=== PATIENT | female | born 1940 | race Caucasian/White ===

== ENCOUNTER 2023-07-16 18:43 | Inpatient (IN) | payer MEDICARE, SELFPAY ==
[2023-07-16] VITALS (12 sets, daily range): BP systolic 94–144; BP diastolic 42–63; BMI 29.6; BMI 28.7
--- NOTE | 2023-07-16 14:04 | ED.GENMED ---
History of Present Illness
<Rosalie Nunez PA-C - Last Filed: 07/16/23 19:58>
General
Chief Complaint: Abdominal Pain
Source: patient and family
Exam Limitations: none
Time Seen by Provider: 07/16/23 13:43
Nursing documentation reviewed up to this point in time: agreed with
Travel History
Have you had any contact with someone who has COVID-19?: No
Do you have any symptoms of coronavirus? Fever > 100 degrees, chills, cough, shortness of breath, sore throat, loss of taste or smell, muscle aches, or headache?: No
History of Present Illness
History of Present Illness:
This is a 83-year-old female with past medical history of COPD/chronic bronchitis, CVA with left-sided deficit, diverticulitis, diabetes, recurrent UTI presenting to emergency department today with dysuria, abdominal pain, nausea and vomiting for
the past week. She lives at a assisted living facility and the nurses called her daughter when they noticed she started to complain of abdominal pain and other symptoms. Her daughter flew in from [place] and states that during the past week, her
mom has appeared pale to her, more lethargic, and slightly confused. Patient does not have dementia at baseline. Patient herself states that the pain is primarily in her right lower quadrant but also experiences pain all over the lower abdomen.
She also states that this pain travels into the pelvis. States that the pain waxes and wanes and will come on sharp all of a sudden. Patient also reports that she has not been eating or drinking much due to decreased appetite. Patient's daughter
states that patient has been also complaining of dizziness. Daughter took her mom to her family doctor today who ordered urinalysis and treat gave her some Azo. They advised her to report to the emergency department. Patient denies chest pain,
shortness of breath.
Past History
<Rosalie Nunez PA-C - Last Filed: 07/16/23 19:58>
Past History
ED Past Medical History: Asthma, COPD, CVA (Stroke with alteplase 2018), GERD, HTN, Hypercholesterolemia, NIDDM, Psychiatric (Generalized anxiety, major depression), Other (Pulmonary embolism, pneumonia, vertigo, DVT, orthostatic hypotension) and
Other (Nocturnal hypoxia without apnea, orthostatic hypotension)
ED Past Surgical History: Gynecological, Orthopedic (Right TKA, lumbar laminectomy 2016), Tonsilectomy and Other (PEG tube placement, sphincterotomy)
Social History
Tobacco: Former smoker
Alcohol: Daily (One glass Vodka)
Personal:
Living: with family
Family History
Family History: Other
Review of Systems
<Rosalie Nunez PA-C - Last Filed: 07/16/23 19:58>
Review of Systems
All Other Systems: ROS reviewed and negative except as documented in HPI and ROS
Phy Exam
<ERIK Costa Last Filed: 07/16/23 19:58>
Physical Exam
Physical Exam:
General: Patient appears ill
Skin: pallor noted; no other rashes or lesions
Cardiac: Regular rate and rhythm, no murmurs. No tenderness palpation of the external chest wall
Pulmonary: Normal respiratory effort, some scattered rhonchi noted in lower lung bases.
Abdomen: Abdomen is nondistended, no guarding. Patient has significant tenderness palpation right lower and left lower quadrant. No rebound tenderness noted, no organomegaly, no palpable masses, no areas of ecchymosis.
Genitourinary: Nursing noted significant erythema upon placement of straight catheter. On my examination, there is red inflamed mucosa with no lesions consistent with atrophic vaginitis, no vaginal discharge.
Neurological: Patient is oriented to person and place. Patient starts to fall asleep and less stimulated. Patient does answer questions but does appear slightly confused. Patient has chronic left-sided weakness from prior stroke. Cranial nerves
II through XII intact. No involuntary movements noted.
Course
<Rosalie Nunez PA-C - Last Filed: 07/16/23 19:58>
Orders/Labs/Results
Orders:
Orders
07/16/23 14:14
IV Insert/Care/Rem.- Treatment PRN
Straight cath- Treatment ONCE
07/16/23 14:16
Complete Blood Count/With Diff Urgent
Comprehensive Metabolic Panel Urgent
Lactic Acid Q4H
Comment: ON ICE, CANCEL 2ND ORDER IF FIRST LACTIC ACID LEVEL <2
Urinalysis Reflex To Culture Urgent
Date Specimen was Collected: 07/16/23
Time Specimen was Collected: 14:15
Urine Microscopic Reflex Cult Urgent
Blood Culture Q30M
LEONELA Source: Blood/Venous
Specimen Description:
Comment: FROM 2 SEPARATE SITES
Blood Culture Q30M
LEONELA Source: Blood/Venous
Specimen Description:
Comment: FROM 2 SEPARATE SITES
Urine Culture Urgent
LEONELA Source: U
Specimen Description:
Date Specimen was Collected: 07/16/23
Time Specimen was Collected: 14:15
07/16/23 14:56
CT Abd/pelvis W Iv Cont Urgent
Comment:
Reason For Exam: right lower quadrant
07/16/23 14:57
Cefepime HCl [Maxipime] 1,000 mg IV NOW STA
07/16/23 15:10
Sterile Water [Sterile Water For Injection] 10 ml .ROUTE .[facility]
07/16/23 17:10
Azithromycin 500 mg/250 ml [Zithromax Infusion] 500 mg in 250 ml IV NOW
CefTRIAXone [Rocephin] 1,000 mg IV NOW STA
07/16/23 17:12
CR Chest - 2 Views Urgent
Comment:
Reason For Exam: right sided pain, hypoxia
07/16/23 18:19
Admit/Transfer Patient As Directed
Co-Sign Provider:
Level of Care: Inpatient admission
Assign to:: Telemetry
Physician / Group: jessica
Diagnosis: pneumonia/uti
Reason for Telemetry: Chest Pain syndromes
Date to Stop Telemetry: 07/18/23
Time to Stop Telemetry: 11:00
Reason for Hospitalization: pneumonia/uti
Expected length of stay greater than two midnights?: Yes
ELOS- Estimated Length of Stay in days: 2
I certify the patient meets the requirements for IP care: Yes
07/16/23 18:20
Code Status As Directed
Resuscitation Status: Do not resuscitate
Reached after discussion with pt or family/Healthcare POA: Yes
DNR Bracelet Application ONCE
07/16/23 18:22
Respiratory Culture/Gram Stain Urgent
LEONELA Source: Sputum
Specimen Description:
07/16/23 18:33
HYDROmorphone [Dilaudid] 0.5 mg IV Q4HPRN PRN
Ondansetron Injectable [Zofran] 4 mg IV Q6HPRN PRN
07/16/23 18:43
COVID-19 Antigen Urgent
Source: Nasal Swab
Influenza A+B Rapid Molecular Urgent
LEONELA Source: Nasal Swab
Specimen Description:
07/18/23 11:00
DC Protocol for Telemetry ONCE
Abnormal Lab Results
07/16/23
14:16
WBC 21.4 H 10^3/uL
(4.8-10.8)
RBC 3.93 L 10^6/uL
(4.20-5.40)
Hgb 9.4 L g/dL
(12.0-16.0)
Hct 30.2 L %
(37.0-47.0)
MCV 76.8 L fL
(81.0-99.0)
MCH 23.9 L pg
(27.0-31.0)
MCHC 31.1 L g/dL
(33.0-37.0)
RDW 15.3 H %
(11.5-14.5)
Plt Count 448 H 10^3/uL
(130-400)
Abs Immat Gran (auto) 0.1 H 10^3/uL
(0-0.05)
Absolute Neuts (auto) 18.6 H 10^3/uL
(1.4-6.5)
Absolute Lymphs (auto) 0.9 L 10^3/uL
(1.2-3.4)
Absolute Monos (auto) 1.7 H 10^3/uL
(0.1-0.6)
Immature Gran % 0.6 H %
(0-0.5)
Neutrophils % 87.0 H %
(42.2-75.2)
Lymphocytes % 4.1 L %
(20.5-51.1)
Sodium 129 L mmol/L
(135-145)
Creatinine 0.5 L mg/dL
(0.6-1.0)
Glucose 152 H mg/dl
(70-99)
Albumin 3.3 L g/dl
(3.5-5.0)
Urine Ketones 1+ A
(Negative)
Urine Nitrite (Reflex) Positive A
(Negative)
Urine Bilirubin 2+ A
(Negative)
Urine Urobilinogen 3+ A
(Neg - 1+)
Leukocyte Esterase Rfl Trace A
(Negative)
Urine Bacteria (Reflex) Many A
(Negative)
07/16/23 14:16
07/16/23 14:24
Vital Signs
Initial and Last Documented VS:
Initial Vital Signs
BP
144/63
07/16/23 13:50
Last Documented Vital Signs
Temp Pulse Resp BP Pulse Ox
98.5 F 84 25 106/57 94
07/16/23 14:06 07/16/23 19:00 07/16/23 19:00 07/16/23 19:00 07/16/23 19:00
<Sánchez Hernandez, DO - Last Filed: 07/16/23 15:54>
Orders/Labs/Results
Orders:
Orders
07/16/23 14:14
IV Insert/Care/Rem.- Treatment PRN
Straight cath- Treatment ONCE
07/16/23 14:16
Complete Blood Count/With Diff Urgent
Comprehensive Metabolic Panel Urgent
Lactic Acid Q4H
Comment: ON ICE, CANCEL 2ND ORDER IF FIRST LACTIC ACID LEVEL <2
Urinalysis Reflex To Culture Urgent
Date Specimen was Collected: 07/16/23
Time Specimen was Collected: 14:15
Urine Microscopic Reflex Cult Urgent
Blood Culture Q30M
LEONELA Source: Blood/Venous
Specimen Description:
Comment: FROM 2 SEPARATE SITES
Blood Culture Q30M
LEONELA Source: Blood/Venous
Specimen Description:
Comment: FROM 2 SEPARATE SITES
Urine Culture Urgent
LEONELA Source: U
Specimen Description:
Date Specimen was Collected: 07/16/23
Time Specimen was Collected: 14:15
07/16/23 14:56
CT Abd/pelvis W Iv Cont Urgent
Comment:
Reason For Exam: right lower quadrant
07/16/23 14:57
Cefepime HCl [Maxipime] 1,000 mg IV NOW STA
07/16/23 15:10
Sterile Water [Sterile Water For Injection] 10 ml .ROUTE .[facility]
07/16/23 17:10
Azithromycin 500 mg/250 ml [Zithromax Infusion] 500 mg in 250 ml IV NOW
CefTRIAXone [Rocephin] 1,000 mg IV NOW STA
07/16/23 17:12
CR Chest - 2 Views Urgent
Comment:
Reason For Exam: right sided pain, hypoxia
07/16/23 18:19
Admit/Transfer Patient As Directed
Co-Sign Provider:
Level of Care: Inpatient admission
Assign to:: Telemetry
Physician / Group: jessica
Diagnosis: pneumonia/uti
Reason for Telemetry: Chest Pain syndromes
Date to Stop Telemetry: 07/18/23
Time to Stop Telemetry: 11:00
Reason for Hospitalization: pneumonia/uti
Expected length of stay greater than two midnights?: Yes
ELOS- Estimated Length of Stay in days: 2
I certify the patient meets the requirements for IP care: Yes
07/16/23 18:20
Code Status As Directed
Resuscitation Status: Do not resuscitate
Reached after discussion with pt or family/Healthcare POA: Yes
DNR Bracelet Application ONCE
07/16/23 18:22
Respiratory Culture/Gram Stain Urgent
LEONELA Source: Sputum
Specimen Description:
07/16/23 18:33
HYDROmorphone [Dilaudid] 0.5 mg IV Q4HPRN PRN
Ondansetron Injectable [Zofran] 4 mg IV Q6HPRN PRN
07/16/23 18:43
COVID-19 Antigen Urgent
Source: Nasal Swab
Influenza A+B Rapid Molecular Urgent
LEONELA Source: Nasal Swab
Specimen Description:
07/18/23 11:00
DC Protocol for Telemetry ONCE
Abnormal Lab Results
07/16/23
14:16
WBC 21.4 H 10^3/uL
(4.8-10.8)
RBC 3.93 L 10^6/uL
(4.20-5.40)
Hgb 9.4 L g/dL
(12.0-16.0)
Hct 30.2 L %
(37.0-47.0)
MCV 76.8 L fL
(81.0-99.0)
MCH 23.9 L pg
(27.0-31.0)
MCHC 31.1 L g/dL
(33.0-37.0)
RDW 15.3 H %
(11.5-14.5)
Plt Count 448 H 10^3/uL
(130-400)
Abs Immat Gran (auto) 0.1 H 10^3/uL
(0-0.05)
Absolute Neuts (auto) 18.6 H 10^3/uL
(1.4-6.5)
Absolute Lymphs (auto) 0.9 L 10^3/uL
(1.2-3.4)
Absolute Monos (auto) 1.7 H 10^3/uL
(0.1-0.6)
Immature Gran % 0.6 H %
(0-0.5)
Neutrophils % 87.0 H %
(42.2-75.2)
Lymphocytes % 4.1 L %
(20.5-51.1)
Sodium 129 L mmol/L
(135-145)
Creatinine 0.5 L mg/dL
(0.6-1.0)
Glucose 152 H mg/dl
(70-99)
Albumin 3.3 L g/dl
(3.5-5.0)
Urine Ketones 1+ A
(Negative)
Urine Nitrite (Reflex) Positive A
(Negative)
Urine Bilirubin 2+ A
(Negative)
Urine Urobilinogen 3+ A
(Neg - 1+)
Leukocyte Esterase Rfl Trace A
(Negative)
Urine Bacteria (Reflex) Many A
(Negative)
07/16/23 14:16
07/16/23 14:24
Vital Signs
Initial and Last Documented VS:
Initial Vital Signs
BP
144/63
07/16/23 13:50
Last Documented Vital Signs
Temp Pulse Resp BP Pulse Ox
98.5 F 84 25 106/57 94
07/16/23 14:06 07/16/23 19:00 07/16/23 19:00 07/16/23 19:00 07/16/23 19:00
<Rosalie Nunez PA-C - Last Filed: 07/16/23 19:58>
MDM/Problems Addressed
Differential Diagnosis Includes:
Differentials include acute cystitis, pyelonephritis, appendicitis, colitis
MDM/Problems Addressed:
abdominal pain
dysuria
nausea/vomiting
Chronic conditions affecting care: DM, HTN, COPD and Neurological disorder (previous CVA, chronic left sided weakness)
Acute Exacerbation and/or Progression of Chronic Illness:
n/a
<Rosalie Nunez PA-C - Last Filed: 07/16/23 19:58>
*Pulse Oximetry
Patient hypoxic: yes (82% on room air, sating in the 90s on oxygen via nasal cannual)
*Critical Care Note
Total Time (30-74mins, 75-104mins- exclusive of procedures): Not Applicable
Data Reviewed
Review of Other/Old Records Reveals: Discharge Summary (reviewed discharged summary 12/30/22)
Prescriptions/Medications Considered But Not Given:
n/a
Further Testing Considered But Not Given:
n/a
<Rosalie Nunez PA-C - Last Filed: 07/16/23 19:58>
Patient Management
Escalation/DeEscalation of care consider admission/obs:
This is a 83-year-old female with a past medical history of COPD, CVA with left-sided weakness, recurrent UTIs, diabetes presents emergency department today with a week of abdominal pain, vomiting, and dysuria. Patient's daughter reports that she
has been increasingly more confused this week as well. On exam, she had moderate tenderness in the right lower quadrant as well as scattered rhonchi on her pulm exam. Her CBC reveals leukocytosis, her urinalysis reveals a UTI. We obtained a CT
scanning of the abdomen which revealed a right-sided pneumonia and concurrent pleural effusion. We treated patient with azithromycin and cefepime. Considering new supplemental oxygen requirement, altered mental status, concurrent UTI, and
comorbidities, we will plan to admit patient for inpatient care for community acquired pneumonia.
ED Attending Note
<Rosalie Nunez PA-C - Last Filed: 07/16/23 19:58>
-
Portions of this chart may have been created with voice recognition software.� Occasional wrong word or��sound alike� substitutions may have occurred due to the inherent limitations of voice recognition software.
<Sánchez Hernandez DO - Last Filed: 07/16/23 15:54>
ED Attending Note
Patient seen and examined by attending physician: Yes
I performed the substantive portion of visit, reviewed & personally made and approve the management plan that is documented in note by myself or GINA.: Yes
I performed a history and physical exam of patient and discussed management with resident, I reviewed resident's note and agree with documented findings and plan of care.: Yes
ED Attending Note:
I have reviewed and agree with history and treatment plan by Rosalie Nunez. My exam revealed 83-year-old female with right lower quadrant tenderness, rhonchi. Differential diagnosis pneumonia, appendicitis, UTI. Patient has UTI on urinalysis.
Plan to admit. Cefepime given. CT abdomen pelvis pending, chest x-ray pending.
Discharge Plan
Departure
Patient Disposition: Admit
Date of Disposition: 07/16/23
Time of Disposition: 17:35
Admit to: Med/Surg
Presentation/result/management discussed w/ accepting MD/DO: Hospitalist
Patient with high blood pressure during this ER visit?: Yes
Condition: Fair
Discharge Problem:
Community acquired pneumonia, Acute UTI
Interventions
Interventions:
*Risk Screen - Suicide Last Done: 07/16/23 14:11
*General Assessment Last Done: 07/16/23 14:11
*Neglect/Abuse Screening Last Done: 07/16/23 14:11
ED- Fall Risk Assessment Last Done: 07/16/23 14:12
*ED COVID-19 Vaccine History Last Done: 07/16/23 13:52
OZ-Dgcsgm-Opvaxybete Assessment Last Done: 07/16/23 14:12
[2023-07-16 14:31] LABS: % Basophils 0.3 % (0-2); % Eosinophils 0.1 % (0-6); % Immature Granulocytes 0.6 % (0-0.5); % Lymphocytes 4.1 % (20.5-51.1); % Monocytes 7.9 % (1.7-9.3); Absolute Basophils 0.1 10^3/uL (0-0.2); Absolute Immature Granulocytes 0.1 10^3/uL (0-0.05); Absolute Lymphocytes 0.9 10^3/uL (1.2-3.4); Absolute Monocytes 1.7 10^3/uL (0.1-0.6); Absolute Neutrophils 18.6 10^3/uL (1.4-6.5); Hematocrit 30.2 % (37.0-47.0); Hemoglobin 9.4 g/dL (12.0-16.0); Mean Corp Hgb Conc. 31.1 g/dL (33.0-37.0); Mean Corpuscular Hgb 23.9 pg (27.0-31.0); Mean Corpuscular Volume 76.8 fL (81.0-99.0); Mean Platelet Volume 9.8 fL (7.4-10.4); Nucleated Red Blood Cells % 0 %; Platelet Count 448 10^3/uL (130-400); Red Blood Cell Count 3.93 10^6/uL (4.20-5.40); Red Cell Dist. Width 15.3 % (11.5-14.5); White Blood Cell Count 21.4 10^3/uL (4.8-10.8)
[2023-07-16 14:37] LABS: Urine Albumin Trace (Neg - Trace); Urine Bilirubin 2+ (Negative); Urine Character Clear (Clear); Urine Color Amber; Urine Glucose Negative (Negative); Urine Ketone 1+ (Negative); Urine Leukocyte Trace (Negative); Urine Nitrite Positive (Negative); Urine Occult Blood Negative (Negative); Urine Urobilinogen 3+ (Neg - 1+)
[2023-07-16 14:49] LABS: ALT (SGPT) 14 U/L (0-35); AST (SGOT) 22 U/L (14-36); Albumin 3.3 g/dl (3.5-5.0); Alkaline Phosphatase 102 U/L (38-126); Blood Urea Nitrogen 13 mg/dl (7-17); Calcium 8.4 mg/dl (8.4-10.2); Carbon Dioxide 23 mmol/L (22-30); Chloride 98 mmol/L (98-107); Estimated Creatinine Clearance 69 ml/min; Glucose 152 mg/dl (70-99); Potassium 4.4 mmol/L (3.5-5.1); Sodium 129 mmol/L (135-145); Total Bilirubin 0.8 mg/dl (0.2-1.3); Total Protein 6.5 g/dl (6.3-8.2); eGFR > 60.00
[2023-07-16 14:52] LABS: Lactic Acid 0.9 mmol/L (0.7-2.0); Urine Mucus Many
[2023-07-16 14:53] LABS: Urine Squamous Cell >30 /LPF (Few)
[2023-07-16 14:54] LABS: Urine Bacteria Many (Negative); Urine Granular Cast 0-2 /LPF (0)
[2023-07-16 14:55] LABS: Urine Red Blood Cell 0-2 /HPF (0-2)
[2023-07-16] MEDS: MAXIPIME 1000 MG IV (15:11)
[2023-07-16] MEDS: ZITHROMAX INFUSION 250 IV (17:32)
--- NOTE | 2023-07-16 18:27 | HPS.HSE ---
Family Physician
-
Family Physician: Abi Collins MD
Chief Complaint
-
chest/abdominal pain
History of Present Illness
83-year-old female with past medical history of asthma/COPD, prediabetes, hypertension, constipation, anemia, GERD, CVA with residual left-sided paralysis, anxiety/depression, recurrent UTI, orthostatic hypotension, history of DVT/PE, achalasia,
IBS, diverticulosis presenting from assisted living facility with, abdominal pain and nausea and vomiting for the past week. She has also been having cough, chest pain worse with cough and hypoxia. Daughter noticed that patient has appeared more
pale, lethargic and slightly confused over the past week. Pain is located primarily in the right lower quadrant but also in the lower abdomen bilaterally. Pain waxes and wanes and comes on sharp and suddenly. Patient has not been eating or
drinking much due to decreased appetite. Patient is also been dizzy. Daughter took patient to family doctor today who ordered urinalysis and advised her to go to the emergency room.
Patient does not smoke or drink alcohol.
Patient has been having chronic back pain and neuropathic pain in the left upper extremity where she had prior stroke. She takes tramadol once a day at nighttime and Tylenol which has been inadequate. Patient's primary care physician was
considering gabapentin.
Medical History
Past Medical History
Past Medical History: Reports Other (asthma/COPD, prediabetes, hypertension, constipation, anemia, GERD, CVA with residual left-sided paralysis, anxiety/depression, recurrent UTI, orthostatic hypotension, history of DVT/PE, achalasia, IBS,
diverticulosis)
Past Surgical History: Reports Other ( Gynecological, Orthopedic (Right TKA, lumbar laminectomy 2016), Tonsilectomy and Other (PEG tube placement, sphincterotomy))
Social History
Tobacco: Non-smoker
Alcohol: None
Drug: None
Family History
Family History: Not pertinent
Allergies / Home Medications
Allergies reflects when Allergies were last updated in [employer].
Home Medications with original date entered in [facility]
Allergy/Medication List:
Allergies
Allergy/AdvReac Type Severity Reaction Status Date / Time
codeine [Codeine] Allergy Nausea Verified 07/16/23 13:41
prochlorperazine Allergy Rash Verified 07/16/23 13:41
Clswbxu-VJR-DaI Reductase Allergy muscle Verified 07/16/23 13:41
Inhibitor weakness
[Prxklwb-Ueo-Hqj Reductase
Inhibitor]
Sulfa (Sulfonamide Allergy Pt unsure Verified 07/16/23 13:41
Antibiotics) of reaction
Home Medications
montelukast 10 mg tablet 10 mg PO DAILY Lung/breathing issues 09/30/15
ipratropium 20 mcg-albuterol 100 mcg/actuation mist for inhalation (Combivent Respimat) 1 puff inhalation R QID 05/04/16
cholecalciferol (vitamin D3) 25 mcg (1,000 unit) tablet 1,000 units PO DAILY Supplement 12/21/16
aspirin 81 mg chewable tablet 81 mg PO DAILY Blood clot prevention/tx 10/09/20
atorvastatin 20 mg tablet 20 mg PO HS High cholesterol 10/09/20
bupropion HCl 100 mg tablet 100 mg PO TID Mental Health/Anxiety 10/09/20
fluticasone propionate 50 mcg/actuation nasal spray,suspension 1 spray intranasal DAILY Allergies 10/09/20
guaifenesin 100 mg/5 mL oral liquid 100 mg PO Q6HPRN PRN cough ##0 10/09/20
meclizine 12.5 mg tablet 12.5 mg PO BIDPRN PRN dizziness 10/09/20
melatonin 5 mg tablet 5 mg PO HSPRN PRN INSOMNIA 10/09/20
menthol 5 % topical patch (Icy Hot (menthol)) 1 patch topical DAILY left hip ##0 10/09/20
omeprazole 20 mg capsule,delayed release 20 mg PO DAILY Gastrointestinal issue 10/09/20
phenazopyridine 100 mg tablet 100 mg PO BIDPRN PRN URINARY BURNING 10/09/20
polyethylene glycol 3350 17 gram oral powder packet 17 grams PO DAILYPRN PRN CONSTIPATION 10/09/20
rivaroxaban 20 mg tablet (Xarelto) 20 mg PO QPM Blood clot prevention/tx 10/09/20
sertraline 100 mg tablet 100 mg PO DAILY Mental Health/Anxiety 10/09/20
terazosin 1 mg capsule 1 mg PO HS Urinary issue 10/09/20
trazodone 50 mg tablet 50 mg PO BID PRN insomnia 10/09/20
Calazmine Skin Protect 1 applic topical TID PRN apply to groin, buttocks, coccyx 12/27/22
acetaminophen 160 mg/5 mL oral liquid (M-PAP) 1,000 mg PO TID@0600,1400,2200 12/27/22
baclofen 10 mg tablet 10 mg PO TIDPRN PRN muscle spams 12/27/22
fluticasone 113 mcg-salmeterol 14 mcg/actuation breath activated powdr 1 inh inhalation R BID 12/27/22
ipratropium 20 mcg-albuterol 100 mcg/actuation mist for inhalation (Combivent Respimat) 1 puff inhalation R BIDPRN PRN sob 12/27/22
menthol 5 % topical patch (Icy Hot (menthol)) 1 patch topical DAILY PRN left shoulder 12/27/22
mirabegron 25 mg tablet,extended release 24 hr (Myrbetriq) 25 mg PO DAILY 12/27/22
nystatin 100,000 unit/gram topical powder 1 applic topical DAILYPRN PRN breasts/groin rash 12/27/22
psyllium 1 packet PO DAILY ##0 12/27/22
tramadol 50 mg tablet 50 mg PO BID 12/27/22
vit C 250 mg-E 90 mg-zinc 40 mg-copper 1 du-ramckf-vkfjfo chew tablet (PreserVision AREDS-2) 1 tab PO DAILY 12/27/22
cyanocobalamin (vitamin B-12) 1,000 mcg tablet 1,000 mcg PO DAILY #30 tabs 12/30/22
midodrine 5 mg tablet 5 mg PO TID 07/16/23
Review of Systems
-
History Source: Patient
A 12 point ROS was completed and negative except as noted: Yes
Constitutional: Reports No Symptoms
EENT: Reports No Symptoms
Respiratory: Reports See HPI
Cardiac: Reports See HPI
Abdomen/GI: Reports See HPI
: Reports No Symptoms
Musculoskeletal: Reports No Symptoms
Skin: Reports No Symptoms
Neurological: Reports No Symptoms
Endocrine: Reports No Symptoms
Hematologic/Lymphatic: Reports No Symptoms
Psych: Reports No Symptoms
Physical Exam
Vital Signs
Vital Signs
Temp Pulse Resp BP Pulse Ox
98.5 F 83 22 122/57 92
07/16/23 14:06 07/16/23 17:15 07/16/23 17:15 07/16/23 17:00 07/16/23 17:15
Physical Exam
General: Well Developed, Well Nourished and No Apparent Distress
HEENT: NormoCephalic, Moist mucous membranes and Atraumatic
Respiratory: Clear
Cardiac: S1/S2 and Regular Rhythm; No Murmur or Rub
GI: Soft, Non Distended, Normal Bowel Sounds and Tender; No Organomegaly
Rectal: Deferred by Provider
Musculoskeletal: No Clubbing, No Cyanosis and No Edema
Skin: No Rash
Neuro: Nonfocal/grossly intact
Laboratory Results
-
07/16/23 14:16
07/16/23 14:24
Laboratory Results
Lactic Acid Cancelled 07/16/23 14:28
Total Bilirubin Cancelled 07/16/23 14:24
AST Cancelled 07/16/23 14:24
ALT Cancelled 07/16/23 14:24
Alkaline Phosphatase Cancelled 07/16/23 14:24
Data Reviewed
-
Lab Data: Labs Reviewed by me
Old Records: Reviewed
Impression/Plan
-
IMPRESSION:
PLAN:
# Right basilar pneumonia with small right pleural effusion
-As per CT abdomen pelvis
-Chest x-ray pending
-Check sputum culture
-Check blood cultures
-Check COVID influenza
-IV fluids
-Ceftriaxone/azithromycin
-As needed Dilaudid for significant chest/abdominal pain
# Possible UTI
-UA shows positive nitrates, 3-5 WBC
-Patient has grew E. coli several times in the past
-Ceftriaxone
-Continue azo
Asthma/COPD
-Continue inhalers
-Continue montelukast
Prediabetes
History of CVA with residual left-sided paralysis/neuropathic pain
-difficulty with pain control
-Continue aspirin, statin
-Consider gabapentin when infection better treated and mental status improved
Chronic back pain
-Continue tramadol
History of muscle spasms
-continue baclofen PRN
Constipation
-Continue MiraLAX
Chronic anemia
-Hemoglobin stable
GERD
-Continue omeprazole
Anxiety/depression
-Continue bupropion, sertraline
-Continue trazodone PRN
History of orthostatic hypotension
-Continue midodrine
History of DVT/PE
-Continue Xarelto
Essential hypertension
-Continue terazosin
History of achalasia
IBS
Diverticulosis
DNR/DNI
DVT prophylaxis�Xarelto
Regular diet
[2023-07-16] MEDS: DILAUDID 0.5 MG IV (18:36)
[2023-07-16] MEDS: ZOFRAN 4 MG IV (18:38)
[2023-07-16 19:15] LABS: COVID-19 Antigen Negative (Negative)
[2023-07-16] MEDS: ADVAIR HFA 115/21 MCG INHALER 2 PUFF INH (21:14)
[2023-07-16] MEDS: COMBIVENT RESPIMAT INHAL SPRAY 1 PUFF INH (21:14)
[2023-07-16] MEDS: ULTRAM 50 MG PO (21:52)
[2023-07-16] MEDS: HYTRIN 1 MG PO (21:52)
[2023-07-16] MEDS: DESENEX/MITRAZOL/ZEASORB 1 APPLIC TOPICAL (21:52)
[2023-07-16] MEDS: NSS 1000 IV (21:52)
[2023-07-16] MEDS: TYLENOL 1000 MG PO (21:53)
[2023-07-16] MEDS: STERILE WATER FOR INJECTION 10 ML IV (21:53)
[2023-07-16] MEDS: ROCEPHIN 1000 MG IV (21:53)
[2023-07-16] MEDS: WELLBUTRIN REGULAR RELEASE 100 MG PO (21:53)
[2023-07-16] MEDS: LIPITOR 20 MG PO (21:53)
[2023-07-17] VITALS (8 sets, daily range): BP systolic 102–130; BP diastolic 41–60
--- NOTE | 2023-07-17 01:09 | PTCARENOTE ---
Patient arrived from the ED via stretcher at approximately 2100. Patient pulled over from stretcher to bed with no event. Patient AAOx3, forgetful (especially to time at times), SOLOMON. Patient w/ residual L sided facial droop, L sided decreased
sensation/numbness/tingling, and tremors/spastic movements from prior CVA. VSS as documented. Assessment as documented. Patient oriented to room, bed in lowest position, call edwards within reach.
--- NOTE | 2023-07-17 04:14 | PTCARENOTE ---
Patient's 0300 BP 102/47, HR 78. Patient offering no complaints at that time. LAMINATOR HAND notified. Instructed this RN to obtain manual BP. Manual BP of 110/44 - LAMINATOR HAND notified of manual BP. No new orders at this time.
[2023-07-17] MEDS: TYLENOL 1000 MG PO ×3 (06:11→21:18)
[2023-07-17] MEDS: ADVAIR HFA 115/21 MCG INHALER 2 PUFF INH ×2 (07:35→18:02)
[2023-07-17] MEDS: COMBIVENT RESPIMAT INHAL SPRAY 1 PUFF INH ×4 (07:35→18:03)
[2023-07-17 07:58] LABS: % Basophils 0.4 % (0-2); % Eosinophils 2.7 % (0-6); % Immature Granulocytes 0.4 % (0-0.5); % Lymphocytes 7.9 % (20.5-51.1); % Monocytes 9.4 % (1.7-9.3); % Neutrophils 79.2 % (42.2-75.2); Absolute Basophils 0.1 10^3/uL (0-0.2); Absolute Eosinophils 0.4 10^3/uL (0-0.7); Absolute Immature Granulocytes 0.1 10^3/uL (0-0.05); Absolute Lymphocytes 1.1 10^3/uL (1.2-3.4); Absolute Monocytes 1.3 10^3/uL (0.1-0.6); Absolute Neutrophils 11.1 10^3/uL (1.4-6.5); Hematocrit 26.7 % (37.0-47.0); Hemoglobin 8.5 g/dL (12.0-16.0); Mean Corp Hgb Conc. 31.8 g/dL (33.0-37.0); Mean Corpuscular Hgb 23.9 pg (27.0-31.0); Mean Corpuscular Volume 75.2 fL (81.0-99.0); Nucleated Red Blood Cells % 0 %; Red Blood Cell Count 3.55 10^6/uL (4.20-5.40); Red Cell Dist. Width 15.2 % (11.5-14.5)
[2023-07-17 08:08] LABS: ALT (SGPT) 12 U/L (0-35); AST (SGOT) 18 U/L (14-36); Albumin 2.7 g/dl (3.5-5.0); Alkaline Phosphatase 93 U/L (38-126); Blood Urea Nitrogen 8 mg/dl (7-17); Calcium 8.1 mg/dl (8.4-10.2); Carbon Dioxide 24 mmol/L (22-30); Chloride 104 mmol/L (98-107); Estimated Creatinine Clearance 68 ml/min; Glucose 94 mg/dl (70-99); Sodium 133 mmol/L (135-145); Total Bilirubin 0.6 mg/dl (0.2-1.3); Total Protein 5.7 g/dl (6.3-8.2); eGFR > 60.00
[2023-07-17] MEDS: WELLBUTRIN REGULAR RELEASE 100 MG PO ×3 (09:02→21:19)
[2023-07-17] MEDS: OCUVITE SOFTGEL 1 CAP PO (09:03)
[2023-07-17] MEDS: VITAMIN B-12 1000 MCG PO (09:03)
[2023-07-17] MEDS: LOW STRENGTH ASPIRIN 81 MG PO (09:03)
[2023-07-17] MEDS: VITAMIN D3 (cholecalciferol) 25 MCG PO (09:03)
[2023-07-17] MEDS: SINGULAIR 10 MG PO (09:03)
[2023-07-17] MEDS: ProAmatine 5 MG PO ×3 (09:03→17:45)
[2023-07-17] MEDS: ZOLOFT 100 MG PO (09:03)
[2023-07-17] MEDS: PROTONIX 40 MG PO (09:03)
[2023-07-17] MEDS: LIDOCAINE 4% PATCH 2 PATCH TOPICAL (09:04)
[2023-07-17] MEDS: METAMUCIL, KONSYL 1 PACKET PO (09:05)
[2023-07-17] MEDS: ULTRAM 50 MG PO ×2 (09:05→20:05)
[2023-07-17] MEDS: DESENEX/MITRAZOL/ZEASORB 1 APPLIC TOPICAL ×2 (09:21→20:05)
[2023-07-17] MEDS: NSS 1000 IV ×2 (09:27→21:45)
--- NOTE | 2023-07-17 11:03 | W.PN.HOSP.TC ---
Today's Communication/Plan
-
Speech eval
Barium swallow
cw abx as planned above
Assessment / Plan
Assessment / Plan
# Right basilar pneumonia with small right pleural effusion/atelectasis
Patient with cough , leukocytosis and above lung imaging all concerning for pneumonia.
With the GI symptoms of constant nausea and abdominal pain also concerned about aspiration. She has remote history of achalasia.
Continue with empirical antibiotics-add anaerobic coverage. Swtich CTX to Zosyn and cw Zithromax for atypical for now
Speech eval
Barium swallow
--Check blood cultures- pending
-Neg COVID influenza
-cw IV fluids
# Nausea and abdominal pain -persistent nausea with intermittent abdominal pain with negative CT abdomen pelvis with IV contrast. No oral contrast given. Belly is soft with nonspecific left upper quadrant discomfort. Unclear etiology but will
evaluate further from achalasia standpoint -check barium swallow.
# UA abnormal but no pyuria - no dysuria . It is a contaminated specimen.
Asthma/COPD
No excacerbation
-Continue inhalers
-Continue montelukast
Prediabetes
History of CVA with residual left-sided paralysis/neuropathic pain
-difficulty with pain control
-Continue aspirin, statin
-Consider gabapentin when infection better treated and mental status improved
Chronic back pain
-Continue tramadol
History of muscle spasms
-continue baclofen PRN
Constipation
-Continue MiraLAX
Chronic anemia
-Hemoglobin stable
GERD
-Continue omeprazole
Anxiety/depression
-Continue bupropion, sertraline
-Continue trazodone PRN
History of orthostatic hypotension
-Continue midodrine
History of DVT/PE
-Continue Xarelto
Essential hypertension
-Continue terazosin
History of achalasia
IBS
Diverticulosis
DNR/DNI
DVT prophylaxis�Xarelto
Total time spent on today's encounter was 52 minutes which included time spent in counseling the patient/family regarding diagnosis and treatment plan as listed above, goals of care, and symptom management. Case was discussed with nursing staff,
specialists, and care coordinators/case management. All labs and imaging personally reviewed by me. Remainder the time spent in detailed review of previous records, lab data, imaging, and other medical provider documentation.
Anticipated Discharge: > 48 hours
Subjective/Interval History
-
Date of Service: July 17, 2023
Patient presents with 1 week of constant nausea and intermittent abdominal pain.
She has constant nausea but denies any vomiting. Her abdominal pain is moderate in nature comes in waves. Does not seems to be related to food. But her appetite has been low. No diarrhea. No fever or chills.
She has prior history of achalasia needing dilatation that was many years ago. She has dysphagia with achalasia and the pain seems different.
She had a cough
Objective Data
-
Labs:
Laboratory Results
07/17/23
06:40
WBC 14.0 H
Hgb 8.5 L
Hct 26.7 L
Plt Count Pending
Sodium 133 L
Potassium 4.0
Chloride 104
Carbon Dioxide 24
BUN 8
Creatinine 0.5 L
Glucose 94
Calcium 8.1 L
Total Bilirubin 0.6
AST 18
ALT 12
Alkaline Phosphatase 93
Vital Signs:
Vital Signs
Temp Pulse Resp BP Pulse Ox
98.8 F 79 12 105/41 95
07/17/23 08:37 07/17/23 08:37 07/17/23 08:37 07/17/23 08:37 07/17/23 08:37
Review of Systems
-
Constitutional: Denies Fever or Chills
EENT: Denies Sore Throat
Respiratory: Denies Trouble Breathing (at rest)
Cardiac: Denies Chest Pain or Palpitations
Genitourinary: Denies Dysuria
Neuro: Reports Weakness (left sided residual from stroke); Denies Dizzy
Physical Exam
-
General: No Apparent Distress
HEENT: Moist Mucous Membranes
Respiratory: Crackles (rt basilar area) and Non Labored Respirations; Negative Wheezes or Accessory Resp Muscle Use
Cardiac: Regular Rhythm and S1/S2
GI: Soft, Nondistended, Normal Bowel Sounds and Tender (discomfort in LUQ area but doesnt seem consistent )
Musculoskeletal: No Edema
Neuro: AO x 3; Negative No Motor Deficits (lt sided hemiparesis 09/16 UE;/ LE)
Psych: Calm; Negative Confused
Data Reviewed
-
Labs: Labs Reviewed by me
[2023-07-17] MEDS: DILAUDID 0.5 MG IV ×2 (11:42→21:45)
[2023-07-17] MEDS: FLUSH (NSS) 2 FLUSH IV ×2 (11:43→17:46)
[2023-07-17] MEDS: ZOSYN 50 IV ×2 (11:44→17:45)
[2023-07-17] MEDS: ZOFRAN 4 MG IV ×2 (11:48→21:51)
--- NOTE | 2023-07-17 14:56 | PTOTSP ---
Dysphagia Evaluation
83 y/o female with admission for right basilar pneumonia with small right pleural effusion and possible UTI.
Pt presents with a mild to moderately impaired oropharyngeal swallow characterized by prolonged chew of regular solid 2/2 L sided facial weakness, and increased SOB and c/o globus sensation s/p trials of regular solid. Recommend trial of soft and
bite sized diet (IDDSI 6) and thin liquids (IDDSI 0). Consider repeat VSE s/p barium swallow study if PNA is suspected to be aspiration related.
Aspiration risk is increased (both top-down and bottom-up) 2/2 increased O2 needs, presence of PNA, AMS, and multiple comorbidities (achalasia, asthma/COPD, GERD, CVA with residual left-sided paralysis).
Recommend:
1. Soft and bite sized (IDDSI 6), thin liquids (IDDSI 0)
2. Meds crushed in puree
3. Feeding strategies: Slow rate, chew well, alternate bites and sips, full supervision, upright for PO
4. Strict reflux precautions: upright 30 minutes after PO, smaller more frequent meals when able
5. GI consult in the presence of achlasia hx
6. Possible repeat video swallow study to determine safest and least restrictive diet level
7. [employer] service to f/u at the acute care level and provide dysphagia tx as able
--- NOTE | 2023-07-17 15:55 | CM ---
manager reliability reviewed patient's chart and met with patient and daughter and spoke with patient's spouse, patient resides at [facility]. Patient uses a wheel chair with ambulation, patient able to stand and pivot to chair. Patient able to
feed self, with set up, patient is currently on 6 liters of oxygen and patient did not require oxygen prior to admission. Patient was receiving physical therapy at [facility].
Plan; To follow with patient progress and assist with discharge planning for patient.
[2023-07-17] MEDS: XARELTO 20 MG PO (17:45)
[2023-07-17] MEDS: ZITHROMAX INFUSION 250 IV (20:05)
[2023-07-17] MEDS: LIPITOR 20 MG PO (21:18)
[2023-07-17] MEDS: HYTRIN 1 MG PO (21:19)
[2023-07-18] VITALS (7 sets, daily range): BP systolic 97–141; BP diastolic 53–67; PULSE 84; O2SAT 91–92; BMI 28.7
[2023-07-18] MEDS: ZOSYN 50 IV ×4 (06:04→17:42)
[2023-07-18] MEDS: TYLENOL 1000 MG PO ×3 (06:04→22:44)
[2023-07-18] MEDS: DULCOLAX 10 MG RECTAL (06:05)
[2023-07-18 06:50] LABS: Hematocrit 24.8 % (37.0-47.0); Hemoglobin 7.7 g/dL (12.0-16.0); Mean Corpuscular Hgb 23.9 pg (27.0-31.0); Mean Platelet Volume 9.7 fL (7.4-10.4); Platelet Count 418 10^3/uL (130-400); Red Blood Cell Count 3.22 10^6/uL (4.20-5.40); Red Cell Dist. Width 15.5 % (11.5-14.5); White Blood Cell Count 14.4 10^3/uL (4.8-10.8)
[2023-07-18 07:09] LABS: Blood Urea Nitrogen 5 mg/dl (7-17); Calcium 7.4 mg/dl (8.4-10.2); Carbon Dioxide 26 mmol/L (22-30); Chloride 106 mmol/L (98-107); Estimated Creatinine Clearance 68 ml/min; Glucose 86 mg/dl (70-99); Potassium 3.4 mmol/L (3.5-5.1); Sodium 135 mmol/L (135-145); eGFR > 60.00
[2023-07-18] MEDS: ADVAIR HFA 115/21 MCG INHALER 2 PUFF INH ×2 (07:48→20:00)
[2023-07-18] MEDS: COMBIVENT RESPIMAT INHAL SPRAY 1 PUFF INH ×4 (07:48→20:00)
[2023-07-18] MEDS: MIRALAX 17 GRAMS PO (08:12)
[2023-07-18] MEDS: LIDOCAINE 4% PATCH 2 PATCH TOPICAL (08:12)
[2023-07-18] MEDS: OCUVITE SOFTGEL 1 CAP PO (08:13)
[2023-07-18] MEDS: ROBITUSSIN 100 MG PO ×2 (08:13→14:12)
[2023-07-18] MEDS: WELLBUTRIN REGULAR RELEASE 100 MG PO ×3 (08:13→22:44)
[2023-07-18] MEDS: LOW STRENGTH ASPIRIN 81 MG PO (08:13)
[2023-07-18] MEDS: VITAMIN B-12 1000 MCG PO (08:13)
[2023-07-18] MEDS: ULTRAM 50 MG PO ×2 (08:13→20:45)
[2023-07-18] MEDS: ZOLOFT 100 MG PO (08:17)
[2023-07-18] MEDS: SINGULAIR 10 MG PO (08:17)
[2023-07-18] MEDS: ProAmatine 5 MG PO ×3 (08:17→17:42)
[2023-07-18] MEDS: VITAMIN D3 (cholecalciferol) 25 MCG PO (08:17)
[2023-07-18] MEDS: KCL 40 MEQ PO (08:18)
[2023-07-18] MEDS: PROTONIX 40 MG PO (08:18)
[2023-07-18] MEDS: ZOFRAN 4 MG IV (08:19)
[2023-07-18] MEDS: FLUSH (NSS) 2 FLUSH IV ×4 (08:19→17:42)
[2023-07-18] MEDS: METAMUCIL, KONSYL PO (08:29)
[2023-07-18] MEDS: DILAUDID 0.5 MG IV ×2 (09:33→14:13)
[2023-07-18] MEDS: DESENEX/MITRAZOL/ZEASORB 1 APPLIC TOPICAL ×2 (09:34→20:45)
--- NOTE | 2023-07-18 10:28 | W.PN.HOSP.TC ---
Today's Communication/Plan
-
stop IVF
wean O2
repeat CXR in AM
start bowel regimen to get bowels moving
cont abx
heme test stools
Assessment / Plan
Assessment / Plan
pt is an 83 year old female
Right basilar pneumonia with small right pleural effusion/atelectasis--likely CAP but concerned about aspiration (remote history of achalasia)--currently on zosyn and zithromax (Abx could be causing nausea)--follow cultures--wean O2 to off as
able--barium swallow in AM--follow cultures--stop IVF
Nausea and abdominal pain--persistent nausea with intermittent abdominal pain with negative CT abdomen pelvis with IV contrast--No oral contrast given-- Unclear etiology but will evaluate further from achalasia standpoint -check barium swallow--try
to get bowels moving
UA abnormal but no pyuria - no dysuria . It is a contaminated specimen.
Asthma/COPD--No exacerbation--Continue inhalers--Continue montelukast
Prediabetes
History of CVA with residual left-sided paralysis/neuropathic pain--difficulty with pain control--Continue aspirin, statin--Consider gabapentin when infection better treated and mental status improved
Chronic back pain--Continue tramadol
History of muscle spasms--continue baclofen PRN
Constipation--Continue MiraLAX
Chronic anemia--Hemoglobin lower than baseline--follow for now--may need transfusion--heme check stools
GERD--Continue omeprazole
Anxiety/depression--Continue bupropion, sertraline--Continue trazodone PRN
History of orthostatic hypotension--Continue midodrine
History of DVT/PE--Continue Xarelto
Essential hypertension--Continue terazosin
IBS
Diverticulosis
code status --DNR/DNI
DVT prophylaxis�Xarelto
Anticipated Discharge: > 48 hours
Subjective/Interval History
-
Date of Service: July 18, 2023
pt without c/o
Objective Data
-
Labs:
Laboratory Results
07/18/23
06:00
WBC 14.4 H
Hgb 7.7 L
Hct 24.8 L
Plt Count 418 H
Sodium 135
Potassium 3.4 L
Chloride 106
Carbon Dioxide 26
BUN 5 L
Creatinine 0.4 L
Glucose 86
Calcium 7.4 L
Vital Signs:
max temp for 24 hours
07/17/23
23:21
Temp 98.5 F
Vital Signs
Temp Pulse Resp BP Pulse Ox
97.8 F 78 16 132/56 92
07/18/23 07:25 07/18/23 07:55 07/18/23 07:55 07/18/23 07:25 07/18/23 07:55
I&O
07/17/23 07/18/23 07/19/23
06:59 06:59 06:59
Intake Total 2460 / 2460
Balance 2460 / 2460
Review of Systems
-
All other systems: Reviewed and negative
Abdomen/GI: Reports Nausea and Constipated
Physical Exam
-
General: Well Developed, Well Nourished and No Apparent Distress
HEENT: Normocephalic, Atraumatic and Oxygen (6L)
Respiratory: Rhonchi (right base)
Cardiac: Regular Rhythm; Negative Murmur
GI: Soft, Nontender, Nondistended and Normal Bowel Sounds
Musculoskeletal: No Clubbing, No Cyanosis, No Edema and Other (contracted left upper arm)
Neuro: Awake
Psych: Calm
[2023-07-18] MEDS: LIORESAL 10 MG PO (12:01)
[2023-07-18] MEDS: NSS IV (12:41)
[2023-07-18] MEDS: NEURONTIN 100 MG PO ×2 (16:05→22:44)
[2023-07-18] MEDS: XARELTO 20 MG PO (17:43)
[2023-07-18] MEDS: HYTRIN 1 MG PO (22:44)
[2023-07-18] MEDS: LIPITOR 20 MG PO (22:44)
[2023-07-19] MEDS: ZOSYN 50 IV ×5 (00:28→23:38)
[2023-07-19] MEDS: TYLENOL 1000 MG PO ×3 (06:11→23:07)
[2023-07-19 06:33] LABS: Hematocrit 28.2 % (37.0-47.0); Hemoglobin 8.6 g/dL (12.0-16.0); Mean Corp Hgb Conc. 30.5 g/dL (33.0-37.0); Mean Corpuscular Hgb 24.2 pg (27.0-31.0); Mean Corpuscular Volume 79.4 fL (81.0-99.0); Mean Platelet Volume 9.5 fL (7.4-10.4); Platelet Count 464 10^3/uL (130-400); Red Blood Cell Count 3.55 10^6/uL (4.20-5.40); Red Cell Dist. Width 15.4 % (11.5-14.5); White Blood Cell Count 14.2 10^3/uL (4.8-10.8)
[2023-07-19 06:53] LABS: Blood Urea Nitrogen 5 mg/dl (7-17); Calcium 8.5 mg/dl (8.4-10.2); Carbon Dioxide 31 mmol/L (22-30); Chloride 99 mmol/L (98-107); Estimated Creatinine Clearance 68 ml/min; Glucose 99 mg/dl (70-99); Magnesium 1.9 mg/dl (1.6-2.3); Potassium 4.2 mmol/L (3.5-5.1); Sodium 137 mmol/L (135-145); eGFR > 60.00
[2023-07-19 07:25] VITALS: BP 134/59
[2023-07-19] MEDS: COMBIVENT RESPIMAT INHAL SPRAY 1 PUFF INH ×4 (07:50→19:50)
[2023-07-19] MEDS: ADVAIR HFA 115/21 MCG INHALER 2 PUFF INH ×2 (07:51→19:49)
[2023-07-19] MEDS: LIDOCAINE 4% PATCH 2 PATCH TOPICAL (09:43)
[2023-07-19] MEDS: ZITHROMAX 250 MG PO (09:51)
[2023-07-19] MEDS: LOW STRENGTH ASPIRIN 81 MG PO (09:51)
[2023-07-19] MEDS: NEURONTIN 100 MG PO ×3 (09:51→23:08)
[2023-07-19] MEDS: ULTRAM 50 MG PO ×2 (09:52→20:23)
[2023-07-19] MEDS: ProAmatine 5 MG PO ×3 (09:52→17:20)
[2023-07-19] MEDS: PROTONIX 40 MG PO (09:52)
[2023-07-19] MEDS: OCUVITE SOFTGEL 1 CAP PO (09:52)
[2023-07-19] MEDS: VITAMIN B-12 1000 MCG PO (09:52)
[2023-07-19] MEDS: WELLBUTRIN REGULAR RELEASE 100 MG PO ×3 (09:52→23:07)
[2023-07-19] MEDS: SINGULAIR 10 MG PO (09:53)
[2023-07-19] MEDS: VITAMIN D3 (cholecalciferol) 25 MCG PO (09:53)
[2023-07-19] MEDS: DESENEX/MITRAZOL/ZEASORB 1 APPLIC TOPICAL ×2 (09:53→20:27)
[2023-07-19] MEDS: ZOLOFT 100 MG PO (09:53)
[2023-07-19] MEDS: METAMUCIL, KONSYL 1 PACKET PO (09:53)
[2023-07-19] MEDS: ZOFRAN 4 MG IV (10:01)
--- NOTE | 2023-07-19 10:48 | W.PN.HOSP.TC ---
Today's Communication/Plan
-
Repeat CXR
Consult Neuro
Assessment / Plan
Assessment / Plan
pt is an 83 year old female
Right basilar pneumonia with small right pleural effusion/atelectasis--likely CAP but concerned about aspiration (remote history of achalasia)--currently on zosyn and zithromax --nonbacteremic
Improved white count but has stalled in the last couple of readings. Afebrile .concerned about developing pleural effusion. Check a chest x-ray today and consider a tap.
Nausea and abdominal pain--persistent nausea with intermittent abdominal pain with negative CT abdomen pelvis with IV contrast--No oral contrast given-- Unclear etiology but will evaluate further from achalasia standpoint - --try to get bowels
moving
Today she brings to my attention associated positional component of dizziness along with nausea and symptoms seems to me vertigious than primary GI now.
Consult neuro.
UA abnormal but no pyuria - no dysuria . It is a contaminated specimen.
Asthma/COPD--No exacerbation--Continue inhalers--Continue montelukast
Prediabetes
History of CVA with residual left-sided paralysis/neuropathic pain--difficulty with pain control--Continue aspirin, statin--Consider gabapentin when infection better treated and mental status improved
Chronic back pain--Continue tramadol
History of muscle spasms--continue baclofen PRN
Constipation--Continue MiraLAX
Chronic anemia--Hemoglobin lower than baseline--follow for now--may need transfusion--heme check stools
GERD--Continue omeprazole
Anxiety/depression--Continue bupropion, sertraline--Continue trazodone PRN
History of orthostatic hypotension--Continue midodrine
History of DVT/PE--Continue Xarelto
Essential hypertension--Continue terazosin
IBS
Diverticulosis
code status --DNR/DNI
DVT prophylaxis�Xarelto
Anticipated Discharge: > 48 hours
Subjective/Interval History
-
Date of Service: July 19, 2023
' I am getting moved so much and it brings on dizziness and make nausea worse'
One of the principal complaint was nausea and she states she had dizziness 2 along with it. She was given a diagnosis of vertigo and used meclizine in the past. The symptoms ongoing for the last week or so. She did not mention to me about the
positional dizziness to me on Wednesday.
She also had abdominal pain which she is not complaining today. She is having no dysphagia symptoms.
No MCWILLIAMS .No worsening of left sided hemiparesis.
Cough mostly dry
SOB with chest pain on coughing
No fever or chills
Objective Data
-
Labs:
Laboratory Results
07/19/23
05:28
WBC 14.2 H
Hgb 8.6 L
Hct 28.2 L
Plt Count 464 H
Sodium 137
Potassium 4.2
Chloride 99
Carbon Dioxide 31 H
BUN 5 L
Creatinine 0.5 L
Glucose 99
Calcium 8.5
Vital Signs:
Vital Signs
Temp Pulse Resp BP Pulse Ox
98.4 F 79 16 134/59 90
07/19/23 07:25 07/19/23 09:52 07/19/23 08:08 07/19/23 09:52 07/19/23 08:08
I&O
07/18/23 07/19/23 07/20/23
06:59 06:59 06:59
Intake Total 2459 / 0 1510 / 1510
Balance 2459 151 / 1510
Review of Systems
-
Constitutional: Denies Fever or Chills
EENT: Denies Sore Throat
Respiratory: Reports Cough; Denies Trouble Breathing
Cardiac: Reports Chest Pain (c coughing)
Abdomen/GI: Reports Nausea; Denies Abdominal Pain or Vomiting
Genitourinary: Denies Dysuria
Neuro: Reports Dizzy
Physical Exam
-
General: No Apparent Distress
HEENT: Moist Mucous Membranes
Respiratory: Non Labored Respirations and Decreased Breath Sounds (rt lower zone); Negative Accessory Resp Muscle Use
Cardiac: Regular Rhythm and S1/S2
GI: Soft, Nontender (ramy), Nondistended and Normal Bowel Sounds
Neuro: AO x 3 and Other (AVERY;No spontaneous nystagmus); Negative No Motor Deficits (left hemiparesis ), Tremors, Slurred Speech or Facial Droop
Psych: Calm
Data Reviewed
-
Labs: Labs Reviewed by me
--- NOTE | 2023-07-19 12:15 | CON.NEURO4 ---
Consultation - Neurology 4
-
CONSULTING PHYSICIAN: Trenton Blackburn
REFERRING PHYSICIAN: Hospitalist Dr Licea
DICTATED BY: Trenton Blackburn
DATE/TIME OF REQUEST: 07/19/23
DATE/TIME OF CONSULTATION: 07/19/23
Reason for Consultation: Dizziness
History of Present Illness:
Patient is an 83-year-old woman with a past medical history of previous right MCA ischemic stroke, hypertension, prediabetes who presented to hospital with symptoms of abdominal pain, nausea and vomiting for about the past week. Family had also
noticed some confusion and lethargy and paleness over the past week. Diagnostic testing suggested pneumonia with concern for aspiration versus commune acquired pneumonia, no acute pathology on CT abdomen pelvis.
Patient reports that she has felt dizzy for the past several week which is a bit more noticeable and severe than normal. She reports that dizziness is a longstanding issue for many years for her, and it generally worsens with head movement. She
denies any aural fullness tinnitus or hearing loss. Denies any history of migraine. She does not feel that the dizziness seem to change or become more noticeable after the right MCA stroke in 2018. She does report dyspnea improved with meclizine
but generally holding still and minimizing rapid head movements has been her main improving factor. Currently she denies headache. Denies any new vision change diplopia or new dysphagia.
She has had chronic left-sided arm and leg spasticity and weakness from the right MCA stroke and does take baclofen. Additional notable medications include as needed meclizine, midodrine, terazosin, tramadol, gabapentin, as needed trazodone, and
baclofen.
Past Medical History: Right MCA stroke in 2018 with alteplase and mechanical thrombectomy with residual left sided hemiparesis, anxiety/depression, prediabetes, asthma/COPD, hypertension, anemia, frequent UTI, orthostatic hypotension, history of
DVT/PE, achalasia
Surgical History: Mechanical thrombectomy for right MCA thrombus May 2018, right TKA, lumbar laminectomy, PEG, tonsilectomy
Family History: Non-contributory
Social History: Living at assisted living, retired, no alcohol or tobacco
Review of Symptoms:
Patient denies any fever, headache, chest pain, shortness of breath, GI or symptoms.
Physical Exam:
Elderly woman appears her stated age no overt distress, no head or neck trauma oropharynx is clear eyes are clear, heart rate regular, breathing with some scattered rales in the bases no wheezing breathing is unlabored, abdomen soft nontender no
lower extremity edema or rashes seen
Neurologic Examination:
Patient is awake and alert, left-sided hemineglect, no aphasia, conversational with fairly good insight and fairly good historian, attention is good to sustain conversation and obeys multistep commands
Cranial nerve shows left-sided facial droop, mild dysarthria, extraocular movements are full, no ptosis, pupils 3 mm equal round react light bilaterally
Motor examination shows spastic weakness of the left arm more than leg with left 5 left hip flexion 4/5.
Sensation diminished on the left arm and leg to light touch
Reflexes hyperreflexic on the left arm and leg
Normal finger-nose testing the right arm limited due to weakness in the left arm but no ataxia portion weakness.
Gait exam was deferred
Neuro Imaging:
Previous brain MRI December 2022 with chronic right MCA infarct, no abnormalities of head or neck MRA
Impressions
1. Longstanding history of dizziness somewhat worse over the past few weeks, generally worsened with head movement. Longstanding nature along with her neurologic examination do not raise concern for structural lesion or ischemia to the posterior
circulation or posterior fossa of the brain. Etiology for the dizziness may be a nonspecific disequilibrium, previous vestibular disorder with lasting features, I would estimate that polypharmacy may be contributing. No evidence for vestibular
neuritis and does not have a history suggestive of M�ni�re's disease.
2. History of right-sided MCA stroke with residual left spastic hemiparesis
3. Being treated for pneumonia, community-acquired versus aspiration given history of achalasia
4.
Recommendations:
1. Check orthostatic vital signs
2. Continue the current antithrombotic regimen
3. Some concern for polypharmacy being territory factor to her dizziness, could consider decreasing or weaning off gabapentin. Would keep on baclofen.
4. Meclizine PRN
5. Not recommending brain imaging at this time
6. PT/OT evaluations
Call with questions and concerns
Discussed patient care with: Patient
[2023-07-19] MEDS: ROBITUSSIN 100 MG PO (12:29)
[2023-07-19 15:22] VITALS: BP 145/75
--- NOTE | 2023-07-19 16:58 | CM ---
Discharge plan of care: PT recommendation for SNF. Will obtain preferences and send referrals.
[2023-07-19] MEDS: XARELTO 20 MG PO (17:19)
[2023-07-19] MEDS: ANTIVERT 12.5 MG PO ×2 (17:20→23:08)
[2023-07-19] MEDS: HYTRIN 1 MG PO (23:06)
[2023-07-19] MEDS: LIPITOR 20 MG PO (23:08)
[2023-07-19 23:22] VITALS: BP 120/66
[2023-07-19] MEDS: LIORESAL 10 MG PO (23:38)
[2023-07-20] VITALS (15 sets, daily range): BP systolic 86–137; BP diastolic 42–84
--- NOTE | 2023-07-20 00:40 | RESPNOTE ---
called to bedside of patient saturating, originally, in the 60s on ra. Pt had removed O2. RN placed O2 back on 6LPM NC and despite efforts, pt only came up to 86% with me at bedside. 30 minutes later, reassesed pt to find [facility] had ordered cpap
but the patient was 91% on 6 LPM. [facility] said it was ok to hold off if patient was not welcoming of cpap. Cpap on standby at this time
--- NOTE | 2023-07-20 00:45 | PTCARENOTE ---
Upon rounds, pt noted to have taken off her O2 NC, 60% POX on RA, pt states 'it was bothering her'. Placed NC back on pt, experienced difficulty getting POX above 86% on 6L NC despite breathing exercises, respiratory therapist notified and responded
bedside. Pt NAD, denies SOB. D/w covering [employer], due to pt hx of COPD and CO2 retention, CPAP order placed. RT attempted to place pt on CPAP, pt declined and states she'd 'rather not'. Pt POX 91% at that time, pt continued to refuse CPAP, [employer]
notified RT left CPAP at the bedside should pt require placement in the future. Persistent education provided on the importance of O2 NC r/t pt health and safety, pt expresses understanding at this time. Pt resting comfortably, call edwards in hand.
[2023-07-20] MEDS: TYLENOL PO ×3 (05:33→22:57)
[2023-07-20] MEDS: ZOSYN 50 IV ×3 (05:55→18:18)
[2023-07-20 06:24] LABS: Hemoglobin 9.1 g/dL (12.0-16.0); Mean Corp Hgb Conc. 30.3 g/dL (33.0-37.0); Mean Corpuscular Hgb 23.5 pg (27.0-31.0); Mean Corpuscular Volume 77.3 fL (81.0-99.0); Mean Platelet Volume 9.5 fL (7.4-10.4); Platelet Count 518 10^3/uL (130-400); Red Blood Cell Count 3.88 10^6/uL (4.20-5.40); Red Cell Dist. Width 15.3 % (11.5-14.5); White Blood Cell Count 17.2 10^3/uL (4.8-10.8)
[2023-07-20 06:49] LABS: Blood Urea Nitrogen 6 mg/dl (7-17); Calcium 8.6 mg/dl (8.4-10.2); Carbon Dioxide 31 mmol/L (22-30); Chloride 97 mmol/L (98-107); Estimated Creatinine Clearance 68 ml/min; Glucose 119 mg/dl (70-99); Potassium 3.8 mmol/L (3.5-5.1); Sodium 136 mmol/L (135-145); eGFR > 60.00
[2023-07-20] MEDS: COMBIVENT RESPIMAT INHAL SPRAY 1 PUFF INH ×3 (07:56→19:41)
[2023-07-20] MEDS: ADVAIR HFA 115/21 MCG INHALER 2 PUFF INH ×2 (07:56→19:41)
--- NOTE | 2023-07-20 08:00 | PTCARENOTE ---
Pt sating at 84% on 6LNC. NRB in place, resp notified. Resp applied 15L midflow, pt sating at 90-91%. MD notified and came to assess pt. Esophagram cancelled, CT of the chest ordered, PO intake resumed. VSS at this time. Pt has no complaints of SOB.
--- NOTE | 2023-07-20 08:55 | W.PN.HOSP.TC ---
Today's Communication/Plan
-
Cancel esophagogram for today. Resume diet.
Obtain CT chest with contrast. Consult pulmonary.
Add IV vancomycin pending ID stephen.
Assessment / Plan
Assessment / Plan
pt is an 83 year old female
Right basilar pneumonia with small right pleural effusion/atelectasis--likely CAP but concerned about aspiration (remote history of achalasia)--currently on zosyn and zithromax --nonbacteremic
Improved white count initially with worsening again. She feels cold. Afebrile. Chest x-ray shows worsening pneumonia.
Will check a CT chest to evaluate the pneumonic process as well as if she is developing a pleural effusion and would arrange for a tap if there is increasing pleural effusion. Also broaden antibiotics-add vancomycin. ID consulted yesterday.
Acute hypoxic respiratory insufficiency-patient requiring increased FiO2 since yesterday. She denies being short of breath. No acute respiratory distress evident while resting. Evaluate for pleural effusion and arrange for a thoracentesis.
Consult pulmonary.
Nausea and abdominal pain--persistent nausea with intermittent abdominal pain with negative CT abdomen pelvis with IV contrast--No oral contrast given-- Unclear etiology but will evaluate further from achalasia standpoint - --try to get bowels
moving. Some of her nausea may be secondary to vertigo I feel. With worsening hypoxia hold on esophagogram today.
Nausea with postural dizziness suspicious for vertigo-improving with scheduled meclizine. Appreciate neurology input.
UA abnormal but no pyuria - no dysuria . It is a contaminated specimen.
Asthma/COPD--patient today with reactive airways--Continue inhalers--Continue montelukast-add nebulizers
Prediabetes
History of CVA with residual left-sided paralysis/neuropathic pain--difficulty with pain control--Continue aspirin, statin--Consider gabapentin when infection better treated and mental status improved
Chronic back pain--Continue tramadol
History of muscle spasms--continue baclofen PRN
Constipation--Continue MiraLAX
Chronic anemia--Hemoglobin lower than baseline--follow for now-H&H stable---heme check stools
GERD--Continue omeprazole
Anxiety/depression--Continue bupropion, sertraline--Continue trazodone PRN
History of orthostatic hypotension--Continue midodrine
History of DVT/PE--Continue Xarelto
Essential hypertension--Continue terazosin
IBS
Diverticulosis
code status --DNR/DNI
DVT prophylaxis�Xarelto
DW RN
DW
Total time spent on today's encounter was 52 minutes which included time spent in counseling the patient/family regarding diagnosis and treatment plan as listed above, goals of care, and symptom management. Case was discussed with nursing staff,
specialists, . All labs and imaging personally reviewed by me. Remainder the time spent in detailed review of lab data, imaging, and other medical provider documentation.
Anticipated Discharge: > 48 hours
Subjective/Interval History
-
Date of Service: July 20, 2023
Feeling thirsty this morning as she is n.p.o. for esophagogram.
This morning patient started to require higher FiO2.
Patient states she is not short of breath though the number shows her oxygen level is down. She has a cough which is not much productive. Denies any chest pain.
The dizziness and nausea is better with meclizine. No abdominal pain.
No fevers but she is feeling cold .
Objective Data
-
Labs:
Laboratory Results
07/20/23
05:10
WBC 17.2 H
Hgb 9.1 L
Hct 30.0 L
Plt Count 518 H
Sodium 136
Potassium 3.8
Chloride 97 L
Carbon Dioxide 31 H
BUN 6 L
Creatinine 0.5 L
Glucose 119 H
Calcium 8.6
Vital Signs:
Vital Signs
Temp Pulse Resp BP Pulse Ox
98 F 85 16 98/52 92
07/20/23 07:45 07/20/23 08:02 07/20/23 08:02 07/20/23 07:45 07/20/23 08:02
I&O
07/19/23 07/20/23 07/21/23
06:59 06:59 06:59
Intake Total 1510 / 1510 480 / 480
Balance 1510 / 1510 480 / 480
Review of Systems
-
EENT: Denies Sore Throat
Genitourinary: Denies Dysuria
Neuro: Reports Dizzy (improved); Denies Headache
Physical Exam
-
General: No Apparent Distress
HEENT: Moist Mucous Membranes
Respiratory: Wheezes (BL ), Crackles (bibasilar area rt>lt) and Non Labored Respirations; Negative Accessory Resp Muscle Use
Cardiac: Regular Rhythm and S1/S2
GI: Soft and Nontender
Neuro: AO x 3; Negative No Motor Deficits (Left hemiparesis as before)
Psych: Calm; Negative Confused
Data Reviewed
-
Labs: Labs Reviewed by me
[2023-07-20] MEDS: PROTONIX 40 MG PO (09:02)
[2023-07-20] MEDS: ProAmatine 5 MG PO ×3 (09:02→18:17)
[2023-07-20] MEDS: LOW STRENGTH ASPIRIN 81 MG PO (09:02)
[2023-07-20] MEDS: VITAMIN B-12 1000 MCG PO (09:02)
[2023-07-20] MEDS: WELLBUTRIN REGULAR RELEASE 100 MG PO ×2 (09:02→18:20)
[2023-07-20] MEDS: SINGULAIR 10 MG PO (09:02)
[2023-07-20] MEDS: LIDOCAINE 4% PATCH 2 PATCH TOPICAL (09:03)
[2023-07-20] MEDS: ULTRAM 50 MG PO (09:04)
[2023-07-20] MEDS: OCUVITE SOFTGEL 1 CAP PO (09:04)
[2023-07-20] MEDS: ZOLOFT 100 MG PO (09:04)
[2023-07-20] MEDS: ZITHROMAX 250 MG PO (09:04)
[2023-07-20] MEDS: VITAMIN D3 (cholecalciferol) 25 MCG PO (09:04)
[2023-07-20] MEDS: NEURONTIN 100 MG PO ×2 (09:04→18:17)
[2023-07-20] MEDS: METAMUCIL, KONSYL PO (09:06)
[2023-07-20] MEDS: ROBITUSSIN 100 MG PO (09:08)
[2023-07-20] MEDS: LIORESAL 10 MG PO (09:09)
--- NOTE | 2023-07-20 09:10 | CON.ID ---
Consultation
-
Date/Time Consultation Requested: 07/19/23 16:25
Date/Time Consultation Performed: 07/19/23 9:10
Requesting Provider: Dr Licea
Performing Provider: Dr Longoria
Reason for Consultation: Worsening pneumonia
Chief Complaint / Past History
Chief Complaint
chest/abdominal pain
History of Present Illness
Ms Garrett is an 83 year old female with history of asthma/COPD, CVA with L sided paralysis, achalasia, who presented here from assisted living on 07/16 for cough, pleuritic chest pain, hypoxia, confusion and lethargy. Has had poor oral intake. Also
complaining of pain the in BL lower abdomen worst in the RLQ that waxes and wanes and is sharp/sudden. Saw PCP had UA and was referred to the ER.
Since arrival here she has been afebrile, bp stable overall stable mild hypotension starting yesterday evening and has again occurred this AM, initially on 3L increased to 6L HD2, now with increasing FiO2 requirements up to NRB mask, WBC on arrival
21 nadired around 14 HD2 however today increased to 17.2, hgb 9.1, plt has been steadily increasing from 450 to 520, there was L shift on arrival that improved HD2 not checked since, eos remain present, cr 0.5, lactic acid on arrival 0.9, UA no
pyuria, many bacteria, covid ag neg, 07/16 CT a/p with IV contrast 07/16: no significant abnormality, small right pleural effusion, probable right basilar pneumonia, 07/16: CXR: small right pleural effusion, CXR 07/19: worsening bilateral pneumonia.
Patient was on CTX/azt on HD 1, HD2 switched to zosyn and azithromcyin continued, today vancomycin added given MRSA colonization, she is planned for CT chest today - taken down my read - artifact noted, small/moderate loculated appearing pleural
effusion
Past History
Additional Past Medical History:
asthma/COPD, prediabetes, hypertension, constipation, anemia, GERD, CVA with residual left-sided paralysis, anxiety/depression, recurrent UTI, orthostatic hypotension, history of DVT/PE, achalasia, IBS, diverticulosis
Additional Past Surgical History:
Gynecological, Orthopedic (Right TKA, lumbar laminectomy 2016), Tonsilectomy and Other (PEG tube placement, sphincterotomy
Allergy History:
codeine [Codeine] Allergy (Verified 07/16/23 13:41)
Nausea
prochlorperazine Allergy (Verified 07/16/23 13:41)
Rash
Klemrvs-HQR-WhW Reductase Inhibitor [Qznletm-Bmx-Ttm Reductase Inhibitor] Allergy (Verified 07/16/23 13:41)
muscle weakness
Sulfa (Sulfonamide Antibiotics) Allergy (Verified 07/16/23 13:41)
Pt unsure of reaction
Medications Reviewed: Yes
Social History
Tobacco: Non-Smoker
Alcohol: None
Drug: None
Family History
Family History: Not Pertinent
Review of Systems
Review of Systems
General: Negative Fever or Chills
All systems: All other systems were reviewed and were negative
Vital Signs
Temp Pulse Resp BP Pulse Ox
98 F 85 16 98/52 92
07/20/23 07:45 07/20/23 08:02 07/20/23 08:02 07/20/23 07:45 07/20/23 08:02
Physical Exam
Physical Exam
Constitutional: Acutely Ill and Chronically Ill
Cardiovascular: Regular Rate and S1/S2; Negative Murmur or Rub
Pulmonary: Clear and Symmetric; Negative Wheezes, Rales or Rhonchi
Gastrointestinal: Soft, Non Tender, Non Distended and Normal Bowel Sounds
Skin: Warm and Dry; Negative Rash or Jaundice
Neurological: Awake and Alert
Lines: Other (no PEG)
Lab / Diagnostic Study Results
07/20/23 05:10
07/20/23 05:10
Abs Immat Gran (auto) 0.1 10^3/uL (0-0.05) H 07/17/23 06:40
Absolute Neuts (auto) 11.1 10^3/uL (1.4-6.5) H 07/17/23 06:40
Absolute Lymphs (auto) 1.1 10^3/uL (1.2-3.4) L 07/17/23 06:40
Absolute Monos (auto) 1.3 10^3/uL (0.1-0.6) H 07/17/23 06:40
Absolute Basos (auto) 0.1 10^3/uL (0-0.2) 07/17/23 06:40
Immature Gran % 0.4 % (0-0.5) 07/17/23 06:40
Neutrophils % 79.2 % (42.2-75.2) H 07/17/23 06:40
Lymphocytes % 7.9 % (20.5-51.1) L 07/17/23 06:40
Monocytes % 9.4 % (1.7-9.3) H 07/17/23 06:40
Eosinophils % 2.7 % (0-6) 07/17/23 06:40
Basophils % 0.4 % (0-2) 07/17/23 06:40
Lactic Acid Cancelled 07/16/23 18:15
Ur Squamous Epith Cells >30 /LPF (Few) 07/16/23 14:16
Microbiology Results
Micro:
07/16/23 14:16 Blood Culture - Preliminary
Blood/Venous No Growth in 72 hours- Final report to follow
07/16/23 14:16 Blood Culture - Preliminary
Blood/Venous No Growth in 72 hours- Final report to follow
07/16/23 22:25 MRSA Screen - Final
Nose Staph aureus MRSA
07/16/23 14:16 Urine Culture - Final
Urine NO GROWTH
07/16/23 18:43 Influenza Types A & B (KRISTOFER) - Final
Nasal Swab Negative for Influenza A & B, NAAT
Negative results must be combined with clinical observations
and patient history.
Nucleic Acid Amplification test (NAAT)performed on the
[employer] platform.
Assessment / Plan
Suspected Empyema 2/2 Pneumonia
Pneumonia - most likely aspiration, MRSA pneumonia also possible; imaging not consistent with atypical pneumonia
Achalasia s/p PEG and reversal
Acute Hypoxemic Resp Failure - progressive now on 15L
Leukocytosis - progressive
- if fever then would repeat blood cultures x2
- has not produced a sputum thus far - if intubated would obtain one if feasible
- influenza/covid both negative
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
- note neg t-spot 08/2021
- agree with thoracentesis if sufficient fluid
- agree with vancomycin
- continue zosyn pending possible thoracentesis - deescalate as able
- unlikely atypical pneumonia stop azithromycin
- follow clinically
Care Review
Plan reviewed with: Physician (Dr Licea - )
--- NOTE | 2023-07-20 09:12 | PHA.VAN.IN ---
Assessment
- Assessment
Renal Function: Appears similar to baseline
Concomitant Antimicrobials: piperacillin/tazobactam
AUC Dosing Plan
- Dosing Variables
Dosing Weight (kg): 76
Dosing CrCl (ml/min): 68
Vd coefficient (L/kg): 0.7
- Empiric Dosing
Initial / Loading Dose: 1000mg - administration pending
Maintenance Regimen: Vanc 750mg Q12H starting at 1800 in lieu of load
Estimated AUC (mcg*h/mL): 478
Estimated Peak (mcg*h/mL): 27.2
Estimated Trough (mcg/ml): 13.9
Estimated Half Life (H): 11.4
- Monitoring
No levels ordered at this time: consider levels in next few days
Follow renal function - received IV contrast 2/[address] with contrast for today
Pharmacokinetics Vancomycin I
- -
Patient Age: 83
Patient Sex: Female
Vancomycin Day #: 1
Indication: Pulmonary/Respiratory
Requesting Provider: Dr. Licea
Pertinent Antimicrobial Allergies:
sulfonamide antibiotics - unknown
Height / Weight:
Height 5 ft 4 in
Actual Weight 75.886 kg
- Vital Signs / Lab Results
Temp Pulse Resp BP Pulse Ox
98 F 85 16 98/52 92
07/20/23 07:45 07/20/23 08:02 07/20/23 08:02 07/20/23 07:45 07/20/23 08:02
Lab Results - Hematology
07/18/23 07/19/23 07/20/23
06:00 05:28 05:10
WBC 14.4 H 14.2 H 17.2 H
Lab Results - Chemistry
07/18/23 07/19/23 07/20/23
06:00 05:28 05:10
BUN 5 L 5 L 6 L
Creatinine 0.4 L 0.5 L 0.5 L
Estimated Creat Clear 68 68 68
Microbiology Results
07/16/23 14:16 Blood Culture - Preliminary
Blood/Venous No Growth in 72 hours- Final report to follow
07/16/23 14:16 Blood Culture - Preliminary
Blood/Venous No Growth in 72 hours- Final report to follow
07/16/23 22:25 MRSA Screen - Final
Nose Staph aureus MRSA
[2023-07-20] MEDS: ANTIVERT 12.5 MG PO ×2 (09:48→18:19)
[2023-07-20] MEDS: DESENEX/MITRAZOL/ZEASORB 1 APPLIC TOPICAL ×2 (09:48→22:37)
[2023-07-20] MEDS: VANCOCIN 200 IV (10:19)
--- NOTE | 2023-07-20 11:49 | CON.PUL ---
Consultation
Consultation Request
Date/Time Consultation Requested: 07-20-23
Date/Time Consultation Performed: 07-20-23
Requesting Provider: Hospitalist
Performing Provider: Dr Delcid
Reason for Consultation: dyspnea
Medical History
-
Chief Complaint: dyspnea
History of Present Illness:
Mrs Vale Garrett is an 83/W adm 07-16 from assisted living with 1 wk h/o abd pain/n/v, cough, CP, confusion, ac/chronic dizziness, and decreased oral intake.
Diagnosed with R basilar pneumonia with R PF per CXR and abd CT (no abd abnormalities), started on ceftriaxone/azithromycin, O2 NC 3L. Atbs changed to zosyn/azithromycin d after adm, follow up CXR 07-19 with bilateral infiltrates.
Increasing O2 requirements, currently at 15L MFNC. Pulm consulted 07-20
H/o asthma/COPD, not on home O2 but on BDs
Past Medical History
Past Medical History: Other (see A&P for PMH/PSH)
Social History
Tobacco: Non-smoker
Alcohol: None
Drug: None
Personal:
Living: Assisted Living
Employment: Not Employed
Family History
Family History: Reviewed & Not Pertinent
Allergies / Home Medications
Allergies
Allergy/AdvReac Type Severity Reaction Status Date / Time
codeine [Codeine] Allergy Nausea Verified 07/16/23 13:41
prochlorperazine Allergy Rash Verified 07/16/23 13:41
Ujxxxag-IAR-QxP Reductase Allergy muscle Verified 07/16/23 13:41
Inhibitor weakness
[Lebnkhn-Nfy-Hyy Reductase
Inhibitor]
Sulfa (Sulfonamide Allergy Pt unsure Verified 07/16/23 13:41
Antibiotics) of reaction
Home Medications
Medication Instructions Recorded Confirmed Last Taken Type
montelukast 10 mg tablet 10 mg PO DAILY Lung/breathing 09/30/15 07/16/23 12/27/22 History
issues
ipratropium 20 mcg-albuterol 100 1 puff inhalation R QID 05/04/16 07/16/23 12/27/22 History
mcg/actuation mist for inhalation
(Combivent Respimat)
cholecalciferol (vitamin D3) 25 1,000 units PO DAILY Supplement 12/21/16 07/16/23 12/27/22 History
mcg (1,000 unit) tablet
aspirin 81 mg chewable tablet 81 mg PO DAILY Blood clot 10/09/20 07/16/23 12/27/22 History
prevention/tx
atorvastatin 20 mg tablet 20 mg PO HS High cholesterol 10/09/20 07/16/23 12/26/22 History
bupropion HCl 100 mg tablet 100 mg PO TID Mental Health/Anxiety 10/09/20 07/16/23 12/27/22 History
fluticasone propionate 50 1 spray intranasal DAILY Allergies 10/09/20 07/16/23 12/27/22 History
mcg/actuation nasal
spray,suspension
guaifenesin 100 mg/5 mL oral liquid 100 mg PO Q6HPRN PRN cough ##0 10/09/20 07/16/23 Unknown History
meclizine 12.5 mg tablet 12.5 mg PO BIDPRN PRN dizziness 10/09/20 07/16/23 Unknown History
melatonin 5 mg tablet 5 mg PO HSPRN PRN INSOMNIA 10/09/20 07/16/23 Unknown History
menthol 5 % topical patch (Icy Hot 1 patch topical DAILY left hip ##0 10/09/20 07/16/23 12/27/22 History
(menthol))
omeprazole 20 mg capsule,delayed 20 mg PO DAILY Gastrointestinal 10/09/20 07/16/23 12/27/22 History
release issue
phenazopyridine 100 mg tablet 100 mg PO BIDPRN PRN URINARY 10/09/20 07/16/23 Unknown History
BURNING
polyethylene glycol 3350 17 gram 17 grams PO DAILYPRN PRN 10/09/20 07/16/23 Unknown History
oral powder packet CONSTIPATION
rivaroxaban 20 mg tablet (Xarelto) 20 mg PO QPM Blood clot 10/09/20 07/16/23 12/26/22 History
prevention/tx
sertraline 100 mg tablet 100 mg PO DAILY Mental 10/09/20 07/16/23 Unknown History
Health/Anxiety
terazosin 1 mg capsule 1 mg PO HS Urinary issue 10/09/20 07/16/23 12/26/22 History
trazodone 50 mg tablet 50 mg PO BID PRN insomnia 10/09/20 07/16/23 Unknown History
Calazmine Skin Protect 1 applic topical TID PRN apply to 12/27/22 07/16/23 Unknown History
groin, buttocks, coccyx
acetaminophen 160 mg/5 mL oral 1,000 mg PO TID@0600,1400,2200 12/27/22 07/16/23 12/27/22 History
liquid (M-PAP)
baclofen 10 mg tablet 10 mg PO TIDPRN PRN muscle spams 12/27/22 07/16/23 Unknown History
fluticasone 113 mcg-salmeterol 14 1 inh inhalation R BID 12/27/22 07/16/23 12/27/22 History
mcg/actuation breath activated
powdr
ipratropium 20 mcg-albuterol 100 1 puff inhalation R BIDPRN PRN sob 12/27/22 07/16/23 Unknown History
mcg/actuation mist for inhalation
(Combivent Respimat)
menthol 5 % topical patch (Icy Hot 1 patch topical DAILY PRN left 12/27/22 07/16/23 Unknown History
(menthol)) shoulder
mirabegron 25 mg tablet,extended 25 mg PO DAILY 12/27/22 07/16/23 12/27/22 History
release 24 hr (Myrbetriq)
nystatin 100,000 unit/gram topical 1 applic topical DAILYPRN PRN 12/27/22 07/16/23 Unknown History
powder breasts/groin rash
psyllium 1 packet PO DAILY ##0 12/27/22 07/16/23 12/27/22 History
tramadol 50 mg tablet 50 mg PO BID 12/27/22 07/16/23 12/27/22 History
vit C 250 mg-E 90 mg-zinc 40 1 tab PO DAILY 12/27/22 07/16/23 12/27/22 History
mg-copper 1 [id number] chew
tablet (PreserVision AREDS-2)
cyanocobalamin (vitamin B-12) 1,000 mcg PO DAILY #30 tabs 12/30/22 07/16/23 Unknown Rx
1,000 mcg tablet
midodrine 5 mg tablet 5 mg PO TID 07/16/23 07/16/23 Unknown History
Review of Systems
-
History Source: Patient and Family
Respiratory: Cough and Trouble Breathing
Neuro: Dizzy and Other (confusion)
Vitals / Labs / Diagnostic Testing
Vital Signs
Temp Pulse Resp BP Pulse Ox
98 F 89 16 98/52 91
07/20/23 07:45 07/20/23 10:45 07/20/23 10:45 07/20/23 09:02 07/20/23 11:48
Lab Data
07/20/23 05:10
07/20/23 05:10
Microbiology
07/16/23 14:16 Blood/Venous Blood Culture - Preliminary
No Growth in 72 hours- Final report to follow
07/16/23 14:16 Blood/Venous Blood Culture - Preliminary
No Growth in 72 hours- Final report to follow
07/16/23 22:25 Nose MRSA Screen - Final
Staph aureus MRSA
07/16/23 14:16 Urine Urine Culture - Final
NO GROWTH
Diagnostic Testing:
Physical Exam
-
HEENT: Normocephalic and Other (dry oral mucosa)
Cardiovascular: Regular Rhythm
Respiratory: Rales, Rhonchi and Accessory Resp Muscle Use
GI: Soft, Non Distended and Non Tender
Neurology: Oriented and No Motor Deficits
Skin: Dry
General: Respiratory Distress
Assessment
-
Assessment:
Mrs Vale Garrett is an 83/W adm 07-16 from assisted living with 1 wk h/o abd pain/n/v, cough, CP, confusion, ac/chronic dizziness, and decreased oral intake. Diagnosed with R basilar pneumonia with R PF per CXR and abd CT (no abd abnormalities),
started on ceftriaxone/azithromycin, O2 NC 3L. Atbs changed to zosyn/azithromycin d after adm, follow up CXR 07-19 with bilateral infiltrates. Increasing O2 requirements. Pulm consulted 07-20
Impression:
Acute respiratory failure, hypoxemic
RLL infiltrate/effusion on CXR and abd CT 07-16
Bilateral infiltrates on CXR 07-19
Bilateral infiltrates on chest CT: RML, RLL
Pneumonitis upper lobes
Moderate R PF
Mild MLAD
Secretions at posterior wall of trachea
Leukocytosis, decreasing and then increasing since adm
Moderate anemia
COVID/flu negative
MRSA screening positive
Conditions CLAIMS SERVICE ADJUSTOR:
Asthma/COPD, on salmeterol/fluticasone and combivent, not on home O2
Prediabetes
HTN
Constipation
Anemia
GERD
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
Chronic dizziness
Anxiety/depression
Recurrent UTI
Orthostatic hypotension
H/o DVT/PE, on rivaroxaban
Achalasia, s/p PEG and reversal
IBS
Diverticulosis
Right TKA
Lumbar laminectomy 2015
Tonsillectomy
Former smoker
DNR
Plan:
Continue O2 protocol
Noted increased O2 requirements in setting of worsening pulm infiltrates
Currently at 15 L, POx 90%
Not on home O2
Asp precs to continue
Continue BDs
Suspected progressive severe aspiration pneumonia along with pneumonitis findings at upper lobes
Noted secretions collected at tracheal posterior wall. Noted h/o achalasia requiring PEG in past
Continue empiric atbs as outlined by ID: zosyn/IV vancomycin
Could not yet provide sputum sample
IS and acapella as able
RML infiltrate has one area of relative lucency suggestive of necrosis
RLL appears mainly atelectasis rather than pneumonia
R pleural effusion is large enough and appears loculated
Areas of pneumonitis present at upper lobes, likely related to aspiration but could not rule COVID involvement (negative test on adm)
Candidate for thoracentesis and likely chest tube placement DAWIT
IRad consulted
Continue supportive care
Guarded prognosis
D/w patient and her and a close friend visiting
confirms DNR status
--- NOTE | 2023-07-20 13:00 | PTCARENOTE ---
CT resulted, IR consulted for thoracentesis and chest tube placement. Pt being transferred to IMU post chest tube placement. Report called to IMU KEMI Dyer. Pt NPO at this time. Pt and family updated at the bedside, call edwards in place.
[2023-07-20 13:20] LABS: LDH 229 U/L (120-246)
[2023-07-20 13:40] LABS: COVID-19 Antigen Negative (Negative)
--- NOTE | 2023-07-20 15:31 | CM ---
PT has recommended SNF for nursing home and rehab after discharge. This CM spoke with and supervisor vegetable farming, Gaby. Explained Medicare.gov list. will be back to visit patient at approximately 4:00PM. List was given to Gaby who in
turn will give to . He will choose at least 5-6 preferences and return to CM on 07/21/23. Discharge plan of care: SNF.
[2023-07-20] MEDS: COMBIVENT RESPIMAT INHAL SPRAY INH (15:53)
--- NOTE | 2023-07-20 16:16 | PN.CDI ---
CDI
- -
CDI:
Physician Documentation Request
Admit Date: 07/16/23 18:43
Dear Doctor Vinayak ,
Please review the following and provide your response in the progress notes.
Clinical Indicators:
Pt admitted with Right basilar pneumonia with small right pleural effusion/atelectasis--likely CAP but concerned about aspiration ... zosyn and zithromax .'
Documented per 07/20 Progress note ,' Improved white count initially with worsening again. She feels cold. ... Also broaden antibiotics-add vancomycin. ID consulted yesterday.....'
On admission WBC 21.4, Respiration 30. Today with Tmax 101.6, WBC 17.2
Please clarify which of the following most accurately describes the status of the patient's infection:
Sepsis-POA
- Systemic manifestations of infection, with 2 or more SIRS criteria which include:
- Fever >100.4 degrees F or hypothermia < 96.8 degrees F
- Leukocytosis - WBC > 12,000 or leukopenia - WBC < 4,000 or > 10% bands
- Tachycardia > 90 beats per minute
- Tachypnea - RR > 20 breaths per minute or PaCO2 , 32mmHg
Source: Merck Manual 2013
Sepsis Not POA
Pneumonia /Aspiration Pneumonia only, Without Systemic Illness
- indicate the site/source, such as UTI, pneumonia etc.
Unable to Determine
Use of terms such as suspected, likely, concern for, or probable (associated with a specific diagnosis that is being evaluated, monitored, or treated as if it exists) are acceptable and can be coded in the inpatient setting, when documented at the
time of discharge.
Thank you,
Santa Welch RN
CDI Specialist
[place] [facility]
Please use your independent medical judgment in providing your response.
--- NOTE | 2023-07-20 16:24 | PN.CDI ---
CDI
- -
CDI:
Physician Documentation Request
Admit Date: 07/16/23 18:43
Dear Doctor Vinayak,
Please review the following and provide your response in the progress notes.
Clinical Indicators:
Pt admitted with Right basilar pneumonia with small right pleural effusion/atelectasis--likely CAP but concerned about aspiration ... Zosyn and Zithromax .'
Documented per ED, ' ...Patient also reports that she has not been eating or drinking much due to decreased appetite....'
Sodium levels are as below /Did get IVFs
07/16/23 07/17/23
14:16 06:40
Sodium 129 L 133 L
Based on the above, could you clarify in the progress notes, the appropriate diagnosis, if significant, that supports the above abnormalities and additional evaluation, monitoring and/or treatment rendered:
Hyponatremia
Abnormal lab value of clinica insignificance
Other
Use of terms such as suspected, likely, concern for, or probable (associated with a specific diagnosis that is being evaluated, monitored, or treated as if it exists) are acceptable and can be coded in the inpatient setting, when documented at the
time of discharge.
Thank you,
Santa Welch RN
CDI Specialist
[place] [facility]
Please use your independent medical judgment in providing your response.
[2023-07-20 18:03] LABS: Body Fluid pH 7.41
[2023-07-20 18:05] LABS: Body Fluid Mononuclear 61.4 %; Body Fluid Polymorphonuclear 38.6 %; Body Fluid WBC 1208 /CUMM
[2023-07-20 18:08] LABS: Body Fluid Second Tech FB
[2023-07-20 18:15] LABS: Body Fluid Glucose 94 mg/dl; Body Fluid LDH 343 U/L; Body Fluid Protein 3.5 g/dl; Body Fluid Triglycerides < 30 mg/dl
[2023-07-20] MEDS: XARELTO 20 MG PO (18:17)
[2023-07-20] MEDS: TYLENOL 500 MG PO (18:18)
[2023-07-20 18:48] LABS: NT-proBNP 4410 pg/ml; Troponin I < 0.012 ng/ml
--- NOTE | 2023-07-20 19:23 | PTCARENOTE ---
Report rec'd from IR RN Elisabeth approx 17:45 (report also rec'd earlier from 2N RN), pt has been transfered to IMU s/p placement of new right chest tube -350 mls serosang output noted, sat stable on 15L NRB. Upon settling into new room at ~18:00, pt
transitioned to midflow nasal cannula at 15L, sats 89-95% at this time, some tachypnea noted, lung sounds scatt coarse t/o, occ non pro cough. Labwork ordered per Dr. Licea (at bedside)-pro BNP and troponin drawn and sent, ECG obtained showing NSR,
medications given crushed in yogurt. Pericare provided for large amount incontinence of urine, purewick placed and pt positioned with pillows with assistance of caregiver at bedside. Report given to inspector soldering RN Melvin. Pt more awake and
interactive at this time, following commands, answering questions appropriately. Call edwards in reach -2 friends visiting at bedside.
Please note-pt and family request only FEMALE RN/arabic translator be assigned to this patient.
[2023-07-20] MEDS: VANCOCIN 150 IV (21:35)
[2023-07-20] MEDS: ANTIVERT PO (22:55)
[2023-07-20] MEDS: HYTRIN PO (22:56)
[2023-07-20] MEDS: ULTRAM PO (22:56)
[2023-07-20] MEDS: LIPITOR PO (22:56)
[2023-07-20] MEDS: NEURONTIN PO (22:56)
[2023-07-20] MEDS: WELLBUTRIN REGULAR RELEASE PO (22:57)
[2023-07-21] VITALS (13 sets, daily range): BP systolic 92–135; BP diastolic 33–65
[2023-07-21] MEDS: ZOSYN 50 IV ×4 (00:03→18:13)
[2023-07-21] MEDS: DILAUDID 0.5 MG IV ×3 (02:58→12:22)
[2023-07-21 03:37] LABS: Hematocrit 29.5 % (37.0-47.0); Hemoglobin 9.2 g/dL (12.0-16.0); Mean Corp Hgb Conc. 31.2 g/dL (33.0-37.0); Mean Corpuscular Hgb 23.6 pg (27.0-31.0); Mean Corpuscular Volume 75.6 fL (81.0-99.0); Mean Platelet Volume 9.4 fL (7.4-10.4); Platelet Count 515 10^3/uL (130-400); Red Cell Dist. Width 15.3 % (11.5-14.5); White Blood Cell Count 18.8 10^3/uL (4.8-10.8)
[2023-07-21 04:10] LABS: Blood Urea Nitrogen 7 mg/dl (7-17); Calcium 8.4 mg/dl (8.4-10.2); Carbon Dioxide 31 mmol/L (22-30); Chloride 95 mmol/L (98-107); Estimated Creatinine Clearance 68 ml/min; Glucose 110 mg/dl (70-99); Potassium 3.8 mmol/L (3.5-5.1); Sodium 134 mmol/L (135-145); eGFR > 60.00
--- NOTE | 2023-07-21 07:45 | W.PN.HOSP.TC ---
Today's Communication/Plan
-
CW IV antibiotics. Follow culture data
Start on IV Lasix. Check an echocardiogram. Follow weights daily.
Assessment / Plan
Assessment / Plan
pt is an 83 year old female
Right basilar pneumonia with small right pleural effusion/atelectasis--likely CAP but concerned about aspiration (remote history of achalasia)--initially on Zosyn and Zithromax --nonbacteremic
Improved white count initially with worsening again.
Chest x-ray shows worsening pneumonia.
CT chest multifocal pneumonia with extensive ground glass airspace disease in both lungs most prominent in both upper lobes and confluent alveolar airspace disease in the right middle
Moderate right pleural effusion with compressive atelectasis in the right lower lobe.
Seen by ID-antibiotics broadened.Improved fevers.
Right chest tube placed
Right pleural effusion-diagnostic testing shows no empyema. pH 7.41 in the pleural fluid. Meets criteria for exudate by LDH criteria but not protein criteria. Gram stain shows no organisms. Await culture. Continue with chest tube drainage.
Possible CHF-patient with worsening of hypoxia after initial improvement on antibiotics. BNP is elevated. Chest CT shows extensive groundglass airspace disease in the upper lobes along with the confluent airspace disease in the right middle lobe.
Will give a trial of diuretics. Check an echocardiogram. Last known ECHO 2018 normal EF.
Acute hypoxic respiratory insufficiency-patient requiring increased FiO2 . She denies being short of breath. No acute respiratory distress evident while resting. Wean O2 as able.
Nausea and abdominal pain--persistent nausea with intermittent abdominal pain with negative CT abdomen pelvis with IV contrast--No oral contrast given-- Unclear etiology but will evaluate further from achalasia standpoint - --try to get bowels
moving. Some of her nausea may be secondary to vertigo I feel. With worsening hypoxia hold on esophagogram .
Nausea with postural dizziness suspicious for vertigo-improving with scheduled meclizine. Appreciate neurology input.
UA abnormal but no pyuria - no dysuria . It is a contaminated specimen.
Asthma/COPD--patient today with reactive airways--Continue inhalers--Continue montelukast-add nebulizers
Prediabetes
History of CVA with residual left-sided paralysis/neuropathic pain--difficulty with pain control--Continue aspirin, statin--Consider gabapentin when infection better treated and mental status improved
Chronic back pain--Continue tramadol
History of muscle spasms--continue baclofen PRN
Constipation--Continue MiraLAX
Chronic anemia--Hemoglobin lower than baseline--follow for now-H&H stable---heme test stools neg
GERD--Continue omeprazole
Anxiety/depression--Continue bupropion, sertraline--Continue trazodone PRN
History of orthostatic hypotension--Continue midodrine
History of DVT/PE--Continue Xarelto
Essential hypertension--Continue terazosin
IBS
Diverticulosis
code status --DNR/DNI
DVT prophylaxis�Xarelto
Left message to on voicemail
Total time spent on today's encounter was 52 minutes which included time spent in counseling the patient/family regarding diagnosis and treatment plan as listed above, goals of care, and symptom management. Case was discussed with nursing staff,
specialists, . All labs and imaging personally reviewed by me. Remainder the time spent in detailed review of lab data, imaging, and other medical provider documentation.
Anticipated Discharge: > 48 hours
Subjective/Interval History
-
Date of Service: July 21, 2023
Patient had interrupted sleep last night.
This morning not much of nausea no dizziness. Not much appetite today.
Breathing she states is okay. No chest pain. She is on midflow oxygen via nasal cannula.
Objective Data
-
Labs:
Laboratory Results
07/21/23
03:11
WBC 18.8 H
Hgb 9.2 L
Hct 29.5 L
Plt Count 515 H
Sodium 134 L
Potassium 3.8
Chloride 95 L
Carbon Dioxide 31 H
BUN 7
Creatinine 0.5 L
Glucose 110 H
Calcium 8.4
Vital Signs:
Vital Signs
Temp Pulse Resp BP Pulse Ox
99.1 F 76 29 110/41 97
07/21/23 03:35 07/21/23 06:00 07/21/23 06:00 07/21/23 06:00 07/21/23 06:00
I&O
07/20/23 07/21/23 07/22/23
06:59 06:59 06:59
Intake Total 480 / 480 980 / 980
Output Total 950 / 950
Balance 480 / 480 30 / 30
Review of Systems
-
Constitutional: Denies Fever or Chills
EENT: Denies Sore Throat
Respiratory: Reports Cough
Abdomen/GI: Denies Abdominal Pain
Neuro: Denies Dizzy
Physical Exam
-
General: No Apparent Distress
HEENT: Moist Mucous Membranes
Respiratory: Crackles (bl lower zone); Negative Wheezes
Cardiac: Regular Rhythm and S1/S2; Negative Tachycardic
GI: Soft and Nontender
Neuro: AO x 3
Psych: Calm
Data Reviewed
-
Labs: Labs Reviewed by me
[2023-07-21] MEDS: LASIX 40 MG IV (07:56)
[2023-07-21] MEDS: TYLENOL 1000 MG PO ×3 (07:57→20:12)
[2023-07-21] MEDS: ProAmatine 5 MG PO ×3 (07:57→18:13)
[2023-07-21] MEDS: LIDOCAINE 4% PATCH 2 PATCH TOPICAL (07:57)
[2023-07-21] MEDS: METAMUCIL, KONSYL 1 PACKET PO (07:57)
[2023-07-21] MEDS: PROTONIX 40 MG PO (07:57)
[2023-07-21] MEDS: WELLBUTRIN REGULAR RELEASE 100 MG PO ×3 (07:57→20:12)
[2023-07-21] MEDS: ANTIVERT 12.5 MG PO ×3 (07:58→20:14)
[2023-07-21] MEDS: NEURONTIN 100 MG PO ×3 (07:58→20:14)
[2023-07-21] MEDS: ZOLOFT 100 MG PO (07:58)
[2023-07-21] MEDS: VITAMIN B-12 1000 MCG PO (07:58)
[2023-07-21] MEDS: ULTRAM 50 MG PO ×2 (07:58→20:12)
[2023-07-21] MEDS: LOW STRENGTH ASPIRIN 81 MG PO (07:58)
[2023-07-21] MEDS: VITAMIN D3 (cholecalciferol) 25 MCG PO (07:58)
[2023-07-21] MEDS: SINGULAIR 10 MG PO (07:58)
[2023-07-21] MEDS: OCUVITE SOFTGEL 1 CAP PO (07:59)
[2023-07-21] MEDS: ADVAIR HFA 115/21 MCG INHALER 2 PUFF INH ×2 (08:08→19:51)
[2023-07-21] MEDS: COMBIVENT RESPIMAT INHAL SPRAY 1 PUFF INH ×4 (08:08→19:51)
[2023-07-21] MEDS: VANCOCIN 150 IV ×2 (08:15→18:39)
[2023-07-21] MEDS: DESENEX/MITRAZOL/ZEASORB 1 APPLIC TOPICAL ×2 (08:22→20:11)
--- NOTE | 2023-07-21 09:11 | PHA.VAN.FU ---
Vancomycin Assessment / Plan
- Assessment
Renal Function: Stable
WBC's are: Stable
Concomitant Antimicrobials: piperacillin/tazobactam
- Dosing Plan
Continue: Vanc 750mg Q12H
- Monitoring Plan
No level(s) ordered at this time: dose administered slightly late last night - will hold off on level for now
- Follow Up
Pharmacy will continue to follow.
Vancomycin Follow UP
- -
Patient Age: 83
Patient Sex: Female
Vancomycin Day #: 2
Indication: Pulmonary/Respiratory
Requesting Provider: Dr. Licea / Von
Pertinent Antimicrobial Allergies:
sulfonamide antibiotics - unknown
Height / Weight:
Height 5 ft 4 in
Actual Weight 75.886 kg
- Vital Signs / Lab Results
Temp Pulse Resp BP Pulse Ox
98.6 F 78 28 104/56 93
07/21/23 07:30 07/21/23 08:30 07/21/23 08:30 07/21/23 08:00 07/21/23 08:57
Lab Results - Hematology
07/19/23 07/20/23 07/21/23
05:28 05:10 03:11
WBC 14.2 H 17.2 H 18.8 H
Lab Results - Chemistry
07/19/23 07/20/23 07/21/23
05:28 05:10 03:11
BUN 5 L 6 L 7
Creatinine 0.5 L 0.5 L 0.5 L
Estimated Creat Clear 68 68 68
Microbiology Results
07/20/23 17:32 Gram Stain - Preliminary
Thoracentesis Fluid
07/16/23 14:16 Blood Culture - Preliminary
Blood/Venous No Growth in 4 days- Final report to follow
07/16/23 14:16 Blood Culture - Preliminary
Blood/Venous No Growth in 4 days- Final report to follow
--- NOTE | 2023-07-21 09:17 | W.PN.PUL3 ---
Today's Communication / Plan
-
O2
Atbs
R chest tube mgmt
Assessment
-
Assessment:
Mrs Vale Garrett is an 83/W adm 07-16 from assisted living with 1 wk h/o abd pain/n/v, cough, CP, confusion, ac/chronic dizziness, and decreased oral intake. Diagnosed with R basilar pneumonia with R PF per CXR and abd CT (no abd abnormalities),
started on ceftriaxone/azithromycin, O2 NC 3L. Atbs changed to zosyn/azithromycin d after adm, follow up CXR 07-19 with bilateral infiltrates. Increasing O2 requirements. Pulm consulted 07-20
Impression:
Acute respiratory failure, hypoxemic
RLL infiltrate/effusion on CXR and abd CT 07-16
Bilateral infiltrates on CXR 07-19
Bilateral infiltrates on chest CT: RML, RLL
Pneumonitis upper lobes
Moderate R PF
Mild MLAD
Secretions at posterior wall of trachea
Leukocytosis, decreasing and then increasing since adm
Moderate anemia
COVID/flu negative
MRSA screening positive
Conditions [employer]:
Asthma/COPD, on salmeterol/fluticasone and combivent, not on home O2
Prediabetes
HTN
Constipation
Anemia
GERD
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
Chronic dizziness
Anxiety/depression
Recurrent UTI
Orthostatic hypotension
H/o DVT/PE, on rivaroxaban
Achalasia, s/p PEG and reversal
IBS
Diverticulosis
Right TKA
Lumbar laminectomy 2015
Tonsillectomy
Former smoker
DNR
Plan:
Continue O2 protocol
Noted increased O2 requirements in setting of worsening pulm infiltrates
Currently at 15 L, POx 90%
Not on home O2
Asp precs to continue
Continue BDs: advair, combivent
Suspected progressive severe aspiration pneumonia along with pneumonitis findings at upper lobes
Noted secretions collected at tracheal posterior wall. Noted h/o achalasia requiring PEG in past
Blood cxs 07-16 and u cx 07-16 negative
Continue empiric atbs as outlined by ID: zosyn/IV vancomycin
Could not yet provide sputum sample
IS and acapella as able
RML infiltrate has one area of relative lucency suggestive of necrosis
RLL appears mainly atelectasis rather than pneumonia
R pleural effusion is large enough and appears loculated
Areas of pneumonitis present at upper lobes, likely related to aspiration (COVID negative on adm and on repeat testing 07-20)
IRad consulted, R chest tube placed 07-20, 250 mL serous fluid upon placement of chest tube
pH 7.41, wbc 1208, M 61.45, PMN 38.6, G 94, LDH and ratio exudative, G stain negative, cx/cyto pending
CXR 07-21: portable, bilateral infiltrates, R chest tube, apparently resolved R PF
Continue supportive care
D/w patient and her and a close friend visiting at time of consult
confirms DNR status
Subjective Data
-
Date of Service:
Date of Service: July 21, 2023
Chief Complaint: Pulmonary Follow Up
Subjective:
No major events reported
Received R chest tube yesterday
Review of Systems
General: Other (limited historian (acuity))
Objective Data
Data Reviewed
Vital Signs / I&O / Oxygen:
Vital Signs
Temp Pulse Resp BP Pulse Ox
98.6 F 78 28 104/56 93
07/21/23 07:30 07/21/23 08:30 07/21/23 08:30 07/21/23 08:00 07/21/23 08:57
Intake and Output
07/20/23 07/21/23 07/22/23
06:59 06:59 06:59
Intake Total 480 / 480 980 / 980
Output Total 950 / 950
Balance 480 / 480 30 / 30
SaO2 93
Nasal Cannula flow liters per 15
minute
Physical Exam
General: Respiratory Distress (n)
HEENT: Normocephalic and Moist Mucous Membranes
Cardiovascular: Regular Rhythm, Murmur (n) and Peripheral Edema (n)
Respiratory: Chest Tube (R, 550 mL serous fluid at 6 am)
GI: Soft, Non Distended and Non Tender
Neurology: Other (sleepy, arousable)
Skin: Dry
Labs/Micro/Reports
Lab Data
07/21/23 03:11
07/21/23 03:11
Microbiology
07/20/23 17:32 Thoracentesis Fluid Gram Stain - Preliminary
07/16/23 14:16 Blood/Venous Blood Culture - Preliminary
No Growth in 4 days- Final report to follow
07/16/23 14:16 Blood/Venous Blood Culture - Preliminary
No Growth in 4 days- Final report to follow
07/16/23 22:25 Nose MRSA Screen - Final
Staph aureus MRSA
--- NOTE | 2023-07-21 09:24 | W.PN.ID1 ---
Date of Service
Date of Service: July 21, 2023
Today's Communication
- pleural fluid exudative but not consistent with empyema - pH normal, neg gram stain, monocytic; early parapneumonic effusion suspected, chest tube management per pulmonary - suspect it may not be needed for long
- will follow afb/fungal cultures
- agree with echo
- agree with vancomycin
- continue zosyn for now - probable deescalation pending course
Assessment / Plan
Pneumonia with parapneumonic effusion
Achalasia s/p PEG and reversal
Acute Hypoxemic Resp Failure - remains on midflow this am
Leukocytosis - may be peaking
Reported allergy to sulfa
- has not produced a sputum thus far - obtain if feasible
- pleural fluid exudative but not consistent with empyema - pH normal, neg gram stain, monocytic; early parapneumonic effusion suspected, chest tube management per pulmonary - suspect it may not be needed for long
- will follow afb/fungal cultures
- agree with echo
- agree with vancomycin
- continue zosyn for now - probable deescalation pending course
- follow clinically
Chief Complaint
-: Pneumonia (Empyema)
Subjective / Review of Systems
no further fevers
BP stable
midflow NC at 15L
slight increase in wbc count from 17 to 18
hgb 9.2
plt stable
2/6 covid ag neg
chest tube placed - 250 serous fluid removed
body fluidgram stain few wbcs/no organisms
pH 7.4
monocytic
glucose 90
LDH 343/229 - exudate
slept badly by report
Vital Signs / Physical Exam
Vital Signs
Vital Signs
Temp Pulse Resp BP Pulse Ox
98.6 F 78 28 104/56 93
07/21/23 07:30 07/21/23 08:30 07/21/23 08:30 07/21/23 08:00 07/21/23 08:57
Physical Exam
Constitutional: Acutely Ill and Chronically Ill
Cardiovascular: Regular Rate and S1/S2; Negative Murmur or Rub
Pulmonary: Clear and Symmetric; Negative Wheezes or Rales
Gastrointestinal: Soft, Non Tender, Non Distended and Normal Bowel Sounds
Skin: Warm and Dry; Negative Rash or Jaundice
Neurological: Negative Awake
Objective Data
Lab Data
Lab Results
07/21/23 03:11
07/21/23 03:11
Estimated Creat Clear 68 ml/min 07/21/23 03:11
Lactic Acid Cancelled 07/16/23 18:15
Total Bilirubin 0.6 mg/dl (0.2-1.3) 07/17/23 06:40
AST 18 U/L (14-36) 07/17/23 06:40
ALT 12 U/L (0-35) 07/17/23 06:40
Alkaline Phosphatase 93 U/L (38-126) 07/17/23 06:40
Most recent labs reviewed.
Micro Results:
07/20/23 17:32 Body Fluid Culture - Pending
Thoracentesis Fluid Gram Stain - Preliminary
07/20/23 17:32 Fungal Smear - Pending
Pleural Fluid
07/20/23 17:32 Acid Fast Bacilli Smear - Pending
Pleural Fluid Acid Fast Bacilli Culture - Pending
07/16/23 14:16 Blood Culture - Preliminary
Blood/Venous No Growth in 4 days- Final report to follow
07/16/23 14:16 Blood Culture - Preliminary
Blood/Venous No Growth in 4 days- Final report to follow
07/16/23 22:25 MRSA Screen - Final
Nose Staph aureus MRSA
07/16/23 14:16 Urine Culture - Final
Urine NO GROWTH
07/16/23 18:43 Influenza Types A & B (KRISTOFER) - Final
Nasal Swab Negative for Influenza A & B, NAAT
Negative results must be combined with clinical observations
and patient history.
Nucleic Acid Amplification test (NAAT)performed on the
[employer] platform.
--- NOTE | 2023-07-21 11:28 | PTOTSP ---
Patient will need new OT orders due to move to IMU after chest tube insertion
--- NOTE | 2023-07-21 12:14 | CM ---
CM met with spouse
Rehab options discussed
Spouse requesting referral to [facility]
He is aware of qualifying dx, endurance, and insurance auth process and requirements
Encouraged back up SNF referral, he selected [facility]
Spouse also aware if pt regains some strength during admission, might be able to return to [facility] historically can accept patients back with higher acuity needs
PASRR completed and referral sent via [facility]
Pt in IMU, ADC>48 hours
Pt with IV abx and s/p chest tube placement
Pt will require [facility] auth if rehab on dc
Discharge Disposition- return to [facility] vs SNF or [facility]
--- NOTE | 2023-07-21 12:51 | PN.CDI ---
CDI
- -
CDI:
Physician Documentation Request
Admit Date: 07/16/23 18:43
Dear Doctor Vinayak,
Please review the following and provide your response in the progress notes.
Clinical Indicators:
Pt admitted with Right basilar pneumonia with small right pleural effusion/atelectasis--likely CAP but concerned about aspiration ... zosyn and zithromax .'
There is potentially conflicting documentation regarding the patient respiratory diagnosis.
Documented per pulmonology consult,'Acute respiratory failure, hypoxemic...Noted increased O2 requirements in setting of worsening pulm infiltrates Currently at 15 L, POx 90%...'
Progress note 07/20 & 07/21,' Acute hypoxic respiratory insufficiency-patient requiring increased FiO2 .
Patient care note 07/20@ 0800,' Pt sating at 84% on 6LNC. NRB in place, resp notified. Resp applied 15L midflow, pt sating at 90-91%.
Patient care note 07/20 @ 1923, ' pt transitioned to midflow nasal cannula at 15L, sats 89-95% at this time, some tachypnea noted, lung sounds scatt coarse t/o, occ non pro cough....'
Pt currently on 15 LPM midflow NC ,Respirations as high as 35, oxygen saturations as low as 82%
Clarify which of the following accurately represents the patient's respiratory status:
Acute Hypoxic Respiratory failure
Hypoxia -only
Other
Additional information for Respiratory Failure:
Recognized criteria for Respiratory Failure (Source: [facility] Apr 2013)
ABGs: (1 or more) Symptoms Please indicate type if known
1. p)2 <60 or RA SPO2 <91% on RA 1. Tachypnea, SOB, dyspnea Hypoxic
2. pCO2 50 and pH <7.35 2. Use of accessory muscles Hypercapnic
3. pO2 decrease of pCO2 increase by 3. Pallor or cyanosis Hypoxic and Hypercapnic
10 mmHg from baseline if known 4. Anxiety or restlessness Unable to determine
5. Unable to speak in full sentences
Supplemental O2 of > 40% (5LPM) Intubation is not required
Use of terms such as suspected, likely, concern for, or probable (associated with a specific diagnosis that is being evaluated, monitored, or treated as if it exists) are acceptable and can be coded in the inpatient setting, when documented at the
time of discharge.
Thank you,
Santa Welch RN
CDI Specialist
Section Text
Please use your independent medical judgment in providing your response.
--- NOTE | 2023-07-21 14:10 | CON.CAR ---
Addendum entered and electronically signed by Cesar El MD 07/21/23 17:17:
83 yo female with PMH of CVA admitted with PNA and parapneumnic effusion s/p chest tube placement 07/20. We are consulted to evaluate for heart failure. She reports SOB. She denies edema. Exam with RRR, no murmurs, no edema. Echo 07/21: EF 55-60%, no
significant valve disease.
I do not see evidence of heart failure. She did receive IV earlier today. I will hold future order, and we will re-assess volume status in AM.
Original Note:
Consultation
Consultation Request
Date/Time Consultation Requested: 07/21/23 1:25p
Date/Time Consultation Performed: 07/21/23 2p
Requesting Provider: Dr. Licea
Performing Provider: DMITRY Hernandez for Dr. El
Reason for Consultation: pleural effusion
Medical History
-
Chief Complaint: abdominal pain/vomiting
History of Present Illness:
Mrs. Garrett is an 83 yo female with HLD, CVA 2018 with left sided deficits, pre DM, asthma/COPD, diverticulitis, anxiety, GERD, h/o DVT/PE, and achalasia s/p PEG and reversal, who presents to the ER 07/16/23 from assisted living [facility] with c/o
abdominal pain RLQ, vomiting, cough, chest pain with coughing and hypoxic for one week. She is admitted to the hospitalist service for PNA and small right pleural effusion. We are consulted for pleural effusion and proBNP of 1400. She denies any
SOB, chest pain or other cardiac symptoms. S/p right chest tube placed 07/20/23, then had hypoxia and fevers 07/20/23, now fevers improved. She did receive one dose of IV Lasix today. Currently on IV antibiotics per ID.
Past Medical History
Past Medical History: Other (as above)
Social History
Tobacco: Former Smoker
Alcohol: None
Personal:
Living: Assisted Living
Family History
Family History: Reviewed & Not Pertinent
Allergies / Home Medications
Allergy/AdvReac Type Severity Reaction Status Date / Time
codeine [Codeine] Allergy Nausea Verified 07/16/23 13:41
prochlorperazine Allergy Rash Verified 07/16/23 13:41
Suvdxrx-AMD-IoA Reductase Allergy muscle Verified 07/16/23 13:41
Inhibitor weakness
[Ghkfpql-Bku-Nny Reductase
Inhibitor]
Sulfa (Sulfonamide Allergy Pt unsure Verified 07/16/23 13:41
Antibiotics) of reaction
Medication Instructions Recorded Confirmed Type
montelukast 10 mg tablet 10 mg PO DAILY Lung/breathing 09/30/15 07/16/23 History
issues
ipratropium 20 mcg-albuterol 100 1 puff inhalation R QID 05/04/16 07/16/23 History
mcg/actuation mist for inhalation
(Combivent Respimat)
cholecalciferol (vitamin D3) 25 1,000 units PO DAILY Supplement 12/21/16 07/16/23 History
mcg (1,000 unit) tablet
aspirin 81 mg chewable tablet 81 mg PO DAILY Blood clot 10/09/20 07/16/23 History
prevention/tx
atorvastatin 20 mg tablet 20 mg PO HS High cholesterol 10/09/20 07/16/23 History
bupropion HCl 100 mg tablet 100 mg PO TID Mental Health/Anxiety 10/09/20 07/16/23 History
fluticasone propionate 50 1 spray intranasal DAILY Allergies 10/09/20 07/16/23 History
mcg/actuation nasal
spray,suspension
guaifenesin 100 mg/5 mL oral liquid 100 mg PO Q6HPRN PRN cough ##0 10/09/20 07/16/23 History
meclizine 12.5 mg tablet 12.5 mg PO BIDPRN PRN dizziness 10/09/20 07/16/23 History
melatonin 5 mg tablet 5 mg PO HSPRN PRN INSOMNIA 10/09/20 07/16/23 History
menthol 5 % topical patch (Icy Hot 1 patch topical DAILY left hip ##0 10/09/20 07/16/23 History
(menthol))
omeprazole 20 mg capsule,delayed 20 mg PO DAILY Gastrointestinal 10/09/20 07/16/23 History
release issue
phenazopyridine 100 mg tablet 100 mg PO BIDPRN PRN URINARY 10/09/20 07/16/23 History
BURNING
polyethylene glycol 3350 17 gram 17 grams PO DAILYPRN PRN 10/09/20 07/16/23 History
oral powder packet CONSTIPATION
rivaroxaban 20 mg tablet (Xarelto) 20 mg PO QPM Blood clot 10/09/20 07/16/23 History
prevention/tx
sertraline 100 mg tablet 100 mg PO DAILY Mental 10/09/20 07/16/23 History
Health/Anxiety
terazosin 1 mg capsule 1 mg PO HS Urinary issue 10/09/20 07/16/23 History
trazodone 50 mg tablet 50 mg PO BID PRN insomnia 10/09/20 07/16/23 History
Calazmine Skin Protect 1 applic topical TID PRN apply to 12/27/22 07/16/23 History
groin, buttocks, coccyx
acetaminophen 160 mg/5 mL oral 1,000 mg PO TID@0600,1400,2200 12/27/22 07/16/23 History
liquid (M-PAP)
baclofen 10 mg tablet 10 mg PO TIDPRN PRN muscle spams 12/27/22 07/16/23 History
fluticasone 113 mcg-salmeterol 14 1 inh inhalation R BID 12/27/22 07/16/23 History
mcg/actuation breath activated
powdr
ipratropium 20 mcg-albuterol 100 1 puff inhalation R BIDPRN PRN sob 12/27/22 07/16/23 History
mcg/actuation mist for inhalation
(Combivent Respimat)
menthol 5 % topical patch (Icy Hot 1 patch topical DAILY PRN left 12/27/22 07/16/23 History
(menthol)) shoulder
mirabegron 25 mg tablet,extended 25 mg PO DAILY 12/27/22 07/16/23 History
release 24 hr (Myrbetriq)
nystatin 100,000 unit/gram topical 1 applic topical DAILYPRN PRN 12/27/22 07/16/23 History
powder breasts/groin rash
psyllium 1 packet PO DAILY ##0 12/27/22 07/16/23 History
tramadol 50 mg tablet 50 mg PO BID 12/27/22 07/16/23 History
vit C 250 mg-E 90 mg-zinc 40 1 tab PO DAILY 12/27/22 07/16/23 History
mg-copper 1 [id number]-caqypc chew
tablet (PreserVision AREDS-2)
cyanocobalamin (vitamin B-12) 1,000 mcg PO DAILY #30 tabs 12/30/22 07/16/23 Rx
1,000 mcg tablet
midodrine 5 mg tablet 5 mg PO TID 07/16/23 07/16/23 History
Review of Systems
-
History Source: Patient
All other systems: Negative unless noted
Physical Exam
Vital Signs
Temp Pulse Resp BP Pulse Ox
98.8 F 72 19 108/45 92
07/21/23 11:00 07/21/23 11:59 07/21/23 11:59 07/21/23 10:00 07/21/23 11:59
Lab Results
07/21/23 03:11
07/21/23 03:11
Troponin I < 0.012 ng/ml 07/20/23 18:07
Oaj-K-Ypjcemfwtam Pept 4410 pg/ml 07/20/23 18:07
Physical Exam
General: Other (elderly, frail)
HEENT: Normocephalic, Anicteric and Moist Mucous Membranes
Respiratory: Non Labored Respirations and Other (diminished sounds right)
Cardiac: S1/S2 and Regular Rhythm
Breast: Deferred by me
GI: Soft, Non Tender and Normal Bowel Sounds
Rectal: Deferred by Provider
Genito-urinary: No Costovertebral Tender
Musculoskeletal: No Clubbing, No Cyanosis and No Edema
Skin: Warm and Dry
Neuro: AO x 3
Hematologic/Lymphatic: No Lymphadenopathy
Psych: Calm
Impression / Plan
-
Pleural effusion - acute, right.
- improved on CXR with chest tube and given IV Lasix today.
- denies chest pain.
- does not appear to be overtly volume overloaded on exam.
- echo 07/21/23 with normal BiV size/function w/o RWMA, EF 55-60%, no change from echo in 2018.
PNA - acute.
- IV antibiotics per ID/hospitalist/pulmonary.
- chest tube in place per pulmonary.
- fevers yesterday resolved today.
- CT chest results noted as below.
CVA - in 2018, left sided deficits.
- stable.
HTN - stable.
- monitor with Midodrine.
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
Data Reviewed
-
Radiology: Report Reviewed by me (cxr 07/21/23: Right basilar chest tube. No pneumothorax. Bilateral parenchymal opacities, decreased in the right base, perhaps slightly increased in the right upper and left lower lungs which could represent
multifocal pneumonia/pneumonitis.)
CT Scan: Report Reviewed by me (chest: Multifocal pneumonia with extensive ground glass airspace disease in both lungs most prominent in both upper lobes and confluent alveolar airspace disease in the right middle. Moderate right pleural effusion
with compressive atelectasis in the right lower lobe. )
Medical Tests (Nuc Med, Echo etc): Report Reviewed by me (echo 07/21/23: Normal biventricular size and systolic function without RWMA. Estimated LVEF 55-60%. Aortic sclerosis without stenosis. Compared to 05/26/18: no significant change.)
Labs: Labs Reviewed by me
Old Records: Reviewed
[2023-07-21] MEDS: XARELTO 20 MG PO (18:13)
--- NOTE | 2023-07-21 18:47 | PTCARENOTE ---
Pt noted to desat to approx 84% while having dinner. Pt appears to be in no distress. TT to Dr. Davison, order received for HFNC. RT at bedside, HF started at 60L, 100%. at bedside and updated on plan of care.
[2023-07-21] MEDS: HYTRIN 1 MG PO (20:12)
[2023-07-21] MEDS: LIPITOR 20 MG PO (20:12)
[2023-07-22] VITALS (11 sets, daily range): BP systolic 91–119; BP diastolic 33–73; BMI 27.9
[2023-07-22] MEDS: ZOSYN 50 IV ×4 (00:18→16:54)
[2023-07-22] MEDS: DILAUDID 0.5 MG IV (03:20)
[2023-07-22 03:57] LABS: Hemoglobin 8.8 g/dL (12.0-16.0); Mean Corp Hgb Conc. 31.4 g/dL (33.0-37.0); Mean Corpuscular Hgb 23.7 pg (27.0-31.0); Mean Corpuscular Volume 75.5 fL (81.0-99.0); Mean Platelet Volume 9.3 fL (7.4-10.4); Platelet Count 534 10^3/uL (130-400); Red Blood Cell Count 3.71 10^6/uL (4.20-5.40); Red Cell Dist. Width 15.3 % (11.5-14.5); White Blood Cell Count 15.4 10^3/uL (4.8-10.8)
[2023-07-22 04:16] LABS: Blood Urea Nitrogen 8 mg/dl (7-17); Calcium 7.9 mg/dl (8.4-10.2); Carbon Dioxide 33 mmol/L (22-30); Chloride 96 mmol/L (98-107); Estimated Creatinine Clearance 68 ml/min; Glucose 98 mg/dl (70-99); Potassium 3.2 mmol/L (3.5-5.1); Sodium 133 mmol/L (135-145); eGFR > 60.00
[2023-07-22] MEDS: TYLENOL 1000 MG PO ×3 (05:37→21:41)
--- NOTE | 2023-07-22 05:46 | PTCARENOTE ---
Patient able to sleep overnight in between cares. Aspiration precautions in place, HOB >30 degrees, pills crushed. Chest tube continues with small air leak; 25mL serous output this shift. Pt tolerating HFNC, sp02 >90%. PRN IV dilaudid provided for
CT site pain. Voiding via purewick. No BM. CHG done. Turned and repositioned frequently, heels floated. VSS. Call edwards within reach.
[2023-07-22] MEDS: VANCOCIN 150 IV ×2 (06:20→17:57)
[2023-07-22] MEDS: COMBIVENT RESPIMAT INHAL SPRAY INH (07:52)
[2023-07-22] MEDS: ADVAIR HFA 115/21 MCG INHALER INH (07:52)
--- NOTE | 2023-07-22 08:06 | W.PN.HOSP.TC ---
Addendum entered and electronically signed by Manfred Licea MD 07/22/23 08:16:
Hypokalemia -replete
Original Note:
Today's Communication/Plan
-
Repeat chest x-ray
Continue with antibiotics per ID
Hold diuretics
Assessment / Plan
Assessment / Plan
pt is an 83 year old female
Right basilar pneumonia with small right pleural effusion/atelectasis--initially felt likely CAP but concerned about aspiration (remote history of achalasia)--initially on Zosyn and Zithromax --nonbacteremic
Improved white count initially with worsening again.
Chest x-ray shows worsening pneumonia.
CT chest multifocal pneumonia with extensive ground glass airspace disease in both lungs most prominent in both upper lobes and confluent alveolar airspace disease in the right middle
Moderate right pleural effusion with compressive atelectasis in the right lower lobe.
Seen by ID-antibiotics broadened.Improved fevers but not hypoxia.
Right chest tube placed
Continue with antibiotics per ID
With progressive pneumonic process with worsening patchy groundglass opacities and interstitial disease dont know if it infectious pneumonia or inflammatory pneumonia? Will discuss with pulmonary and infectious disease regarding goals of steroids.
She is currently on 90% FiO2 without much symptoms ;have encountered 'happy hypoxia' during COVID-her COVID antigen is negative twice. Will discuss with ID about COVID PCR and other virus panel
Right pleural effusion-diagnostic testing shows no empyema. pH 7.41 in the pleural fluid. Meets criteria for exudate by LDH criteria but not protein criteria. Gram stain shows no organisms. Culture negative.. Continue with chest tube drainage.
Airleak noted. Repeated chest x-ray.
Doubt CHF-patient with worsening of hypoxia after initial improvement on antibiotics. BNP is elevated. Chest CT shows extensive groundglass airspace disease in the upper lobes along with the confluent airspace disease in the right middle lobe.
Echo showed normal EF without significant valvular abnormality. Rate significantly lower compared to her recent admission. No changes with hypoxia with diureticS. Doubt CHF. Appreciate cardiology input.
Acute hypoxic respiratory insufficiency-patient requiring increased FiO2 . She denies being short of breath. No acute respiratory distress evident while resting. Wean O2 as able.
Nausea and abdominal pain--persistent nausea with intermittent abdominal pain with negative CT abdomen pelvis with IV contrast--No oral contrast given-- Unclear etiology but will evaluate further from achalasia standpoint - --try to get bowels
moving. Some of her nausea may be secondary to vertigo I feel. With worsening hypoxia hold on esophagogram .
Nausea with postural dizziness suspicious for vertigo-improving with scheduled meclizine. Appreciate neurology input. Resolved dizziness-make Antivert as needed
UA abnormal but no pyuria - no dysuria . It is a contaminated specimen.
Asthma/COPD--patient today with reactive airways--Continue inhalers--Continue montelukast-add nebulizers
Prediabetes
History of CVA with residual left-sided paralysis/neuropathic pain--difficulty with pain control--Continue aspirin, statin--Consider gabapentin when infection better treated and mental status improved
Chronic back pain--Continue tramadol
History of muscle spasms--continue baclofen PRN
Constipation--Continue MiraLAX
Chronic anemia--Hemoglobin lower than baseline--follow for now-H&H stable---heme test stools neg
GERD--Continue omeprazole
Anxiety/depression--Continue bupropion, sertraline--Continue trazodone PRN
History of orthostatic hypotension--Continue midodrine
History of DVT/PE--Continue Xarelto
Essential hypertension--Continue terazosin
IBS
Diverticulosis
code status --DNR/DNI
DVT prophylaxis�Xarelto
Discussed with RN
Total time spent on today's encounter was 52 minutes which included time spent in counseling the patient/family regarding diagnosis and treatment plan as listed above, goals of care, and symptom management. Case was discussed with nursing staff,
specialists, . All labs and imaging personally reviewed by me. Remainder the time spent in detailed review of lab data, imaging, and other medical provider documentation.
Anticipated Discharge: > 48 hours
Subjective/Interval History
-
Date of Service: July 22, 2023
' The thing in nose hurts'
When asked about the breathing she says she is not short of breath. Is comfortable during conversation. No accessory respiratory muscles in use.
She said that her appetite is okay and order oatmeal for breakfast.
The chest tube site hurts a bit.
Objective Data
-
Labs:
Laboratory Results
07/22/23
03:39
WBC 15.4 H
Hgb 8.8 L
Hct 28.0 L
Plt Count 534 H
Sodium 133 L
Potassium 3.2 L
Chloride 96 L
Carbon Dioxide 33 H
BUN 8
Creatinine 0.5 L
Glucose 98
Calcium 7.9 L
Vital Signs:
Vital Signs
Temp Pulse Resp BP Pulse Ox
98.2 F 73 18 95/38 96
07/22/23 07:10 07/22/23 07:52 07/22/23 07:52 07/22/23 06:00 07/22/23 07:52
I&O
07/21/23 07/22/23 07/23/23
06:59 06:59 06:59
Intake Total 980 / 980 650 / 650
Output Total 950 / 950 1250 / 1250
Balance 30 / 30 -600 / -600
Review of Systems
-
Constitutional: Denies Fever or Chills
Respiratory: Reports Cough; Denies Trouble Breathing
Cardiac: Denies Chest Pain
Abdomen/GI: Denies Abdominal Pain, Nausea (Today) or Vomiting
Neuro: Denies Dizzy (Anymore)
Physical Exam
-
General: No Apparent Distress
HEENT: Moist Mucous Membranes
Respiratory: Clear to Auscultation (Anterior laterally) and Non Labored Respirations; Negative Wheezes or Accessory Resp Muscle Use
Cardiac: Regular Rhythm and S1/S2; Negative Tachycardic
GI: Soft and Nontender
Neuro: AO x 3
Data Reviewed
-
Labs: Labs Reviewed by me
--- NOTE | 2023-07-22 08:22 | W.PN.CD ---
Today's Communication / Plan
-
hold lasix today
Impression / Plan
-
Pleural effusion - acute, right.
-consistent with exudative process.
- improved on CXR with chest tube and given IV Lasix today.
- denies chest pain.
- does not appear to be overtly volume overloaded on exam.
-Today wt 73.7 lowest her weight has been
-would hold lasix today
-RHC could be considered, but today exam and echo inconsistent with volume overload
- echo 07/21/23 with normal BiV size/function w/o RWMA, EF 55-60%, normal PASP, normal IVC, no change from echo in 2018.
PNA - acute.
- IV antibiotics per ID/hospitalist/pulmonary.
- chest tube in place per pulmonary.
-increased oxygen requirements overnight
- fevers last seen 07/20
- CT chest results noted as below.
CVA - in 2018, left sided deficits.
- stable.
HTN - stable.
- monitor with Midodrine.
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
Subjective;
She is feeling better now, she did having increased oxygen demands that are now being reduced as able per d/w nursing
Data Reviewed:
TTE: 07/22/23:
�Normal biventricular size and systolic function without regional wall motion
�abnormality. Estimated LVEF 55-60%.
�Aortic sclerosis without stenosis.
�PASP 34mmHg, IVC normal size and collapse
�Compared to 05/26/18: no significant change.
Physical Exam
Vital Signs/Labs
Vital Signs
Temp Pulse Resp BP Pulse Ox
98.2 F 73 18 95/38 96
07/22/23 07:10 07/22/23 07:52 07/22/23 07:52 07/22/23 06:00 07/22/23 07:52
07/21/23 07/22/23 07/23/23
06:59 06:59 06:59
Actual Weight 73.7 kg
07/22/23 03:39
07/22/23 03:39
Magnesium 1.9 mg/dl (1.6-2.3) 07/19/23 05:28
07/20/23 07/20/23
05:10 18:07
[id number]-[id number] Pept Cancelled 4410
LAB Results
07/20/23
18:07
Troponin I < 0.012
Physical Exam
Constitutional: No acute distress
Cardiovascular: Rhythm & rate is regular, Pedal edema is absent, JVD pressure is normal, S1S2 is normal and Murmur/rub/gallop absent
Respiratory: Rhonchi Absent, Wheeze Present, Crackles Present (rt>LT) and Other (increased effort)
Neuro/Psych: AO x 3
Data Reviewed
-
Date of Service: July 22, 2023
EKG: Other (tele nsr)
Echo: Tracing Personally Visualized and interpreted and Report Reviewed by me (see note)
Medical Tests (PFT, Pathology etc): Discussed with Physician (Dr Licea agree she doesn't see volume overloaded, mutlifocal interstital process likely, ) and Discussed with Nurse (now down to 50% FiO2, was at 90)
[2023-07-22] MEDS: DESENEX/MITRAZOL/ZEASORB 1 APPLIC TOPICAL ×2 (08:40→21:43)
[2023-07-22] MEDS: LIDOCAINE 4% PATCH 2 PATCH TOPICAL (08:41)
[2023-07-22] MEDS: LOW STRENGTH ASPIRIN 81 MG PO (08:42)
[2023-07-22] MEDS: NEURONTIN 100 MG PO ×3 (08:43→21:41)
[2023-07-22] MEDS: METAMUCIL, KONSYL 1 PACKET PO (08:43)
[2023-07-22] MEDS: OCUVITE SOFTGEL 1 CAP PO (08:44)
[2023-07-22] MEDS: ProAmatine 5 MG PO ×3 (08:46→15:31)
[2023-07-22] MEDS: PROTONIX 40 MG PO (08:47)
[2023-07-22] MEDS: SINGULAIR 10 MG PO (08:47)
[2023-07-22] MEDS: ULTRAM 50 MG PO ×2 (08:47→21:41)
[2023-07-22] MEDS: VITAMIN B-12 1000 MCG PO (08:48)
[2023-07-22] MEDS: VITAMIN D3 (cholecalciferol) 25 MCG PO (08:48)
[2023-07-22] MEDS: KCL 40 MEQ PO (08:49)
[2023-07-22] MEDS: WELLBUTRIN REGULAR RELEASE 100 MG PO ×3 (08:49→21:41)
[2023-07-22] MEDS: ZOLOFT 100 MG PO (08:49)
--- NOTE | 2023-07-22 09:02 | W.PN.ID1 ---
Addendum entered and electronically signed by Cheryl Longoria MD 07/22/23 13:32:
COVID and RSV PCRs are negative
Original Note:
Date of Service
Date of Service: July 22, 2023
Today's Communication
covid PCR, rsv testing sent
agree with steroids - management per pulmonary
suspect chest tube might be removed - ultimately per pulmonary
continue vanc/zosyn
prognosis guarded
Assessment / Plan
Pneumonia with parapneumonic effusion
Achalasia s/p PEG and reversal
Acute Hypoxemic Resp Failure - now on HF NC
Leukocytosis - downtrending
Reported allergy to sulfa
- cbc with diff in the AM
- has not produced a sputum thus far - would obtain if feasible (unlikely now)
- pleural fluid exudative but not consistent with empyema - pH normal, neg gram stain, monocytic; early parapneumonic effusion suspected, chest tube management per pulmonary - suspect it may not be needed for long
- covid PCR sent, rsv testing also sent; agree that respiratory virus on the differential; most resp viruses do not have specific treatments beyond supportive care and resp viral panel unlikely to belt changer in non-immunosuppressed patients
- ESR/CRP
- will follow afb/fungal cultures
- echo normal systolic and diastolic function
- agree with vancomycin
- continue zosyn for now
- agree with steroids - management per pulmonary
- follow clinically
Prognosis guarded in this frail patient with progressive hypoxemic resp failure; note DNR status
Chief Complaint
-: Pneumonia (Empyema)
Subjective / Review of Systems
no further fevers
mild hypotension today - more persistent than yesterday
now on high flow 50L at 90%
leukocytosis downtrending, persistent thrombocytosis
cr 0.5
bnp: 2/6 elevated for age
cxr formal raead pending - my read progressive, diffuse fluffy infiltrates worst in the bilateral lower lobes
body fluid remains no growth
echo: normal EF and normal diastolic function
complaining of pain at the chest tube site
RN at the bedside feels she is witnessing some aspiration
Vital Signs / Physical Exam
Vital Signs
Vital Signs
Temp Pulse Resp BP Pulse Ox
98.2 F 73 18 95/38 96
07/22/23 07:10 07/22/23 07:52 07/22/23 07:52 07/22/23 06:00 07/22/23 07:52
Physical Exam
Constitutional: Acutely Ill and Chronically Ill
Cardiovascular: Regular Rate and S1/S2; Negative Murmur or Rub
Pulmonary: Symmetric, Coarse, Non Labored and Other (coughing - sounds productive); Negative Wheezes or Rales
Gastrointestinal: Soft, Non Tender, Non Distended and Normal Bowel Sounds
Skin: Warm and Dry; Negative Rash or Jaundice
Objective Data
Lab Data
Lab Results
07/22/23 03:39
07/22/23 03:39
Estimated Creat Clear 68 ml/min 07/22/23 03:39
Lactic Acid Cancelled 07/16/23 18:15
Total Bilirubin 0.6 mg/dl (0.2-1.3) 07/17/23 06:40
AST 18 U/L (14-36) 07/17/23 06:40
ALT 12 U/L (0-35) 07/17/23 06:40
Alkaline Phosphatase 93 U/L (38-126) 07/17/23 06:40
Most recent labs reviewed.
Micro Results:
07/20/23 17:32 Fungal Smear - Final
Pleural Fluid No yeast or fungal elements seen.
07/16/23 14:16 Blood Culture - Final
Blood/Venous No Growth - Final Report
07/16/23 14:16 Blood Culture - Final
Blood/Venous No Growth - Final Report
07/20/23 17:32 Body Fluid Culture - Preliminary
Thoracentesis Fluid No Growth After 18-24 Hours
Gram Stain - Preliminary
07/20/23 17:32 Acid Fast Bacilli Smear - Pending
Pleural Fluid Acid Fast Bacilli Culture - Pending
07/16/23 22:25 MRSA Screen - Final
Nose Staph aureus MRSA
07/16/23 14:16 Urine Culture - Final
Urine NO GROWTH
07/16/23 18:43 Influenza Types A & B (KRISTOFER) - Final
Nasal Swab Negative for Influenza A & B, NAAT
Negative results must be combined with clinical observations
and patient history.
Nucleic Acid Amplification test (NAAT)performed on the
[employer] platform.
Care Review
Plan reviewed with: Physician (Dr Licea, Dr Delcid, Dr El)
--- NOTE | 2023-07-22 09:29 | PHA.VAN.FU ---
Vancomycin Assessment / Plan
- Assessment
Renal Function: Stable
WBC's are: Trending Down
In the past 24 hrs, patient has been: Afebrile
Concomitant Antimicrobials: piperacillin/tazobactam
Renal labs remain stable s/p CT with contrast 07/20 & 07/16
- Dosing Plan
Continue: Vanc 750mg Q12H
- Monitoring Plan
Peak Level: 07/22 20:30
Trough Level: 07/23 05:30
Monitoring Comments: levels to be drawn after 5th maintenance dose
- Follow Up
Pharmacy will continue to follow.
Vancomycin Follow UP
- -
Patient Age: 83
Patient Sex: Female
Vancomycin Day #: 3
Indication: Pulmonary/Respiratory
Requesting Provider: Dr. Licea / Von
Pertinent Antimicrobial Allergies:
sulfonamide antibiotics - unknown
Height / Weight:
Height 5 ft 4 in
Actual Weight 73.7 kg
- Vital Signs / Lab Results
Temp Pulse Resp BP Pulse Ox
98.2 F 77 18 96/30 96
07/22/23 07:10 07/22/23 08:46 07/22/23 07:52 07/22/23 08:46 07/22/23 07:52
Lab Results - Hematology
07/20/23 07/21/23 07/22/23
05:10 03:11 03:39
WBC 17.2 H 18.8 H 15.4 H
Lab Results - Chemistry
07/20/23 07/21/23 07/22/23
05:10 03:11 03:39
BUN 6 L 7 8
Creatinine 0.5 L 0.5 L 0.5 L
Estimated Creat Clear 68 68 68
Microbiology Results
07/20/23 17:32 Fungal Smear - Final
Pleural Fluid No yeast or fungal elements seen.
07/16/23 14:16 Blood Culture - Final
Blood/Venous No Growth - Final Report
07/16/23 14:16 Blood Culture - Final
Blood/Venous No Growth - Final Report
07/20/23 17:32 Body Fluid Culture - Preliminary
Thoracentesis Fluid No Growth After 18-24 Hours
Gram Stain - Preliminary
[2023-07-22] MEDS: ANTIVERT PO (09:52)
[2023-07-22 09:55] LABS: Covid-19 RAPID by NAA Negative (Negative)
--- NOTE | 2023-07-22 09:59 | W.PN.PUL3 ---
Addendum entered and electronically signed by Jian Martel MD 07/22/23 16:18:
Repeat chest x-ray this afternoon on waterseal: Show no pneumothorax per
Persistent bilateral infiltrates
Patient with persistent hypoxemia despite antibiotics, diuresis.
Discussed the case with Dr. Licea and infectious disease. Infectious etiology not highly suspected.
We are contemplating diagnosis of nonspecific inflammatory pneumonitis.
Given worsening oxygenation, okay with diuresis.
Will add also moderate doses of IV steroids with close observation.
Will continue to follow closely.
Hopefully can discontinue chest tube tomorrow.
Original Note:
Today's Communication / Plan
-
Continue current antibiotics
Chest tube output not significant
Stable chest x-ray, repeat tomorrow
Airleak noted to suction. No air leak to waterseal. Repeat chest x-ray at 1 PM to evaluate for pneumothorax.
Follow cultures
Wean down FiO2
Will consider discontinuation of chest tube in next 24 hours depending on output and chest x-ray results.
Assessment
-
Assessment:
Mrs Vale Garrett is an 83/W adm 07-16 from assisted living with 1 wk h/o abd pain/n/v, cough, CP, confusion, ac/chronic dizziness, and decreased oral intake. Diagnosed with R basilar pneumonia with R PF per CXR and abd CT (no abd abnormalities),
started on ceftriaxone/azithromycin, O2 NC 3L. Atbs changed to zosyn/azithromycin d after adm, follow up CXR - with bilateral infiltrates. Increasing O2 requirements. Pulm consulted -
Impression:
Acute respiratory failure, hypoxemic
RLL infiltrate/effusion on CXR and abd CT 07-16
Bilateral infiltrates on CXR -
Bilateral infiltrates on chest CT: RML, RLL
Pneumonitis upper lobes
Moderate R PF
Mild MLAD
Secretions at posterior wall of trachea
Right parapneumonic effusion: Status post chest tube placement 07/20/2023
Leukocytosis, decreasing and then increasing since adm
Moderate anemia
COVID/flu negative
MRSA screening positive
Conditions PCTS:
Asthma/COPD, on salmeterol/fluticasone and combivent, not on home O2
Prediabetes
HTN
Constipation
Anemia
GERD
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
Chronic dizziness
Anxiety/depression
Recurrent UTI
Orthostatic hypotension
H/o DVT/PE, on rivaroxaban
Achalasia, s/p PEG and reversal
IBS
Diverticulosis
Right TKA
Lumbar laminectomy 2015
Tonsillectomy
Former smoker
DNR
Plan:
Continues to require significant amount of oxygen supplementation. Respiratory status remains tenuous.
Continue with oxygen supplementation to maintain pulse ox above 90%.
Noted increased O2 requirements in setting of worsening pulm infiltrates
Currently at 15 L, POx 90%
Not on home O2
Continue with aspiration precautions
-
Not bronchospastic on exam
Continue Pulmicort twice a day-while in the hospital
Continue DuoNebs 4 times a day-while in the hospital
Upon discharge restart inhalers.
Continue Acapella device as able.
-
Suspected progressive severe aspiration pneumonia along with pneumonitis findings at upper lobes
Persistent but improved leukocytosis.
Afebrile
Noted secretions collected at tracheal posterior wall. Noted h/o achalasia requiring PEG in past
Blood cxs - and u cx 07-16 negative
Continue empiric atbs as outlined by ID: zosyn/IV vancomycin
Could not yet provide sputum sample
MRSA screening positive
Other cultures negative so far
-
CT chest noted:
RML infiltrate has one area of relative lucency suggestive of necrosis
RLL appears mainly atelectasis rather than pneumonia
Areas of pneumonitis present at upper lobes, likely related to aspiration (COVID negative on adm and on repeat testing 07-20)
-
Loculated right pleural effusion
R chest tube placed 07-20, 250 mL serous fluid upon placement of chest tube
pH 7.41, wbc 1208, M 61.45, PMN 38.6, G 94, LDH and ratio exudative, G stain negative, cx/cyto negative so far
CXR 07-21: portable, bilateral infiltrates, R chest tube, apparently resolved R PF
50 cc drainage in the last 48 hours
Chest x-ray 07/22/2023: Reviewed showed no significant accumulation of fluid. Persistent bilateral infiltrates. No pneumothorax.
Chest tube: Currently to suction. Airleak noted. No air leak noted with waterseal or coughing. Unclear whether this is a true bronchopleural fistula.
Placed chest tube to waterseal 07/22/2023 at 10 AM to waterseal. Repeat chest x-ray at 1 PM to evaluate for pneumothorax. Discussed with nursing.
Repeat chest x-ray tomorrow 07/23/2023, if output remains under 100 cc in 24 hours then will consider discontinuation of chest tube.
-
Increased proBNP: Likely in the setting of hypoxemia possibly RV strain
Echocardiogram 07/21/2023: Showed normal LVEF. No significant valvular abnormalities.
-
DVT prophylaxis: Remains on anticoagulation.
-
D/w patient and her and a close friend visiting at time of consult
confirms DNR status
Subjective Data
-
Date of Service:
Date of Service: July 22, 2023
Chief Complaint: Pulmonary Follow Up (Pneumonia/parapneumonic effusion status post chest tube)
Subjective:
Remain in significant oxygen supplementation
Continues to report shortness of breath with activity
Review of Systems
Cardiopulmonary: Dyspnea, Dyspnea on Exertion and Cough
GI: Abdominal Pain (n), Nausea (n) and Vomiting (n)
Objective Data
Data Reviewed
Vital Signs / I&O / Oxygen:
Vital Signs
Temp Pulse Resp BP Pulse Ox
98.2 F 77 18 96/30 96
07/22/23 07:10 07/22/23 08:46 07/22/23 07:52 07/22/23 08:46 07/22/23 07:52
Intake and Output
07/21/23 07/22/23 07/23/23
06:59 06:59 06:59
Intake Total 980 / 980 650 / 650 60 / 60
Output Total 950 / 950 1250 / 1250
Balance 30 / 30 -600 / -600 60 / 60
SaO2 96
Nasal Cannula flow liters per 50
minute
Physical Exam
General: Respiratory Distress (n)
HEENT: Normocephalic and Moist Mucous Membranes
Cardiovascular: Regular Rhythm, Murmur (n) and Peripheral Edema (n)
Respiratory: Chest Tube (R, 550 mL serous fluid at 6 am)
GI: Soft, Non Distended and Non Tender
Neurology: Other (sleepy, arousable)
Skin: Dry
Labs/Micro/Reports
Lab Data
07/22/23 03:39
07/22/23 03:39
Microbiology
07/20/23 17:32 Pleural Fluid Fungal Smear - Final
No yeast or fungal elements seen.
07/16/23 14:16 Blood/Venous Blood Culture - Final
No Growth - Final Report
07/16/23 14:16 Blood/Venous Blood Culture - Final
No Growth - Final Report
07/20/23 17:32 Thoracentesis Fluid Body Fluid Culture - Preliminary
No Growth After 18-24 Hours
07/20/23 17:32 Thoracentesis Fluid Gram Stain - Preliminary
[2023-07-22 10:01] LABS: C-Reactive Protein > 270.00 mg/L (0.0-10.00)
[2023-07-22] MEDS: DUONEB 3 ML INH ×3 (11:30→19:22)
[2023-07-22] MEDS: PULMICORT 0.5 MG INH ×2 (11:31→19:22)
[2023-07-22 12:26] LABS: Erythrocyte Sed Rate 59 mm/hour (0-20)
--- NOTE | 2023-07-22 13:33 | PTCARENOTE ---
Daughter Susan updated by phone, per Dr. Licea it is ok for her dog Dorota (working therapy dog) to visit. Form signed and placed in chart. Pt updated.
[2023-07-22] MEDS: ZOFRAN 4 MG IV (14:47)
[2023-07-22] MEDS: XARELTO 20 MG PO (16:54)
[2023-07-22] MEDS: DECADRON 4 MG IV (16:54)
--- NOTE | 2023-07-22 18:10 | PTCARENOTE ---
Shravan narvaez at 18:00-per med instructions, peak level due 3 hours after start of infusion, will pass onto oncoming RN. (21:00)
[2023-07-22 21:35] LABS: Vancomycin Peak 17.7 ug/ml (18-26)
[2023-07-22] MEDS: HYTRIN 1 MG PO (21:41)
[2023-07-22] MEDS: DESYREL 50 MG PO (21:41)
[2023-07-22] MEDS: LIPITOR 20 MG PO (21:41)
[2023-07-23] VITALS (15 sets, daily range): BP systolic 81–137; BP diastolic 35–76; BMI 27.9
[2023-07-23] MEDS: ZOSYN 50 IV ×5 (00:18→23:55)
[2023-07-23] MEDS: DECADRON 4 MG IV ×2 (05:21→16:03)
[2023-07-23 05:46] LABS: % Basophils 0.2 % (0-2); % Immature Granulocytes 0.7 % (0-0.5); % Lymphocytes 6.3 % (20.5-51.1); % Monocytes 4.3 % (1.7-9.3); % Neutrophils 88.5 % (42.2-75.2); Absolute Immature Granulocytes 0.1 10^3/uL (0-0.05); Absolute Lymphocytes 0.8 10^3/uL (1.2-3.4); Absolute Monocytes 0.6 10^3/uL (0.1-0.6); Absolute Neutrophils 11.7 10^3/uL (1.4-6.5); Hemoglobin 9.2 g/dL (12.0-16.0); Mean Corp Hgb Conc. 30.7 g/dL (33.0-37.0); Mean Corpuscular Hgb 23.6 pg (27.0-31.0); Mean Corpuscular Volume 76.9 fL (81.0-99.0); Mean Platelet Volume 9.1 fL (7.4-10.4); Nucleated Red Blood Cells % 0 %; Platelet Count 572 10^3/uL (130-400); Red Cell Dist. Width 15.3 % (11.5-14.5); White Blood Cell Count 13.3 10^3/uL (4.8-10.8)
[2023-07-23 06:03] LABS: Vancomycin Trough 9.4 ug/ml (5-20)
[2023-07-23 06:12] LABS: Blood Urea Nitrogen 9 mg/dl (7-17); Calcium 8.6 mg/dl (8.4-10.2); Carbon Dioxide 37 mmol/L (22-30); Chloride 95 mmol/L (98-107); Estimated Creatinine Clearance 67 ml/min; Glucose 141 mg/dl (70-99); Potassium 3.6 mmol/L (3.5-5.1); Sodium 138 mmol/L (135-145); eGFR > 60.00
[2023-07-23] MEDS: TYLENOL 1000 MG PO ×3 (06:13→20:18)
[2023-07-23] MEDS: VANCOCIN 150 IV (06:13)
[2023-07-23] MEDS: PULMICORT 0.5 MG INH (07:26)
[2023-07-23] MEDS: DUONEB 3 ML INH ×4 (07:26→20:34)
--- NOTE | 2023-07-23 08:13 | W.PN.ID1 ---
Date of Service
Date of Service: July 23, 2023
Today's Communication
- continue with vancomycin - day 5
- continue zosyn for now - day 7
- decision for steroids per pulmonary
procalcitonin in the AM
Assessment / Plan
Pneumonia with parapneumonic effusion
Achalasia s/p PEG and reversal
Acute Hypoxemic Resp Failure - now on HF NC
Leukocytosis - downtrending
Reported allergy to sulfa
- FIO2 down, radiologist felt CXR improved compared to 07/19
- diff - no eosinophilia, persistent L shift
- chest tube management per pulmonary
- covid PCR, RSV ag neg
- CRP quite elevated
- will follow afb/fungal cultures
- continue with vancomycin - day 5
- continue zosyn for now - day 7
- procalcitonin in the AM
- decision for steroids per pulmonary
- follow clinically
Prognosis guarded in this frail patient with progressive hypoxemic resp failure; note DNR status
Chief Complaint
-: Pneumonia (Empyema)
Subjective / Review of Systems
no further fevers
BP overall stable
high flow NC 50 and now down to 75% - some improvement
WBC continues downtrending
progression of thrombocytoesis
L shift persists
cr stable
CXR: improved compared to 07/19 per radiology
only complaint is thirst
Vital Signs / Physical Exam
Vital Signs
Vital Signs
Temp Pulse Resp BP Pulse Ox
97.3 F 65 20 110/49 92
07/23/23 05:14 07/23/23 07:28 07/23/23 07:28 07/23/23 06:10 07/23/23 07:28
Physical Exam
Constitutional: No Acute Distress
Cardiovascular: Regular Rate and S1/S2; Negative Murmur or Rub
Pulmonary: Symmetric, Coarse and Non Labored; Negative Wheezes or Rales
Gastrointestinal: Soft, Non Tender, Non Distended and Normal Bowel Sounds
Skin: Warm and Dry; Negative Rash or Jaundice
Neurological: Awake
Objective Data
Lab Data
Lab Results
07/23/23 05:38
07/23/23 05:38
ESR 59 mm/hour (0-20) H 07/22/23 03:39
Estimated Creat Clear 67 ml/min 07/23/23 05:38
Lactic Acid Cancelled 07/16/23 18:15
Total Bilirubin 0.6 mg/dl (0.2-1.3) 07/17/23 06:40
AST 18 U/L (14-36) 07/17/23 06:40
ALT 12 U/L (0-35) 07/17/23 06:40
Alkaline Phosphatase 93 U/L (38-126) 07/17/23 06:40
C-Reactive Protein > 270.00 mg/L (0.0-10.00) H 07/22/23 03:39
Most recent labs reviewed.
Micro Results:
07/22/23 11:42 Respiratory Syncytial Virus Culture - Final
Nasal Swab Negative for Respiratory Syncytial Virus.
A false negative result may be obtained with a specimen
collected early in the acute phase. If symptoms persist, a
new specimen should be tested.
07/20/23 17:32 Body Fluid Culture - Preliminary
Thoracentesis Fluid No Growth After 48 Hours
Gram Stain - Preliminary
07/20/23 17:32 Fungal Smear - Final
Pleural Fluid No yeast or fungal elements seen.
07/16/23 14:16 Blood Culture - Final
Blood/Venous No Growth - Final Report
07/16/23 14:16 Blood Culture - Final
Blood/Venous No Growth - Final Report
07/20/23 17:32 Acid Fast Bacilli Smear - Pending
Pleural Fluid Acid Fast Bacilli Culture - Pending
07/16/23 22:25 MRSA Screen - Final
Nose Staph aureus MRSA
07/16/23 14:16 Urine Culture - Final
Urine NO GROWTH
07/16/23 18:43 Influenza Types A & B (KRISTOFER) - Final
Nasal Swab Negative for Influenza A & B, NAAT
Negative results must be combined with clinical observations
and patient history.
Nucleic Acid Amplification test (NAAT)performed on the
[employer] platform.
--- NOTE | 2023-07-23 08:24 | W.PN.HOSP.TC ---
Today's Communication/Plan
-
CW ABX
CW steroids
Wean O2 as able
Assessment / Plan
Assessment / Plan
pt is an 83 year old female
Bilateral pneumonia with small right pleural effusion/atelectasis--initially felt likely CAP but concerned about aspiration (remote history of achalasia)--initially on Zosyn and Zithromax --nonbacteremic
Improved white count initially with worsening again.
Chest x-ray shows worsening pneumonia.
CT chest multifocal pneumonia with extensive ground glass airspace disease in both lungs most prominent in both upper lobes and confluent alveolar airspace disease in the right middle
Moderate right pleural effusion with compressive atelectasis in the right lower lobe.
Seen by ID-antibiotics broadened.Improved fevers but not hypoxia.
Right chest tube placed
Continue with antibiotics per ID
With progressive pneumonic process with worsening patchy ground glass opacities and interstitial disease dont know if it infectious pneumonia or inflammatory pneumonia.
Initiated on steroids for possible nonspecific inflammatory pneumonitis ; CRP>270
Right pleural effusion-diagnostic testing shows no empyema. pH 7.41 in the pleural fluid. Meets criteria for exudate by LDH criteria but not protein criteria. Gram stain shows no organisms. Culture negative.. Continue with chest tube drainage.
Air leak seems to have resolved. Follow serial CXR
Doubt CHF-patient with worsening of hypoxia after initial improvement on antibiotics. BNP is elevated. Chest CT shows extensive groundglass airspace disease in the upper lobes along with the confluent airspace disease in the right middle lobe.
Echo showed normal EF without significant valvular abnormality. Rate significantly lower compared to her recent admission. No changes with hypoxia with diureticS. Doubt CHF. Appreciate cardiology input.
Acute hypoxic respiratory failure -patient requiring increased FiO2 -went as high as 100% on HFNC. Slow improvement noted. Wean O2 as able.
Nausea and abdominal pain--persistent nausea with intermittent abdominal pain with negative CT abdomen pelvis with IV contrast--No oral contrast given-- Unclear etiology but will evaluate further from achalasia standpoint - --try to get bowels
moving. Some of her nausea may be secondary to vertigo I feel. With worsening hypoxia hold on esophagogram .
Nausea with postural dizziness suspicious for vertigo-improving with scheduled meclizine. Appreciate neurology input. Resolved dizziness- Antivert as needed
Asthma/COPD--patient today with reactive airways--Continue inhalers--Continue montelukast-add nebulizers
Prediabetes
History of CVA with residual left-sided paralysis/neuropathic pain--difficulty with pain control--Continue aspirin, statin--Consider gabapentin when infection better treated and mental status improved
Chronic back pain--Continue tramadol
History of muscle spasms--continue baclofen PRN
Constipation--Continue MiraLAX
Chronic anemia--Hemoglobin lower than baseline--follow for now-H&H stable---heme test stools neg
GERD--Continue omeprazole
Anxiety/depression--Continue bupropion, sertraline--Continue trazodone PRN
History of orthostatic hypotension--Continue midodrine
History of DVT/PE--Continue Xarelto
Essential hypertension--Continue terazosin
IBS
Diverticulosis
code status --DNR/DNI
DVT prophylaxis�Xarelto
Discussed with RN
Anticipated Discharge: > 48 hours
Subjective/Interval History
-
Date of Service: July 23, 2023
Feels okay
Voices no specific complaint but feels confused in the sense of location in the hospital. She knows she is at [facility]. She remembers being in a different room and she is in a different room.
When asked about shortness of breath she states 'I am not'. On HFNC with decreasing need of O2 currently at 75%
No chest pain or palpitations. No nausea or vomiting. Appetite not great.
Objective Data
-
Labs:
Laboratory Results
07/23/23
05:38
WBC 13.3 H
Hgb 9.2 L
Hct 30.0 L
Plt Count 572 H
Sodium 138
Potassium 3.6
Chloride 95 L
Carbon Dioxide 37 H
BUN 9
Creatinine 0.4 L
Glucose 141 H
Calcium 8.6
Vital Signs:
Vital Signs
Temp Pulse Resp BP Pulse Ox
97.3 F 65 20 110/49 92
07/23/23 05:14 07/23/23 07:28 07/23/23 07:28 07/23/23 06:10 07/23/23 07:28
I&O
07/22/23 07/23/23 07/24/23
06:59 06:59 06:59
Intake Total 650 / 650 790 / 790
Output Total 1250 / 1250 960 / 960
Balance -600 / -600 -170 / -170
Review of Systems
-
Constitutional: Denies Fever or Chills
EENT: Denies Sore Throat
Respiratory: Reports Cough; Denies Trouble Breathing
Cardiac: Denies Chest Pain
Abdomen/GI: Denies Abdominal Pain, Nausea or Vomiting
Neuro: Denies Dizzy
Physical Exam
-
General: No Apparent Distress
HEENT: Moist Mucous Membranes
Respiratory: Crackles (Improved crackles), Non Labored Respirations and Chest Tubes (no air leak); Negative Wheezes or Accessory Resp Muscle Use
Cardiac: Regular Rhythm and S1/S2; Negative Tachycardic
GI: Soft and Nontender
Neuro: AO x 3
Psych: Calm
Data Reviewed
-
Labs: Labs Reviewed by me
--- NOTE | 2023-07-23 08:32 | PHA.VAN.FU ---
Vancomycin Assessment / Plan
- Assessment
Renal Function: Stable
WBC's are: Trending Down
In the past 24 hrs, patient has been: Afebrile
Concomitant Antimicrobials: piperacillin/tazobactam
- Assessment - Therapeutic Drug Monitoring
Extrapolated Cmax (mcg/mL): 20.8
Peak level was drawn: Appropriately (drawn ~2.15H after end of previous infusion)
Extrapolated Cmin (mcg/mL): 9.2
Trough Drawn: Appropriately
Levels were drawn: At steady state (levels drawn after 5th maintenance dose)
Calculated AUC (mcg*h/mL): 342
Calculated ke: 0.0742
Calculated half life (H): 9.3
Calculated Vd (L): 59 (~0.8 L/kg)
Calculated Vanc CL (ml/min): 73
Renal function has remained stable s/p CT scans with contrast 07/20 & 07/16
- Dosing Plan
Adjust Regimen to: Vanc 1000mg Q12H starting at 1800
New Regimen Predicts: AUC (473), Peak (28.7), Trough (12.7)
- Monitoring Plan
No level(s) ordered at this time: consider levels in next few days
- Follow Up
Pharmacy will continue to follow.
Vancomycin Follow UP
- -
Patient Age: 83
Patient Sex: Female
Vancomycin Day #: 4
Indication: Pulmonary/Respiratory
Requesting Provider: Dr. Licea / Von
Pertinent Antimicrobial Allergies:
sulfonamide antibiotics - unknown
Height / Weight:
Height 5 ft 4 in
Actual Weight 73.7 kg
- Vital Signs / Lab Results
Temp Pulse Resp BP Pulse Ox
97.3 F 65 20 110/49 92
07/23/23 05:14 07/23/23 07:28 07/23/23 07:28 07/23/23 06:10 07/23/23 07:28
Lab Results - Hematology
07/21/23 07/22/23 07/23/23
03:11 03:39 05:38
WBC 18.8 H 15.4 H 13.3 H
Lab Results - Chemistry
07/21/23 07/22/23 07/23/23
03:11 03:39 05:38
BUN 7 8 9
Creatinine 0.5 L 0.5 L 0.4 L
Estimated Creat Clear 68 68 67
Microbiology Results
07/22/23 11:42 Respiratory Syncytial Virus Culture - Final
Nasal Swab Negative for Respiratory Syncytial Virus.
A false negative result may be obtained with a specimen
collected early in the acute phase. If symptoms persist, a
new specimen should be tested.
07/20/23 17:32 Body Fluid Culture - Preliminary
Thoracentesis Fluid No Growth After 48 Hours
Gram Stain - Preliminary
07/20/23 17:32 Fungal Smear - Final
Pleural Fluid No yeast or fungal elements seen.
07/16/23 14:16 Blood Culture - Final
Blood/Venous No Growth - Final Report
07/16/23 14:16 Blood Culture - Final
Blood/Venous No Growth - Final Report
Therapeutic Drug Monitoring
Vancomycin Peak 17.7 ug/ml (18-26) L 07/22/23 21:06
Vancomycin Trough 9.4 ug/ml (5-20) 07/23/23 05:38
[2023-07-23] MEDS: DESENEX/MITRAZOL/ZEASORB 1 APPLIC TOPICAL ×2 (09:08→20:16)
[2023-07-23] MEDS: LIDOCAINE 4% PATCH 2 PATCH TOPICAL (09:08)
[2023-07-23] MEDS: ULTRAM 50 MG PO ×2 (09:09→20:17)
[2023-07-23] MEDS: LOW STRENGTH ASPIRIN 81 MG PO (09:09)
[2023-07-23] MEDS: NEURONTIN 100 MG PO ×3 (09:09→20:18)
[2023-07-23] MEDS: PROTONIX PO ×2 (09:09→09:35)
[2023-07-23] MEDS: VITAMIN B-12 1000 MCG PO (09:09)
[2023-07-23] MEDS: ProAmatine 5 MG PO ×3 (09:09→16:04)
[2023-07-23] MEDS: ZOLOFT 100 MG PO (09:09)
[2023-07-23] MEDS: SINGULAIR 10 MG PO (09:10)
[2023-07-23] MEDS: VITAMIN D3 (cholecalciferol) 25 MCG PO (09:10)
[2023-07-23] MEDS: WELLBUTRIN REGULAR RELEASE 100 MG PO ×3 (09:10→20:18)
[2023-07-23] MEDS: METAMUCIL, KONSYL 1 PACKET PO (09:10)
[2023-07-23] MEDS: OCUVITE SOFTGEL PO ×2 (09:10→09:34)
--- NOTE | 2023-07-23 09:45 | W.PN.PUL3 ---
Today's Communication / Plan
-
Continue IV steroids for now
Diuretics per primary team
Continue antibiotics
Discontinue chest tube
Incentive spirometry
Continue secretion clearance interventions
Hold Pulmicort while on IV corticosteroids.
Assessment
-
Assessment:
Mrs Vale Garrett is an 83/W adm 07-16 from assisted living with 1 wk h/o abd pain/n/v, cough, CP, confusion, ac/chronic dizziness, and decreased oral intake. Diagnosed with R basilar pneumonia with R PF per CXR and abd CT (no abd abnormalities),
started on ceftriaxone/azithromycin, O2 NC 3L. Atbs changed to zosyn/azithromycin d after adm, follow up CXR 07-19 with bilateral infiltrates. Increasing O2 requirements. Pulm consulted 07-20
Impression:
Acute respiratory failure, hypoxemic-on high flow oxygen
RLL infiltrate/effusion on CXR and abd CT 07-16
Bilateral infiltrates on CXR 07-19
Bilateral infiltrates on chest CT: RML, RLL
Pneumonitis upper lobes
Moderate R PF
Mild MLAD
Secretions at posterior wall of trachea
Right parapneumonic effusion: Status post chest tube placement 07/20/2023
Leukocytosis, decreasing and then increasing since adm
Moderate anemia
COVID/flu negative
MRSA screening positive
Conditions IMAGERY INTELLIGENCE:
Asthma/COPD, on salmeterol/fluticasone and combivent, not on home O2
Prediabetes
HTN
Constipation
Anemia
GERD
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
Chronic dizziness
Anxiety/depression
Recurrent UTI
Orthostatic hypotension
H/o DVT/PE, on rivaroxaban
Achalasia, s/p PEG and reversal
IBS
Diverticulosis
Right TKA
Lumbar laminectomy 2015
Tonsillectomy
Former smoker
DNR
Plan:
-
Respiratory status continues to be tenuous
Remains on high flow oxygen 75%.
Pulse ox during my evaluation was 93 to 94%.
Patient able to cough on demand, following commands. Does not appear in distress.
Will continue to wean down oxygen as able.
Not on home O2
Continue with aspiration precautions-patient has a modified diet. High risk for recurrent aspiration.
-
Not bronchospastic on exam-continue secretion clearance interventions.
Now that she is on IV corticosteroids we will hold Pulmicort for now.
Continue DuoNebs 4 times a day-while in the hospital
Upon discharge restart inhalers.
Continue Acapella device as able.
-
Suspected progressive severe aspiration pneumonia along with pneumonitis findings at upper lobes.
Cannot rule out inflammatory pneumonitis: Discussed with infectious disease and primary team on 07/22/2023.
Persistent but improved leukocytosis.
Afebrile
Noted secretions collected at tracheal posterior wall. Noted h/o achalasia requiring PEG in past
-
All cultures negative
Blood cxs 07-16 and u cx 07-16 negative
Continue empiric atbs as outlined by ID: zosyn/IV vancomycin
Could not yet provide sputum sample
MRSA screening positive
Other cultures negative so far
-
Empirically started on dexamethasone 07/23/2023 due to lack of improvement with antibiotics. After discussion with primary team and infectious disease.
For possible inflammatory pneumonitis.
Will continue to monitor closely.
-
CT chest noted:
RML infiltrate has one area of relative lucency suggestive of necrosis
RLL appears mainly atelectasis rather than pneumonia
Areas of pneumonitis present at upper lobes, likely related to aspiration (COVID negative on adm and on repeat testing 07-20)
-
Loculated right pleural effusion
R chest tube placed 07-20, 250 mL serous fluid upon placement of chest tube
pH 7.41, wbc 1208, M 61.45, PMN 38.6, G 94, LDH and ratio exudative,
G stain negative, cx/cyto negative so far
CXR 07-21: portable, bilateral infiltrates, R chest tube, apparently resolved R PF
Minimal drainage the last 48 hours.
Chest x-ray 07/22/2023: showed no significant accumulation of fluid. Persistent bilateral infiltrates. No pneumothorax.
Chest tube to waterseal since 07/22/2023.
No pneumothorax/no recurrent pleural effusion on chest x-ray from 07/23/2023. Bilateral infiltrates persistent but improving.
Discontinue chest tube today 07/23/2023, communicated with interventional radiology.
-
Increased proBNP: Likely in the setting of hypoxemia possibly RV strain
Echocardiogram 07/21/2023: Showed normal LVEF. No significant valvular abnormalities.
Diuresis per primary team.
-
DVT prophylaxis: Remains on anticoagulation.
-
Dr. Prabhakar updated daughter at the bedside 07/22/2023.
confirmed DNR status
Subjective Data
-
Date of Service:
Date of Service: July 23, 2023
Chief Complaint: Pulmonary Follow Up (Pneumonia/parapneumonic effusion status post chest tube)
Subjective:
She offers no new complaints
Continues to have intermittent coughing with occasional expectoration
Denies shortness of breath at rest
Remains on high flow oxygen
Review of Systems
General: Fever (n)
Cardiopulmonary: Dyspnea (none at rest), Cough, Sputum Production and Chest Pain (n)
GI: Abdominal Pain (n) and Nausea (n)
Objective Data
Data Reviewed
Vital Signs / I&O / Oxygen:
Vital Signs
Temp Pulse Resp BP Pulse Ox
97.3 F 70 20 129/61 92
07/23/23 07:19 07/23/23 09:09 07/23/23 07:28 07/23/23 09:09 07/23/23 07:28
Intake and Output
07/22/23 07/23/23 07/24/23
06:59 06:59 06:59
Intake Total 650 / 650 790 / 790
Output Total 1250 / 1250 960 / 960
Balance -600 / -600 -170 / -170
SaO2 92
Nasal Cannula flow liters per 50
minute
Physical Exam
General: Respiratory Distress (n)
HEENT: Normocephalic and Moist Mucous Membranes
Cardiovascular: Regular Rhythm, Murmur (n) and Peripheral Edema (n)
Respiratory: Wheeze (n), Crackles and Chest Tube (R, 550 mL serous fluid at 6 am)
GI: Soft, Non Distended and Non Tender
Neurology: Awake, Alert and Other (Left hemiparesis-chronic)
Skin: Dry
Labs/Micro/Reports
Lab Data
07/23/23 05:38
07/23/23 05:38
Microbiology
07/22/23 11:42 Nasal Swab Respiratory Syncytial Virus Culture - Final
Negative for Respiratory Syncytial Virus.
A false negative result may be obtained with a specimen
collected early in the acute phase. If symptoms persist, a
new specimen should be tested.
07/20/23 17:32 Thoracentesis Fluid Body Fluid Culture - Preliminary
No Growth After 48 Hours
07/20/23 17:32 Thoracentesis Fluid Gram Stain - Preliminary
07/20/23 17:32 Pleural Fluid Fungal Smear - Final
No yeast or fungal elements seen.
07/16/23 14:16 Blood/Venous Blood Culture - Final
No Growth - Final Report
07/16/23 14:16 Blood/Venous Blood Culture - Final
No Growth - Final Report
--- NOTE | 2023-07-23 10:18 | W.PN.UPDATE ---
Update Note
Progress Note Update
Right chest tube removed at bedside. Vaseline gauze and DSD applied. Pt tolerated the procedure well
--- NOTE | 2023-07-23 11:28 | CM ---
met with patient at bedside. bl pna on iv zosyn/iv vanco,,wbc decreased,cont iv steroids per pulm ,holding pulmicort.on high flow o2 fio2 75%/50 liters nc,chest tube dc .elina vasquez is checking insurance.[facility] states patient is not appropriate now
but will follow patient.elina vasquez is checking patient's insurance.cm to follow patient's progress.
Plan: will dc to either acute rehab at [facility] or skilled rehab.
--- NOTE | 2023-07-23 12:48 | W.PN.CD ---
Addendum entered and electronically signed by Cesar El MD 07/23/23 14:49:
83 yo female with CVA, HTN admitted with PNA and parapneumonic effusion. She is improving overall. Exam with RRR, no murmurs, no edema. Tele: SR 80s. Cr 0.4.
No evidence of HF. Weight stable. No lasix today.
Original Note:
Today's Communication / Plan
-
continue current medical therapy.
Impression / Plan
-
Pleural effusion - acute, right.
- consistent with exudative process.
- denies chest pain.
- does not appear to be overtly volume overloaded on exam, given Lasix previously.
- weight today is 73.7 kg, lowest her weight has been.
- continue to hold Lasix today.
- RHC could be considered, but today exam and echo inconsistent with volume overload.
- echo 07/21/23 with normal BiV size/function w/o RWMA, EF 55-60%, normal PASP, normal IVC, no change from echo in 2018.
PNA - acute.
- IV antibiotics per ID/hospitalist/pulmonary.
- chest tube in place per pulmonary.
- increased oxygen requirements overnight.
- fevers last seen 07/20/23.
- CT chest results noted as below.
CVA - in 2018, left sided deficits.
- stable.
HTN - stable.
- monitor with Midodrine.
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
Subjective:
denies cardiac complaints.
Data Reviewed:
TTE: 07/22/23:
�Normal biventricular size and systolic function without regional wall motion
�abnormality. Estimated LVEF 55-60%.
�Aortic sclerosis without stenosis.
�PASP 34mmHg, IVC normal size and collapse
�Compared to 05/26/18: no significant change.
Physical Exam
Vital Signs/Labs
Vital Signs
Temp Pulse Resp BP Pulse Ox
97.9 F 67 15 120/46 92
07/23/23 11:38 07/23/23 12:01 07/23/23 12:01 07/23/23 12:01 07/23/23 12:12
07/22/23 07/23/23 07/24/23
06:59 06:59 06:59
Actual Weight 73.7 kg 73.7 kg
07/23/23 05:38
07/23/23 05:38
Magnesium 1.9 mg/dl (1.6-2.3) 07/19/23 05:28
07/20/23 07/20/23
05:10 18:07
Hwi-R-Sukeaaduxet Pept Cancelled [id number]
LAB Results
07/20/23
18:07
Troponin I < 0.012
Physical Exam
Constitutional: No acute distress
EENT: Anicteric and Moist mucous membranes
Cardiovascular: Rhythm & rate is regular
Respiratory: Respiratory effort normal
GI: Soft and Normal bowel sounds
Neuro/Psych: AO x 3
Other: Skin (warm, dry)
Data Reviewed
-
Date of Service: July 23, 2023
Medical Decision Making: Reviewed Test Results
EKG: Tracing Personally Visualized and interpreted
Echo: Report Reviewed by me
Labs: Labs Reviewed by me
Old Records: Reviewed
[2023-07-23] MEDS: NSS (PRESERVATIVE FREE) 10 ML IV (12:53)
[2023-07-23] MEDS: PROTONIX IV 40 MG IV (12:53)
--- NOTE | 2023-07-23 16:48 | PTCARENOTE ---
Assumed care of patient at beginning of this shift from previous RN with high flow in use. High flow continued throughout the day with respiratory therapist beginning to wean: reported to this RN 75%/50L with POx 88-93%, decreasing when patient is
eating. Denies shortness of breath. She complained of soreness below her nose; skin intact, no redness noted. A&D ointment applied as per resp therapist request. See worklist for full assessment and vital signs; see MAR for med administration.
[2023-07-23] MEDS: XARELTO 20 MG PO (17:12)
[2023-07-23] MEDS: VANCOCIN 200 IV (17:39)
[2023-07-23] MEDS: LIPITOR 20 MG PO (20:17)
[2023-07-23] MEDS: HYTRIN 1 MG PO (20:18)
[2023-07-23] MEDS: DESYREL 50 MG PO (20:56)
[2023-07-24] VITALS (14 sets, daily range): BP systolic 88–141; BP diastolic 35–71; BMI 27.7
--- NOTE | 2023-07-24 01:14 | PTCARENOTE ---
Pt received at beginning of shift resting in bed. High flow continues at 50L/75% POX 95%. Lungs shallow, BRAR, diminished throughout. Occasional moist input output clerk cough. Took pills crushed in yogurt. Oral care completed. AAOx3. Slow speech. Left facial droop,
left arm paralysis from previous CVA. Chronic pain to back/left hip/left shoulder. VSS. Afebrile. SR on CM. Denies dizziness at this time. Purewick in place draining omer urine. Wounds as documented. Rest of assessment as documented. Call edwards
remains within reach. Will continue to monitor.
[2023-07-24] MEDS: DECADRON 4 MG IV ×2 (03:30→16:50)
[2023-07-24] MEDS: ZOSYN 50 IV (05:08)
[2023-07-24] MEDS: TYLENOL 1000 MG PO ×3 (05:08→20:56)
[2023-07-24] MEDS: VANCOCIN 200 IV (05:09)
[2023-07-24 05:49] LABS: Hematocrit 28.9 % (37.0-47.0); Hemoglobin 9.1 g/dL (12.0-16.0); Mean Corp Hgb Conc. 31.5 g/dL (33.0-37.0); Mean Corpuscular Volume 76.3 fL (81.0-99.0); Mean Platelet Volume 9.2 fL (7.4-10.4); Platelet Count 608 10^3/uL (130-400); Red Blood Cell Count 3.79 10^6/uL (4.20-5.40); Red Cell Dist. Width 15.3 % (11.5-14.5)
[2023-07-24 05:58] LABS: Blood Urea Nitrogen 11 mg/dl (7-17); Calcium 8.4 mg/dl (8.4-10.2); Carbon Dioxide 36 mmol/L (22-30); Chloride 96 mmol/L (98-107); Estimated Creatinine Clearance 67 ml/min; Glucose 189 mg/dl (70-99); Potassium 3.5 mmol/L (3.5-5.1); Sodium 135 mmol/L (135-145); eGFR > 60.00
[2023-07-24 06:13] LABS: Procalcitonin < 0.05 ng/ml (0.0-0.25)
[2023-07-24] MEDS: DUONEB 3 ML INH ×4 (08:30→19:51)
[2023-07-24] MEDS: DESENEX/MITRAZOL/ZEASORB 1 APPLIC TOPICAL ×2 (08:44→20:55)
[2023-07-24] MEDS: METAMUCIL, KONSYL 1 PACKET PO (08:45)
[2023-07-24] MEDS: LIDOCAINE 4% PATCH 2 PATCH TOPICAL (08:45)
[2023-07-24] MEDS: WELLBUTRIN REGULAR RELEASE 100 MG PO ×3 (08:47→20:56)
[2023-07-24] MEDS: OCUVITE SOFTGEL 1 CAP PO (08:47)
[2023-07-24] MEDS: NSS (PRESERVATIVE FREE) 10 ML IV (08:47)
[2023-07-24] MEDS: ProAmatine 5 MG PO ×3 (08:47→16:49)
[2023-07-24] MEDS: LOW STRENGTH ASPIRIN 81 MG PO (08:49)
[2023-07-24] MEDS: ULTRAM 50 MG PO ×2 (08:49→20:55)
[2023-07-24] MEDS: SINGULAIR 10 MG PO (08:50)
[2023-07-24] MEDS: VITAMIN D3 (cholecalciferol) 25 MCG PO (08:50)
[2023-07-24] MEDS: VITAMIN B-12 1000 MCG PO (08:50)
[2023-07-24] MEDS: PROTONIX IV 40 MG IV (08:50)
[2023-07-24] MEDS: ZOLOFT 100 MG PO (08:50)
[2023-07-24] MEDS: NEURONTIN 100 MG PO ×3 (08:52→20:56)
--- NOTE | 2023-07-24 09:07 | W.PN.HOSP.TC ---
Today's Communication/Plan
-
Continue antibiotics
Continue with steroids
Wean oxygen as able
Assessment / Plan
Assessment / Plan
pt is an 83 year old female
Bilateral pneumonia with small right pleural effusion/atelectasis--initially felt likely CAP but concerned about aspiration (remote history of achalasia)--initially on Zosyn and Zithromax --nonbacteremic
Improved white count initially with worsening again.
Chest x-ray shows worsening pneumonia.
CT chest multifocal pneumonia with extensive ground glass airspace disease in both lungs most prominent in both upper lobes and confluent alveolar airspace disease in the right middle
Moderate right pleural effusion with compressive atelectasis in the right lower lobe.
Seen by ID-antibiotics broadened.Improved fevers but continued hypoxia
Right chest tube placed
Continue with antibiotics per ID
With progressive pneumonic process with worsening patchy ground glass opacities and interstitial disease dont know if it infectious pneumonia or inflammatory pneumonia.
Initiated on steroids for possible nonspecific inflammatory pneumonitis ; CRP>270
Right pleural effusion-diagnostic testing shows no empyema. pH 7.41 in the pleural fluid. Meets criteria for exudate by LDH criteria but not protein criteria. Gram stain shows no organisms. Culture negative.. CT out 07/23.
Doubt CHF-patient with worsening of hypoxia after initial improvement on antibiotics. BNP is elevated. Chest CT shows extensive groundglass airspace disease in the upper lobes along with the confluent airspace disease in the right middle lobe.
Echo showed normal EF without significant valvular abnormality. Rate significantly lower compared to her recent admission. No changes with hypoxia with diureticS. Doubt CHF. Appreciate cardiology input.
Acute hypoxic respiratory failure -patient requiring increased FiO2 -went as high as 100% on HFNC. Slow improvement noted -currently on 70%. Wean O2 as able.
Nausea and abdominal pain--persistent nausea with intermittent abdominal pain with negative CT abdomen pelvis with IV contrast--No oral contrast given-- Unclear etiology but will evaluate further from achalasia standpoint - --try to get bowels
moving. Some of her nausea may be secondary to vertigo I feel. With worsening hypoxia hold on esophagogram .
Nausea with postural dizziness suspicious for vertigo-improving with scheduled meclizine. Appreciate neurology input. Resolved dizziness- Antivert as needed
Asthma/COPD--patient today with reactive airways--Continue inhalers--Continue montelukast-add nebulizers
Prediabetes
History of CVA with residual left-sided paralysis/neuropathic pain--difficulty with pain control--Continue aspirin, statin--Consider gabapentin when infection better treated and mental status improved
Chronic back pain--Continue tramadol
History of muscle spasms--continue baclofen PRN
Constipation--Continue MiraLAX
Chronic anemia--Hemoglobin lower than baseline--follow for now-H&H stable---heme test stools neg
GERD--Continue omeprazole
Anxiety/depression--Continue bupropion, sertraline--Continue trazodone PRN
History of orthostatic hypotension--Continue midodrine
History of DVT/PE--Continue Xarelto
Essential hypertension--Continue terazosin
IBS
Diverticulosis
code status --DNR/DNI
DVT prophylaxis�Xarelto
Discussed with RN
Anticipated Discharge: > 48 hours
Subjective/Interval History
-
Date of Service: July 24, 2023
Chest tube was removed yesterday.
Denies any shortness of breath.
She feels okay. Her appetite is okay to.
Denies any nausea. No dizziness.
No chest pains
Objective Data
-
Labs:
Laboratory Results
07/24/23
05:30
WBC 14.0 H
Hgb 9.1 L
Hct 28.9 L
Plt Count 608 H
Sodium 135
Potassium 3.5
Chloride 96 L
Carbon Dioxide 36 H
BUN 11
Creatinine 0.5 L
Glucose 189 H
Calcium 8.4
Vital Signs:
Vital Signs
Temp Pulse Resp BP Pulse Ox
99.1 F 63 22 110/47 95
07/24/23 07:23 07/24/23 08:47 07/24/23 08:34 07/24/23 08:47 07/24/23 08:34
I&O
07/23/23 07/24/23 07/25/23
06:59 06:59 06:59
Intake Total 790 / 790 500 / 500
Output Total 960 / 960 1050 / 1050
Balance -170 / -170 -550 / -550
Review of Systems
-
Constitutional: Denies Fever or Chills
EENT: Denies Sore Throat
Respiratory: Denies Trouble Breathing
Cardiac: Denies Chest Pain
Abdomen/GI: Denies Nausea
Neuro: Denies Headache
Physical Exam
-
General: No Apparent Distress
HEENT: Moist Mucous Membranes
Respiratory: Crackles (improved ,bibasilar ); Negative Wheezes
Cardiac: Regular Rhythm and S1/S2
GI: Soft and Nontender
Neuro: AO x 3
Psych: Calm
Data Reviewed
-
Labs: Labs Reviewed by me
--- NOTE | 2023-07-24 10:31 | PHA.VAN.FU ---
Vancomycin Assessment / Plan
- Assessment
Renal Function: Stable (Renal function has remained stable s/p 2 C/T scans)
WBC's are: Trending Up
In the past 24 hrs, patient has been: Afebrile
Concomitant Antimicrobials: piperacillin/tazobactam
- Dosing Plan
Continue: vancomycin 1000mg q12 ( dose increased from 750 q12h - first dose 07/23 1800)
- Monitoring Plan
Level(s) appropriate: Recheck trough at minimum of weekly intervals, Repeat sooner for changes in renal function or clinical status
- Follow Up
Pharmacy will continue to follow.
Vancomycin Follow UP
- -
Patient Age: 83
Patient Sex: Female
Vancomycin Day #: 5
Indication: Pulmonary/Respiratory
Requesting Provider: Dr. Licea / Von
Pertinent Antimicrobial Allergies:
sulfonamide antibiotics - unknown
Height / Weight:
Height 5 ft 4 in
Actual Weight 73.2 kg
- Vital Signs / Lab Results
Temp Pulse Resp BP Pulse Ox
99.1 F 63 22 110/47 94
07/24/23 07:23 07/24/23 08:47 07/24/23 08:34 07/24/23 08:47 07/24/23 10:27
Lab Results - Hematology
07/22/23 07/23/23 07/24/23
03:39 05:38 05:30
WBC 15.4 H 13.3 H 14.0 H
Lab Results - Chemistry
07/22/23 07/23/23 07/24/23
03:39 05:38 05:30
BUN 8 9 11
Creatinine 0.5 L 0.4 L 0.5 L
Estimated Creat Clear 68 67 67
Microbiology Results
07/20/23 17:32 Body Fluid Culture - Final
Thoracentesis Fluid No Growth After 72 Hours
Gram Stain - Final
07/20/23 17:32 Acid Fast Bacilli Smear - Preliminary
Pleural Fluid Acid Fast Bacilli Culture - Preliminary
07/22/23 11:42 Respiratory Syncytial Virus Culture - Final
Nasal Swab Negative for Respiratory Syncytial Virus.
A false negative result may be obtained with a specimen
collected early in the acute phase. If symptoms persist, a
new specimen should be tested.
Therapeutic Drug Monitoring
Vancomycin Peak 17.7 ug/ml (18-26) L 07/22/23 21:06
Vancomycin Trough 9.4 ug/ml (5-20) 07/23/23 05:38
--- NOTE | 2023-07-24 10:58 | W.PN.ID1 ---
Date of Service
Date of Service: July 24, 2023
Today's Communication
- procalcitonin negative - completed course of antibiotics - stopped
- will follow afb/fungal cultures - unlikely
- decisions re steroids per pulmonary
Assessment / Plan
Resolving Pneumonia with parapneumonic effusion
Achalasia s/p PEG and reversal
Acute Hypoxemic Resp Failure
Leukocytosis - downtrending
Reported allergy to sulfa
- FIO2 down, radiologist felt CXR improved compared to 07/19
- procalcitonin negative - completed course of antibiotics - stopped
- will follow afb/fungal cultures - unlikely
- decisions re steroids per pulmonary
- follow clinically
Prognosis guarded in this frail patient with progressive hypoxemic resp failure; note DNR status
Chief Complaint
-: Pneumonia (Empyema)
Subjective / Review of Systems
remains afebrile
bp stable
remains on high flow 50L, now at 70%
leukocytosis essentially stable
thrombocytosis persists
cr 0.5
procalcitonin negative
right chest tube removed
Vital Signs / Physical Exam
Vital Signs
Vital Signs
Temp Pulse Resp BP Pulse Ox
99.1 F 63 22 110/47 94
07/24/23 07:23 07/24/23 08:47 07/24/23 08:34 07/24/23 08:47 07/24/23 10:27
Physical Exam
Constitutional: No Acute Distress and Chronically Ill
Cardiovascular: Regular Rate and S1/S2; Negative Murmur or Rub
Pulmonary: Clear and Symmetric; Negative Wheezes or Rales
Gastrointestinal: Soft, Non Tender, Non Distended and Normal Bowel Sounds
Skin: Warm and Dry; Negative Rash or Jaundice
Objective Data
Lab Data
Lab Results
07/24/23 05:30
07/24/23 05:30
ESR 59 mm/hour (0-20) H 07/22/23 03:39
Estimated Creat Clear 67 ml/min 07/24/23 05:30
Lactic Acid Cancelled 07/16/23 18:15
Total Bilirubin 0.6 mg/dl (0.2-1.3) 07/17/23 06:40
AST 18 U/L (14-36) 07/17/23 06:40
ALT 12 U/L (0-35) 07/17/23 06:40
Alkaline Phosphatase 93 U/L (38-126) 07/17/23 06:40
C-Reactive Protein > 270.00 mg/L (0.0-10.00) H 07/22/23 03:39
Most recent labs reviewed.
Micro Results:
07/20/23 17:32 Body Fluid Culture - Final
Thoracentesis Fluid No Growth After 72 Hours
Gram Stain - Final
07/20/23 17:32 Acid Fast Bacilli Smear - Preliminary
Pleural Fluid Acid Fast Bacilli Culture - Preliminary
07/22/23 11:42 Respiratory Syncytial Virus Culture - Final
Nasal Swab Negative for Respiratory Syncytial Virus.
A false negative result may be obtained with a specimen
collected early in the acute phase. If symptoms persist, a
new specimen should be tested.
07/20/23 17:32 Fungal Smear - Final
Pleural Fluid No yeast or fungal elements seen.
07/16/23 14:16 Blood Culture - Final
Blood/Venous No Growth - Final Report
07/16/23 14:16 Blood Culture - Final
Blood/Venous No Growth - Final Report
07/16/23 22:25 MRSA Screen - Final
Nose Staph aureus MRSA
07/16/23 14:16 Urine Culture - Final
Urine NO GROWTH
07/16/23 18:43 Influenza Types A & B (KRISTOFER) - Final
Nasal Swab Negative for Influenza A & B, NAAT
Negative results must be combined with clinical observations
and patient history.
Nucleic Acid Amplification test (NAAT)performed on the
[employer] platform.
--- NOTE | 2023-07-24 11:35 | CM ---
CM met with patient and family in room. Patient was pleasant and was happy to have multiple visitors. No questions or needs noted at this time. CM will continue to follow.
--- NOTE | 2023-07-24 12:27 | W.PN.CD ---
Today's Communication / Plan
-
appears euvolemic
no lasix
Impression / Plan
-
Pleural effusion - acute, right.
- echo 07/21/23 with normal BiV size/function w/o RWMA, EF 55-60%, normal PASP, normal IVC, no change from echo in 2018.
- she does not appear volume overloaded
- no lasix
PNA - acute.
- IV antibiotics per ID/hospitalist/pulmonary.
CVA - in 2018, left sided deficits.
- stable.
HTN - stable.
- monitor with Midodrine.
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
Subjective:
No chest pain
Data Reviewed:
TTE: 07/22/23:
�Normal biventricular size and systolic function without regional wall motion
�abnormality. Estimated LVEF 55-60%.
�Aortic sclerosis without stenosis.
�PASP 34mmHg, IVC normal size and collapse
�Compared to 05/26/18: no significant change.
Physical Exam
Vital Signs/Labs
Vital Signs
Temp Pulse Resp BP Pulse Ox
99.1 F 62 21 110/47 97
07/24/23 07:23 07/24/23 11:48 07/24/23 11:48 07/24/23 08:47 07/24/23 11:48
07/23/23 07/24/23 07/25/23
06:59 06:59 06:59
Actual Weight 73.7 kg 73.2 kg
07/24/23 05:30
07/24/23 05:30
Magnesium 1.9 mg/dl (1.6-2.3) 07/19/23 05:28
07/20/23 07/20/23
05:10 18:07
Cnr-I-Fthedgeuiur Pept Cancelled 4410
Physical Exam
Constitutional: No acute distress and Comfortable
EENT: Moist mucous membranes
Cardiovascular: Rhythm & rate is regular, Pedal edema is absent, JVD pressure is normal and Systolic murmur absent
Respiratory: Respiratory effort normal
Neuro/Psych: AO x 3
Data Reviewed
-
Date of Service: July 24, 2023
EKG: Other (Tele: SR 60s)
--- NOTE | 2023-07-24 12:30 | W.PN.PUL.V3 ---
Today's Communication / Plan
-
Continue Decadron
Wean oxygen
Aspiration precautions
Observe off antibiotics
Diuretics per cardiology
Assessment
-
Assessment:
Mrs Vale Garrett is an 83/W adm 07-16 from assisted living with 1 wk h/o abd pain/n/v, cough, CP, confusion, ac/chronic dizziness, and decreased oral intake. Diagnosed with R basilar pneumonia with R PF per CXR and abd CT (no abd abnormalities),
started on ceftriaxone/azithromycin, O2 NC 3L. Atbs changed to zosyn/azithromycin d after adm, follow up CXR 07-19 with bilateral infiltrates. Increasing O2 requirements. Pulm consulted 07-20
Acute respiratory failure, hypoxemic-on high flow oxygen
RLL infiltrate/effusion on CXR and abd CT 07-16
Bilateral infiltrates on CXR 07-19
Bilateral infiltrates on chest CT: RML, RLL
Pneumonitis upper lobes
Moderate R PF
Mild MLAD
Secretions at posterior wall of trachea
Right parapneumonic effusion: Status post chest tube placement 07/20/2023
Leukocytosis, decreasing and then increasing since adm
Moderate anemia
COVID/flu negative
MRSA screening positive
Conditions [employer]:
Asthma/COPD, on salmeterol/fluticasone and combivent, not on home O2
Prediabetes
HTN
Constipation
Anemia
GERD
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
Chronic dizziness
Anxiety/depression
Recurrent UTI
Orthostatic hypotension
H/o DVT/PE, on rivaroxaban
Achalasia, s/p PEG and reversal
IBS
Diverticulosis
Right TKA
Lumbar laminectomy 2015
Tonsillectomy
Former smoker
DNR
Plan:
Respiratory status very slowly improving
Continue supplemental oxygen-attempt to wean off high flow-reviewed with nursing
DuoNebs
Restart inhalers at time of discharge
Mucus clearing devices
Aspiration precautions-suspect aspiration pneumonia
History of achalasia requiring gastrostomy tube in the past
Dexamethasone initiated 07/23/2023 due to lack of improvement with antibiotics
Cultures reviewed-unrevealing thus far
MRSA screen positive
Empiric antibiotics
Infectious disease following-correspondence reviewed
Loculated right pleural effusion
R chest tube placed 07-20-23, 250 mL serous fluid upon placement of chest tube
pH 7.41, wbc 1208, M 61.45, PMN 38.6, G 94, LDH and ratio exudative,
G stain negative, cx/cyto negative so far
CXR 07-21-23: portable, bilateral infiltrates, R chest tube, apparently resolved R PF
Minimal drainage the last 48 hours.
Chest x-ray 07/22/2023: showed no significant accumulation of fluid. Persistent bilateral infiltrates. No pneumothorax.
Chest tube to waterseal since 07/22/2023.
No pneumothorax/no recurrent pleural effusion on chest x-ray from 07/23/2023. Bilateral infiltrates persistent but improving.
Chest tube discontinued 07/23/2023, communicated with interventional radiology.
Diuresis as tolerated
Monitor renal function, electrolytes, intake/output, lower extremity edema and weight
Replace electrolytes as needed
Echocardiogram 07/21/2023: Showed normal LVEF. No significant valvular abnormalities.
DVT prophylaxis: Remains on anticoagulation.
GI prophylaxis-on pantoprazole
Nutrition
Bedside range of motion/physical therapy
Reviewed with nursing
Subjective Data
-
Date of Service:
Date of Service: July 24, 2023
Chief Complaint: Pulmonary Follow Up (Pneumonia/parapneumonic effusion status post chest tube) and Dyspnea Follow Up
Subjective:
Feels better, less short of breath, no chest pain or abdominal pain
Review of Systems
General: Other (Per HPI)
Objective Data
Data Reviewed
Vital Signs / I&O:
Vital Signs
Temp Pulse Resp BP Pulse Ox
99.1 F 62 21 110/47 97
07/24/23 07:23 07/24/23 11:48 07/24/23 11:48 07/24/23 08:47 07/24/23 11:48
Intake and Output
07/23/23 07/24/23 07/25/23
06:59 06:59 06:59
Intake Total 790 / 790 500 / 500
Output Total 960 / 960 1050 / 1050
Balance -170 / -170 -550 / -550
SaO2: 97
Nasal Cannula flow liters per minute: 15
Physical Exam
General: Respiratory Distress (n) and Comfortable
HEENT: Normocephalic, Anicteric and Moist Mucous Membranes
Cardiovascular: Regular Rhythm, Murmur (n) and Peripheral Edema (n)
Respiratory: Wheeze (n), Crackles and Chest Tube (R, 550 mL serous fluid at 6 am)
GI: Soft, Non Distended and Non Tender
Neurology: Awake, Alert and Other (Left hemiparesis-chronic)
Skin: Dry, Good Color, Cyanosis (n), Jaundice and Rash (n)
Labs/Micro/Reports
Lab Data
07/24/23 05:30
07/24/23 05:30
Microbiology
07/20/23 17:32 Thoracentesis Fluid Body Fluid Culture - Final
No Growth After 72 Hours
07/20/23 17:32 Thoracentesis Fluid Gram Stain - Final
07/20/23 17:32 Pleural Fluid Acid Fast Bacilli Smear - Preliminary
07/20/23 17:32 Pleural Fluid Acid Fast Bacilli Culture - Preliminary
07/22/23 11:42 Nasal Swab Respiratory Syncytial Virus Culture - Final
Negative for Respiratory Syncytial Virus.
A false negative result may be obtained with a specimen
collected early in the acute phase. If symptoms persist, a
new specimen should be tested.
07/20/23 17:32 Pleural Fluid Fungal Smear - Final
No yeast or fungal elements seen.
07/16/23 14:16 Blood/Venous Blood Culture - Final
No Growth - Final Report
07/16/23 14:16 Blood/Venous Blood Culture - Final
No Growth - Final Report
[2023-07-24] MEDS: XARELTO 20 MG PO (16:50)
[2023-07-24] MEDS: LIPITOR 20 MG PO (20:55)
[2023-07-24] MEDS: HYTRIN 1 MG PO (20:56)
[2023-07-24] MEDS: DESYREL 50 MG PO (20:56)
[2023-07-25] VITALS (15 sets, daily range): BP systolic 89–139; BP diastolic 44–98; BMI 27.7
--- NOTE | 2023-07-25 03:45 | PTCARENOTE ---
Pt resting comfortably overnight. Tolerating 10L MF POX 95%. VSS. Afebrile. SB/SR on CM 50's-60's. Denies dizziness. Chronic back/left shoulder/left hip pain. Scheduled Ultram and Tylenol given with good relieve. Purewick draining yellow urine.
Maintained on Q2hr turns. No change from previous assessment. Call edwards remains within reach. Will continue to monitor.
[2023-07-25 04:48] LABS: Hematocrit 28.7 % (37.0-47.0); Hemoglobin 8.8 g/dL (12.0-16.0); Mean Corp Hgb Conc. 30.7 g/dL (33.0-37.0); Mean Corpuscular Hgb 23.2 pg (27.0-31.0); Mean Corpuscular Volume 75.5 fL (81.0-99.0); Mean Platelet Volume 9.3 fL (7.4-10.4); Platelet Count 577 10^3/uL (130-400); Red Cell Dist. Width 15.2 % (11.5-14.5); White Blood Cell Count 15.4 10^3/uL (4.8-10.8)
--- NOTE | 2023-07-25 04:55 | PTCARENOTE ---
Pt c/o mouth hurting. On assessment pt does have red sores on gums. Najma ANDRES TT'd and order entered for Magic Mouth Wash. Will give when available.
[2023-07-25] MEDS: DECADRON 4 MG IV ×2 (04:58→17:27)
[2023-07-25] MEDS: TYLENOL 1000 MG PO ×3 (05:00→21:10)
[2023-07-25] MEDS: FIRST-MOUTHWASH BLM SUSPENSION 5 ML PO ×2 (05:00→21:22)
[2023-07-25] MEDS: FLUSH (NSS) 2 FLUSH IV (05:00)
[2023-07-25 05:09] LABS: Blood Urea Nitrogen 15 mg/dl (7-17); Calcium 8.6 mg/dl (8.4-10.2); Carbon Dioxide 36 mmol/L (22-30); Chloride 95 mmol/L (98-107); Estimated Creatinine Clearance 67 ml/min; Glucose 204 mg/dl (70-99); Potassium 3.8 mmol/L (3.5-5.1); Sodium 137 mmol/L (135-145); eGFR > 60.00
[2023-07-25] MEDS: DUONEB 3 ML INH ×4 (07:47→20:51)
--- NOTE | 2023-07-25 09:24 | W.PN.HOSP.TC ---
Addendum entered and electronically signed by Manfred Licea MD 07/27/23 17:31:
Sepsis POA
Low Na suggestive of hyponatremia noted on admission
Original Note:
Today's Communication/Plan
-
Wean O2
PT/OT eval
Assessment / Plan
Assessment / Plan
pt is an 83 year old female
Bilateral pneumonia with small right pleural effusion/atelectasis--initially felt likely CAP but concerned about aspiration (remote history of achalasia)--initially on Zosyn and Zithromax --nonbacteremic
Improved white count initially with worsening again.
Chest x-ray shows worsening pneumonia.
CT chest multifocal pneumonia with extensive ground glass airspace disease in both lungs most prominent in both upper lobes and confluent alveolar airspace disease in the right middle
Moderate right pleural effusion with compressive atelectasis in the right lower lobe.
Seen by ID-antibiotics broadened.Improved fevers but continued hypoxia
Right chest tube placed which was dced 07/23
Continue with antibiotics per ID- finished 07/24
With progressive pneumonic process with worsening patchy ground glass opacities and interstitial disease dont know if it infectious pneumonia or inflammatory pneumonia.
Initiated on steroids for possible nonspecific inflammatory pneumonitis ; CRP>270
Improving oxygenation. CW steroids per pulm
Right pleural effusion-diagnostic testing shows no empyema. pH 7.41 in the pleural fluid. Meets criteria for exudate by LDH criteria but not protein criteria. Gram stain shows no organisms. Culture negative.. CT out 07/23.
Doubt CHF-patient with worsening of hypoxia after initial improvement on antibiotics. BNP is elevated. Chest CT shows extensive groundglass airspace disease in the upper lobes along with the confluent airspace disease in the right middle lobe.
Echo showed normal EF without significant valvular abnormality. Rate significantly lower compared to her recent admission. No changes with hypoxia with diureticS. Doubt CHF. Appreciate cardiology input.
Acute hypoxic respiratory failure -patient requiring increased FiO2 -went as high as 100% on HFNC. Slow improvement noted -currently on 70%. Wean O2 as able. Currently on mid flow at 10l
Oral thrush - start on nystatin
Nausea and abdominal pain--persistent nausea with intermittent abdominal pain with negative CT abdomen pelvis with IV contrast--No oral contrast given-- Unclear etiology but will evaluate further from achalasia standpoint - --try to get bowels
moving. Some of her nausea may be secondary to vertigo I feel. With worsening hypoxia hold on esophagogram .
Nausea with postural dizziness suspicious for vertigo-improving with scheduled meclizine. Appreciate neurology input. Resolved dizziness- Antivert as needed
Asthma/COPD--patient today with reactive airways--Continue inhalers--Continue montelukast-add nebulizers
Prediabetes
History of CVA with residual left-sided paralysis/neuropathic pain--difficulty with pain control--Continue aspirin, statin--Consider gabapentin when infection better treated and mental status improved
Chronic back pain--Continue tramadol
History of muscle spasms--continue baclofen PRN
Constipation--Continue MiraLAX
Chronic anemia--Hemoglobin lower than baseline--follow for now-H&H stable---heme test stools neg
GERD--Continue omeprazole
Anxiety/depression--Continue bupropion, sertraline--Continue trazodone PRN
History of orthostatic hypotension--Continue midodrine
History of DVT/PE--Continue Xarelto
Essential hypertension--Continue terazosin
IBS
Diverticulosis
code status --DNR/DNI
DVT prophylaxis�Xarelto
Discussed with RN
DW daughter at bedside
Anticipated Discharge: > 48 hours
Subjective/Interval History
-
Date of Service: July 25, 2023
Patient is feeling improved. Appetite is better. Denies shortness of breath. Currently on 10 L of oxygen via nasal cannula.
Feels mouth is sore.
Objective Data
-
Labs:
Laboratory Results
07/25/23
04:31
WBC 15.4 H
Hgb 8.8 L
Hct 28.7 L
Plt Count 577 H
Sodium 137
Potassium 3.8
Chloride 95 L
Carbon Dioxide 36 H
BUN 15
Creatinine 0.5 L
Glucose 204 H
Calcium 8.6
Vital Signs:
Vital Signs
Temp Pulse Resp BP Pulse Ox
98.3 F 71 20 138/47 92
07/25/23 03:30 07/25/23 07:51 07/25/23 07:51 07/25/23 06:00 07/25/23 07:51
I&O
07/24/23 07/25/23 07/26/23
06:59 06:59 06:59
Intake Total 500 / 500 1160 / 1160
Output Total 1050 / 1050 1850 / 1850
Balance -550 / -550 -690 / -690
Review of Systems
-
Constitutional: Denies Fever or Chills
Respiratory: Denies Cough or Trouble Breathing
Cardiac: Denies Chest Pain or Palpitations
Abdomen/GI: Denies Abdominal Pain, Nausea or Vomiting
Neuro: Denies Dizzy
Physical Exam
-
General: No Apparent Distress
HEENT: Moist Mucous Membranes and Other (oral thrush)
Respiratory: Clear to Auscultation
Cardiac: Regular Rhythm and S1/S2
GI: Soft
Neuro: AO x 3
Psych: Calm
Data Reviewed
-
Labs: Labs Reviewed by me
[2023-07-25] MEDS: LIDOCAINE 4% PATCH 2 PATCH TOPICAL (09:26)
[2023-07-25] MEDS: PROTONIX IV 40 MG IV (09:28)
[2023-07-25] MEDS: NSS (PRESERVATIVE FREE) 10 ML IV (09:28)
[2023-07-25] MEDS: METAMUCIL, KONSYL 1 PACKET PO (09:29)
[2023-07-25] MEDS: WELLBUTRIN REGULAR RELEASE 100 MG PO ×3 (09:29→21:11)
[2023-07-25] MEDS: OCUVITE SOFTGEL 1 CAP PO (09:29)
[2023-07-25] MEDS: ZOLOFT 100 MG PO (09:30)
[2023-07-25] MEDS: NEURONTIN 100 MG PO ×3 (09:30→21:12)
[2023-07-25] MEDS: ProAmatine 5 MG PO ×3 (09:30→17:28)
[2023-07-25] MEDS: VITAMIN D3 (cholecalciferol) 25 MCG PO (09:30)
[2023-07-25] MEDS: SINGULAIR 10 MG PO (09:30)
[2023-07-25] MEDS: ULTRAM 50 MG PO ×2 (09:30→21:10)
[2023-07-25] MEDS: VITAMIN B-12 1000 MCG PO (09:30)
[2023-07-25] MEDS: DESENEX/MITRAZOL/ZEASORB 1 APPLIC TOPICAL ×2 (09:31→21:09)
[2023-07-25] MEDS: LOW STRENGTH ASPIRIN 81 MG PO (09:31)
--- NOTE | 2023-07-25 10:43 | W.PN.CD ---
Today's Communication / Plan
-
weight is stable: no lasix today
Impression / Plan
-
Pleural effusion - acute, right.
- echo 07/21/23 with normal BiV size/function w/o RWMA, EF 55-60%, normal PASP, normal IVC, no change from echo in 2018.
- she does not appear volume overloaded, and weight is stable
- no lasix
PNA - acute.
- IV antibiotics per ID/hospitalist/pulmonary.
CVA - in 2018, left sided deficits.
- stable.
HTN - stable.
- monitor with Midodrine.
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
Subjective:
No chest pain
Data Reviewed:
TTE: 07/22/23:
�Normal biventricular size and systolic function without regional wall motion
�abnormality. Estimated LVEF 55-60%.
�Aortic sclerosis without stenosis.
�PASP 34mmHg, IVC normal size and collapse
�Compared to 05/26/18: no significant change.
Physical Exam
Vital Signs/Labs
Vital Signs
Temp Pulse Resp BP Pulse Ox
98.3 F 72 20 136/98 92
07/25/23 03:30 07/25/23 09:30 07/25/23 07:51 07/25/23 09:30 07/25/23 07:51
07/24/23 07/25/23 07/26/23
06:59 06:59 06:59
Actual Weight 73.2 kg 73.1 kg
07/25/23 04:31
07/25/23 04:31
Magnesium 1.9 mg/dl (1.6-2.3) 07/19/23 05:28
07/20/23 07/20/23
05:10 18:07
Enw-C-Enszojwaues Pept Cancelled 4410
Physical Exam
Constitutional: No acute distress
EENT: Moist mucous membranes
Cardiovascular: Rhythm & rate is regular, Pedal edema is absent, JVD pressure is normal and Systolic murmur absent
Respiratory: Respiratory effort normal
GI: Soft and Distention absent
Neuro/Psych: AO x 3
Data Reviewed
-
Date of Service: July 25, 2023
EKG: Other (Tele: SR 60s)
Labs: Labs Reviewed by me
[2023-07-25] MEDS: MYCOSTATIN ORAL SUSPENSION 5 ML PO ×3 (12:20→21:10)
--- NOTE | 2023-07-25 12:25 | W.PN.ID1 ---
Date of Service
Date of Service: July 25, 2023
Today's Communication
- sputum was obtained yesterday many presumptive MRSA, many yeast, few GNR
- will restart vancomycin - last dose 07/23; previously given 07/20-07/23
Assessment / Plan
Resolving Pneumonia with parapneumonic effusion
Achalasia s/p PEG and reversal
Acute Hypoxemic Resp Failure
Leukocytosis - downtrending
Reported allergy to sulfa
- sputum was obtained yesterday many presumptive MRSA, many yeast, few GNR
- will restart vancomycin - last dose 07/23; previously given 07/20-07/23
- will follow afb/fungal cultures - unlikely
- on steroids
- follow clinically
Chief Complaint
-: Leukocytosis and Other (Pneumonitis?)
Subjective / Review of Systems
afebrile
bp stable
down to midflow at 6L
persistent leukocytosis, plt slight improvement
cr stable
sputm was collected yesterday - many presumptive MRSA, moderate C albicans, few gnr
Vital Signs / Physical Exam
Vital Signs
Vital Signs
Temp Pulse Resp BP Pulse Ox
98.3 F 74 17 108/46 93
07/25/23 07:45 07/25/23 12:20 07/25/23 11:39 07/25/23 12:20 07/25/23 11:39
Physical Exam
Constitutional: No Acute Distress and Comfortable
Cardiovascular: Regular Rate and S1/S2; Negative Murmur or Rub
Pulmonary: Clear and Symmetric; Negative Wheezes or Rales
Gastrointestinal: Soft, Non Tender, Non Distended and Normal Bowel Sounds
Skin: Warm and Dry; Negative Rash or Jaundice
Objective Data
Lab Data
Lab Results
07/25/23 04:31
07/25/23 04:31
ESR 59 mm/hour (0-20) H 07/22/23 03:39
Estimated Creat Clear 67 ml/min 07/25/23 04:31
Lactic Acid Cancelled 07/16/23 18:15
Total Bilirubin 0.6 mg/dl (0.2-1.3) 07/17/23 06:40
AST 18 U/L (14-36) 07/17/23 06:40
ALT 12 U/L (0-35) 07/17/23 06:40
Alkaline Phosphatase 93 U/L (38-126) 07/17/23 06:40
C-Reactive Protein > 270.00 mg/L (0.0-10.00) H 07/22/23 03:39
Most recent labs reviewed.
Micro Results:
07/24/23 12:00 Respiratory Culture - Preliminary
Sputum Staph aureus MRSA
Cathy albicans
Gram negative bacilli
Gram Stain - Preliminary
07/20/23 17:32 Body Fluid Culture - Final
Thoracentesis Fluid No Growth After 72 Hours
Gram Stain - Final
07/20/23 17:32 Acid Fast Bacilli Smear - Preliminary
Pleural Fluid Acid Fast Bacilli Culture - Preliminary
07/22/23 11:42 Respiratory Syncytial Virus Culture - Final
Nasal Swab Negative for Respiratory Syncytial Virus.
A false negative result may be obtained with a specimen
collected early in the acute phase. If symptoms persist, a
new specimen should be tested.
07/20/23 17:32 Fungal Smear - Final
Pleural Fluid No yeast or fungal elements seen.
07/16/23 14:16 Blood Culture - Final
Blood/Venous No Growth - Final Report
07/16/23 14:16 Blood Culture - Final
Blood/Venous No Growth - Final Report
07/16/23 22:25 MRSA Screen - Final
Nose Staph aureus MRSA
07/16/23 14:16 Urine Culture - Final
Urine NO GROWTH
07/16/23 18:43 Influenza Types A & B ([facility]) - Final
Nasal Swab Negative for Influenza A & B, NAAT
Negative results must be combined with clinical observations
and patient history.
Nucleic Acid Amplification test (NAAT)performed on the
[employer] platform.
--- NOTE | 2023-07-25 12:29 | PTCARENOTE ---
Pt rec'd from previous RN at 06:45, remains Aox3, pleasant and cooperative, 02 weaned to 6L at time of this writing. Daughter and son in law visiting, now at bedside. Pt utilizing magic mouthwash PRN and new orders obtained from Dr. Licea
for nystatin swish and swallow for mouth sores. Q2T maintained, pt incont dark loose BMs, pericare and back rub provided, purewick in place. Skin care assessment as documented, Desenex and calazime applied for MASD. Call edwards in reach, pt with no
needs at this time.
--- NOTE | 2023-07-25 12:52 | W.PN.PUL.V3 ---
Today's Communication / Plan
-
Antibiotics
Wean oxygen
Diuresis as tolerated
Aspiration precautions
Assessment
-
Assessment:
Mrs Vale Garrett is an 83/W adm 07-16 from assisted living with 1 wk h/o abd pain/n/v, cough, CP, confusion, ac/chronic dizziness, and decreased oral intake. Diagnosed with R basilar pneumonia with R PF per CXR and abd CT (no abd abnormalities),
started on ceftriaxone/azithromycin, O2 NC 3L. Atbs changed to zosyn/azithromycin d after adm, follow up CXR 07-19 with bilateral infiltrates. Increasing O2 requirements. Pulm consulted 07-20
Acute respiratory failure, hypoxemic-on high flow oxygen
RLL infiltrate/effusion on CXR and abd CT 07-16
Bilateral infiltrates on CXR 07-19
Bilateral infiltrates on chest CT: RML, RLL
Pneumonitis upper lobes
Moderate R PF
Mild MLAD
Secretions at posterior wall of trachea
Right parapneumonic effusion: Status post chest tube placement 07/20/2023
Leukocytosis, decreasing and then increasing since adm
Moderate anemia
COVID/flu negative
MRSA screening positive
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
Asthma/COPD, on salmeterol/fluticasone and combivent, not on home O2
Prediabetes
HTN
Constipation
Anemia
GERD
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
Chronic dizziness
Anxiety/depression
Recurrent UTI
Orthostatic hypotension
H/o DVT/PE, on rivaroxaban
Achalasia, s/p PEG and reversal
IBS
Diverticulosis
Right TKA
Lumbar laminectomy 2015
Tonsillectomy
Former smoker
DNR
Plan:
She continues to improve from a pulmonary perspective
Wean supplemental oxygen as tolerated-Down to 6 L nasal cannula
DuoNebs
Restart inhalers at time of discharge
Mucus clearing devices
Aspiration precautions-suspect aspiration pneumonia
History of achalasia requiring gastrostomy tube in the past
Dexamethasone initiated 07/23/2023 due to lack of improvement with antibiotics-continue Decadron 4 mg IV every 12 hours
Cultures reviewed-unrevealing thus far
MRSA screen positive
Empiric antibiotics continue
Infectious disease following-correspondence reviewed
Loculated right pleural effusion
R chest tube placed 07-20-23, 250 mL serous fluid upon placement of chest tube
pH 7.41, wbc 1208, M 61.45, PMN 38.6, G 94, LDH and ratio exudative,
G stain negative, cx/cyto negative so far
CXR 07-21-23: portable, bilateral infiltrates, R chest tube, apparently resolved R PF
Minimal drainage the last 48 hours.
Chest x-ray 07/22/2023: showed no significant accumulation of fluid. Persistent bilateral infiltrates. No pneumothorax.
Chest tube to waterseal since 07/22/2023.
No pneumothorax/no recurrent pleural effusion on chest x-ray from 07/23/2023. Bilateral infiltrates persistent but improving.
Chest tube removed 07/23/2023, communicated with interventional radiology.
Diuresis as tolerated
Follow renal function, electrolytes, intake/output, lower extremity edema and weight
Replace electrolytes as needed
Echocardiogram 07/21/2023: Showed normal LVEF. No significant valvular abnormalities.
DVT prophylaxis: Remains on anticoagulation.
GI prophylaxis-on pantoprazole
Nutrition
Bedside range of motion/physical therapy
Reviewed with nursing as well as daughter at the bedside
Subjective Data
-
Date of Service:
Date of Service: July 25, 2023
Chief Complaint: Pulmonary Follow Up (Pneumonia/parapneumonic effusion status post chest tube) and Dyspnea Follow Up
Subjective:
Feels better, less short of breath, less oxygen, some chest congestion, no chest pain or abdominal pain
Review of Systems
General: Other (Per HPI)
Objective Data
Data Reviewed
Vital Signs / I&O:
Vital Signs
Temp Pulse Resp BP Pulse Ox
98.3 F 74 23 108/46 96
07/25/23 07:45 07/25/23 12:20 07/25/23 12:00 07/25/23 12:20 07/25/23 12:29
Intake and Output
07/24/23 07/25/23 07/26/23
06:59 06:59 06:59
Intake Total 500 / 500 1160 / 1160
Output Total 1050 / 1050 1850 / 1850
Balance -550 / -550 -690 / -690
SaO2: 96
Nasal Cannula flow liters per minute: 6
Physical Exam
General: Respiratory Distress (n) and Comfortable
HEENT: Normocephalic, Anicteric and Moist Mucous Membranes
Cardiovascular: Regular Rhythm, Murmur (n) and Peripheral Edema (n)
Respiratory: Wheeze (n), Crackles and Chest Tube (R, 550 mL serous fluid at 6 am)
GI: Soft, Non Distended and Non Tender
Neurology: Awake, Alert and Other (Left hemiparesis-chronic)
Skin: Dry, Good Color, Cyanosis (n), Jaundice and Rash (n)
Labs/Micro/Reports
Lab Data
07/25/23 04:31
07/25/23 04:31
Microbiology
07/24/23 12:00 Sputum Respiratory Culture - Preliminary
Staph aureus MRSA
Cathy albicans
Gram negative bacilli
07/24/23 12:00 Sputum Gram Stain - Preliminary
07/20/23 17:32 Thoracentesis Fluid Body Fluid Culture - Final
No Growth After 72 Hours
07/20/23 17:32 Thoracentesis Fluid Gram Stain - Final
07/20/23 17:32 Pleural Fluid Acid Fast Bacilli Smear - Preliminary
07/20/23 17:32 Pleural Fluid Acid Fast Bacilli Culture - Preliminary
07/22/23 11:42 Nasal Swab Respiratory Syncytial Virus Culture - Final
Negative for Respiratory Syncytial Virus.
A false negative result may be obtained with a specimen
collected early in the acute phase. If symptoms persist, a
new specimen should be tested.
--- NOTE | 2023-07-25 13:06 | PHA.VAN.FU ---
Vancomycin Assessment / Plan
- Assessment
Renal Function: Stable
WBC's are: Trending Up
In the past 24 hrs, patient has been: Afebrile
Concomitant Antimicrobials: nystatin susp
- Dosing Plan
Continue: resume vancomycin 1000 mg q12h (started 07/23@1800, last dose 07/24 05:09)
in lieu of another LD, will give 1000 mg @1400 then another 1000 mg @ 2200; then resume q12h dosing 0600 07/26
- Monitoring Plan
No level(s) ordered at this time: consider levels in a day or so
- Follow Up
Pharmacy will continue to follow.
Vancomycin Follow UP
- -
Patient Age: 83
Patient Sex: Female
Vancomycin Day #: 6
Indication: Pulmonary/Respiratory
Requesting Provider: Dr. Licea / Von
Pertinent Antimicrobial Allergies:
sulfonamide antibiotics - unknown
Height / Weight:
Height 5 ft 4 in
Actual Weight 73.1 kg
- Vital Signs / Lab Results
Temp Pulse Resp BP Pulse Ox
98.3 F 74 23 108/46 96
07/25/23 07:45 07/25/23 12:20 07/25/23 12:00 07/25/23 12:20 07/25/23 12:55
Lab Results - Hematology
07/23/23 07/24/23 07/25/23
05:38 05:30 04:31
WBC 13.3 H 14.0 H 15.4 H
Lab Results - Chemistry
07/23/23 07/24/23 07/25/23
05:38 05:30 04:31
BUN 9 11 15
Creatinine 0.4 L 0.5 L 0.5 L
Estimated Creat Clear 67 67 67
Microbiology Results
07/24/23 12:00 Respiratory Culture - Preliminary
Sputum Staph aureus MRSA
Cathy albicans
Gram negative bacilli
Gram Stain - Preliminary
07/20/23 17:32 Body Fluid Culture - Final
Thoracentesis Fluid No Growth After 72 Hours
Gram Stain - Final
07/20/23 17:32 Acid Fast Bacilli Smear - Preliminary
Pleural Fluid Acid Fast Bacilli Culture - Preliminary
Therapeutic Drug Monitoring
Vancomycin Peak 17.7 ug/ml (18-26) L 07/22/23 21:06
Vancomycin Trough 9.4 ug/ml (5-20) 07/23/23 05:38
[2023-07-25] MEDS: VANCOCIN 200 IV ×2 (14:39→21:11)
[2023-07-25] MEDS: XARELTO 20 MG PO (17:28)
--- NOTE | 2023-07-25 20:00 | PTCARENOTE ---
Pt AAOx3 confused at times. L arm contracted w/ spasms at times. L facial droop. 4L o2 lungs shallow, coarse, w/ crackles at the bases. Desats to low 80s when on RA. Pt coughing w/ water intake. SR/SB on the monitor. Takes pills crushed in yogurt.
Pt incont of BM while changing and urine. Purewick in place. MASD on buttocks and erika area.
[2023-07-25] MEDS: HYTRIN 1 MG PO (21:10)
[2023-07-25] MEDS: LIPITOR 20 MG PO (21:10)
[2023-07-26] VITALS (13 sets, daily range): BP systolic 91–151; BP diastolic 45–86; BMI 27.4
[2023-07-26] MEDS: DECADRON 4 MG IV (04:33)
--- NOTE | 2023-07-26 05:01 | PTCARENOTE ---
Nurse did daily weight.
[2023-07-26] MEDS: TYLENOL 1000 MG PO ×3 (05:46→22:25)
[2023-07-26] MEDS: VANCOCIN 200 IV (05:46)
[2023-07-26] MEDS: FIRST-MOUTHWASH BLM SUSPENSION 5 ML PO (06:22)
[2023-07-26] MEDS: DUONEB 3 ML INH ×4 (07:20→19:58)
[2023-07-26] MEDS: MYCOSTATIN ORAL SUSPENSION 5 ML PO ×4 (07:48→22:24)
[2023-07-26] MEDS: ZOLOFT 100 MG PO (07:48)
[2023-07-26] MEDS: SINGULAIR 10 MG PO (07:48)
[2023-07-26] MEDS: METAMUCIL, KONSYL 1 PACKET PO (07:48)
[2023-07-26] MEDS: ProAmatine 5 MG PO ×3 (07:48→16:26)
[2023-07-26] MEDS: OCUVITE SOFTGEL 1 CAP PO (07:48)
[2023-07-26] MEDS: LIDOCAINE 4% PATCH 2 PATCH TOPICAL (07:48)
[2023-07-26] MEDS: WELLBUTRIN REGULAR RELEASE 100 MG PO ×3 (07:48→22:25)
[2023-07-26] MEDS: VITAMIN B-12 1000 MCG PO (07:49)
[2023-07-26] MEDS: LOW STRENGTH ASPIRIN 81 MG PO (07:49)
[2023-07-26] MEDS: NSS (PRESERVATIVE FREE) 10 ML IV (07:49)
[2023-07-26] MEDS: PROTONIX IV 40 MG IV (07:49)
[2023-07-26] MEDS: NEURONTIN 100 MG PO ×3 (07:49→22:25)
[2023-07-26] MEDS: ULTRAM 50 MG PO ×2 (07:50→20:32)
[2023-07-26] MEDS: DESENEX/MITRAZOL/ZEASORB 1 APPLIC TOPICAL ×2 (07:50→20:32)
[2023-07-26] MEDS: VITAMIN D3 (cholecalciferol) 25 MCG PO (07:50)
--- NOTE | 2023-07-26 08:29 | PHA.VAN.FU ---
Vancomycin Assessment / Plan
- Assessment
Renal Function: No New Labs Today
WBC's are: Trending Up
In the past 24 hrs, patient has been: Afebrile
- Dosing Plan
Continue: Vanc 1000mg Q12H
- Monitoring Plan
No level(s) ordered at this time: consider levels in next few days
- Follow Up
Pharmacy will continue to follow.
Vancomycin Follow UP
- -
Patient Age: 83
Patient Sex: Female
Vancomycin Day #: 7
Indication: Pulmonary/Respiratory
Requesting Provider: Dr. Licea / Von
Pertinent Antimicrobial Allergies:
sulfonamide antibiotics - unknown
Height / Weight:
Height 5 ft 4 in
Actual Weight 72.3 kg
- Vital Signs / Lab Results
Temp Pulse Resp BP Pulse Ox
97.5 F 69 16 117/67 96
07/25/23 23:16 07/26/23 07:48 07/26/23 07:22 07/26/23 07:48 07/26/23 07:22
Lab Results - Hematology
07/24/23 07/25/23
05:30 04:31
WBC 14.0 H 15.4 H
Lab Results - Chemistry
07/24/23 07/25/23
05:30 04:31
BUN 11 15
Creatinine 0.5 L 0.5 L
Estimated Creat Clear 67 67
Microbiology Results
07/24/23 12:00 Respiratory Culture - Preliminary
Sputum Staph aureus MRSA
Cathy albicans
Gram negative bacilli
Gram Stain - Preliminary
Therapeutic Drug Monitoring
Vancomycin Peak 17.7 ug/ml (18-26) L 07/22/23 21:06
Vancomycin Trough 9.4 ug/ml (5-20) 07/23/23 05:38
--- NOTE | 2023-07-26 09:15 | W.PN.PUL3 ---
Today's Communication / Plan
-
Continue IV diuresis, follow daily weights
Imaging reviewed post removal of chest tube 07/23, repeat as needed
Wean O2 as tolerated, remains on 4L, eventual home O2 assessment will be needed
Reduce IV steroids to PO, quick taper to off
Completed abx course
PT/OT following
Assessment
-
Mrs Vale Garrett is an 83/W adm 07-16 from assisted living with 1 wk h/o abd pain/n/v, cough, CP, confusion, ac/chronic dizziness, and decreased oral intake. Diagnosed with R basilar pneumonia with R PF per CXR and abd CT (no abd abnormalities),
started on ceftriaxone/azithromycin, O2 NC 3L. Atbs changed to zosyn/azithromycin d after adm, follow up CXR 07-19 with bilateral infiltrates. Increasing O2 requirements. Pulm consulted 07-20
Acute respiratory failure, hypoxemic-on high flow oxygen
RLL infiltrate/effusion on CXR and abd CT 07-16
Bilateral infiltrates on CXR 07-19
Bilateral infiltrates on chest CT: RML, RLL
Pneumonitis upper lobes
Moderate R PF
Mild MLAD
Secretions at posterior wall of trachea
Right parapneumonic effusion: Status post chest tube placement 07/20/2023
Leukocytosis, decreasing and then increasing since adm
Moderate anemia
COVID/flu negative
MRSA screening positive
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
Asthma/COPD, on salmeterol/fluticasone and combivent, not on home O2
Prediabetes
HTN
Constipation
Anemia
GERD
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
Chronic dizziness
Anxiety/depression
Recurrent UTI
Orthostatic hypotension
H/o DVT/PE, on rivaroxaban
Achalasia, s/p PEG and reversal
IBS
Diverticulosis
Right TKA
Lumbar laminectomy 2016
Tonsillectomy
Former smoker
DNR
Plan:
She continues to improve from a pulmonary perspective
Wean supplemental oxygen as tolerated-Down to 4 L nasal cannula
DuoNebs
Restart inhalers at time of discharge
Mucus clearing devices
Aspiration precautions-suspect aspiration pneumonia
History of achalasia requiring gastrostomy tube in the past
Dexamethasone initiated 07/23/2023 due to lack of improvement with antibiotics
Can wean quickly to off, transition to prednisone today
Cultures reviewed-unrevealing thus far
MRSA screen positive
Empiric antibiotics continue
Infectious disease following-correspondence reviewed
Loculated right pleural effusion
R chest tube placed 07-20-23, 250 mL serous fluid upon placement of chest tube
pH 7.41, wbc 1208, M 61.45, PMN 38.6, G 94, LDH and ratio exudative
G stain negative, cx/cyto negative so far
Chest tube to waterseal since 07/22/2023.
Chest tube removed 07/23/2023.
Can repeat imaging as needed if symptoms worsen
Diuresis as tolerated
Follow renal function, electrolytes, intake/output, lower extremity edema and weight
Replace electrolytes as needed
Cards following
DVT prophylaxis: Remains on anticoagulation.
GI prophylaxis-on pantoprazole
Nutrition
Bedside range of motion/physical therapy
Reviewed with nursing as well as daughter at the bedside
Diagnostic Data
CXR 07/23/23 IMPRESSION:
1. Scattered foci of interstitial and alveolar opacity bilaterally, most suggestive of multifocal pneumonia. No significant change compared to 07/22/2023, however improved compared to 07/19/2023.
2. No appreciable pleural effusion or pneumothorax on the right side.
3. Haziness of left hemidiaphragm, which may be related to left lower lobe airspace disease and/or small left pleural effusion. Consider PA and lateral views when possible.
CXR 07/21/23- IMPRESSION: Right basilar chest tube. No findings to confirm pneumothorax. Bilateral parenchymal opacities, decreased in the right base, perhaps slightly increased in the right upper and left lower lungs which could represent multifocal
pneumonia/pneumonitis.
CT Chest 07/20/23- IMPRESSION: Multifocal pneumonia with extensive groundglass airspace disease in both lungs most prominent in both upper lobes and confluent alveolar airspace disease in the right middle. Moderate right pleural effusion with
compressive atelectasis in the right lower lobe. Evaluation for peripheral pulmonary emboli is limited by patient respiratory motion. No pulmonary emboli are demonstrated.
Echocardiogram 07/21/2023: Showed normal LVEF. No significant valvular abnormalities.
Subjective Data
-
Date of Service:
Date of Service: July 26, 2023
Chief Complaint: Pulmonary Follow Up (Pneumonia/parapneumonic effusion status post chest tube)
Subjective:
patient seen and examined, no acute events on
remains on 4L NC
feels her breathing has gotten better
Objective Data
Data Reviewed
Vital Signs / I&O / Oxygen:
Vital Signs
Temp Pulse Resp BP Pulse Ox
97.5 F 69 16 117/67 96
07/25/23 23:16 07/26/23 07:48 07/26/23 07:22 07/26/23 07:48 07/26/23 07:22
Intake and Output
07/25/23 07/26/23 07/27/23
06:59 06:59 06:59
Intake Total 1160 / 1160 1560 / 1560
Output Total 1850 / 1850 1250 / 1250
Balance -690 / -690 310 / 310
SaO2 96
Nasal Cannula flow liters per 4
minute
Physical Exam
General: Respiratory Distress (n), Comfortable and Other (NAD, thin/frail appearing)
HEENT: Normocephalic, Anicteric and Moist Mucous Membranes
Cardiovascular: S1-S2, Regular Rhythm, Murmur (n) and Peripheral Edema (n)
Respiratory: Wheeze (n), Crackles, Non-Labored Respirations and Chest Tube (R, 550 mL serous fluid at 6 am)
GI: Soft, Non Distended and Non Tender
Neurology: Awake, Alert, Oriented, AO x 3, No Motor Deficits and Other (Left hemiparesis-chronic)
Skin: Dry, Good Color, Cyanosis (n), Jaundice and Rash (n)
Labs/Micro/Reports
Lab Data
07/25/23 04:31
07/25/23 04:31
Microbiology
07/24/23 12:00 Sputum Respiratory Culture - Final
Staph aureus MRSA
Klebsiella pneumoniae
Cathy albicans
07/24/23 12:00 Sputum Gram Stain - Final
07/20/23 17:32 Thoracentesis Fluid Body Fluid Culture - Final
No Growth After 72 Hours
07/20/23 17:32 Thoracentesis Fluid Gram Stain - Final
07/20/23 17:32 Pleural Fluid Acid Fast Bacilli Smear - Preliminary
07/20/23 17:32 Pleural Fluid Acid Fast Bacilli Culture - Preliminary
--- NOTE | 2023-07-26 09:23 | CM ---
Patient seen at bedside with physician. Patient states that she lives at [facility]. Patient aware of recommendation for SNF and would be willing to go to [facility] if needed for short stay. CM will continue to follow for discharge planning needs.
Plan; Personal care vs SNF
--- NOTE | 2023-07-26 09:35 | W.PN.HOSP.TC ---
Today's Communication/Plan
-
PT/OT/OOB
wean steroids
add low dose SSI
Assessment / Plan
Assessment / Plan
pt is an 83 year old female
Bilateral pneumonia with small right pleural effusion/atelectasis and acute hypoxemic resp failure--initially felt likely CAP but concerned about aspiration (remote history of achalasia)--initially on Zosyn and Zithromax--07/24 cultures MRSA, Kleb
pneumoniae, Cathy--Right chest tube placed which was dc'd 07/23--Continue with antibiotics per ID- finished 07/24--back on vanco per ID--Initiated on steroids for possible nonspecific inflammatory pneumonitis; CRP>270--down to 4 L, was on 100 Hi SHASHI
NC--apprec pulm
Right pleural effusion--diagnostic testing shows no empyema--pH 7.41 in the pleural fluid--Meets criteria for exudate by LDH criteria but not protein criteria. Gram stain shows no organisms. Culture negative.. Chest tube out 07/23.
Doubt CHF--patient with worsening of hypoxia after initial improvement on antibiotics. BNP is elevated. Chest CT shows extensive groundglass airspace disease in the upper lobes along with the confluent airspace disease in the right middle lobe.
Echo showed normal EF without significant valvular abnormality. Rate significantly lower compared to her recent admission. No changes with hypoxia with diuretics--Appreciate cardiology input.
Oral thrush - start on nystatin
Nausea and abdominal pain--persistent nausea with intermittent abdominal pain with negative CT abdomen pelvis with IV contrast--No oral contrast given-- Unclear etiology but will evaluate further from achalasia standpoint - --try to get bowels
moving. Some of her nausea may be secondary to vertigo I feel. With worsening hypoxia hold on esophagogram .
Nausea with postural dizziness suspicious for vertigo--improving with scheduled meclizine. Appreciate neurology input. Resolved dizziness- Antivert as needed
Asthma/COPD--patient today with reactive airways--Continue inhalers--Continue montelukast-add nebulizers
Prediabetes--with steroids BS 204--will start low dose SSI
History of CVA with residual left-sided paralysis/neuropathic pain--difficulty with pain control--Continue aspirin, statin--Consider gabapentin when infection better treated
Chronic back pain--Continue tramadol
History of muscle spasms--continue baclofen PRN
Constipation--Continue MiraLAX
Chronic anemia--Hemoglobin lower than baseline--follow for now-H&H stable---heme test stools neg
GERD--Continue omeprazole
Anxiety/depression--Continue bupropion, sertraline--Continue trazodone PRN
History of orthostatic hypotension--Continue midodrine
History of DVT/PE--Continue Xarelto
Essential hypertension--Continue terazosin
IBS
Diverticulosis
code status --DNR/DNI
DVT prophylaxis�Xarelto
Anticipated Discharge: 24 - 48 hours
Subjective/Interval History
-
Date of Service: July 26, 2023
pt without c/o
Objective Data
-
Vital Signs:
max temp for 24 hours
07/25/23
11:40
Temp 97.7 F
Vital Signs
Temp Pulse Resp BP Pulse Ox
97.5 F 69 16 117/67 96
07/25/23 23:16 07/26/23 07:48 07/26/23 07:22 07/26/23 07:48 07/26/23 07:22
I&O
07/25/23 07/26/23 07/27/23
06:59 06:59 06:59
Intake Total 1160 / 1160 1560 / 1560
Output Total 1850 / 1850 1250 / 1250
Balance -690 / -690 310 / 310
Review of Systems
-
All other systems: Reviewed and negative
Physical Exam
-
General: Well Developed, Well Nourished and No Apparent Distress
HEENT: Normocephalic, Atraumatic and Oxygen
Respiratory: Rhonchi
Cardiac: Regular Rhythm and S1/S2; Negative Murmur
GI: Soft, Nontender, Nondistended and Normal Bowel Sounds
Musculoskeletal: No Clubbing, No Cyanosis and No Edema
Skin: Warm
Neuro: Awake and Alert
Psych: Calm
--- NOTE | 2023-07-26 10:09 | PTCARENOTE ---
Patient received from stna RN. Patient AAOx3. Patient with B/L upper extremity tremors. Patient on 4L NC lung sounds diminished. Patient VS within normal limits. Patient given all morning meds crushed, tolerated well. Patient eating
breakfast. Patient changed and repositioned.
--- NOTE | 2023-07-26 10:33 | W.PN.ID1 ---
Date of Service
Date of Service: July 26, 2023
Today's Communication
- switch to doxycycline - to complete 14 day total course 07/19-08/01
Assessment / Plan
Resolving Pneumonia with parapneumonic effusion
Achalasia s/p PEG and reversal
Acute Hypoxemic Resp Failure
Leukocytosis - downtrending
Reported allergy to sulfa
- sputum was obtained yesterday many presumptive MRSA, many yeast, few GNR
- switch to doxycycline - to complete 14 day total course 07/19-08/01
- will follow afb/fungal cultures - unlikely
- on steroids - will impact the wbc count
- follow up with PCP
Chief Complaint
-: Leukocytosis and Other (Pneumonitis?)
Subjective / Review of Systems
afebrile
bp stable
tolerating current therapies
O2 requirements weaning down
Vital Signs / Physical Exam
Vital Signs
Vital Signs
Temp Pulse Resp BP Pulse Ox
97.5 F 69 16 117/67 96
07/25/23 23:16 07/26/23 07:48 07/26/23 07:22 07/26/23 07:48 07/26/23 07:22
Physical Exam
Constitutional: No Acute Distress
Cardiovascular: Regular Rate and S1/S2; Negative Murmur or Rub
Pulmonary: Symmetric and Coarse; Negative Rales
Gastrointestinal: Soft, Non Tender, Non Distended and Normal Bowel Sounds
Skin: Warm and Dry; Negative Rash or Jaundice
Neurological: Awake
Psychological: Calm
Objective Data
Lab Data
Lab Results
07/25/23 04:31
07/25/23 04:31
ESR 59 mm/hour (0-20) H 07/22/23 03:39
Estimated Creat Clear 67 ml/min 07/25/23 04:31
Lactic Acid Cancelled 07/16/23 18:15
Total Bilirubin 0.6 mg/dl (0.2-1.3) 07/17/23 06:40
AST 18 U/L (14-36) 07/17/23 06:40
ALT 12 U/L (0-35) 07/17/23 06:40
Alkaline Phosphatase 93 U/L (38-126) 07/17/23 06:40
C-Reactive Protein > 270.00 mg/L (0.0-10.00) H 07/22/23 03:39
Most recent labs reviewed.
Micro Results:
07/24/23 12:00 Respiratory Culture - Final
Sputum Staph aureus MRSA
Klebsiella pneumoniae
Cathy albicans
Gram Stain - Final
07/20/23 17:32 Body Fluid Culture - Final
Thoracentesis Fluid No Growth After 72 Hours
Gram Stain - Final
07/20/23 17:32 Acid Fast Bacilli Smear - Preliminary
Pleural Fluid Acid Fast Bacilli Culture - Preliminary
07/22/23 11:42 Respiratory Syncytial Virus Culture - Final
Nasal Swab Negative for Respiratory Syncytial Virus.
A false negative result may be obtained with a specimen
collected early in the acute phase. If symptoms persist, a
new specimen should be tested.
07/20/23 17:32 Fungal Smear - Final
Pleural Fluid No yeast or fungal elements seen.
07/16/23 14:16 Blood Culture - Final
Blood/Venous No Growth - Final Report
07/16/23 14:16 Blood Culture - Final
Blood/Venous No Growth - Final Report
07/16/23 22:25 MRSA Screen - Final
Nose Staph aureus MRSA
07/16/23 14:16 Urine Culture - Final
Urine NO GROWTH
07/16/23 18:43 Influenza Types A & B ([facility]) - Final
Nasal Swab Negative for Influenza A & B, NAAT
Negative results must be combined with clinical observations
and patient history.
Nucleic Acid Amplification test (NAAT)performed on the
[employer] platform.
--- NOTE | 2023-07-26 11:54 | W.PN.CD ---
Today's Communication / Plan
-
continue current medications
d/c planning for snf
Impression / Plan
-
Pleural effusion - acute, right.
- echo 07/21/23 with normal BiV size/function w/o RWMA, EF 55-60%, normal PASP, normal IVC, no change from echo in 2018.
- she does not appear volume overloaded, and weight is stable to down
- no lasix
PNA - acute.
-improving
- IV antibiotics per ID/hospitalist/pulmonary.
CVA - in 2018, left sided deficits.
- stable.
HTN - stable.
- monitor with Midodrine.
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
Subjective:
No chest pain, breathing is improving. She is anxious to get out of bed
Data Reviewed:
TTE: 07/22/23:
�Normal biventricular size and systolic function without regional wall motion
�abnormality. Estimated LVEF 55-60%.
�Aortic sclerosis without stenosis.
�PASP 34mmHg, IVC normal size and collapse
�Compared to 05/26/18: no significant change.
Physical Exam
Vital Signs/Labs
Vital Signs
Temp Pulse Resp BP Pulse Ox
97.5 F 66 16 117/67 93
07/25/23 23:16 07/26/23 10:58 07/26/23 10:58 07/26/23 07:48 07/26/23 10:58
07/25/23 07/26/23 07/27/23
06:59 06:59 06:59
Actual Weight 73.1 kg 72.3 kg
07/25/23 04:31
07/25/23 04:31
Magnesium 1.9 mg/dl (1.6-2.3) 07/19/23 05:28
02/06/24 02/06/24
05:10 18:07
Lzo-Q-Cunybxknhpu Pept Cancelled [id number]
Physical Exam
Constitutional: No acute distress and Comfortable
Cardiovascular: Rhythm & rate is regular, Pedal edema is absent, JVD pressure is normal, Systolic murmur absent and Diastolic murmur absent
Respiratory: Respiratory effort normal, Lungs clear to auscul., Wheeze Absent, Crackles Absent and Rhonchi Absent
Neuro/Psych: AO x 3
Data Reviewed
-
Date of Service: July 26, 2023
[2023-07-26 12:15] LABS: Glucose - Point of Care 216 mg/dl (70-99)
[2023-07-26] MEDS: NOVOLOG FLEXPEN-LOW RESISTANCE 2 UNITS SC ×2 (13:20→16:36)
[2023-07-26] MEDS: XARELTO 20 MG PO (16:41)
[2023-07-26 16:46] LABS: Glucose - Point of Care 230 mg/dl (70-99)
[2023-07-26] MEDS: VIBRAMYCIN 100 MG PO (20:32)
[2023-07-26 21:31] LABS: Glucose - Point of Care 211 mg/dl (70-99)
[2023-07-26] MEDS: HYTRIN 1 MG PO (22:24)
[2023-07-26] MEDS: LIPITOR 20 MG PO (22:24)
[2023-07-27] VITALS (8 sets, daily range): BP systolic 100–129; BP diastolic 34–49; PULSE 56–74; O2SAT 95; BMI 27.4
[2023-07-27 05:07] LABS: Hematocrit 27.6 % (37.0-47.0); Hemoglobin 8.5 g/dL (12.0-16.0); Mean Corp Hgb Conc. 30.8 g/dL (33.0-37.0); Mean Corpuscular Volume 74.8 fL (81.0-99.0); Mean Platelet Volume 9.4 fL (7.4-10.4); Platelet Count 556 10^3/uL (130-400); Red Blood Cell Count 3.69 10^6/uL (4.20-5.40); Red Cell Dist. Width 15.7 % (11.5-14.5); White Blood Cell Count 14.3 10^3/uL (4.8-10.8)
[2023-07-27 05:35] LABS: ALT (SGPT) 134 U/L (0-35); AST (SGOT) 142 U/L (14-36); Albumin 2.6 g/dl (3.5-5.0); Alkaline Phosphatase 64 U/L (38-126); Blood Urea Nitrogen 16 mg/dl (7-17); Calcium 8.1 mg/dl (8.4-10.2); Carbon Dioxide 32 mmol/L (22-30); Chloride 98 mmol/L (98-107); Estimated Creatinine Clearance 67 ml/min; Glucose 130 mg/dl (70-99); Magnesium 1.8 mg/dl (1.6-2.3); Potassium 3.9 mmol/L (3.5-5.1); Sodium 133 mmol/L (135-145); Total Bilirubin 0.5 mg/dl (0.2-1.3); Total Protein 5.3 g/dl (6.3-8.2); eGFR > 60.00
[2023-07-27] MEDS: FIRST-MOUTHWASH BLM SUSPENSION 5 ML PO ×2 (06:00→16:29)
[2023-07-27] MEDS: TYLENOL 1000 MG PO ×3 (06:00→21:16)
[2023-07-27 07:26] LABS: Glucose - Point of Care 138 mg/dl (70-99)
[2023-07-27] MEDS: DUONEB 3 ML INH ×4 (07:55→19:52)
[2023-07-27] MEDS: NOVOLOG FLEXPEN-LOW RESISTANCE SC (08:39)
[2023-07-27] MEDS: ProAmatine 5 MG PO ×3 (08:40→16:17)
[2023-07-27] MEDS: OCUVITE SOFTGEL 1 CAP PO (08:40)
[2023-07-27] MEDS: LOW STRENGTH ASPIRIN 81 MG PO (08:40)
[2023-07-27] MEDS: MYCOSTATIN ORAL SUSPENSION 5 ML PO ×4 (08:41→21:16)
[2023-07-27] MEDS: ZOLOFT 100 MG PO (08:41)
[2023-07-27] MEDS: ULTRAM 50 MG PO ×2 (08:41→21:15)
[2023-07-27] MEDS: VIBRAMYCIN 100 MG PO ×2 (08:41→21:15)
[2023-07-27] MEDS: SINGULAIR 10 MG PO (08:41)
[2023-07-27] MEDS: VITAMIN D3 (cholecalciferol) 25 MCG PO (08:41)
[2023-07-27] MEDS: DELTASONE 40 MG PO (08:41)
[2023-07-27] MEDS: NEURONTIN 100 MG PO ×3 (08:41→21:16)
[2023-07-27] MEDS: WELLBUTRIN REGULAR RELEASE 100 MG PO ×3 (08:41→21:15)
[2023-07-27] MEDS: NSS (PRESERVATIVE FREE) 10 ML IV (08:42)
[2023-07-27] MEDS: METAMUCIL, KONSYL 1 PACKET PO (08:42)
[2023-07-27] MEDS: VITAMIN B-12 1000 MCG PO (08:42)
[2023-07-27] MEDS: PROTONIX IV 40 MG IV (08:42)
[2023-07-27] MEDS: LIDOCAINE 4% PATCH 2 PATCH TOPICAL (08:43)
--- NOTE | 2023-07-27 08:44 | W.PN.CD ---
Today's Communication / Plan
-
- Compensated on examination; on no standing Lasix.
- Continue antibiotics and steroids as per ID/Hospitalist/Pulmonary.
Impression / Plan
-
Pleural effusion - acute, right.
- echo 07/21/23 with normal BiV size/function w/o RWMA, EF 55-60%, normal PASP, normal IVC, no change from echo in 2018.
- Compensated on examination; on no standing Lasix.
PNA - acute.
- Continue antibiotics and steroids as per ID/Hospitalist/Pulmonary.
CVA - in 2018, left sided deficits.
- stable.
HTN - controlled/stable.
-Continue Midodrine.
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
Subjective:
No major events overnight. No cardiac complaints this a.m. Telemetry stable.
Data Reviewed:
TTE: 07/22/23:
�Normal biventricular size and systolic function without regional wall motion
�abnormality. Estimated LVEF 55-60%.
�Aortic sclerosis without stenosis.
�PASP 34mmHg, IVC normal size and collapse
�Compared to 05/26/18: no significant change.
Physical Exam
Vital Signs/Labs
Vital Signs
Temp Pulse Resp BP Pulse Ox
97.9 F 68 16 100/38 99
07/27/23 07:30 07/27/23 08:00 07/27/23 08:00 07/27/23 07:30 07/27/23 08:00
07/26/23 07/27/23 07/28/23
06:59 06:59 06:59
Actual Weight 72.3 kg 72.484 kg
07/27/23 04:31
07/27/23 04:31
Magnesium 1.8 mg/dl (1.6-2.3) 07/27/23 04:31
07/20/23 07/20/23
05:10 18:07
Vqj-C-Zyxnljsjbdf Pept Cancelled [id number]
Physical Exam
Constitutional: No acute distress and Comfortable
EENT: Anicteric
Cardiovascular: Rhythm & rate is regular, Pedal edema is absent, Systolic murmur absent and S1S2 is normal
Respiratory: Respiratory effort normal, Wheeze Present and Crackles Present (left base)
GI: Soft
Neuro/Psych: AO x 3
Other: Skin (Warm, dry, intact)
Data Reviewed
-
Date of Service: July 27, 2023
EKG: Tracing Personally Visualized and interpreted (Telemetry: Sinus rhythm)
Labs: Labs Reviewed by me
[2023-07-27 08:56] LABS: Glycohemoglobin (HgbA1c) 7.2 % (4.0-5.6)
[2023-07-27] MEDS: DESENEX/MITRAZOL/ZEASORB 1 APPLIC TOPICAL ×2 (08:57→21:13)
--- NOTE | 2023-07-27 11:15 | W.PN.PUL3 ---
Addendum entered and electronically signed by Charlotte Juan DO 07/28/23 09:02:
Reviewed walk test, patient is 90% on RA, only requires 2L with exertion
Original Note:
Today's Communication / Plan
-
Transitioned to prednisone, with quick taper
Wean O2 as tolerated, home O2 eval pending
Discharge planning to SNF per team
We will sign off at this time, please call with questions
Assessment
-
Mrs Vale Garrett is an 83/W adm 07-16 from assisted living with 1 wk h/o abd pain/n/v, cough, CP, confusion, ac/chronic dizziness, and decreased oral intake. Diagnosed with R basilar pneumonia with R PF per CXR and abd CT (no abd abnormalities),
started on ceftriaxone/azithromycin, O2 NC 3L. Atbs changed to zosyn/azithromycin d after adm, follow up CXR 07-19 with bilateral infiltrates. Increasing O2 requirements. Pulm consulted 07-20
Acute respiratory failure, hypoxemic-on high flow oxygen
RLL infiltrate/effusion on CXR and abd CT 07-16
Bilateral infiltrates on CXR 07-19
Bilateral infiltrates on chest CT: RML, RLL
Pneumonitis upper lobes
Moderate R PF
Mild MLAD
Secretions at posterior wall of trachea
Right parapneumonic effusion: Status post chest tube placement 07/20/2023
Leukocytosis, decreasing and then increasing since adm
Moderate anemia
COVID/flu negative
MRSA screening positive
Conditions [employer]:
Asthma/COPD, on salmeterol/fluticasone and combivent, not on home O2
Prediabetes
HTN
Constipation
Anemia
GERD
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
Chronic dizziness
Anxiety/depression
Recurrent UTI
Orthostatic hypotension
H/o DVT/PE, on rivaroxaban
Achalasia, s/p PEG and reversal
IBS
Diverticulosis
Right TKA
Lumbar laminectomy 2016
Tonsillectomy
Former smoker
DNR
Plan:
She continues to improve from a pulmonary perspective
Wean supplemental oxygen as tolerated-Down to 4 L nasal cannula, home O2 eval
DuoNebs
Restart inhalers at time of discharge
Mucus clearing devices
Aspiration precautions-suspect aspiration pneumonia
History of achalasia requiring gastrostomy tube in the past
Dexamethasone initiated 07/23/2023 due to lack of improvement with antibiotics
Can wean quickly to off, transition to prednisone today
Cultures reviewed-unrevealing thus far
MRSA screen positive
Empiric antibiotics continue
Infectious disease following-correspondence reviewed
Loculated right pleural effusion
R chest tube placed 07-20-23, 250 mL serous fluid upon placement of chest tube
pH 7.41, wbc 1208, M 61.45, PMN 38.6, G 94, LDH and ratio exudative
G stain negative, cx/cyto negative so far
Chest tube to waterseal since 07/22/2023.
Chest tube removed 07/23/2023.
Can repeat imaging as needed if symptoms worsen
Diuresis as tolerated
Follow renal function, electrolytes, intake/output, lower extremity edema and weight
Replace electrolytes as needed
Cards following
DVT prophylaxis: Remains on anticoagulation.
GI prophylaxis-on pantoprazole
Nutrition
Bedside range of motion/physical therapy
Reviewed with nursing as well as daughter at the bedside
Diagnostic Data
CXR 07/23/23 IMPRESSION:
1. Scattered foci of interstitial and alveolar opacity bilaterally, most suggestive of multifocal pneumonia. No significant change compared to 07/22/2023, however improved compared to 07/19/2023.
2. No appreciable pleural effusion or pneumothorax on the right side.
3. Haziness of left hemidiaphragm, which may be related to left lower lobe airspace disease and/or small left pleural effusion. Consider PA and lateral views when possible.
CXR 07/21/23- IMPRESSION: Right basilar chest tube. No findings to confirm pneumothorax. Bilateral parenchymal opacities, decreased in the right base, perhaps slightly increased in the right upper and left lower lungs which could represent multifocal
pneumonia/pneumonitis.
CT Chest 07/20/23- IMPRESSION: Multifocal pneumonia with extensive groundglass airspace disease in both lungs most prominent in both upper lobes and confluent alveolar airspace disease in the right middle. Moderate right pleural effusion with
compressive atelectasis in the right lower lobe. Evaluation for peripheral pulmonary emboli is limited by patient respiratory motion. No pulmonary emboli are demonstrated.
Echocardiogram 07/21/2023: Showed normal LVEF. No significant valvular abnormalities.
Subjective Data
-
Date of Service:
Date of Service: July 27, 2023
Chief Complaint: Pulmonary Follow Up (Pneumonia/parapneumonic effusion status post chest tube)
Subjective:
doing well, complaints of mouth pain with meals
remains on 4L NC
Objective Data
Data Reviewed
Vital Signs / I&O / Oxygen:
Vital Signs
Temp Pulse Resp BP Pulse Ox
97.4 F 71 17 114/41 98
07/27/23 11:13 07/27/23 11:13 07/27/23 11:13 07/27/23 11:13 07/27/23 11:13
Intake and Output
07/26/23 07/27/23 07/28/23
06:59 06:59 06:59
Intake Total 1560 / 1560 600 / 600
Output Total 1250 / 1250
Balance 310 / 310 600 / 600
SaO2 98
Nasal Cannula flow liters per 4
minute
Physical Exam
General: Respiratory Distress (n), Comfortable and Other (NAD, thin/frail appearing)
HEENT: Normocephalic, Anicteric and Moist Mucous Membranes
Cardiovascular: S1-S2, Regular Rhythm, Murmur (n) and Peripheral Edema (n)
Respiratory: Wheeze (n), Crackles, Non-Labored Respirations and Chest Tube (R, 550 mL serous fluid at 6 am)
GI: Soft, Non Distended and Non Tender
Neurology: Awake, Alert, Oriented, AO x 3, No Motor Deficits and Other (Left hemiparesis-chronic)
Skin: Dry, Good Color, Cyanosis (n), Jaundice and Rash (n)
Labs/Micro/Reports
Lab Data
07/27/23 04:31
07/27/23 04:31
Microbiology
07/24/23 12:00 Sputum Respiratory Culture - Final
Staph aureus MRSA
Klebsiella pneumoniae
Cathy albicans
07/24/23 12:00 Sputum Gram Stain - Final
[2023-07-27 11:19] LABS: Glucose - Point of Care 191 mg/dl (70-99)
--- NOTE | 2023-07-27 11:32 | W.PN.HOSP.TC ---
Today's Communication/Plan
-
anticipate d/c to SNF tomorrow
updated Mr. Garrett
Assessment / Plan
Assessment / Plan
pt is an 83 year old female
Bilateral pneumonia with small right pleural effusion/atelectasis and acute hypoxemic resp failure--initially felt likely CAP but concerned about aspiration (remote history of achalasia)--initially on Zosyn and Zithromax--07/24 cultures MRSA, Kleb
pneumoniae, Cathy--Right chest tube placed which was dc'd 07/23--Continue with antibiotics per ID- finished 07/24--back on vanco per ID--Initiated on steroids for possible nonspecific inflammatory pneumonitis; CRP>270--down to 4 L, was on 100 Hi SHASHI
NC--apprec pulm
Right pleural effusion--diagnostic testing shows no empyema--pH 7.41 in the pleural fluid--Meets criteria for exudate by LDH criteria but not protein criteria. Gram stain shows no organisms. Culture negative.. Chest tube out 07/23.
Doubt CHF--patient with worsening of hypoxia after initial improvement on antibiotics. BNP is elevated. Chest CT shows extensive groundglass airspace disease in the upper lobes along with the confluent airspace disease in the right middle lobe.
Echo showed normal EF without significant valvular abnormality. Rate significantly lower compared to her recent admission. No changes with hypoxia with diuretics--Appreciate cardiology input.
Oral thrush - start on nystatin
Nausea and abdominal pain--persistent nausea with intermittent abdominal pain with negative CT abdomen pelvis with IV contrast--No oral contrast given-- Unclear etiology but will evaluate further from achalasia standpoint - --try to get bowels
moving. Some of her nausea may be secondary to vertigo I feel. With worsening hypoxia hold on esophagogram .
Nausea with postural dizziness suspicious for vertigo--improving with scheduled meclizine. Appreciate neurology input. Resolved dizziness- Antivert as needed
Asthma/COPD--patient today with reactive airways--Continue inhalers--Continue montelukast-add nebulizers
Prediabetes--with steroids BS 204--will start low dose SSI
History of CVA with residual left-sided paralysis/neuropathic pain--difficulty with pain control--Continue aspirin, statin--Consider gabapentin when infection better treated
Chronic back pain--Continue tramadol
History of muscle spasms--continue baclofen PRN
Constipation--Continue MiraLAX
Chronic anemia--Hemoglobin lower than baseline--follow for now-H&H stable---heme test stools neg
GERD--Continue omeprazole
Anxiety/depression--Continue bupropion, sertraline--Continue trazodone PRN
History of orthostatic hypotension--Continue midodrine
History of DVT/PE--Continue Xarelto
Essential hypertension--Continue terazosin
IBS
Diverticulosis
code status --DNR/DNI
DVT prophylaxis�Xarelto
Anticipated Discharge: Within 24 hours
Subjective/Interval History
-
Date of Service: July 27, 2023
pt doing OK other than not getting coffee this AM
Objective Data
-
Labs:
Laboratory Results
07/27/23
04:31
WBC 14.3 H
Hgb 8.5 L
Hct 27.6 L
Plt Count 556 H
Sodium 133 L
Potassium 3.9
Chloride 98
Carbon Dioxide 32 H
BUN 16
Creatinine 0.5 L
Glucose 130 H
Calcium 8.1 L
Total Bilirubin 0.5
AST 142 H
ALT 134 H
Alkaline Phosphatase 64
Vital Signs:
max temp for 24 hours
07/26/23
23:28
Temp 98.3 F
Vital Signs
Temp Pulse Resp BP Pulse Ox
97.4 F 71 17 114/41 98
07/27/23 11:13 07/27/23 11:13 07/27/23 11:13 07/27/23 11:13 07/27/23 11:13
I&O
07/26/23 07/27/23 07/28/23
06:59 06:59 06:59
Intake Total 1560 / 1560 600 / 600
Output Total 1250 / 1250
Balance 310 / 310 600 / 600
Review of Systems
-
All other systems: Reviewed and negative
Physical Exam
-
General: Well Developed, Well Nourished and No Apparent Distress
HEENT: Normocephalic, Atraumatic and Oxygen
Respiratory: Decreased Breath Sounds
Cardiac: Regular Rhythm and S1/S2; Negative Murmur
GI: Soft, Nontender, Nondistended and Normal Bowel Sounds
Musculoskeletal: Other (left arm contracted from previous CVA)
Neuro: Awake
Psych: Calm
--- NOTE | 2023-07-27 11:42 | W.PN.ID1 ---
Date of Service
Date of Service: July 27, 2023
Today's Communication
wean O2 as tolerated
- continue doxycycline - to complete 14 day total course 07/19-08/01
- follow up with PCP
Assessment / Plan
Resolving Pneumonia with parapneumonic effusion
Achalasia s/p PEG and reversal
Acute Hypoxemic Resp Failure
Leukocytosis - downtrending
Reported allergy to sulfa
- would wean O2 as tolerated
- sputum was obtained yesterday many presumptive MRSA, many yeast, few GNR
- continue doxycycline - to complete 14 day total course 07/19-08/01
- will follow afb/fungal cultures - unlikely
- on steroids - will impact the wbc count
- follow up with PCP
Chief Complaint
-: Leukocytosis and Other (Pneumonitis?)
Subjective / Review of Systems
afebrile
bp stable
persistent leukocytosis on steroids
cr stable
a1c consistent with dm2
saturating 98-99% on 4L
Vital Signs / Physical Exam
Vital Signs
Vital Signs
Temp Pulse Resp BP Pulse Ox
97.4 F 71 17 114/41 98
07/27/23 11:13 07/27/23 11:13 07/27/23 11:13 07/27/23 11:13 07/27/23 11:13
Physical Exam
Constitutional: No Acute Distress
Cardiovascular: Regular Rate and S1/S2; Negative Murmur or Rub
Pulmonary: Clear and Symmetric; Negative Wheezes or Rales
Gastrointestinal: Soft, Non Tender, Non Distended and Normal Bowel Sounds
Skin: Warm and Dry; Negative Rash or Jaundice
Objective Data
Lab Data
Lab Results
07/27/23 04:31
07/27/23 04:31
ESR 59 mm/hour (0-20) H 07/22/23 03:39
Estimated Creat Clear 67 ml/min 07/27/23 04:31
Lactic Acid Cancelled 07/16/23 18:15
Total Bilirubin 0.5 mg/dl (0.2-1.3) 07/27/23 04:31
AST 142 U/L (14-36) H 07/27/23 04:31
ALT 134 U/L (0-35) H 07/27/23 04:31
Alkaline Phosphatase 64 U/L (38-126) 07/27/23 04:31
C-Reactive Protein > 270.00 mg/L (0.0-10.00) H 07/22/23 03:39
Most recent labs reviewed.
Micro Results:
07/24/23 12:00 Respiratory Culture - Final
Sputum Staph aureus MRSA
Klebsiella pneumoniae
Cathy albicans
Gram Stain - Final
07/20/23 17:32 Body Fluid Culture - Final
Thoracentesis Fluid No Growth After 72 Hours
Gram Stain - Final
07/20/23 17:32 Acid Fast Bacilli Smear - Preliminary
Pleural Fluid Acid Fast Bacilli Culture - Preliminary
07/22/23 11:42 Respiratory Syncytial Virus Culture - Final
Nasal Swab Negative for Respiratory Syncytial Virus.
A false negative result may be obtained with a specimen
collected early in the acute phase. If symptoms persist, a
new specimen should be tested.
07/20/23 17:32 Fungal Smear - Final
Pleural Fluid No yeast or fungal elements seen.
07/16/23 14:16 Blood Culture - Final
Blood/Venous No Growth - Final Report
07/16/23 14:16 Blood Culture - Final
Blood/Venous No Growth - Final Report
07/16/23 22:25 MRSA Screen - Final
Nose Staph aureus MRSA
07/16/23 14:16 Urine Culture - Final
Urine NO GROWTH
07/16/23 18:43 Influenza Types A & B ([facility]STOF[facility]) - Final
Nasal Swab Negative for Influenza A & B, NAAT
Negative results must be combined with clinical observations
and patient history.
Nucleic Acid Amplification test (NAAT)performed on the
[employer] platform.
[2023-07-27] MEDS: NOVOLOG FLEXPEN-LOW RESISTANCE 1 UNITS SC (13:12)
--- NOTE | 2023-07-27 15:58 | CM ---
Reviewed the chart notes and spoke with the patient at the bedside. IMM signed and placed on the chart. Per Sharmaine, [facility] will offer bed on day of discharge. Precert will be required. [facility] NPI# [id number]; Dr. Hinton NPI# [id number]. continues
to be available to patient/family and is monitoring medical plan for needs at discharge.
Plan: Discharge to [facility] when medically stable and auth obtained.
[2023-07-27 16:50] LABS: Glucose - Point of Care 245 mg/dl (70-99)
[2023-07-27] MEDS: NOVOLOG FLEXPEN-LOW RESISTANCE 2 UNITS SC (17:35)
[2023-07-27] MEDS: XARELTO 20 MG PO (17:36)
[2023-07-27] MEDS: LIPITOR 20 MG PO (21:16)
[2023-07-27] MEDS: HYTRIN 1 MG PO (21:16)
[2023-07-27 21:40] LABS: Glucose - Point of Care 212 mg/dl (70-99)
[2023-07-28 03:10] VITALS: BP 125/57
[2023-07-28 05:02] LABS: Hematocrit 28.4 % (37.0-47.0); Hemoglobin 8.7 g/dL (12.0-16.0); Mean Corp Hgb Conc. 30.6 g/dL (33.0-37.0); Mean Corpuscular Hgb 23.1 pg (27.0-31.0); Mean Corpuscular Volume 75.3 fL (81.0-99.0); Mean Platelet Volume 9.5 fL (7.4-10.4); Platelet Count 555 10^3/uL (130-400); Red Blood Cell Count 3.77 10^6/uL (4.20-5.40); Red Cell Dist. Width 15.9 % (11.5-14.5); White Blood Cell Count 14.1 10^3/uL (4.8-10.8)
[2023-07-28 05:28] LABS: Blood Urea Nitrogen 17 mg/dl (7-17); Calcium 8.6 mg/dl (8.4-10.2); Carbon Dioxide 32 mmol/L (22-30); Chloride 97 mmol/L (98-107); Estimated Creatinine Clearance 57 ml/min; Glucose 131 mg/dl (70-99); Magnesium 1.8 mg/dl (1.6-2.3); Potassium 3.8 mmol/L (3.5-5.1); Sodium 135 mmol/L (135-145); eGFR > 60.00
[2023-07-28] MEDS: TYLENOL 1000 MG PO ×3 (05:56→21:37)
[2023-07-28 06:00] VITALS: BMI 27.0
[2023-07-28] MEDS: DUONEB 3 ML INH ×4 (07:30→20:31)
[2023-07-28 07:45] VITALS: BP 122/85
[2023-07-28 08:19] LABS: Glucose - Point of Care 133 mg/dl (70-99)
[2023-07-28] MEDS: NOVOLOG FLEXPEN-LOW RESISTANCE SC (08:51)
[2023-07-28] MEDS: OCUVITE SOFTGEL 1 CAP PO (08:52)
[2023-07-28] MEDS: MYCOSTATIN ORAL SUSPENSION 5 ML PO ×4 (08:52→21:37)
[2023-07-28] MEDS: VITAMIN B-12 1000 MCG PO (08:52)
[2023-07-28] MEDS: VITAMIN D3 (cholecalciferol) 25 MCG PO (08:52)
[2023-07-28] MEDS: ProAmatine 5 MG PO ×3 (08:52→16:52)
[2023-07-28] MEDS: SINGULAIR 10 MG PO (08:52)
[2023-07-28] MEDS: VIBRAMYCIN 100 MG PO ×2 (08:52→20:20)
[2023-07-28] MEDS: WELLBUTRIN REGULAR RELEASE 100 MG PO ×3 (08:52→21:37)
[2023-07-28] MEDS: ZOLOFT 100 MG PO (08:52)
[2023-07-28] MEDS: ULTRAM 50 MG PO ×2 (08:53→20:16)
[2023-07-28] MEDS: DELTASONE 40 MG PO (08:53)
[2023-07-28] MEDS: LOW STRENGTH ASPIRIN 81 MG PO (08:53)
[2023-07-28] MEDS: NEURONTIN 100 MG PO ×3 (08:53→21:38)
[2023-07-28] MEDS: NSS (PRESERVATIVE FREE) 10 ML IV (08:54)
[2023-07-28] MEDS: LIDOCAINE 4% PATCH 2 PATCH TOPICAL (08:54)
[2023-07-28] MEDS: PROTONIX IV 40 MG IV (08:54)
[2023-07-28] MEDS: METAMUCIL, KONSYL 1 PACKET PO (08:54)
[2023-07-28] MEDS: DESENEX/MITRAZOL/ZEASORB 1 APPLIC TOPICAL ×2 (08:56→20:33)
--- NOTE | 2023-07-28 09:34 | CM ---
Addendum entered by Tess Noland 07/28/23 16:25:
patient updated that COVID in [facility] and patient now to be assessed by Sumit and JOSE to review with patient and family in am.
Addendum entered by Tess Noland 07/28/23 13:41:
CM received authorization that patient was approved by Yomaira Dockery at [facility] [id number]. approved for 3 days 07/28-07/30 Rosalba Osorio to follow case. CM reviewed with patient and with Sharmaine from [facility]. Please call report to [phone].
Patient will need ambulance transportation and CM will complete forms and send it to the floor.
Plan; transfer to SNF today.
Addendum entered by Tess Noland 07/28/23 13:25:
updates given to Addis at [facility] await response
Addendum entered by Tess Noland 07/28/23 10:18:
pending auth [facility] [id number], clinicals sent to . awaiting response
Original Note:
Patient for discharge to [facility] when auth obtained. CM met with patient and IMM completed and signed form on chart. in agreement with plan for SNF. CM will initiate auth. CM will continue to follow for discharge planning needs.
Plan; [facility], pending auth
--- NOTE | 2023-07-28 10:17 | W.PN.HOSP.TC ---
Today's Communication/Plan
-
d/c to SNF
Assessment / Plan
Assessment / Plan
pt is an 83 year old female
ok for d/c to SNF
Bilateral pneumonia with small right pleural effusion/atelectasis and acute hypoxemic resp failure--initially felt likely CAP but concerned about aspiration (remote history of achalasia)--initially on Zosyn and Zithromax--07/24 cultures MRSA, Kleb
pneumoniae, Cathy--Right chest tube placed which was dc'd 07/23--Continue with antibiotics per ID- finished 07/24--back on vanco per ID, now on doxy--Initiated on steroids for possible nonspecific inflammatory pneumonitis; CRP>270--down to 4 L, was
on 100 Hi SHASHI NC--apprec pulm
Right pleural effusion--diagnostic testing shows no empyema--pH 7.41 in the pleural fluid--Meets criteria for exudate by LDH criteria but not protein criteria. Gram stain shows no organisms. Culture negative.. Chest tube out 07/23.
Doubt CHF--patient with worsening of hypoxia after initial improvement on antibiotics. BNP is elevated. Chest CT shows extensive groundglass airspace disease in the upper lobes along with the confluent airspace disease in the right middle lobe.
Echo showed normal EF without significant valvular abnormality. Rate significantly lower compared to her recent admission. No changes with hypoxia with diuretics--Appreciate cardiology input.
Oral thrush - start on nystatin
Nausea and abdominal pain--persistent nausea with intermittent abdominal pain with negative CT abdomen pelvis with IV contrast--No oral contrast given-- Unclear etiology but will evaluate further from achalasia standpoint - --try to get bowels
moving. Some of her nausea may be secondary to vertigo I feel. With worsening hypoxia hold on esophagogram .
Nausea with postural dizziness suspicious for vertigo--improving with scheduled meclizine. Appreciate neurology input. Resolved dizziness- Antivert as needed
Asthma/COPD--patient today with reactive airways--Continue inhalers--Continue montelukast-add nebulizers
Prediabetes--with steroids BS 204--will start low dose SSI
History of CVA with residual left-sided paralysis/neuropathic pain--difficulty with pain control--Continue aspirin, statin--Consider gabapentin when infection better treated
Chronic back pain--Continue tramadol
History of muscle spasms--continue baclofen PRN
Constipation--Continue MiraLAX
Chronic anemia--Hemoglobin lower than baseline--follow for now-H&H stable---heme test stools neg
GERD--Continue omeprazole
Anxiety/depression--Continue bupropion, sertraline--Continue trazodone PRN
History of orthostatic hypotension--Continue midodrine
History of DVT/PE--Continue Xarelto
Essential hypertension--Continue terazosin
IBS
Diverticulosis
code status --DNR/DNI
DVT prophylaxis�Xarelto
Anticipated Discharge: Today
Subjective/Interval History
-
Date of Service: July 28, 2023
pt ready for d/c
Objective Data
-
Labs:
Laboratory Results
07/28/23
04:26
WBC 14.1 H
Hgb 8.7 L
Hct 28.4 L
Plt Count 555 H
Sodium 135
Potassium 3.8
Chloride 97 L
Carbon Dioxide 32 H
BUN 17
Creatinine 0.7
Glucose 131 H
Calcium 8.6
Vital Signs:
max temp for 24 hours
07/27/23
15:26
Temp 97.8 F
Vital Signs
Temp Pulse Resp BP Pulse Ox
98.2 F 71 18 122/85 93
07/28/23 07:45 07/28/23 08:52 07/28/23 07:45 07/28/23 08:52 07/28/23 07:45
I&O
02/07/28/23 07/29/23
06:59 06:59 06:59
Intake Total 600 / 600 1200 / 1200
Balance 600 / 600 1200 / 1200
Review of Systems
-
All other systems: Reviewed and negative
Physical Exam
-
General: Well Developed, Well Nourished and No Apparent Distress
HEENT: Normocephalic, Atraumatic and Oxygen
Respiratory: Clear to Auscultation and Decreased Breath Sounds
Cardiac: Regular Rhythm and S1/S2; Negative Murmur
GI: Soft, Nontender, Nondistended and Normal Bowel Sounds
Musculoskeletal: No Clubbing, No Cyanosis and No Edema
Neuro: Other (contractures from CVA)
--- NOTE | 2023-07-28 10:54 | W.PN.CD ---
Today's Communication / Plan
-
no need for standing lasix
continue current medications
D/c planning
No active cardiac issues, will sign off
Impression / Plan
-
Pleural effusion - acute, right.
- echo 07/21/23 with normal BiV size/function w/o RWMA, EF 55-60%, normal PASP, normal IVC, no change from echo in 2018.
- Compensated on examination; on no standing Lasix.
PNA - acute.
- Continue antibiotics and steroids as per ID/Hospitalist/Pulmonary.
CVA - in 2018, left sided deficits.
- stable.
HTN - controlled/stable.
-Continue Midodrine.
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
Subjective:
No major events overnight. No cardiac complaints this a.m. Telemetry stable. Hoping to go to rehab and get out of bed today
Data Reviewed:
TTE: 07/22/23:
�Normal biventricular size and systolic function without regional wall motion
�abnormality. Estimated LVEF 55-60%.
�Aortic sclerosis without stenosis.
�PASP 34mmHg, IVC normal size and collapse
�Compared to 05/26/18: no significant change.
Physical Exam
Vital Signs/Labs
Vital Signs
Temp Pulse Resp BP Pulse Ox
98.2 F 71 18 122/85 93
07/28/23 07:45 07/28/23 08:52 07/28/23 07:45 07/28/23 08:52 07/28/23 07:45
07/27/23 07/28/23 07/29/23
06:59 06:59 06:59
Actual Weight 72.484 kg 71.412 kg
07/28/23 04:26
07/28/23 04:26
Magnesium 1.8 mg/dl (1.6-2.3) 07/28/23 04:26
07/20/23 07/20/23
05:10 18:07
Etx-[id number] Pept Cancelled 4410
Physical Exam
Constitutional: No acute distress
Cardiovascular: Rhythm & rate is regular, Pedal edema is absent, JVD pressure is normal and S1S2 is normal
Respiratory: Respiratory effort normal and Other (inspiratory squeks)
GI: Soft
Data Reviewed
-
Date of Service: July 28, 2023
[2023-07-28 11:55] LABS: Glucose - Point of Care 219 mg/dl (70-99)
[2023-07-28 12:04] VITALS: BP 125/53
--- NOTE | 2023-07-28 13:01 | W.PN.ID1 ---
Date of Service
Date of Service: July 28, 2023
Today's Communication
- continue doxycycline - to complete 14 day total course 07/19-08/01
- follow up with PCP
Assessment / Plan
Resolving Pneumonia with parapneumonic effusion
Achalasia s/p PEG and reversal
Acute Hypoxemic Resp Failure
Leukocytosis - downtrending
Reported allergy to sulfa
- would wean O2 as tolerated
- continue doxycycline - to complete 14 day total course 07/19-08/01
- will follow afb/fungal cultures - unlikely
- on steroids - will impact the wbc count
- follow up with PCP
Chief Complaint
-: Leukocytosis and Other (Pneumonitis?)
Subjective / Review of Systems
afebrile
bp stable
now on 2L
leukocytosis persists on high dose steroids
cr stable
'Im bored'
Vital Signs / Physical Exam
Vital Signs
Vital Signs
Temp Pulse Resp BP Pulse Ox
98.3 F 73 18 125/53 92
07/28/23 12:04 07/28/23 12:04 07/28/23 12:04 07/28/23 12:04 07/28/23 12:04
Physical Exam
Constitutional: No Acute Distress
Cardiovascular: Regular Rate and S1/S2; Negative Murmur or Rub
Pulmonary: Clear and Symmetric; Negative Wheezes or Rales
Gastrointestinal: Soft, Non Tender, Non Distended and Normal Bowel Sounds
Skin: Warm and Dry; Negative Rash or Jaundice
Objective Data
Lab Data
Lab Results
07/28/23 04:26
07/28/23 04:26
ESR 59 mm/hour (0-20) H 07/22/23 03:39
Estimated Creat Clear 57 ml/min 07/28/23 04:26
Lactic Acid Cancelled 07/16/23 18:15
Total Bilirubin 0.5 mg/dl (0.2-1.3) 07/27/23 04:31
AST 142 U/L (14-36) H 07/27/23 04:31
ALT 134 U/L (0-35) H 07/27/23 04:31
Alkaline Phosphatase 64 U/L (38-126) 07/27/23 04:31
C-Reactive Protein > 270.00 mg/L (0.0-10.00) H 07/22/23 03:39
Most recent labs reviewed.
Micro Results:
07/24/23 12:00 Respiratory Culture - Final
Sputum Staph aureus MRSA
Klebsiella pneumoniae
Cathy albicans
Gram Stain - Final
07/20/23 17:32 Body Fluid Culture - Final
Thoracentesis Fluid No Growth After 72 Hours
Gram Stain - Final
07/20/23 17:32 Acid Fast Bacilli Smear - Preliminary
Pleural Fluid Acid Fast Bacilli Culture - Preliminary
07/22/23 11:42 Respiratory Syncytial Virus Culture - Final
Nasal Swab Negative for Respiratory Syncytial Virus.
A false negative result may be obtained with a specimen
collected early in the acute phase. If symptoms persist, a
new specimen should be tested.
07/20/23 17:32 Fungal Smear - Final
Pleural Fluid No yeast or fungal elements seen.
07/16/23 14:16 Blood Culture - Final
Blood/Venous No Growth - Final Report
07/16/23 14:16 Blood Culture - Final
Blood/Venous No Growth - Final Report
07/16/23 22:25 MRSA Screen - Final
Nose Staph aureus MRSA
07/16/23 14:16 Urine Culture - Final
Urine NO GROWTH
07/16/23 18:43 Influenza Types A & B ([facility]) - Final
Nasal Swab Negative for Influenza A & B, NAAT
Negative results must be combined with clinical observations
and patient history.
Nucleic Acid Amplification test (NAAT)performed on the
[employer] platform.
[2023-07-28] MEDS: NOVOLOG FLEXPEN-LOW RESISTANCE 2 UNITS SC ×2 (13:35→17:53)
[2023-07-28 16:13] VITALS: BP 111/52
[2023-07-28 17:24] LABS: Glucose - Point of Care 235 mg/dl (70-99)
[2023-07-28] MEDS: XARELTO 20 MG PO (17:39)
[2023-07-28 19:32] VITALS: BP 105/48
[2023-07-28 21:29] LABS: Glucose - Point of Care 213 mg/dl (70-99)
[2023-07-28] MEDS: HYTRIN 1 MG PO (21:38)
[2023-07-28] MEDS: LIPITOR 20 MG PO (21:38)
[2023-07-28 23:10] VITALS: BP 128/48
[2023-07-29 06:00] VITALS: BMI 26.8
[2023-07-29] MEDS: TYLENOL 1000 MG PO (06:21)
[2023-07-29 07:30] VITALS: BP 128/59
[2023-07-29] MEDS: DUONEB 3 ML INH ×2 (07:43→11:05)
[2023-07-29 07:47] LABS: Glucose - Point of Care 154 mg/dl (70-99)
[2023-07-29] MEDS: OCUVITE SOFTGEL 1 CAP PO (09:10)
[2023-07-29] MEDS: LOW STRENGTH ASPIRIN 81 MG PO (09:11)
[2023-07-29] MEDS: DELTASONE 40 MG PO (09:11)
[2023-07-29] MEDS: SINGULAIR 10 MG PO (09:11)
[2023-07-29] MEDS: WELLBUTRIN REGULAR RELEASE 100 MG PO (09:11)
[2023-07-29] MEDS: ProAmatine 5 MG PO ×2 (09:11→12:12)
[2023-07-29] MEDS: NEURONTIN 100 MG PO (09:11)
[2023-07-29] MEDS: NSS (PRESERVATIVE FREE) 10 ML IV (09:12)
[2023-07-29] MEDS: ZOLOFT 100 MG PO (09:12)
[2023-07-29] MEDS: METAMUCIL, KONSYL 1 PACKET PO (09:12)
[2023-07-29] MEDS: PROTONIX IV 40 MG IV (09:12)
[2023-07-29] MEDS: ULTRAM 50 MG PO (09:13)
[2023-07-29] MEDS: VITAMIN D3 (cholecalciferol) 25 MCG PO (09:13)
[2023-07-29] MEDS: VITAMIN B-12 1000 MCG PO (09:13)
[2023-07-29] MEDS: VIBRAMYCIN 100 MG PO (09:13)
[2023-07-29] MEDS: LIDOCAINE 4% PATCH 2 PATCH TOPICAL (09:15)
[2023-07-29] MEDS: MYCOSTATIN ORAL SUSPENSION 5 ML PO ×2 (09:16→12:12)
[2023-07-29] MEDS: DESENEX/MITRAZOL/ZEASORB 1 APPLIC TOPICAL (09:16)
[2023-07-29] MEDS: NOVOLOG FLEXPEN-LOW RESISTANCE 1 UNITS SC ×2 (09:17→12:10)
--- NOTE | 2023-07-29 09:48 | CM ---
Addendum entered by Tess Noland 07/29/23 12:07:
Patient seen at bedside. Per patient phone call patient to return to [facility] today. JOSE spoke with Dipak and she confirmed plan and indicated that the facility used [facility] and CM faxed clinical information to Agustin
[phone]/office [phone]. Per Agustin he will have O2 delivered to [facility] by 12:30pm and patient ambulance to be transferred at 1:00pm. Patient referral faxed to [facility] for rehabilitation and [facility]MM completed and signed form placed on chart.
Patient son updated with all information as patient unavailable this am. Patient clinical information faxed to [facility] and to [employer]. CM will continue to follow for discharge planning needs.
Plan; return to [facility] today with home O2 and pt/ot with [facility]
Original Note:
Referral sent to [facility] for assessment and awaiting PM&R assessment.
--- NOTE | 2023-07-29 09:58 | CON.MR ---
Consultation
Consultation Request
Date/Time Consultation Requested: 07/29/23
Date/Time Consultation Performed: 07/29/23 945
Requesting Provider: Dr. Perdomo
Performing Provider: Dr. Canales
Reason for Consultation: Rehab evaluation
Medical History
-
Chief Complaint: Weakness, SOB
History of Present Illness:
I had the opportunity to see Vale Garrett in rehabilitation consultation today. This is an 83 year old female with past medical history of previous right MCA ischemic stroke, hypertension, prediabetes who presented to hospital with symptoms of
abdominal pain, nausea and vomiting for about the past week.� Family had also noticed some confusion and lethargy and paleness prior to admission.� Diagnostic testing suggested pneumonia with concern for aspiration versus commune acquired pneumonia.
She has had chronic left-sided arm and leg spasticity and weakness from the right MCA stroke and does take baclofen.� Additional notable medications include as needed meclizine, midodrine, terazosin, tramadol, gabapentin, as needed trazodone, and
baclofen.
Hospital course notable with pneumonia, bilateral pleural effusion, sepsis, now on Abx and steroids. Tapering but still requiring O2. Some SOB but denies any chest pain today. Some dizziness but has a history of vertigo and dizziness at baseline.
Chronic history of LBP, anemia, orthostasis, HTN.
Patient seen at bedside this morning. States no significant complaints, no current pain or dizziness. No chest pain. Some mouth and throat pain/burning sensation at times. Was seen with patients' family members and stated she was supposed to go
to [facility] yesterday but apparently there was COVID infections in the nursing facility that prevented her from being transferred there yesterday.
Lives at [facility] assisted living facility. Since her CVA she has been non-ambulatory and mostly a wheelchair user. She states recently at her [facility] was getting physical therapy and they were attempting some stand and walk with therapist but
would not attempt on own. Needed min A for transfers and ADLs at the [facility] and would have a home health aide to assist.
Past Medical History: � Right MCA stroke in 2018 with alteplase and mechanical thrombectomy with residual left sided hemiparesis, anxiety/depression, prediabetes, asthma/COPD, hypertension, anemia, frequent UTI, orthostatic hypotension, history of
DVT/PE, achalasia
Surgical History:� Mechanical thrombectomy for right MCA thrombus May 2018, right TKA, lumbar laminectomy, PEG, tonsilectomy
Family History:� Non-contributory
Social History:� Living at assisted living, retired, no alcohol or tobacco
Social History
Functional Level Premorbidity:
Min A for transfers, min a for ADLS
Current Funct Level: Ambulation, Transfer, UE/LE Dressing:
Max A for bed mobility
Allergies / Home Medications
Allergy/AdvReac Type Severity Reaction Status Date / Time
codeine [Codeine] Allergy Nausea Verified 07/16/23 13:41
prochlorperazine Allergy Rash Verified 07/16/23 13:41
[id number] Reductase Allergy muscle Verified 07/16/23 13:41
Inhibitor weakness
[Hcmppyu-Ysw-Psj Reductase
Inhibitor]
Sulfa (Sulfonamide Allergy Pt unsure Verified 07/16/23 13:41
Antibiotics) of reaction
Medication Instructions Recorded Confirmed Last Taken Type
montelukast 10 mg tablet 10 mg PO DAILY Lung/breathing 09/30/15 07/16/23 12/27/22 History
issues
ipratropium 20 mcg-albuterol 100 1 puff inhalation R QID 05/04/16 07/16/23 12/27/22 History
mcg/actuation mist for inhalation Lung/Breathing Issues
(Combivent Respimat)
cholecalciferol (vitamin D3) 25 1,000 units PO DAILY Supplement 12/21/16 07/16/23 12/27/22 History
mcg (1,000 unit) tablet
aspirin 81 mg chewable tablet 81 mg PO DAILY Blood clot 10/09/20 07/16/23 12/27/22 History
prevention/tx
atorvastatin 20 mg tablet 20 mg PO HS High cholesterol 10/09/20 07/16/23 12/26/22 History
bupropion HCl 100 mg tablet 100 mg PO TID Mental Health/Anxiety 10/09/20 07/16/23 12/27/22 History
fluticasone propionate 50 1 spray intranasal DAILY Allergies 10/09/20 07/16/23 12/27/22 History
mcg/actuation nasal
spray,suspension
guaifenesin 100 mg/5 mL oral liquid 100 mg PO Q6HPRN PRN cough ##0 10/09/20 07/16/23 Unknown History
meclizine 12.5 mg tablet 12.5 mg PO BIDPRN PRN dizziness 10/09/20 07/16/23 Unknown History
melatonin 5 mg tablet 5 mg PO HSPRN PRN INSOMNIA 10/09/20 07/16/23 Unknown History
menthol 5 % topical patch (Icy Hot 1 patch topical DAILY left hip ##0 10/09/20 07/16/23 12/27/22 History
(menthol))
omeprazole 20 mg capsule,delayed 20 mg PO DAILY Gastrointestinal 10/09/20 07/16/23 12/27/22 History
release issue
phenazopyridine 100 mg tablet 100 mg PO BIDPRN PRN URINARY 10/09/20 07/16/23 Unknown History
BURNING
polyethylene glycol 3350 17 gram 17 grams PO DAILYPRN PRN 10/09/20 07/16/23 Unknown History
oral powder packet CONSTIPATION
rivaroxaban 20 mg tablet (Xarelto) 20 mg PO QPM Blood clot 10/09/20 07/16/23 12/26/22 History
prevention/tx
sertraline 100 mg tablet 100 mg PO DAILY Mental 10/09/20 07/16/23 Unknown History
Health/Anxiety
terazosin 1 mg capsule 1 mg PO HS Urinary issue 10/09/20 07/16/23 12/26/22 History
trazodone 50 mg tablet 50 mg PO BID PRN insomnia 10/09/20 07/16/23 Unknown History
Calazmine Skin Protect 1 applic topical TID PRN apply to 12/27/22 07/16/23 Unknown History
groin, buttocks, coccyx
acetaminophen 160 mg/5 mL oral 1,000 mg PO TID@0600,1400,2200 Pain 12/27/22 07/16/23 12/27/22 History
liquid (M-PAP)
baclofen 10 mg tablet 10 mg PO TIDPRN PRN muscle spams 12/27/22 07/16/23 Unknown History
fluticasone 113 mcg-salmeterol 14 1 inh inhalation R BID 12/27/22 07/16/23 12/27/22 History
mcg/actuation breath activated Lung/Breathing Issues
powdr
ipratropium 20 mcg-albuterol 100 1 puff inhalation R BIDPRN PRN sob 12/27/22 07/16/23 Unknown History
mcg/actuation mist for inhalation
(Combivent Respimat)
menthol 5 % topical patch (Icy Hot 1 patch topical DAILY PRN left 12/27/22 07/16/23 Unknown History
(menthol)) shoulder
mirabegron 25 mg tablet,extended 25 mg PO DAILY Urinary Issue 12/27/22 07/16/23 12/27/22 History
release 24 hr (Myrbetriq)
nystatin 100,000 unit/gram topical 1 applic topical DAILYPRN PRN 12/27/22 07/16/23 Unknown History
powder breasts/groin rash
psyllium 1 packet PO DAILY Constipation ##0 12/27/22 07/16/23 12/27/22 History
tramadol 50 mg tablet 50 mg PO BID Pain 12/27/22 07/16/23 12/27/22 History
vit C 250 mg-E 90 mg-zinc 40 1 tab PO DAILY Eye Condition 12/27/22 07/16/23 12/27/22 History
mg-copper 1 [id number]-lcfpdr chew
tablet (PreserVision AREDS-2)
cyanocobalamin (vitamin B-12) 1,000 mcg PO DAILY #30 tabs 12/30/22 07/16/23 Unknown Rx
1,000 mcg tablet
midodrine 5 mg tablet 5 mg PO TID Blood Pressure 07/16/23 07/16/23 Unknown History
doxycycline hyclate 100 mg capsule 100 mg PO Q12 #0 caps 07/28/23 Unknown Rx
gabapentin 100 mg capsule 100 mg PO TID #0 caps 07/28/23 Unknown Rx
nystatin 100,000 unit/mL oral 5 ml PO QID #0 mL 07/28/23 Unknown Rx
suspension
prednisone 10 mg tablet See Rx Instructions .Route 07/28/23 Unknown Rx
.COMPLEX #30 tabs
Review Of Systems
-
History Source: Patient and Family
All other systems: Negative unless noted
Constitutional: Reports Fatigue
Eye: Reports No Symptoms
EENT: Reports Mouth Pain
Respiratory: Reports Cough and Trouble Breathing
Cardiac: Reports No Symptoms
Abdomen/GI: Reports No Symptoms
: Reports No Symptoms
Musculoskeletal: Reports Joint Pain and Muscle Pain
Integumentary: Reports No Symptoms
Neurological: Reports Weakness
Psych: Reports No Symptoms
Endocrine: Reports No Symptoms
Hematologic/Lymphatic: Reports No Symptoms
Immunology: Reports No Symptoms
Physical Exam
Active Medications
Generic Name Dose Route Start Last Admin
Trade Name Freq PRN Reason Stop Dose Admin
Acetaminophen 1,000 mg 07/16/23 22:00 07/29/23 06:21
Acetaminophen 500 Mg Tablet PO 08/13/23 21:59 1,000 mg
TID@0600,1400,2200 JOLLY Administration
Albuterol/Ipratropium 1 puff 07/16/23 20:56
Combivent Respimat Inhalation [place] INH 08/13/23 20:55
R BIDPRN PRN
sob
Protocol
Albuterol/Ipratropium 3 ml 07/22/23 12:00 07/29/23 07:43
Ipratropium 0.5/Albuterol 3 Mg (3 Ml Ampul) INH 08/19/23 11:59 3 ml
R QID JOLLY Administration
Albuterol/Ipratropium 3 ml 07/22/23 09:45
Ipratropium 0.5/Albuterol 3 Mg (3 Ml Ampul) INH 08/19/23 09:44
R Q4HPRN PRN
SOB
Aspirin 81 mg 07/17/23 08:00 07/29/23 09:11
Aspirin 81 Mg Chewable Tablet PO 08/14/23 07:59 81 mg
DAILY JOLLY Administration
Atorvastatin Calcium 20 mg 07/16/23 22:00 07/28/23 21:38
Atorvastatin (Lipitor) 20 Mg Tablet PO 08/13/23 21:59 20 mg
HS JOLLY Administration
Baclofen 10 mg 07/16/23 20:56 07/20/23 09:09
Baclofen 10 Mg Tablet PO 08/13/23 20:55 10 mg
TIDPRN PRN Administration
muscle spams
Bisacodyl 10 mg 07/18/23 05:52 07/18/23 06:05
Bisacodyl 10 Mg Rectal Suppository RECTAL 08/15/23 05:51 10 mg
DAILYPRN PRN Administration
constipation
Bupropion HCl 100 mg 07/16/23 22:00 07/29/23 09:11
Bupropion Regular Release 100 Mg Tablet PO 08/13/23 21:59 100 mg
TID JOLLY Administration
Cholecalciferol 25 mcg 07/17/23 08:00 07/29/23 09:13
Cholecalciferol (Vitamin D3) 25 Mcg Tablet (1,000 Units) PO 08/14/23 07:59 25 mcg
DAILY JOLLY Administration
Cyanocobalamin 1,000 mcg 07/17/23 08:00 07/29/23 09:13
Cyanocobalamin 1,000 Mcg Tablet PO 08/14/23 07:59 1,000 mcg
DAILY JOLLY Administration
Dextrose 12.5 grams 07/26/23 09:44
Dextrose 50% (0.5 Grams/Ml) 50 Ml Syringe IV 08/23/23 09:43
[id number] PRN
hypoglycemia
Protocol
Doxycycline Hyclate 100 mg 07/26/23 20:00 07/29/23 09:13
Doxycycline 100 Mg Capsule PO 08/01/23 19:59 100 mg
Q12 JOLLY Administration
Gabapentin 100 mg 07/18/23 16:00 07/29/23 09:11
Gabapentin 100 Mg Capsule PO 08/15/23 15:59 100 mg
TID JOLLY Administration
Glucagon 1 mg 07/26/23 09:44
Glucagon 1 Mg Vial IM 08/23/23 09:43
PRN PRN
hypoglycemia
Protocol
Guaifenesin 100 mg 07/16/23 20:56 07/20/23 09:08
Guaifenesin Oral Solution (200 Mg/10 Ml) Cup PO 08/13/23 20:55 100 mg
Q6HPRN PRN Administration
cough
Insulin Aspart 0 units 07/26/23 11:30 07/29/23 09:17
Insulin Aspart Low Resistance 300 Units/3 Ml Pen.Injctr SC 08/23/23 11:29 1 units
AC JOLLY Administration
Protocol
Lidocaine 2 patch 07/17/23 08:00 07/29/23 09:15
Lidocaine 4% Topical Patch TOPICAL 08/14/23 07:59 2 patch
DAILY JOLLY Administration
Lidocaine/Diphenhydr/Alum/Mg/Simeth 5 ml 07/25/23 04:34 07/27/23 16:29
Magic Mouthwash 5 Ml Cup (Mag&Al/Sim/Diphenhyd/Lidocaine) PO 08/22/23 04:33 5 ml
QIDPRN PRN Administration
mouth sores/pain
Meclizine HCl 12.5 mg 07/22/23 08:16
Meclizine 12.5 Mg Tablet PO 08/16/23 15:59
TID PRN
DIZZINESS/VERTIGO
Melatonin 5 mg 07/16/23 20:56
Melatonin 5 Mg Tablet PO 08/13/23 20:55
HSPRN PRN
INSOMNIA
Miconazole Nitrate 0 applic 07/16/23 22:00 07/29/23 09:16
Miconazole Powder Bottle TOPICAL 08/13/23 21:59 1 applic
BID JOLLY Administration
Midodrine 5 mg 07/17/23 08:00 07/29/23 09:11
Midodrine 5 Mg Tablet PO 08/14/23 07:59 5 mg
TID @ 0800,1200,1700 JOLLY Administration
Montelukast Sodium 10 mg 07/17/23 08:00 07/29/23 09:11
Montelukast Sodium 10 Mg Tablet PO 08/14/23 07:59 10 mg
DAILY JOLLY Administration
Nystatin 5 ml 07/25/23 13:00 07/29/23 09:16
Nystatin Oral Suspension 500,000 Units/5 Ml PO 08/22/23 12:59 5 ml
QID JOLLY Administration
Ondansetron HCl 4 mg 07/16/23 21:00 07/22/23 14:47
Ondansetron 4 Mg/2 Ml Vial IV 08/13/23 20:59 4 mg
Q6HPRN PRN Administration
nausea and vomiting
Pantoprazole Sodium 40 mg 07/23/23 11:00 07/29/23 09:12
Pantoprazole Sodium 40 Mg/10 Ml Vial IV 08/20/23 10:59 40 mg
DAILY JOLLY Administration
Patch Removal 0 patch 07/17/23 20:00 07/28/23 20:16
Remove Lidocaine Patch REMOVE 08/14/23 19:59 2 patch
DAILY@2000 JOLLY Administration
Phenazopyridine HCl 100 mg 07/16/23 20:56
Phenazopyridine 100 Mg Tablet PO 08/13/23 20:55
BIDPRN PRN
URINARY BURNING
Polyethylene Glycol 17 grams 07/16/23 20:56 07/18/23 08:12
Polyethylene Glycol Powder 17 Grams Packet PO 08/13/23 20:55 17 grams
DAILYPRN PRN Administration
CONSTIPATION
Prednisone 40 mg 07/27/23 08:00 07/29/23 09:11
Prednisone 20 Mg Tablet PO 08/24/23 07:59 40 mg
DAILY JOLLY Administration
Psyllium Hydrophilic Mucilloid 1 packet 07/17/23 08:00 07/29/23 09:12
Psyllium Packet PO 08/14/23 07:59 1 packet
DAILY JOLLY Administration
Rivaroxaban 20 mg 07/17/23 18:00 07/28/23 17:39
Rivaroxaban 20 Mg Tablet PO 08/14/23 17:59 20 mg
QPM JOLLY Administration
Sertraline HCl 100 mg 07/17/23 08:00 07/29/23 09:12
Sertraline 100 Mg Tablet PO 08/14/23 07:59 100 mg
DAILY JOLLY Administration
Sodium Chloride 0 flush 07/16/23 21:00 07/25/23 05:00
Sodium Chloride 0.9% (Flush) Syringe IV 08/13/23 20:59 2 flush
PER PROTOCOL JOLLY Administration
Sodium Chloride 10 ml 07/23/23 11:00 07/29/23 09:12
Sodium Chloride 0.9% (Preservative Free) 10 Ml Vial IV 08/20/23 10:59 10 ml
DAILY JOLLY Administration
Terazosin HCl 1 mg 07/16/23 22:00 07/28/23 21:38
Terazosin 1 Mg Capsule PO 08/13/23 21:59 1 mg
HS JOLLY Administration
Tramadol HCl 50 mg 07/16/23 20:56 07/29/23 09:13
Tramadol Hcl 50 Mg Tablet PO 08/13/23 20:55 50 mg
BID JOLLY Administration
Trazodone HCl 50 mg 07/16/23 22:50 07/24/23 20:56
Trazodone 50 Mg Tablet PO 08/13/23 22:49 50 mg
HSPRN PRN Administration
insomnia
Vitamin C/Vitamin E 1 cap 07/17/23 08:00 07/29/23 09:10
Vit C/Vit E/Lutein/Min/[place]-3 (Ocuvite) Capsule PO 08/14/23 07:59 1 cap
DAILY JOLLY Administration
Vital Signs
Temp Pulse Resp BP Pulse Ox
97.4 F 65 16 128/59 96
07/29/23 07:30 07/29/23 07:47 07/29/23 07:47 07/29/23 07:30 07/29/23 07:47
Height 5 ft 4 in
Actual Weight 70.806 kg
Body Mass Index (BMI) 26.8
Physical Exam
Physical Exam:
General Appearance/Observation: Well-developed, well-nourished individual in no apparent distress lying in bed. Answers questions and follows commands appropriately.
Pain/Comfort Assessment: Denies currently. Often LBP
Mood/Affect: Appropriate
Eyes: Conjunctiva/Lids: normal. Good tracking, no nystagmus Pupils: pupils equal round and reactive to light and Accommodation
Ears/Nose/Throat: oral mucosa moist, throat clear. Lips/Teeth/Gums: normal
Cardiovascular: Heart: regular, no murmur
Pulses: dorsalis pedis 2+ bilaterally
Respiratory: Auscultation: diffuse crackles, more at bases. Coughs with deep inspiration
Gastrointestinal: abdomen not tender, no distension, normal abdominal bowel sounds
Extremities: Edema: None, no calf tenderness, negative homans. Cyanosis: None Trophic changes: None
Neurology Exam:
Orientation: Alert, Oriented to self, Time, Place
Speech: Intact
Repetition: Intact
Comprehension: Intact
Two step command: Intact
Naming: Intact
Cranial Nerves:
CNII: Pupillary light reflex: Intact Visual Field: Intact
CN III, IV, : L facial weakness
CN VII: Facial movement: L facial weakness
CN VIII: Hearing: Normal
CN IX/X: Speech & swallow: Normal, Position of Uvula: Midline
CN XI: Shoulder shrug: Symmetric
CN XII: Tongue protrusion: Midline
Sensory:
Light touch: Intact in bilateral upper and lower extremities
Reflexes:
Stanley: positive on left. Babinski on left
Cerebellar: Dysmetria/Ataxia: Significant ataxia in the left upper limb more than lower limb.
Musculoskeletal:
Motor: (Manual muscle scale 0-5)
Muscle SA EF WE EE FF FA HF KE DF EHL PF
Right 5 5 5 5 5 5 5 5 5 5 5
Left 4 4 0 4 0 0 4 4 4 4 4
Tone: Contracture in L hand, finger flexors, wrist flexors, pronated. Elbow flexion contracture 20 degrees but ataxia and involuntary movements in the left upper limb with stretch and with passive movements. Some pain with attempts at finger
stretches
Range of Motion: Passively within normal limits in all extremities
Lab Results
07/28/23 04:26
07/28/23 04:26
WBC 14.1 10^3/uL (4.8-10.8) H 07/28/23 04:26
Hgb 8.7 g/dL (12.0-16.0) L 07/28/23 04:26
Hct 28.4 % (37.0-47.0) L 07/28/23 04:26
MCV 75.3 fL (81.0-99.0) L 07/28/23 04:26
Plt Count 555 10^3/uL (130-400) H 07/28/23 04:26
ESR 59 mm/hour (0-20) H 07/22/23 03:39
Sodium 135 mmol/L (135-145) 07/28/23 04:26
Potassium 3.8 mmol/L (3.5-5.1) 07/28/23 04:26
Chloride 97 mmol/L (98-107) L 07/28/23 04:26
Carbon Dioxide 32 mmol/L (22-30) H 07/28/23 04:26
BUN 17 mg/dl (7-17) 07/28/23 04:26
Creatinine 0.7 mg/dL (0.6-1.0) 07/28/23 04:26
eGFR > 60.00 07/28/23 04:26
Glucose 131 mg/dl (70-99) H 07/28/23 04:26
Hemoglobin A1c 7.2 % (4.0-5.6) H 07/27/23 04:31
Calcium 8.6 mg/dl (8.4-10.2) 07/28/23 04:26
Magnesium 1.8 mg/dl (1.6-2.3) 07/28/23 04:26
Total Bilirubin 0.5 mg/dl (0.2-1.3) 07/27/23 04:31
AST 142 U/L (14-36) H 07/27/23 04:31
ALT 134 U/L (0-35) H 07/27/23 04:31
Alkaline Phosphatase 64 U/L (38-126) 07/27/23 04:31
C-Reactive Protein > 270.00 mg/L (0.0-10.00) H 07/22/23 03:39
Total Protein 5.3 g/dl (6.3-8.2) L 07/27/23 04:31
Albumin 2.6 g/dl (3.5-5.0) L 07/27/23 04:31
Diagnostic Results
As per HPI.
Comorbidities / Impairment Group
Comorbidities:
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
Impairment Group:
Deconditioning/debility
Assessment / Plan
Plan
Assessment:
83 year old female wtih old R CVA and spastic L hemiparesis and UE contractures, with deconditioning/debility from prolonged hospital course, pneumonia, pleural effusions, still requiring O2.
PM&R Still would benefit from continued PT/OT to attempt to increase independence with ADLs, improve balance, coordination, endurance, strength, mobility, community reintegration, decreased burden of care on others and family education. Patient has
been non-ambulatory since her previous CVA 5 years ago.
CVA: Chronic CVA and spastic left hemiparesis. Continue blood pressure control. Continue to monitor neurologic status.
Left spastic hemiparesis: High risk for falls and sliding out of chair/bed. Safety reinforced. Contractures in LUE and using hand splint. Could likely be a candidate for Botox options for contracture management as outpatient - could consider
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 Could consider [facility] at [place].
Spasticity: On baclofen - but see above for possible Botox evaluation
HTN: continue medications, monitor closely - watch for orthostasis
Pneumonia: with pleural effusion - on antibiotics.
Anemia: Likely chronic. Continue to monitor.
Psych: Psychology consult. Monitor mood, adjust medications as needed.
Skin: monitor for pressure sores/rashes/lesions.
Pain: acetaminophen or tramadol as needed.
Bowel: Colace and Senna, PRN bisacodyl.
GI Prophylaxis: Pantoprazole
DVT Prophylaxis: On xarelto
Pulmonary: Incentive spirometry
Safety: Continue assistance with all transfers.
Code Status: DNR
Dispo (date/plan/equipment needs): Eventual return to assisted living facility. But would need SNF rehab stay to improve strength, endurance, mobility, transfers to get to previous level of independence (min A).
Functional and Medical Goals: Min A with ADL�s, ambulation, transfers
Summary
-
Things that must be addressed in Hospital prior to discharge:
1. Please continue PT/OT.
2. Blood pressure must be less than 180 systolic and 100 diastolic for 24 hours before being stable for transfer to SNF/acute rehab.
3. Please give blood pressure parameters for therapies.
Discharge Destination: SNF rehab when medically stable
Summary of recommendations:
- Discharge Destination: SNF rehab -
- would not have goals at this time that would qualify for acute level rehabilitation.
Will sign off, please re-consult if needed.
Thank you for allowing me to care for your patient. Please contact me with any questions or concerns.
Data Reviewed
-
Radiology: Report Reviewed by me
Labs: Labs Reviewed by me, Discussed with Patient and Discussed with Family
Comments
-
This note was dictated using a voice recognition system. Please excuse any typographical errors from elevator conductor. If you believe there are any discrepancies, please notify our office.
--- NOTE | 2023-07-29 11:13 | RESPNOTE ---
MD wants to try to see if patient can qualify for home O2. patient is unable to ambulate so MD wanted a resting room air pulse ox. patient placed on room air for 5 min- saturation was 87%.
[2023-07-29 11:14] VITALS: BP 122/49
--- NOTE | 2023-07-29 11:16 | W.PN.HOSP.TC ---
Addendum entered and electronically signed by Jessi Lange MD 07/29/23 11:43:
Patient is in need of oxygen at 3 liters/minute via nasal cannula continuously due to pulse oximetry of 87% on room air at rest. Oxygen will help to improve hypoxemia. Patient has limited mobility within the home. DuoNeb therapy has been tried and
is ineffective in treating hypoxemia related symptoms. Oxygen is needed to improve symptoms.
Original Note:
Today's Communication/Plan
-
d/c to [facility]
Assessment / Plan
Assessment / Plan
pt is an 83 year old female
ok for d/c back to the [facility]
Bilateral pneumonia with small right pleural effusion/atelectasis and acute hypoxemic resp failure--initially felt likely CAP but concerned about aspiration (remote history of achalasia)--initially on Zosyn and Zithromax--07/24 cultures MRSA, Kleb
pneumoniae, Cathy--Right chest tube placed which was dc'd 07/23--Continue with antibiotics per ID- finished 07/24--back on vanco per ID, now on doxy--Initiated on steroids for possible nonspecific inflammatory pneumonitis; CRP>270--down to 4 L, was
on 100 Hi SHASHI NC--apprec pulm
Right pleural effusion--diagnostic testing shows no empyema--pH 7.41 in the pleural fluid--Meets criteria for exudate by LDH criteria but not protein criteria. Gram stain shows no organisms. Culture negative.. Chest tube out 07/23.
Doubt CHF--patient with worsening of hypoxia after initial improvement on antibiotics. BNP is elevated. Chest CT shows extensive groundglass airspace disease in the upper lobes along with the confluent airspace disease in the right middle lobe.
Echo showed normal EF without significant valvular abnormality. Rate significantly lower compared to her recent admission. No changes with hypoxia with diuretics--Appreciate cardiology input.
Oral thrush - start on nystatin
Nausea and abdominal pain--persistent nausea with intermittent abdominal pain with negative CT abdomen pelvis with IV contrast--No oral contrast given-- Unclear etiology but will evaluate further from achalasia standpoint - --try to get bowels
moving. Some of her nausea may be secondary to vertigo I feel. With worsening hypoxia hold on esophagogram .
Nausea with postural dizziness suspicious for vertigo--improving with scheduled meclizine. Appreciate neurology input. Resolved dizziness- Antivert as needed
Asthma/COPD--patient today with reactive airways--Continue inhalers--Continue montelukast-add nebulizers
Prediabetes--with steroids BS 204--will start low dose SSI
History of CVA with residual left-sided paralysis/neuropathic pain--difficulty with pain control--Continue aspirin, statin--Consider gabapentin when infection better treated
Chronic back pain--Continue tramadol
History of muscle spasms--continue baclofen PRN
Constipation--Continue MiraLAX
Chronic anemia--Hemoglobin lower than baseline--follow for now-H&H stable---heme test stools neg
GERD--Continue omeprazole
Anxiety/depression--Continue bupropion, sertraline--Continue trazodone PRN
History of orthostatic hypotension--Continue midodrine
History of DVT/PE--Continue Xarelto
Essential hypertension--Continue terazosin
IBS
Diverticulosis
code status --DNR/DNI
DVT prophylaxis�Xarelto
Anticipated Discharge: Today
Subjective/Interval History
-
Date of Service: July 29, 2023
pt now going to [facility]
Objective Data
-
Vital Signs:
max temp for 24 hours
07/29/23
11:14
Temp 98.1 F
Vital Signs
Temp Pulse Resp BP Pulse Ox
98.1 F 75 18 122/49 94
07/29/23 11:14 07/29/23 11:14 07/29/23 11:14 07/29/23 11:14 07/29/23 11:14
I&O
07/28/23 07/29/23 07/30/23
06:59 06:59 06:59
Intake Total 1200 / 1200 820 / 820
Balance 1200 / 1200 820 / 820
Review of Systems
-
All other systems: Reviewed and negative
Physical Exam
-
General: Well Developed, Well Nourished and No Apparent Distress
HEENT: Normocephalic and Atraumatic
Respiratory: Clear to Auscultation; Negative Wheezes or Rhonchi
Cardiac: Regular Rhythm and S1/S2; Negative Murmur
GI: Soft, Nontender, Nondistended and Normal Bowel Sounds
Musculoskeletal: No Clubbing, No Cyanosis, No Edema and Other (left sided contractures)
Skin: Warm
Neuro: Awake
[2023-07-29 12:07] LABS: Glucose - Point of Care 169 mg/dl (70-99)
--- NOTE | 2023-07-29 13:11 | PTCARENOTE ---
Report given to Dipak MCMULLEN from [facility]. Iv and tele removed. Belongings from room taken. Acute Care Transport transported Pt to [facility].
--- NOTE | 2023-07-29 18:03 | W.DCSUMMARY ---
Discharge Summary
Discharge Data
Date of Admission: 07/16/23
Date of Discharge: 07/29/23
-
Pending Results: No
Hospital Course
Primary care physician : Abi Collins
Principal Discharge diagnosis : Acute hypoxemic respiratory failure due to bilateral pneumonia with small right pleural effusion, oral thrush, nausea and vomiting/abdominal pain
Chronic Discharge diagnosis : Vertigo, asthma/chronic obstructive pulmonary disease, prediabetes, history of stroke with residual left-sided paralysis/neuropathic pain, chronic back pain, history of muscle spasm, constipation, chronic anemia,
gastroesophageal reflux disease, anxiety/depression, history of orthostatic hypotension, history of deep venous thrombosis/pulmonary embolism, essential hypertension, irritable bowel syndrome
Hospital Course : Patient was an 83-year-old female with a history of asthma and chronic obstructive pulmonary disease, prediabetes, previous stroke with residual left-sided paralysis among other medical issues who presented with abdominal pain,
nausea, and vomiting for the week prior to admission. She was having a cough, and chest pain which was worse with hypoxia. Patient's daughter noted the patient appeared more pale, lethargic, and slightly confused over the week prior to admission.
Her pain was located primarily in the right lower quadrant but also in the lower abdomen bilaterally. The pain waxed and waned and came on sharp and suddenly. Patient was not eating or drinking much due to decreased appetite. Patient was also
complaining of being dizzy. Patient's daughter took her to her family doctor who ordered a urinalysis and advised her to go to the emergency room. Patient was admitted.
Problem #1: Acute hypoxemic respiratory failure due to bilateral pneumonia with small right pleural effusion. Patient was admitted and seen in consultation by pulmonary/infectious disease and cardiology. Initially this was thought to be
community-acquired pneumonia but there was some concern about aspiration. Patient was started on Zosyn and Zithromax. On July 24 culture showed methicillin-resistant Staphylococcus aureus, Klebsiella pneumoniae and Cathy. Patient also had a
right chest tube placed and was discontinued on July 23. Patient at one point was on 100% FiO2 high flow oxygen which was eventually weaned down to 3 L of oxygen. She does qualify for home oxygen at this time. Infectious disease did put the
patient back on vancomycin and she was eventually transitioned to doxycycline which would continue through August 01. Inflammatory pneumonitis was considered and the patient was started on steroids. She will be discharged home with a rapid
taper. Pleural fluid studies showed no empyema. She met criteria for an exudate by LDH but not protein. Gram stain showed no organisms. Chest tube was removed July 23 as mentioned. Cultures were negative. Upon discharge, patient does
qualify for home oxygen as her pulse ox dropped at rest to 87%. Patient does have an Inogen at home. Oxygen concentrator was set up to have at the [facility].
Problem #2: Oral thrush. Nystatin was started. Thrush appeared to improve. She should continue this while finishing out her course of antibiotics.
Problem #3: Nausea and vomiting/abdominal pain. Patient had intermittent abdominal pain with negative CAT scan of the abdomen and pelvis. Bowel regimen was started. Some of the nausea could have been due to her history of vertigo. It eventually
improved and the patient was tolerating a diet prior to discharge.
Problem #4: All other medical issues. These include Vertigo, asthma/chronic obstructive pulmonary disease, prediabetes, history of stroke with residual left-sided paralysis/neuropathic pain, chronic back pain, history of muscle spasm, constipation,
chronic anemia, gastroesophageal reflux disease, anxiety/depression, history of orthostatic hypotension, history of deep venous thrombosis/pulmonary embolism, essential hypertension, irritable bowel syndrome. These medical issues were stable during
her hospitalization. Medications were continued as able.
Patient was set to go to [facility] for rehab but she was seen in consultation by PT and OT. Unfortunately, [facility] had COVID in the building and patient's family decided against [facility] from that standpoint. Physical
medicine and rehabilitation was consulted to see if the patient might be a candidate for acute rehab. Unfortunately however she did not have or meet criteria to be accepted at [facility]. After much discussion, the patient's did call the [facility]
(her assisted living facility) and they have agreed to take her back with therapy as an outpatient. [facility] has been retained. Patient is stable to return to the assisted living at this time. If there are any questions regarding this
dictation or her hospital stay, please not hesitate to call. Our office number is [phone].
Time for discharge was 40 minutes.
Important imaging findings :
CHEST CT IMPRESSION:
Multifocal pneumonia with extensive groundglass airspace disease in both lungs most prominent in both upper lobes and confluent alveolar airspace disease in the right middle
Moderate right pleural effusion with compressive atelectasis in the right lower lobe
Evaluation for peripheral pulmonary emboli is limited by patient respiratory motion. No pulmonary emboli are demonstrated.
ABDOMEN/PELVIS CT IMPRESSION:
1. No significant acute abnormality identified in the abdomen or pelvis, as described above.� Normal appendix.
2. Small right pleural effusion. Right basilar probable pneumonia.
Discharge Plan
-
Patient Disposition: Assisted Living
Discharge Diagnosis/Procedures: Bilateral inflammatory pneumonia with small right pleural effusion and acute hypoxemic respiratory failure, oral thrush, nausea and abdominal pain, postural dizziness with vertigo, asthma/chronic obstructive pulmonary
disease, prediabetes, history of stroke with residual left-sided paralysis and neuropathic pain, chronic back pain, history of muscle spasms, constipation, anemia of chronic disease, gastroesophageal reflux disease, anxiety/depression, history of
orthostatic hypotension, history of deep venous thrombosis/pulmonary embolism, essential hypertension, irritable bowel syndrome
Condition: Fair
Diet: Other diet
Additional Diets: Soft bite sized food
Activity: As tolerated
Driving Restrictions: No driving
Bathing Restrictions: None
Other Services: VN, PT and OT
Referrals:
Abi Collins MD [Family Provider] - in less than 1 week
Prescriptions:
New
prednisone 10 mg Tablet
See Rx Instructions .ROUTE .COMPLEX Qty: 30 0RF
Rx Instructions:
Take By Mouth:
40 mg daily x3 days, 30 mg daily x3 days,
20 mg daily x3 days, 10 mg daily x3 days.
gabapentin 100 mg Capsule
100 mg PO TID Qty: 60 0RF
doxycycline hyclate 100 mg Capsule
100 mg PO Q12 Qty: 7 0RF
Rx Instructions:
take through 08/01
nystatin 100,000 unit/mL suspension
5 ml PO QID Qty: 60 0RF
Rx Instructions:
take while on antibiotic
Continued
montelukast 10 MG tablet
10 mg PO DAILY
Combivent Respimat 1 PUFF mist
1 puff inhalation R QID
cholecalciferol (vitamin D3) 1,000 UNITS tablet
1,000 units PO DAILY
trazodone 50 MG tablet
50 mg PO BID PRN (Reason: insomnia)
sertraline 100 MG tablet
100 mg PO DAILY
meclizine 12.5 MG tablet
12.5 mg PO BIDPRN PRN (Reason: dizziness)
guaifenesin 100 mg/5 mL Liquid
100 mg PO Q6HPRN PRN (Reason: cough) Qty: 0
bupropion HCl 100 MG tablet
100 mg PO TID
phenazopyridine 100 MG tablet
100 mg PO BIDPRN PRN (Reason: URINARY BURNING)
omeprazole 20 MG capsule,delayed release(DR/EC)
20 mg PO DAILY
aspirin 81 MG tablet,chewable
81 mg PO DAILY
fluticasone propionate 1 SPRAY spray,suspension
1 spray intranasal DAILY
Icy Hot (menthol) 5 % Adhesive Patch,Medicated
1 patch TOPICAL DAILY Qty: 0
melatonin 5 MG tablet
5 mg PO HSPRN PRN (Reason: INSOMNIA)
Xarelto 20 MG tablet
20 mg PO QPM
atorvastatin 20 MG tablet
20 mg PO HS
polyethylene glycol 3350 17 GRAMS powder in packet
17 grams PO DAILYPRN PRN (Reason: CONSTIPATION)
terazosin 1 MG capsule
1 mg PO HS
acetaminophen [M-PAP] 160 mg/5 mL Liquid
1,000 mg PO TID@0600,1400,2200
psyllium Packet
1 packet PO DAILY Qty: 0
tramadol 50 mg Tablet
50 mg PO BID
baclofen 10 mg tablet
10 mg PO TIDPRN PRN (Reason: muscle spams)
nystatin 100,000 unit/gram Powder
1 applic TOPICAL DAILYPRN PRN (Reason: breasts/groin rash)
Icy Hot (menthol) 5 % Adhesive Patch,Medicated
1 patch TOPICAL DAILY PRN (Reason: left shoulder)
Myrbetriq 25 mg tablet extended release 24 hr
25 mg PO DAILY
Combivent Respimat 20-100 mcg/actuation mist
1 puff INHALATION R BIDPRN MDD 6 puff/24 hrs PRN (Reason: sob)
Rx Instructions:
2 additional doses
fluticasone propion-salmeterol 113-14 mcg/actuation aerosol powdr breath activated
1 inh INHALATION R BID
PreserVision AREDS-2 250-90-40-1 mg Tablet,Chewable
1 tab PO DAILY
Calazmine Skin Protect
1 applic topical TID PRN (Reason: apply to groin, buttocks, coccyx)
cyanocobalamin (vitamin B-12) 1,000 mcg Tablet
1,000 mcg PO DAILY Qty: 30 0RF
midodrine 5 mg tablet
5 mg PO TID
Rx Instructions:
Hold for systolic blood pressure greater than 160
Discharge Orders:
Discharge Patient (As Directed); Ordered 07/29/23
Ordered By: Jessi Lange
Discharge Date and Time
Discharge Date/Time: 07/29/23 13:19
== END 2023-07-29 13:19 | disposition home health service (06) | DRG 871 ==
LOC: 2 NORTH 18:43
PROVIDERS: Internal Medicine; Physician Assistant; Radiology Vascular & Interventional Radiology; ADMITTING PHYSICIAN Hospitalist; ATTENDING PHYSICIAN Internal Medicine; CONSULT PHYSICIAN Internal Medicine; CONSULT PHYSICIAN Internal Medicine Pulmonary Disease; CONSULT PHYSICIAN Physical Medicine & Rehabilitation; CONSULT PHYSICIAN Student in an Organized Health Care Education/Training Program; EMERGENCY PHYSICIAN Emergency Medicine; FAMILY PHYSICIAN Student in an Organized Health Care Education/Training Program; OTHER PHYSICIAN Student in an Organized Health Care Education/Training Program
PROC: 0W9930Z Drainage of Right Pleural Cavity with Drainage Device, Percutaneous Approach (ICD-10-PCS; 2023-07-20)
PROC: 5A0945A Assistance with Respiratory Ventilation, 24-96 Consecutive Hours, High Flow/Velocity Cannula (ICD-10-PCS; 2023-07-21)
PROC: 0WP9X0Z Removal of Drainage Device from Right Pleural Cavity, External Approach (ICD-10-PCS; 2023-07-23)
DX: A41.02 Sepsis due to Methicillin resistant Staphylococcus aureus (principal); J18.9 Pneumonia, unspecified organism; J96.01 Acute respiratory failure with hypoxia; I69.354 Hemiplegia and hemiparesis following cerebral infarction affecting left non-dominant side; N39.0 Urinary tract infection, site not specified; J90 Pleural effusion, not elsewhere classified; J98.11 Atelectasis; J44.0 Chronic obstructive pulmonary disease with (acute) lower respiratory infection; E87.1 Hypo-osmolality and hyponatremia; B37.0 Candidal stomatitis; E11.9 Type 2 diabetes mellitus without complications; E78.00 Pure hypercholesterolemia, unspecified; I10 Essential (primary) hypertension; K58.9 Irritable bowel syndrome, unspecified; D63.8 Anemia in other chronic diseases classified elsewhere; I95.1 Orthostatic hypotension; G89.29 Other chronic pain; J98.4 Other disorders of lung; F41.1 Generalized anxiety disorder; R11.2 Nausea with vomiting, unspecified; M54.9 Dorsalgia, unspecified; K22.0 Achalasia of cardia; D75.839 Thrombocytosis, unspecified; E87.6 Hypokalemia; M79.602 Pain in left arm; K21.9 Gastro-esophageal reflux disease without esophagitis; F32.9 Major depressive disorder, single episode, unspecified; Z87.891 Personal history of nicotine dependence; Z86.711 Personal history of pulmonary embolism; Z86.718 Personal history of other venous thrombosis and embolism; Z66 Do not resuscitate; Z87.440 Personal history of urinary (tract) infections; Z96.651 Presence of right artificial knee joint; Z88.5 Allergy status to narcotic agent; Z88.2 Allergy status to sulfonamides; Z88.8 Allergy status to other drugs, medicaments and biological substances; Z79.82 Long term (current) use of aspirin; Z79.51 Long term (current) use of inhaled steroids; Z11.52 Encounter for screening for COVID-19; Z22.322 Carrier or suspected carrier of Methicillin resistant Staphylococcus aureus; Z87.19 Personal history of other diseases of the digestive system
CPT/HCPCS: 88305; 32557; 51701; 71045; 71046; 71260; 74177; 80048; 80053; 80202; 81003; 81015; 82945; 82962; 83036; 83605; 83615; 83735; 83880; 83986; 84145; 84157; 84478; 84484; 85025; 85027; 85652; 86140; 87015; 87040; 87070; 87077; 87086; 87116; 87147; 87186; 87205; 87206; 87502; 87635; 87807; 87811; 88112; 89051; 92526; 92610; 93005; 93306; 94640; 96365; 96375; 96376; 97162; 97167; 97530; 97535; 99285; C1729; C1769; Q9967

== ENCOUNTER → 2023-09-29 17:34 | Outpatient (REF) | payer MEDICARE, SELFPAY ==
[2023-09-29 18:19] LABS: % Basophils 0.4 % (0-2); % Eosinophils 0.2 % (0-6); % Immature Granulocytes 0.4 % (0-0.5); % Lymphocytes 13.7 % (20.5-51.1); % Monocytes 7.4 % (1.7-9.3); % Neutrophils 77.9 % (42.2-75.2); Absolute Basophils 0.1 10^3/uL (0-0.2); Absolute Immature Granulocytes 0.1 10^3/uL (0-0.05); Absolute Monocytes 1.1 10^3/uL (0.1-0.6); Absolute Neutrophils 11.2 10^3/uL (1.4-6.5); Hematocrit 32.1 % (37.0-47.0); Hemoglobin 9.8 g/dL (12.0-16.0); Mean Corp Hgb Conc. 30.5 g/dL (33.0-37.0); Mean Corpuscular Hgb 23.5 pg (27.0-31.0); Mean Platelet Volume 9.6 fL (7.4-10.4); Nucleated Red Blood Cells % 0 %; Platelet Count 558 10^3/uL (130-400); Red Blood Cell Count 4.17 10^6/uL (4.20-5.40); Red Cell Dist. Width 18.6 % (11.5-14.5); White Blood Cell Count 14.4 10^3/uL (4.8-10.8)
[2023-09-29 18:33] LABS: ALT (SGPT) 16 U/L (0-35); AST (SGOT) 26 U/L (14-36); Albumin 3.4 g/dl (3.5-5.0); Alkaline Phosphatase 140 U/L (38-126); Blood Urea Nitrogen 9 mg/dl (7-17); Carbon Dioxide 26 mmol/L (22-30); Chloride 98 mmol/L (98-107); Glucose 86 mg/dl (70-99); Potassium 4.1 mmol/L (3.5-5.1); Sodium 131 mmol/L (135-145); Total Bilirubin 0.4 mg/dl (0.2-1.3); Total Protein 6.6 g/dl (6.3-8.2); eGFR > 60.00
== END ==
LOC: REG 17:34
PROVIDERS: ATTENDING PHYSICIAN Student in an Organized Health Care Education/Training Program
DX: J15.9 Unspecified bacterial pneumonia (principal); M79.604 Pain in right leg
CPT/HCPCS: 36415; 71046; 73590; 80053; 85025

== ENCOUNTER 2023-10-03 13:58 | Inpatient (IN) | payer MEDICARE, SELFPAY ==
[2023-10-03 11:30] VITALS: BP 126/61
[2023-10-03 11:35] VITALS: BMI 25.1
--- NOTE | 2023-10-03 11:49 | ED.GENMED ---
History of Present Illness
General
Chief Complaint: Cold/Flu/URI Symptoms
Source: patient
Exam Limitations: none
Time Seen by Provider: 10/03/23 11:39
Travel History
Have you had any contact with someone who has COVID-19?: No
Do you have any symptoms of coronavirus? Fever > 100 degrees, chills, cough, shortness of breath, sore throat, loss of taste or smell, muscle aches, or headache?: No
History of Present Illness
History of Present Illness:
See MDM
Past History
Past History
ED Past Medical History: Asthma, COPD, CVA (Stroke with alteplase 2017), GERD, HTN, Hypercholesterolemia, NIDDM, Psychiatric (Generalized anxiety, major depression), Other (Pulmonary embolism, pneumonia, vertigo, DVT, orthostatic hypotension) and
Other (Nocturnal hypoxia without apnea, orthostatic hypotension)
ED Past Surgical History: Gynecological, Orthopedic (Right TKA, lumbar laminectomy 2016), Tonsilectomy and Other (PEG tube placement, sphincterotomy)
Social History
Tobacco: Former smoker
Alcohol: Daily (One glass Vodka)
Personal:
Living: with family
Family History
Family History: Other
Phy Exam
Physical Exam
Physical Exam:
See MDM
Course
Orders/Labs/Results
Orders:
Orders
10/03/23 11:46
Urinalysis Reflex To Culture Urgent
CR Chest Portable - 1 View Urgent
Comment:
Reason For Exam: SOB, hypoxic
Reason Study Needs to be Portable: Patient Unstable
10/03/23 11:51
COVID-19 Antigen Urgent
Source: Nasal Swab
Influenza A+B Rapid Molecular Urgent
LEONELA Source: Nasal Swab
Specimen Description:
10/03/23 12:05
Complete Blood Count/With Diff Urgent
Comprehensive Metabolic Panel Urgent
Lactic Acid Q4H
Comment: CANCEL 2nd LACTIC ACID IF 1st LACTIC ACID IS LESS THAN 2
NT-proBNP Urgent
Troponin I Urgent
Blood Culture Q30M
LEONELA Source: Blood/Venous
Specimen Description:
10/03/23 12:21
EKG [Electrocardiogram (*1)] Stat
Reason for Study: Shortness of Breath
EKG- Treatment ONCE
10/03/23 12:30
Blood Culture Q30M
LEONELA Source: Blood/Venous
Specimen Description:
10/03/23 12:35
Piperacillin/Tazo 3.375 Gram [Zosyn] 3.375 gram in 50 ml IV NOW
Vancomycin [Vancocin] 1,500 mg 0.9% Sodium Chloride [Nss] 20 ml 0.9% Sodium Chloride 250 ml [Nss] 250 ml IV NOW
10/03/23 16:00
Lactic Acid Q4H
Comment: CANCEL 2nd LACTIC ACID IF 1st LACTIC ACID IS LESS THAN 2
Abnormal Lab Results
10/03/23
12:05
RBC 4.15 L 10^6/uL
(4.20-5.40)
Hgb 9.7 L g/dL
(12.0-16.0)
Hct 32.3 L %
(37.0-47.0)
MCV 77.8 L fL
(81.0-99.0)
MCH 23.4 L pg
(27.0-31.0)
MCHC 30.0 L g/dL
(33.0-37.0)
RDW 18.3 H %
(11.5-14.5)
Plt Count 544 H 10^3/uL
(130-400)
Sodium 134 L mmol/L
(135-145)
Carbon Dioxide 31 H mmol/L
(22-30)
Creatinine 0.5 L mg/dL
(0.6-1.0)
Total Protein 6.1 L g/dl
(6.3-8.2)
Albumin 3.0 L g/dl
(3.5-5.0)
10/03/23 12:05
10/03/23 12:05
Vital Signs
Initial and Last Documented VS:
Initial Vital Signs
Temp Pulse Resp BP Pulse Ox
98.1 F 76 20 126/61 96
10/03/23 11:30 10/03/23 11:30 10/03/23 11:30 10/03/23 11:30 10/03/23 11:30
Last Documented Vital Signs
Temp Pulse Resp BP Pulse Ox
98.1 F 75 20 126/61 98
10/03/23 11:30 10/03/23 11:45 10/03/23 11:45 10/03/23 11:30 10/03/23 11:45
MDM/Problems Addressed
Differential Diagnosis Includes:
HPI and MDM Narrative:
83-year-old female presenting with increased weakness and fatigue. Patient currently on doxycycline for pneumonia. Patient denies any significant shortness of breath but states she has a worsening cough. Patient requiring 6 L nasal cannula for
hypoxia
Patient states she is taking her Xarelto
Given that she is on Xarelto, doubt PE. Will obtain chest x-ray looking for worsening pneumonia. Will rule out CHF
Physical exam
General: Weak and fatigued
HEENT: protecting airway
Neck: supple
CV: No evidence of cyanosis
Resp: No accessory muscle use. Poor air exchange
Abd: Non-distended
Extremities: Left-sided weakness and contractures
Neuro: alert
Psych: Normal affect
Skin: Intact
Problems Addressed including Acute and Chronic Conditions affecting care:
1. Cough and weakness
Acuity: acute
Prognosis: stable
Details: Will obtain chest x-ray and urinalysis and basic blood work
2. Hypoxia
Acuity: acute
Prognosis: unstable
Details: Will continue supplemental oxygen
Updates
Chest x-ray confirms lingula pneumonia. Given the failure of outpatient treatment, patient started on vancomycin and Zosyn. Given the hypoxia, will admit
Differential Diagnosis (but not limited to): Pneumonia, viral syndrome, UTI, CHF
Testing considered: CT PE but patient states she takes Xarelto as prescribed
Drug therapy (if applicable): OTC meds, please see d/c instruction regarding Rx drugs
Amount and/or Complexity of Data Reviewed
Clinical info obtained from: Patient
External data reviewed: N/A
Labs I independently reviewed (but not limited to): BNP improved
Radiology: X-ray independently reviewed: Lingular pneumonia
Pulse Ox: hypoxic
EKG independently reviewed: Sinus rhythm, LVH, no STEMI
Offset Printing Operator: Sinus rhythm
Critical Care: N/A
Risk of Complication:
Social Determinants of health: Good social support
Discussed with other providers: Hospitalist
Escalation of Care includes Admit/Obs: Given the failure of outpatient antibiotics and the hypoxia, will start IV antibiotics and admit
Occasional wrong word or 'sound a like' substitutions may have occurred due to the inherent limitations of voice recognition software. Read the chart carefully and recognize, using context, where substitutions have occurred.
*Critical Care Note
Total Time (30-74mins, 75-104mins- exclusive of procedures): Not Applicable
ED Attending Note
-
Portions of this chart may have been created with voice recognition software.� Occasional wrong word or��sound alike� substitutions may have occurred due to the inherent limitations of voice recognition software.
Discharge Plan
Departure
Patient Disposition: Admit
Date of Disposition: 10/03/23
Time of Disposition: 12:48
Presentation/result/management discussed w/ accepting MD/DO: Hospitalist
Discharge Problem:
PNA (pneumonia), Hypoxia
Prescriptions:
No Action
montelukast 10 MG tablet
10 mg PO DAILY
Combivent Respimat 1 PUFF mist
1 puff inhalation R QID
cholecalciferol (vitamin D3) 1,000 UNITS tablet
1,000 units PO DAILY
trazodone 50 MG tablet
50 mg PO BID PRN (Reason: insomnia)
sertraline 100 MG tablet
100 mg PO DAILY
meclizine 12.5 MG tablet
12.5 mg PO BIDPRN PRN (Reason: dizziness)
guaifenesin 100 mg/5 mL Liquid
100 mg PO Q6HPRN PRN (Reason: cough) Qty: 0
bupropion HCl 100 MG tablet
100 mg PO TID
phenazopyridine 100 MG tablet
100 mg PO BIDPRN PRN (Reason: URINARY BURNING)
omeprazole 20 MG capsule,delayed release(DR/EC)
20 mg PO DAILY
aspirin 81 MG tablet,chewable
81 mg PO DAILY
fluticasone propionate 1 SPRAY spray,suspension
1 spray intranasal DAILY
Icy Hot (menthol) 5 % Adhesive Patch,Medicated
1 patch TOPICAL DAILY Qty: 0
melatonin 5 MG tablet
5 mg PO HSPRN PRN (Reason: INSOMNIA)
Xarelto 20 MG tablet
20 mg PO QPM
atorvastatin 20 MG tablet
20 mg PO HS
polyethylene glycol 3350 17 GRAMS powder in packet
17 grams PO DAILYPRN PRN (Reason: CONSTIPATION)
terazosin 1 MG capsule
1 mg PO HS
acetaminophen [M-PAP] 160 mg/5 mL Liquid
1,000 mg PO TID@0600,1400,2200
psyllium Packet
1 packet PO DAILY Qty: 0
tramadol 50 mg Tablet
50 mg PO BID
baclofen 10 mg tablet
10 mg PO TIDPRN PRN (Reason: muscle spams)
nystatin 100,000 unit/gram Powder
1 applic TOPICAL DAILYPRN PRN (Reason: breasts/groin rash)
Icy Hot (menthol) 5 % Adhesive Patch,Medicated
1 patch TOPICAL DAILY PRN (Reason: left shoulder)
Myrbetriq 25 mg tablet extended release 24 hr
25 mg PO DAILY
Combivent Respimat 20-100 mcg/actuation mist
1 puff INHALATION R BIDPRN MDD 6 puff/24 hrs PRN (Reason: sob)
Rx Instructions:
2 additional doses
fluticasone propion-salmeterol 113-14 mcg/actuation aerosol powdr breath activated
1 inh INHALATION R BID
PreserVision AREDS-2 250-90-40-1 mg Tablet,Chewable
1 tab PO DAILY
Calazmine Skin Protect
1 applic topical TID PRN (Reason: apply to groin, buttocks, coccyx)
cyanocobalamin (vitamin B-12) 1,000 mcg Tablet
1,000 mcg PO DAILY Qty: 30 0RF
midodrine 5 mg tablet
5 mg PO TID
Rx Instructions:
Hold for systolic blood pressure greater than 160
prednisone 10 mg Tablet
See Rx Instructions .ROUTE .COMPLEX Qty: 30 0RF
Rx Instructions:
Take By Mouth:
40 mg daily x3 days, 30 mg daily x3 days,
20 mg daily x3 days, 10 mg daily x3 days.
gabapentin 100 mg Capsule
100 mg PO TID Qty: 60 0RF
doxycycline hyclate 100 mg Capsule
100 mg PO Q12 Qty: 7 0RF
Rx Instructions:
take through 08/01
nystatin 100,000 unit/mL suspension
5 ml PO QID Qty: 60 0RF
Rx Instructions:
take while on antibiotic
Referrals:
Abi Collins MD [Family Provider] -
Interventions
Interventions:
*Risk Screen - Suicide Last Done: 10/03/23 11:32
*General Assessment Last Done: 10/03/23 11:32
*Neglect/Abuse Screening Last Done: 10/03/23 11:32
ED- Fall Risk Assessment Last Done: 10/03/23 11:35
*ED COVID-19 Vaccine History Last Done: 10/03/23 11:32
ED- Pulmonary Assessment Last Done: 10/03/23 11:35
Discharge Date and Time
Print Language: INDONESIAN
[2023-10-03 12:14] LABS: % Basophils 0.6 % (0-2); % Eosinophils 0.5 % (0-6); % Immature Granulocytes 0.4 % (0-0.5); % Lymphocytes 29.4 % (20.5-51.1); % Monocytes 6.2 % (1.7-9.3); % Neutrophils 62.9 % (42.2-75.2); Absolute Basophils 0.1 10^3/uL (0-0.2); Absolute Eosinophils 0.1 10^3/uL (0-0.7); Absolute Lymphocytes 2.9 10^3/uL (1.2-3.4); Absolute Monocytes 0.6 10^3/uL (0.1-0.6); Absolute Neutrophils 6.1 10^3/uL (1.4-6.5); Hematocrit 32.3 % (37.0-47.0); Hemoglobin 9.7 g/dL (12.0-16.0); Mean Corpuscular Hgb 23.4 pg (27.0-31.0); Mean Corpuscular Volume 77.8 fL (81.0-99.0); Mean Platelet Volume 9.3 fL (7.4-10.4); Nucleated Red Blood Cells % 0 %; Platelet Count 544 10^3/uL (130-400); Red Blood Cell Count 4.15 10^6/uL (4.20-5.40); Red Cell Dist. Width 18.3 % (11.5-14.5); White Blood Cell Count 9.8 10^3/uL (4.8-10.8)
[2023-10-03 12:26] LABS: Lactic Acid 0.9 mmol/L (0.7-2.0)
[2023-10-03 12:28] LABS: COVID-19 Antigen Negative (Negative)
[2023-10-03 12:34] LABS: ALT (SGPT) 15 U/L (0-35); AST (SGOT) 27 U/L (14-36); Alkaline Phosphatase 123 U/L (38-126); Blood Urea Nitrogen 9 mg/dl (7-17); Calcium 8.6 mg/dl (8.4-10.2); Carbon Dioxide 31 mmol/L (22-30); Chloride 100 mmol/L (98-107); Estimated Creatinine Clearance 62 ml/min; Glucose 90 mg/dl (70-99); Potassium 3.5 mmol/L (3.5-5.1); Sodium 134 mmol/L (135-145); Total Bilirubin 0.5 mg/dl (0.2-1.3); Total Protein 6.1 g/dl (6.3-8.2); eGFR > 60.00
[2023-10-03 12:39] LABS: NT-proBNP 1150 pg/ml; Troponin I < 0.012 ng/ml
--- NOTE | 2023-10-03 12:55 | HPS.HSE ---
Family Physician
-
Family Physician: Abi Collins MD
Chief Complaint
-
hypoxia
History of Present Illness
HPI: 83-year-old female with PMH asthma/COPD, stroke with left sided residual weakness, who was discharged 2 months ago for bilateral pneumonia and R pleural effusion s/p right chest tube placement which was DC'ed 07/23; p/w hypoxia and [facility]
She denies to significant shortness of breath, chest pain etc. But she does endorse to nausea.
Of note, she was requiring as much as 100% high flow nasal cannula O2 support during her last admission.
In the ER, she was placed on 6L nasal cannula.
Her CXR this admission showed mild stable lingular interstitial pneumonia.
Medical History
Past Medical History
Past Medical History: Reports Other (asthma/COPD, prediabetes, hypertension, constipation, anemia, GERD, CVA with residual left-sided paralysis, anxiety/depression, recurrent UTI, orthostatic hypotension, history of DVT/PE, achalasia, IBS,
diverticulosis)
Past Surgical History: Reports Other ( Gynecological, Orthopedic (Right TKA, lumbar laminectomy 2016), Tonsilectomy and Other (PEG tube placement, sphincterotomy))
Social History
Tobacco: Non-smoker
Alcohol: None
Drug: None
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
Family History
Family History: Not pertinent
Allergies / Home Medications
Allergies reflects when Allergies were last updated in [facility].
Home Medications with original date entered in [facility]
Allergy/Medication List:
Allergies
Allergy/AdvReac Type Severity Reaction Status Date / Time
codeine [Codeine] Allergy Nausea Verified 07/16/23 13:41
prochlorperazine Allergy Rash Verified 07/16/23 13:41
Srmykrs-HCF-YnP Reductase Allergy muscle Verified 07/16/23 13:41
Inhibitor weakness
[Hjauhtx-Oyr-Jcd Reductase
Inhibitor]
Sulfa (Sulfonamide Allergy Pt unsure Verified 07/16/23 13:41
Antibiotics) of reaction
Home Medications
montelukast 10 mg tablet 10 mg PO DAILY Lung/breathing issues 09/30/15
aspirin 81 mg chewable tablet 81 mg PO DAILY Blood clot prevention/tx 10/09/20
atorvastatin 20 mg tablet 20 mg PO HS High cholesterol 10/09/20
bupropion HCl 100 mg tablet 100 mg PO TID Mental Health/Anxiety 10/09/20
meclizine 12.5 mg tablet 12.5 mg PO BIDPRN PRN dizziness 10/09/20
melatonin 5 mg tablet 5 mg PO HSPRN PRN INSOMNIA 10/09/20
menthol 5 % topical patch (Icy Hot (menthol)) 1 patch topical DAILY left hip ##0 10/09/20
omeprazole 20 mg capsule,delayed release 20 mg PO DAILY Gastrointestinal issue 10/09/20
phenazopyridine 100 mg tablet 100 mg PO [id number] PRN urinary burning/discomfort 10/09/20
polyethylene glycol 3350 17 gram oral powder packet 17 grams PO DAILYPRN PRN constipation/no results from docusate in 6 hrs 10/09/20
rivaroxaban 20 mg tablet (Xarelto) 20 mg PO QPM Blood clot prevention/tx 10/09/20
sertraline 100 mg tablet 100 mg PO DAILY Mental Health/Anxiety 10/09/20
terazosin 1 mg capsule 1 mg PO HS Urinary issue 10/09/20
trazodone 50 mg tablet 50 mg PO BID PRN insomnia 10/09/20
Calazmine Skin Protect 1 applic topical TID PRN groin/buttocks/coccyx 12/27/22
baclofen 10 mg tablet 10 mg PO TIDPRN PRN muscle spams 12/27/22
fluticasone 113 mcg-salmeterol 14 mcg/actuation breath activated powdr 1 inh inhalation R BID Lung/Breathing Issues 12/27/22
ipratropium 20 mcg-albuterol 100 mcg/actuation mist for inhalation (Combivent Respimat) 1 puff inhalation R QID 12/27/22
menthol 5 % topical patch (Icy Hot (menthol)) 1 patch topical DAILY PRN left shoulder 12/27/22
mirabegron 25 mg tablet,extended release 24 hr (Myrbetriq) 25 mg PO DAILY Urinary Issue 12/27/22
nystatin 100,000 unit/gram topical powder 1 applic topical DAILYPRN PRN under breasts/groin rash 12/27/22
tramadol 50 mg tablet 50 mg PO BID Pain 12/27/22
vit C 250 mg-E 90 mg-zinc 40 mg-copper 1 [id number] chew tablet (PreserVision AREDS-2) 1 tab PO DAILY Eye Condition 12/27/22
cyanocobalamin (vitamin B-12) 1,000 mcg tablet 1,000 mcg PO DAILY #30 tabs 12/30/22
midodrine 5 mg tablet 5 mg PO TID Blood Pressure 07/16/23
gabapentin 100 mg capsule 100 mg PO TID #60 caps 07/29/23
Gnp Best Powder Fiber 2 tsp PO DAILY 10/03/23
acetaminophen 160 mg/5 mL (5 mL) oral solution 1,000 mg PO Q8H@0600,14,22 3000 mg 10/03/23
cholecalciferol (vitamin D3) 25 mcg (1,000 unit) tablet 25 mcg PO DAILY 10/03/23
dextromethorphan HBr 30 mg/5 mL oral liquid 60 mg PO [id number] PRN cough 10/03/23
dextromethorphan-guaifenesin 30 mg-600 mg tablet extended [id number] hr (Mucinex DM) 1 tab PO Q12H PRN cough 10/03/23
doxycycline hyclate 100 mg capsule 100 mg PO BID 10/03/23
fluticasone propionate 50 mcg/actuation nasal spray,suspension 1 spray intranasal DAILY 10/03/23
guaifenesin 100 mg/5 mL oral liquid (Susan-Tussin) 100 mg PO Q6HPRN PRN cough 10/03/23
ipratropium 20 mcg-albuterol 100 mcg/actuation mist for inhalation (Combivent Respimat) 1 puff inhalation R BIDPRN PRN sob 10/03/23
loperamide 2 mg capsule 2 mg PO DIRECTED PRN diarrhea 10/03/23
nystatin 100,000 unit/gram topical powder (Klayesta) 1 applic topical BID 10/03/23
Review of Systems
-
Constitutional: Denies Fever
Respiratory: Reports See HPI (hypoxia); Denies Cough or Trouble Breathing
Abdomen/GI: Reports Nausea; Denies Vomiting
Physical Exam
Vital Signs
Vital Signs
Temp Pulse Resp BP Pulse Ox
36.7 C 75 20 126/61 98
10/03/23 11:30 10/03/23 11:45 10/03/23 11:45 10/03/23 11:30 10/03/23 11:45
Physical Exam
General: Well Developed, Well Nourished, Comfortable, Conversant and Appears Chronically Ill
HEENT: NormoCephalic, Moist mucous membranes, Atraumatic and Oxygen (6L NC)
Respiratory: Clear and Non Labored Respirations; No Accessory Resp Muscle Use
Cardiac: S1/S2 and Regular Rhythm; No Murmur or Rub
GI: Soft, Non Distended and Normal Bowel Sounds; No Organomegaly
Rectal: Deferred by Provider
Musculoskeletal: No Clubbing, No Cyanosis and No Edema
Skin: No Rash
Neuro: Awake and Other (RUE contracture)
Psych: Calm and Intact Judgment/Insight
Laboratory Results
-
10/03/23 12:05
10/03/23 12:05
Laboratory Results
Lactic Acid 0.9 mmol/L (0.7-2.0) 10/03/23 12:05
Total Bilirubin 0.5 mg/dl (0.2-1.3) 10/03/23 12:05
AST 27 U/L (14-36) 10/03/23 12:05
ALT 15 U/L (0-35) 10/03/23 12:05
Alkaline Phosphatase 123 U/L (38-126) 10/03/23 12:05
Troponin I < 0.012 ng/ml 10/03/23 12:05
Data Reviewed
-
Diagnostic Radiology: Image Personally Visualized and interpreted and Report Reviewed by me
Lab Data: Labs Reviewed by me
Impression/Plan
-
HPI: 83-year-old female with PMH asthma/COPD, stroke with left sided residual weakness, who was discharged 2 months ago for bilateral pneumonia and R pleural effusion s/p right chest tube placement which was DC'ed 07/23; p/w hypoxia and was [facility]
oxygen [facility].
She denies to significant shortness of breath, chest pain etc. But she does endorse to nausea.
Of note, she was requiring as much as 100% high flow nasal cannula O2 support during her last admission.
In the ER, she was placed on 6L nasal cannula.
Her CXR this admission showed mild stable lingular interstitial pneumonia.
A/P:
# Acute hypoxic respiratory failure likely due to CAP involving L lingular lobe on CXR
Patient placed on 6 L NC O2 support, continue oxygen and wean as tolerated. According to patient, she is not on oxygen at jail
COVID/Flu neg
check procal, MRSA screen, RSV
Follow blood cultures
s/p Zosyn/vanc in ED, cont both
SPL eval to consider aspiration pneumonia/pneumonitis
Other Medical conditions:
# Asthma/COPD
Continue [employer] inhalers, montelukast
# Prediabetes
A1C at 7.2% from 07/2023
# History of CVA with residual left-sided paralysis/neuropathic pain
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
Continue aspirin, statin
Continue Xarelto
PT OT if able
# Chronic back pain
Continue tramadol
# History of muscle spasms
continue baclofen PRN
# Constipation
Continue MiraLAX
# Chronic anemia
# GERD
Continue omeprazole
# Anxiety/depression
Continue bupropion, sertraline
trazodone PRN
# History of orthostatic hypotension
Continue midodrine
# Essential hypertension
Continue terazosin
# IBS
# Diverticulosis
code status: DNR/DNI
DVT prophylaxis� [employer] Xarelto
[2023-10-03] MEDS: ZOSYN 50 IV ×2 (13:59→19:49)
[2023-10-03 14:52] LABS: Procalcitonin < 0.05 ng/ml (0.0-0.25)
[2023-10-03 15:36] VITALS: BP 124/61
[2023-10-03] MEDS: VANCOCIN 300 MG IV (17:05)
[2023-10-03] MEDS: VANCOCIN 300 ML IV (17:05)
[2023-10-03] MEDS: WELLBUTRIN REGULAR RELEASE 100 MG PO ×2 (17:06→21:45)
[2023-10-03] MEDS: ProAmatine 5 MG PO (17:06)
[2023-10-03] MEDS: NEURONTIN 100 MG PO ×2 (17:06→21:45)
[2023-10-03] MEDS: XARELTO 20 MG PO (17:07)
[2023-10-03] MEDS: ULTRAM 50 MG PO (19:49)
[2023-10-03] MEDS: ADVAIR HFA 115/21 MCG INHALER 2 PUFF INH (20:00)
[2023-10-03] MEDS: ProAIR HFA INHALER 2 PUFF INH (20:00)
[2023-10-03] MEDS: TYLENOL ORAL SOLUTION 1000 MG PO (21:45)
[2023-10-03] MEDS: HYTRIN 1 MG PO (21:45)
[2023-10-03] MEDS: LIPITOR 20 MG PO (21:45)
--- NOTE | 2023-10-03 21:57 | PHA.VAN.IN ---
Assessment
- Assessment
Renal Function: Appears similar to baseline
Maximum Temperature: 98.1
Concomitant Antimicrobials: piperacillin-tazobactam
Historical Micro: History of MRSA infection
- Previous Dosing Experience
Previous Regimen: vanc 750 mg q12h
Date of Regimen: Jul 2023
Provided Trough of: 9.2
Provided AUC of: 342
Patient's SCR is: Similar to previous dosing experience (SCr 0.5)
Patient's weight is: Decreased compared to previous dosing experience (73.7 kg)
Patient was started on 1000mg q12h based on AUC 342 but levels were not drawn with the regimen.
AUC Dosing Plan
- Dosing Variables
Dosing Weight (kg): 68.5
Dosing CrCl (ml/min): 62
Vd coefficient (L/kg): 0.7
- Empiric Dosing
Initial / Loading Dose: 1500mg 10/02 17:05 (22 mg/kg)
Maintenance Regimen: vanc 750 mg q12
Estimated AUC (mcg*h/mL): 576
Estimated Peak (mcg*h/mL): 32
Estimated Trough (mcg/ml): 17.3
Estimated Half Life (H): 12.4
basing dosing off previous regimen Jul, but due to 5 kg change in weight, will use more conservative dosing
- Monitoring
No levels ordered at this time: consider in the upcoming days
Pharmacokinetics Vancomycin I
- -
Patient Age: 83
Patient Sex: Female
Vancomycin Day #: 1
Indication: Pulmonary/Respiratory
Requesting Provider: Dr Davison
Pertinent Antimicrobial Allergies:
Sulfa (Sulfonamide Antibiotics) Allergy - Pt unsure of reaction
Height / Weight:
Height 5 ft 5 in
Actual Weight 68.5 kg
Pertinent Past Medical History: recent hosp for bilat PNA
- Vital Signs / Lab Results
Temp Pulse Resp BP Pulse Ox
97.3 F 94 16 121/66 95
10/03/23 15:36 10/03/23 20:06 10/03/23 20:06 10/03/23 17:06 10/03/23 20:06
Lab Results - Hematology
10/03/23
12:05
WBC 9.8
Lab Results - Chemistry
10/03/23
12:05
BUN 9
Creatinine 0.5 L
Estimated Creat Clear 62
Albumin 3.0 L
10/03/23 10/03/23
12:05 16:00
Lactic Acid 0.9 Cancelled
Microbiology Results
10/03/23 13:59 Respiratory Syncytial Virus Culture - Final
Nasal Swab Negative for Respiratory Syncytial Virus.
A false negative result may be obtained with a specimen
collected early in the acute phase. If symptoms persist, a
new specimen should be tested.
10/03/23 11:51 Influenza Types A & B (KRISTOFER) - Final
Nasal Swab Negative for Influenza A & B, NAAT
Negative results must be combined with clinical observations
and patient history.
Nucleic Acid Amplification test (NAAT)performed on the
[employer] platform.
[2023-10-03 23:12] VITALS: BP 106/42
[2023-10-04] MEDS: ZOSYN 50 IV ×4 (01:09→20:08)
[2023-10-04] MEDS: VANCOCIN 150 IV ×2 (05:47→17:12)
[2023-10-04] MEDS: TYLENOL ORAL SOLUTION PO ×2 (06:10→13:00)
[2023-10-04 07:30] VITALS: BP 98/70
[2023-10-04] MEDS: ZOLOFT 100 MG PO (07:30)
[2023-10-04] MEDS: OCUVITE SOFTGEL 1 CAP PO (07:30)
[2023-10-04] MEDS: MYRBETRIQ EXTENDED RELEASE 25 MG PO (07:30)
[2023-10-04] MEDS: NEURONTIN 100 MG PO ×3 (07:30→21:22)
[2023-10-04] MEDS: LOW STRENGTH ASPIRIN 81 MG PO (07:30)
[2023-10-04] MEDS: SINGULAIR 10 MG PO (07:30)
[2023-10-04] MEDS: ULTRAM 50 MG PO ×2 (07:30→20:08)
[2023-10-04] MEDS: PROTONIX 40 MG PO (07:30)
[2023-10-04] MEDS: WELLBUTRIN REGULAR RELEASE 100 MG PO ×3 (07:30→21:22)
[2023-10-04] MEDS: ProAmatine 5 MG PO ×3 (07:30→17:12)
[2023-10-04] MEDS: ADVAIR HFA 115/21 MCG INHALER 2 PUFF INH (08:14)
[2023-10-04] MEDS: SPIRIVA RESPIMAT 2.5 MCG 2 PUFF INH (08:14)
[2023-10-04] MEDS: ProAIR HFA INHALER 2 PUFF INH ×2 (08:15→11:40)
[2023-10-04 09:00] VITALS: BP 119/79; PULSE 89; O2SAT 92
[2023-10-04 09:24] LABS: % Basophils 0.4 % (0-2); % Eosinophils 2.2 % (0-6); % Immature Granulocytes 0.3 % (0-0.5); % Monocytes 5.8 % (1.7-9.3); % Neutrophils 72.3 % (42.2-75.2); Absolute Basophils 0.1 10^3/uL (0-0.2); Absolute Eosinophils 0.3 10^3/uL (0-0.7); Absolute Lymphocytes 2.3 10^3/uL (1.2-3.4); Absolute Monocytes 0.7 10^3/uL (0.1-0.6); Absolute Neutrophils 8.9 10^3/uL (1.4-6.5); Hematocrit 32.4 % (37.0-47.0); Hemoglobin 9.7 g/dL (12.0-16.0); Mean Corp Hgb Conc. 29.9 g/dL (33.0-37.0); Mean Corpuscular Hgb 23.3 pg (27.0-31.0); Mean Corpuscular Volume 77.9 fL (81.0-99.0); Mean Platelet Volume 9.4 fL (7.4-10.4); Nucleated Red Blood Cells % 0 %; Platelet Count 506 10^3/uL (130-400); Red Blood Cell Count 4.16 10^6/uL (4.20-5.40); Red Cell Dist. Width 18.5 % (11.5-14.5); White Blood Cell Count 12.3 10^3/uL (4.8-10.8)
[2023-10-04 09:57] VITALS: BP 119/79; PULSE 89; O2SAT 94
--- NOTE | 2023-10-04 09:59 | PHA.VAN.FU ---
Vancomycin Assessment / Plan
- Assessment
Renal Function: Stable
WBC's are: Trending Up
In the past 24 hrs, patient has been: Afebrile
Concomitant Antimicrobials: Piperacillin/Tazobactam
- Monitoring Plan
No level(s) ordered at this time: Consider levels in next few days
- Follow Up
Pharmacy will continue to follow.
Vancomycin Follow UP
- -
Patient Age: 83
Patient Sex: Female
Vancomycin Day #: 2
Indication: Pulmonary/Respiratory
Requesting Provider: Dr Davison
Pertinent Antimicrobial Allergies:
Sulfa (Sulfonamide Antibiotics) Allergy - Pt unsure of reaction
Height / Weight:
Height 5 ft 5 in
Actual Weight 68.5 kg
Pertinent Past Medical History: recent hosp for bilat PNA
- Vital Signs / Lab Results
Temp Pulse Resp BP Pulse Ox
97.6 F 92 16 98/70 96
10/04/23 07:30 10/04/23 08:21 10/04/23 08:21 10/04/23 07:30 10/04/23 08:21
Lab Results - Hematology
10/03/23 10/04/23
12:05 08:58
WBC 9.8 12.3 H
Lab Results - Chemistry
10/03/23
12:05
BUN 9
Creatinine 0.5 L
Estimated Creat Clear 62
Albumin 3.0 L
10/03/23 10/03/23
12:05 16:00
Lactic Acid 0.9 Cancelled
Microbiology Results
10/03/23 13:59 Respiratory Syncytial Virus Culture - Final
Nasal Swab Negative for Respiratory Syncytial Virus.
A false negative result may be obtained with a specimen
collected early in the acute phase. If symptoms persist, a
new specimen should be tested.
10/03/23 11:51 Influenza Types A & B (KRISTOFER) - Final
Nasal Swab Negative for Influenza A & B, NAAT
Negative results must be combined with clinical observations
and patient history.
Nucleic Acid Amplification test (NAAT)performed on the
[employer] platform.
[2023-10-04 10:21] LABS: ALT (SGPT) 11 U/L (0-35); AST (SGOT) 24 U/L (14-36); Albumin 2.8 g/dl (3.5-5.0); Alkaline Phosphatase 107 U/L (38-126); Blood Urea Nitrogen 9 mg/dl (7-17); Carbon Dioxide 26 mmol/L (22-30); Chloride 100 mmol/L (98-107); Estimated Creatinine Clearance 62 ml/min; Glucose 95 mg/dl (70-99); Potassium 3.4 mmol/L (3.5-5.1); Sodium 134 mmol/L (135-145); Total Bilirubin 0.6 mg/dl (0.2-1.3); Total Protein 5.8 g/dl (6.3-8.2); eGFR > 60.00
--- NOTE | 2023-10-04 11:37 | W.PN.HOSP.TC ---
Today's Communication/Plan
-
Continue with antibiotics
Follow culture data
Consult pulmonary
Assessment / Plan
Assessment / Plan
HPI: 83-year-old female with PMH asthma/COPD, stroke with left sided residual weakness, who was discharged 2 months ago for bilateral pneumonia and R pleural effusion s/p right chest tube placement which was DC'ed 07/23; p/w hypoxia and was [facility].
She denies to significant shortness of breath, chest pain etc. But she does endorse to nausea.
Of note, she was requiring as much as 100% high flow nasal cannula O2 support during her last admission.
In the ER, she was placed on 6L nasal cannula.
Her CXR this admission showed mild stable lingular interstitial pneumonia.
A/P:
# Acute hypoxic respiratory failure on chronic respiratory insufficiency. Patient on home oxygen since her recent discharge in July for lung issues. She states she uses it only at night.
On admission needed 6 L currently on 4 L.
Evaluation so far-
COVID/Flu neg
Normal procaln, RSV swab negative
Follow blood cultures-pending
Chest x-ray, denies mild stable lingual pneumonia but does not explain the extensive bilateral crackles she has.
Weight compared to recent is lower. Her BNP is also lower. Clinically no signs suggestive of acute heart failure.
Also denying any swallowing difficulties.
-Patient not acting like infectious nor heart failure. Patient with bilateral extensive crackles-rule out underlying primary lung issue including inflammatory lung disease.
Will ask speech therapist to evaluate for any new aspiration issues.
Continue with antibiotics in the meantime.
Other Medical conditions:
# Asthma/COPD
Continue [employer] inhalers, montelukast
# Prediabetes
A1C at 7.2% from 07/2023
# History of CVA with residual left-sided paralysis/neuropathic pain
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
Continue aspirin, statin
Continue Xarelto
PT OT
# Chronic back pain
Continue tramadol
# History of muscle spasms
continue baclofen PRN
# Constipation
Continue MiraLAX
# Chronic anemia
# GERD
Continue omeprazole
# Anxiety/depression
Continue bupropion, sertraline
trazodone PRN
# History of orthostatic hypotension
Continue midodrine
# Essential hypertension
Continue terazosin
# IBS
# Diverticulosis
code status: DNR/DNI
DVT prophylaxis� [employer] Xarelto
Anticipated Discharge: > 48 hours
Subjective/Interval History
-
Date of Service: October 04, 2023
Main symptoms are cough with a difficulty to expectorate. She was also troubled with more shortness of breath and now requiring higher oxygen. No fever or chills. No chest pain.
Objective Data
-
Labs:
Laboratory Results
10/04/23
08:58
WBC 12.3 H
Hgb 9.7 L
Hct 32.4 L
Plt Count 506 H
Sodium 134 L
Potassium 3.4 L
Chloride 100
Carbon Dioxide 26
BUN 9
Creatinine 0.5 L
Glucose 95
Calcium 9.0
Total Bilirubin 0.6
AST 24
ALT 11
Alkaline Phosphatase 107
Vital Signs:
Vital Signs
Temp Pulse Resp BP Pulse Ox
97.6 F 92 16 98/70 96
10/04/23 07:30 10/04/23 08:21 10/04/23 08:21 10/04/23 07:30 10/04/23 08:21
I&O
10/03/23 10/04/23 10/05/23
06:59 06:59 06:59
Intake Total 240 / 240
Balance 240 / 240
Review of Systems
-
Constitutional: Denies Fever
EENT: Denies Sore Throat
Abdomen/GI: Denies Abdominal Pain, Nausea or Vomiting
Neuro: Denies Dizzy or Headache
Physical Exam
-
General: No Apparent Distress
HEENT: Moist Mucous Membranes
Respiratory: Crackles (BL extensive) and Non Labored Respirations; Negative Wheezes or Accessory Resp Muscle Use
Cardiac: Regular Rhythm and S1/S2; Negative Tachycardic
GI: Soft
Musculoskeletal: No Edema
Neuro: AO x 3; Negative No Motor Deficits (chronic left hemiparesis)
Psych: Calm
Data Reviewed
-
Labs: Labs Reviewed by me
--- NOTE | 2023-10-04 12:20 | PTOTSP ---
Dysphagia Evaluation
Patient presents with signs concerning for at least mild dysphagia. Last known video swallow study 10/11/2020 indicated mild oral/pharyngeal dysphagia. Patient has had 7 prior swallowing studies and has a history of oral/pharyngeal and esophageal
dysphagia (i.e., tortuous esophagus, achalasia) with elevated risk for bottom up and top down aspiration.
Patient is admitted with PNA and was recently (2 months ago) admitted with the same. A video swallow study is warranted to rule out worsened dysphagia/aspiration. A modified diet was recommended (IDDSI Level 6 Soft and Bite Sized, IDDSI Level 0
Thin liquid diet). However, patient declined any diet modifications or further objective swallowing assessment. Notified MD of patient wishes.
1. Defer to MD for diet. IDDSI Level 6 Soft and Bite Sized, IDDSI Level 0 Thin liquid diet recommended which patient declined
2. Medications as best tolerated
3. Strategies: upright to 90 degrees, alternate sips/bites to assist with oral clearance, remain upright for 30 minutes after intake as a reflux precaution
4. Consider GI consult given significant history of esophageal dysphagia (tortuous esophagus, achalasia)
5. Will follow up as appropriate pending further patient/physician discussion about information above.
[2023-10-04] MEDS: MUCINEX 600 MG PO (14:43)
--- NOTE | 2023-10-04 14:50 | CON.PUL ---
Consultation
Consultation Request
Date/Time Consultation Requested: 10/04/2023
Date/Time Consultation Performed: 10/04/2023
Requesting Provider: Dr. Licea
Performing Provider: Dr. Jian Prabhakar
Reason for Consultation: Hypoxemic respiratory failure/
Medical History
-
History of Present Illness:
83-year-old woman with history of asthma/COPD, CVA with left sided residual weakness, discharged about 2 months ago with bilateral pneumonia, right parapneumonic effusion requiring chest tube placement. She was placed back on oxygen at the nursing
home.
Denies shortness of breath or chest pain. She does report some nausea on admission.
Denies any cough, increased phlegm production or hemoptysis.
She is currently on 4 L of supplemental oxygen.
Chest x-ray is noted to have left lingula infiltrate.
Patient does have bibasilar crackles on exam.
We were consulted for evaluation.
Patient main complaint is coughing and difficulty expectorating.
She does not want to modify her diet.
Denies shortness of breath at rest.
Past Medical History
Past Medical History: Other (See assessment and plan section.+)
Social History
Tobacco: Non-smoker
Alcohol: None
Drug: None
Living: Longterm
Family History
Family History: Reviewed & Not Pertinent
Allergies / Home Medications
Allergies
Allergy/AdvReac Type Severity Reaction Status Date / Time
codeine [Codeine] Allergy Nausea Verified 07/16/23 13:41
prochlorperazine Allergy Rash Verified 07/16/23 13:41
Vlcatuh-SSL-GsO Reductase Allergy muscle Verified 07/16/23 13:41
Inhibitor weakness
[Wnvmxzq-Pcf-Qxl Reductase
Inhibitor]
Sulfa (Sulfonamide Allergy Pt unsure Verified 07/16/23 13:41
Antibiotics) of reaction
Home Medications
�Medication �Instructions �Recorded �Confirmed �Last Taken �Type
montelukast 10 mg tablet 10 mg PO DAILY Lung/breathing 09/30/15 10/03/23 12/27/22 History
issues
aspirin 81 mg chewable tablet 81 mg PO DAILY Blood clot 10/09/20 10/03/23 12/27/22 History
prevention/tx
atorvastatin 20 mg tablet 20 mg PO HS High cholesterol 10/09/20 10/03/23 12/26/22 History
bupropion HCl 100 mg tablet 100 mg PO TID Mental Health/Anxiety 10/09/20 10/03/23 12/27/22 History
meclizine 12.5 mg tablet 12.5 mg PO BIDPRN PRN dizziness 10/09/20 10/03/23 Unknown History
melatonin 5 mg tablet 5 mg PO HSPRN PRN INSOMNIA 10/09/20 10/03/23 Unknown History
menthol 5 % topical patch (Icy Hot 1 patch topical DAILY left hip 10/09/20 10/03/23 12/27/22 History
(menthol)) pain ##0
omeprazole 20 mg capsule,delayed 20 mg PO DAILY Gastrointestinal 10/09/20 10/03/23 12/27/22 History
release issue
phenazopyridine 100 mg tablet 100 mg PO [id number] PRN urinary 10/09/20 10/03/23 Unknown History
burning/discomfort
polyethylene glycol 3350 17 gram 17 grams PO DAILYPRN PRN 10/09/20 10/03/23 Unknown History
oral powder packet constipation/no results from
docusate in 6 hrs
rivaroxaban 20 mg tablet (Xarelto) 20 mg PO QPM Blood clot 10/09/20 10/03/23 12/26/22 History
prevention/tx
sertraline 100 mg tablet 100 mg PO DAILY Mental 10/09/20 10/03/23 Unknown History
Health/Anxiety
terazosin 1 mg capsule 1 mg PO HS Urinary issue 10/09/20 10/03/23 12/26/22 History
trazodone 50 mg tablet 50 mg PO BID PRN insomnia 10/09/20 10/03/23 Unknown History
Calazmine Skin Protect 1 applic topical TID PRN 12/27/22 10/03/23 Unknown History
groin/buttocks/coccyx
baclofen 10 mg tablet 10 mg PO TIDPRN PRN muscle spams 12/27/22 10/03/23 Unknown History
fluticasone 113 mcg-salmeterol 14 1 inh inhalation R BID 12/27/22 10/03/23 12/27/22 History
mcg/actuation breath activated Lung/Breathing Issues
powdr
ipratropium 20 mcg-albuterol 100 1 puff inhalation R QID 12/27/22 10/03/23 Unknown History
mcg/actuation mist for inhalation Lung/Breathing Issues
(Combivent Respimat)
menthol 5 % topical patch (Icy Hot 1 patch topical DAILY PRN left 12/27/22 10/03/23 Unknown History
(menthol)) shoulder
mirabegron 25 mg tablet,extended 25 mg PO DAILY Urinary Issue 12/27/22 10/03/23 12/27/22 History
release 24 hr (Myrbetriq)
nystatin 100,000 unit/gram topical 1 applic topical DAILYPRN PRN 12/27/22 10/03/23 Unknown History
powder under breasts/groin rash
tramadol 50 mg tablet 50 mg PO BID Pain 12/27/22 10/03/23 12/27/22 History
vit C 250 mg-E 90 mg-zinc 40 1 tab PO DAILY Eye Condition 12/27/22 10/03/23 12/27/22 History
mg-copper 1 qq-yvsacc-dbsofi chew
tablet (PreserVision AREDS-2)
midodrine 5 mg tablet 5 mg PO TID Blood Pressure 07/16/23 10/03/23 Unknown History
gabapentin 100 mg capsule 100 mg PO TID #60 caps 07/29/23 10/03/23 Unknown Rx
Gnp Best Powder Fiber 2 tsp PO DAILY Constipation 10/03/23 10/03/23 Unknown History
acetaminophen 160 mg/5 mL (5 mL) 1,000 mg PO Q8H@0600,14,22 Pain 10/03/23 10/03/23 Unknown History
oral solution
cholecalciferol (vitamin D3) 25 25 mcg PO DAILY Supplement 10/03/23 10/03/23 Unknown History
mcg (1,000 unit) tablet
dextromethorphan HBr 30 mg/5 mL 60 mg PO [id number] PRN cough 10/03/23 10/03/23 Unknown History
oral liquid
dextromethorphan-guaifenesin 30 1 tab PO Q12H PRN cough 10/03/23 10/03/23 Unknown History
mg-600 mg tablet extended
hr (Mucinex DM)
doxycycline hyclate 100 mg capsule 100 mg PO BID Infection 10/03/23 10/03/23 10/03/23 History
fluticasone propionate 50 1 spray intranasal DAILY Allergies 10/03/23 10/03/23 Unknown History
mcg/actuation nasal
spray,suspension
guaifenesin 100 mg/5 mL oral 100 mg PO Q6HPRN PRN cough 10/03/23 10/03/23 Unknown History
liquid (Susan-Tussin)
ipratropium 20 mcg-albuterol 100 1 puff inhalation R BIDPRN PRN sob 10/03/23 10/03/23 Unknown History
mcg/actuation mist for inhalation
(Combivent Respimat)
loperamide 2 mg capsule 2 mg PO DIRECTED PRN diarrhea 10/03/23 10/03/23 Unknown History
nystatin 100,000 unit/gram topical 1 applic topical BID Skin Issues 10/03/23 10/03/23 Unknown History
powder (Klayesta)
cyanocobalamin (vitamin B-12) 1,000 mcg PO DAILY Supplement 10/04/23 10/03/23 Unknown History
1,000 mcg tablet
Review of Systems
-
History Source: Patient
All other systems: Negative unless noted
Vitals / Labs / Diagnostic Testing
Vital Signs
Temp Pulse Resp BP Pulse Ox
97.6 F 87 16 98/70 94
10/04/23 07:30 10/04/23 11:44 10/04/23 11:44 10/04/23 07:30 10/04/23 11:44
Lab Data
10/04/23 08:58
10/04/23 08:58
Microbiology
10/03/23 13:57 Blood/Venous Blood Culture - Preliminary
No Growth in 24 hours- Final report to follow
10/03/23 12:05 Blood/Venous Blood Culture - Preliminary
No Growth in 24 hours- Final report to follow
10/03/23 13:59 Nasal Swab Respiratory Syncytial Virus Culture - Final
Negative for Respiratory Syncytial Virus.
A false negative result may be obtained with a specimen
collected early in the acute phase. If symptoms persist, a
new specimen should be tested.
10/03/23 11:51 Nasal Swab Influenza Types A & B (KRISTOFER) - Final
Negative for Influenza A & B, NAAT
Negative results must be combined with clinical observations
and patient history.
Nucleic Acid Amplification test (NAAT)performed on the
[employer] platform.
Diagnostic Testing:
Physical Exam
-
HEENT: Normocephalic
Cardiovascular: S1/S2
Respiratory: Rales
GI: Soft and Non Distended
Neurology: Awake and Alert
Skin: Warm
General: Respiratory Distress (n)
Assessment
-
Acute on chronic hypoxemic respiratory insufficiency- 4L NC.
Chest x-ray 10/03/2023: Mild stable lingular interstitial pneumonia.
Pro BNP 1150 (10/03/2023)
Pro jaquelin negative (10/03/2023) suspect aspiration pneumonitis/pneumonia
Conditions present prior admission:
Admission to [facility] 07/2023
Pneumonia/right pleural effusion status post chest tube placement 07/20/2023.
Discharged on nocturnal oxygen from the hospital.
Asthma/COPD, on salmeterol/fluticasone and combivent, not on home O2
Prediabetes
HTN
Constipation
Anemia
GERD
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
Chronic dizziness
Anxiety/depression
Recurrent UTI
Orthostatic hypotension
H/o DVT/PE, on rivaroxaban
Achalasia, s/p PEG and reversal
IBS
Diverticulosis
Right TKA
Lumbar laminectomy 2015
Tonsillectomy
Former smoker
DNR
Assessment and plan:
New hypoxemia compared to prior to discharge.
Patient does not appear toxic
Significant coughing and difficulty expectorating.
Not bronchospastic on exam
Bibasilar crackles on exam: Possibly post inflammatory given prior pneumonia/.
Does not appear volume overloaded
-
Strongly suspect intermittent aspiration.
Patient refused modified diet at this point. Speech pathology correspondence reviewed, recommending repeat video barium swallow.
Patient has deemed high risk for aspiration during prior hospital stay. She has tortuous esophagus/possibly some degree of achalasia.
-
Last known video swallow study 10/11/2020 indicated mild oral/pharyngeal dysphagia. Patient has had 7 prior swallowing studies and has a history of oral/pharyngeal and esophageal dysphagia (i.e., tortuous esophagus, achalasia) with elevated risk for
bottom up and top down aspiration.
-
Okay to continue antibiotics for now. Low threshold to discontinue in the next 24 hours if remains stable without signs of infection.
Strongly suspect aspiration pneumonitis.
If hypoxemia worsens a CAT scan of the chest will be recommended, at this point based on chest x-ray we can hold off.
Less likely thromboembolic disease as the patient has been on anticoagulation.
Incentive spirometry
Aspiration precautions
Advised patient to take modified diet.
-
Given constant coughing and difficulty expectorating:
Hold inhalers as the patient is unable to perform inhaler maneuver properly.
Transition to Pulmicort/DuoNebs
Vest therapy twice a day
Aspiration precaution
-
Will follow
[2023-10-04 15:30] VITALS: BP 125/67
[2023-10-04] MEDS: DUONEB 3 ML INH ×2 (15:48→19:50)
--- NOTE | 2023-10-04 16:07 | CM ---
Patient seen bedside.
IA completed.
Patient lives in [place] at the [facility].
Patient has a RW, WC and power WH (only uses when she is out).
Patient has not had VN.
Per patient she is in her WC at the facility and does not walk with a walker.
Patient spouse does not live at the [facility].
Patients spouse drives and she is not sure if he will be transporting her back to the [facility].
per patient she is not on oxygen at the facility.
She does get therapy at the [facility].
PCP: Dr Collins
Pharmacy: [facility]
Plan: back to the [facility] at [place] when stable.
[2023-10-04] MEDS: XARELTO 20 MG PO (17:12)
[2023-10-04 18:48] VITALS: BP 128/63
[2023-10-04] MEDS: PULMICORT 0.5 MG INH (19:50)
[2023-10-04] MEDS: LIPITOR 20 MG PO (21:22)
[2023-10-04] MEDS: TYLENOL ORAL SOLUTION 1000 MG PO (21:22)
[2023-10-04] MEDS: HYTRIN 1 MG PO (21:22)
[2023-10-04 23:08] VITALS: BP 103/53
--- NOTE | 2023-10-04 23:43 | PTCARENOTE ---
MD ordered Urinalysis Reflex to Culture on 10/02. This RN requested bladder scan and straight catheterization protocol. Pt is incontinent of both bowel and urine.
Prior to bladder scan, pt was grossly incontinent. This RN explained to pt doctor order. Pt understands and agrees to plan. This RN bladder scanned pt for 464ml; bedpan offered- pt had a small soft bowel movement w/ small amount of urine. Pt's labia
is noticeably red and swollen. Pt states pain when perineum is cleaned- House FINISH GRINDER notified. Zinc 20% ointment ordered per nursing protocol.
This RN explain to patient she that is retaining and will need to be straight cath. Second RN accompanied for procedure. 410ml yellow urine removed. Sample sent to lab.
[2023-10-05 00:01] LABS: Urine Albumin Negative (Neg - Trace); Urine Bilirubin Negative (Negative); Urine Character Clear (Clear); Urine Color Yellow; Urine Glucose Negative (Negative); Urine Ketone Negative (Negative); Urine Leukocyte Negative (Negative); Urine Nitrite Negative (Negative); Urine Occult Blood Negative (Negative); Urine Urobilinogen Negative (Neg - 1+); Urine pH 6.5 (5.0-9.0)
[2023-10-05] MEDS: ZOSYN 50 IV ×4 (03:00→20:40)
[2023-10-05] MEDS: TYLENOL ORAL SOLUTION 1000 MG PO ×3 (05:24→21:51)
[2023-10-05] MEDS: VANCOCIN 150 IV ×2 (05:25→17:19)
[2023-10-05 06:00] VITALS: BMI 24.1
[2023-10-05 06:16] LABS: Hematocrit 27.1 % (37.0-47.0); Hemoglobin 8.3 g/dL (12.0-16.0); Mean Corp Hgb Conc. 30.6 g/dL (33.0-37.0); Mean Corpuscular Hgb 23.6 pg (27.0-31.0); Mean Platelet Volume 9.6 fL (7.4-10.4); Platelet Count 491 10^3/uL (130-400); Red Blood Cell Count 3.52 10^6/uL (4.20-5.40); Red Cell Dist. Width 18.4 % (11.5-14.5); White Blood Cell Count 10.5 10^3/uL (4.8-10.8)
[2023-10-05 07:10] VITALS: BP 106/56
[2023-10-05] MEDS: PULMICORT 0.5 MG INH ×2 (07:56→20:02)
[2023-10-05] MEDS: DUONEB 3 ML INH ×3 (07:56→20:02)
[2023-10-05] MEDS: SPIRIVA RESPIMAT 2.5 MCG 2 PUFF INH (07:56)
[2023-10-05] MEDS: OCUVITE SOFTGEL 1 CAP PO (08:50)
[2023-10-05] MEDS: ULTRAM 50 MG PO ×2 (08:50→20:41)
[2023-10-05] MEDS: PROTONIX 40 MG PO (08:50)
[2023-10-05] MEDS: MYRBETRIQ EXTENDED RELEASE 25 MG PO (08:50)
[2023-10-05] MEDS: WELLBUTRIN REGULAR RELEASE 100 MG PO ×3 (08:50→21:53)
[2023-10-05] MEDS: NEURONTIN 100 MG PO ×3 (08:50→21:52)
[2023-10-05] MEDS: ProAmatine 5 MG PO ×3 (08:50→17:17)
[2023-10-05] MEDS: LOW STRENGTH ASPIRIN 81 MG PO (08:50)
[2023-10-05] MEDS: SINGULAIR 10 MG PO (08:50)
[2023-10-05] MEDS: ZOLOFT 100 MG PO (08:50)
--- NOTE | 2023-10-05 09:35 | W.PN.HOSP.TC ---
Addendum entered and electronically signed by Manfred Licea MD 10/05/23 09:46:
Hypokalemia-replete
Hyponatremia-suspect probably secondary to underlying lung disease. Improved to 134.
Original Note:
Today's Communication/Plan
-
Wean oxygen
Continue with antibiotics as above
DC planning
Assessment / Plan
Assessment / Plan
HPI: 83-year-old female with PMH asthma/COPD, stroke with left sided residual weakness, who was discharged 2 months ago for bilateral pneumonia and R pleural effusion s/p right chest tube placement which was DC'ed 07/23; p/w hypoxia and was placed on
oxygen at the correction.
She denies to significant shortness of breath, chest pain etc. But she does endorse to nausea.
Of note, she was requiring as much as 100% high flow nasal cannula O2 support during her last admission.
In the ER, she was placed on 6L nasal cannula.
Her CXR this admission showed mild stable lingular interstitial pneumonia.
A/P:
# Acute hypoxic respiratory failure on chronic respiratory insufficiency. Patient on home oxygen since her recent discharge in July for lung issues. She states she uses it only at night.
On admission needed 6 L currently on 4 L.
Evaluation so far-
COVID/Flu neg
Normal procaln, RSV swab negative
Follow blood cultures-/2 bottle GPC in clusters -await identification
Chest x-ray, denies mild stable lingual pneumonia but does not explain the extensive bilateral crackles she has.
Weight compared to recent is lower. Her BNP is also lower. Clinically no signs suggestive of acute heart failure.
-Patient not acting like infectious nor heart failure. Patient with bilateral extensive crackles-rule out underlying primary lung issue including inflammatory lung disease - pulm in put noted - suspicion is for recurrent aspirational lung disease.
Speech therapist input noted Patient presents with signs concerning for at least mild dysphagia. Last known video swallow study 10/11/2020 indicated mild oral/pharyngeal dysphagia. Patient has had 7 prior swallowing studies and has a history of
oral/pharyngeal and esophageal dysphagia (i.e., tortuous esophagus, achalasia) with elevated risk for bottom up and top down aspiration.
I had a long discussion with patient today about her risk of aspiration and recurrent nature of her lung disease is probably aspiration pneumonitis/pneumonia. Despite all the findings and recommendations she wishes to stay on regular diet. She
understands the risk of aspirational pneumonias, infections, respiratory failures, and .
Continue with vancomycin till bcx are back
Switch to oral Augmentin from Zosyn on DC
Other Medical conditions:
# Asthma/COPD
Continue [employer] SCI[employer]IST inhalers, montelukast
# Prediabetes
A1C at 7.2% from 07/2023
# History of CVA with residual left-sided paralysis/neuropathic pain
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
Continue aspirin, statin
Continue Xarelto
PT OT
# Chronic back pain
Continue tramadol
# History of muscle spasms
continue baclofen PRN
# Constipation
Continue MiraLAX
# Chronic anemia
# GERD
Continue omeprazole
# Anxiety/depression
Continue bupropion, sertraline
trazodone PRN
# History of orthostatic hypotension
Continue midodrine
# Essential hypertension
Continue terazosin
# IBS
# Diverticulosis
code status: DNR/DNI
DVT prophylaxis� HE[employer] SCIENCE SPECIALIST Xarelto
DC planning
Anticipated Discharge: Within 24 hours
Subjective/Interval History
-
Date of Service: October 05, 2023
Breathing is okay today. She is on 5 L.
Denies any nausea vomiting.
She feels that she is swallowing okay. She tells me she was on pur�ed diet for a while which she hated. She will now go back on pur�ed diet. She understands the multiple speech eval and recommendations of modified diet. She does not want to be
on a modified diet ,understands the risk of aspiration. She would want to stay on regular diet. She says she takes her own time while eating, keeps her head of the bed elevated while eating.
Objective Data
-
Labs:
Laboratory Results
10/05/23
05:24
WBC 10.5
Hgb 8.3 L
Hct 27.1 L
Plt Count 491 H
Vital Signs:
Vital Signs
Temp Pulse Resp BP Pulse Ox
98.3 F 83 21 106/56 95
10/05/23 07:10 10/05/23 08:50 10/05/23 08:00 10/05/23 08:50 10/05/23 08:00
I&O
10/04/23 10/05/23 10/06/23
06:59 06:59 06:59
Intake Total 240 / 240 1999 / 1999
Output Total 1010 / 1010
Balance 240 / 240 990 / 990
Review of Systems
-
EENT: Denies Sore Throat
Respiratory: Reports Cough; Denies Trouble Breathing
Cardiac: Denies Chest Pain
Abdomen/GI: Denies Nausea or Vomiting
Neuro: Denies Dizzy
Physical Exam
-
General: No Apparent Distress
HEENT: Moist Mucous Membranes
Respiratory: Crackles and Non Labored Respirations; Negative Wheezes or Accessory Resp Muscle Use
Cardiac: Regular Rhythm and S1/S2
GI: Soft
Neuro: AO x 3
Psych: Calm; Negative Confused or Agitated
Data Reviewed
-
Labs: Labs Reviewed by me
[2023-10-05] MEDS: KCL ELIXIR 40 MEQ TUBE (12:35)
--- NOTE | 2023-10-05 13:00 | PTCARENOTE ---
Pt. retaining urine. Bladder scanned for 523. MD ordered to continue with straight cath order/ protocol. Pts labia noted to be red/ swollen and painful. made aware. Okay'd to continue with straight cath. Patient straight cathed for 600 ml of
urine.
--- NOTE | 2023-10-05 13:22 | W.PN.PUL3 ---
Today's Communication / Plan
-
Continue nebulizer therapy while in the hospital
Aspiration precautions
Continue antibiotics
Wean down oxygen, may need supplemental oxygen during the day after discharge.
Assessment
-
Acute on chronic hypoxemic respiratory insufficiency- 4L NC.
Chest x-ray 10/03/2023: Mild stable lingular interstitial pneumonia.
Pro BNP 1150 (10/03/2023)
Pro jaquelin negative (10/03/2023) suspect aspiration pneumonitis/pneumonia
Conditions present prior admission:
Admission to [facility] 07/2023
Pneumonia/right pleural effusion status post chest tube placement 07/20/2023.
Discharged on nocturnal oxygen from the hospital.
Asthma/COPD, on salmeterol/fluticasone and combivent, not on home O2
Prediabetes
HTN
Constipation
Anemia
GERD
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
Chronic dizziness
Anxiety/depression
Recurrent UTI
Orthostatic hypotension
H/o DVT/PE, on rivaroxaban
Achalasia, s/p PEG and reversal
IBS
Diverticulosis
Right TKA
Lumbar laminectomy 2015
Tonsillectomy
Former smoker
DNR
Assessment and plan:
Respiratory status remains stable.
On 5 L supplemental oxygen which is new for her. Continue to wean down as able.
Patient does not appear toxic
Continues to report coughing with difficulty expectorating.
Not bronchospastic on exam
Bibasilar crackles on exam: Possibly post inflammatory given prior pneumonia/.
Does not appear volume overloaded
-
Strongly suspect intermittent aspiration.
Patient has deemed high risk for aspiration during prior hospital stay. She has tortuous esophagus/possibly some degree of achalasia.
Modified diet has been recommended by speech pathology. Patient declined.
She understands risk of recurrent aspiration.
-
Last known video swallow study 10/11/2020 indicated mild oral/pharyngeal dysphagia. Patient has had 7 prior swallowing studies and has a history of oral/pharyngeal and esophageal dysphagia (i.e., tortuous esophagus, achalasia) with elevated risk for
bottom up and top down aspiration.
-
Continue antibiotics until cultures negative. Agree with transition to Augmentin and complete 5 to 7 days.
Strongly suspect aspiration pneumonitis.
If hypoxemia worsens a CAT scan of the chest will be recommended, at this point based on chest x-ray we can hold off.
Less likely thromboembolic disease as the patient has been on anticoagulation.
Incentive spirometry
Aspiration precautions
Advised patient to take modified diet.
-
Given constant coughing and difficulty expectorating:
Continue current regimen while in the hospital.
Hold inhalers as the patient is unable to perform inhaler maneuver properly. May restart after discharge.
Continue nebulizer therapy-Pulmicort/DuoNebs, while in the hospital.
Vest therapy twice a day
Aspiration precaution
No indication for systemic corticosteroids.
-
Will follow
Subjective Data
-
Date of Service:
Date of Service: October 05, 2023
Chief Complaint: Pulmonary Follow Up (Acute respiratory insufficiency)
Subjective:
Continues to report some intermittent coughing. Difficulty expectorating.
Denies shortness of breath
Patient decline modified diet. Understands risk of aspiration.
Review of Systems
General: Fever (n)
Cardiopulmonary: Dyspnea (n), Cough and Sputum Production (Difficulty expectorating)
GI: Abdominal Pain (n)
Objective Data
Data Reviewed
Vital Signs / I&O / Oxygen:
Vital Signs
Temp Pulse Resp BP Pulse Ox
98.3 F 80 21 130/53 95
10/05/23 07:10 10/05/23 12:36 10/05/23 08:00 10/05/23 12:36 10/05/23 08:00
Intake and Output
10/04/23 10/05/23 10/06/23
06:59 06:59 06:59
Intake Total 240 / 240 1999 / 1999
Output Total 1010 / 1010
Balance 240 / 240 990 / 990
SaO2 95
Nasal Cannula flow liters per 5
minute
Physical Exam
General: Respiratory Distress (n) and Comfortable
HEENT: Normocephalic
Cardiovascular: S1-S2
Respiratory: Wheeze (n) and Crackles
GI: Soft and Non Distended
Neurology: Awake, Alert and Other (Left hemiparesis)
Labs/Micro/Reports
Lab Data
10/05/23 05:24
10/04/23 08:58
Microbiology
10/03/23 12:05 Blood/Venous Blood Culture - Preliminary
Coagulase neg. staphylococcus
Additional testing on request
10/03/23 12:05 Blood/Venous Gram Stain - Preliminary
10/03/23 17:17 Nose MRSA Screen - Final
No Methicillin Resistant Staphylococcus aureus isolated.
10/03/23 13:57 Blood/Venous Blood Culture - Preliminary
No Growth in 24 hours- Final report to follow
10/03/23 13:59 Nasal Swab Respiratory Syncytial Virus Culture - Final
Negative for Respiratory Syncytial Virus.
A false negative result may be obtained with a specimen
collected early in the acute phase. If symptoms persist, a
new specimen should be tested.
10/03/23 11:51 Nasal Swab Influenza Types A & B (KRISTOFER) - Final
Negative for Influenza A & B, NAAT
Negative results must be combined with clinical observations
and patient history.
Nucleic Acid Amplification test (NAAT)performed on the
[employer] platform.
--- NOTE | 2023-10-05 15:22 | PHA.VAN.FU ---
Vancomycin Assessment / Plan
- Assessment
Renal Function: Stable
WBC's are: WNL
In the past 24 hrs, patient has been: Afebrile
Concomitant Antimicrobials: piperacillin/tazobactam
- Dosing Plan
Continue: Vanc 750mg Q12H
- Monitoring Plan
No level(s) ordered at this time: consider levels in next few days
- Follow Up
Pharmacy will continue to follow.
Vancomycin Follow UP
- -
Patient Age: 83
Patient Sex: Female
Vancomycin Day #: 3
Indication: Pulmonary/Respiratory
Requesting Provider: Dr Davison
Pertinent Antimicrobial Allergies:
Sulfa (Sulfonamide Antibiotics) - Pt unsure of reaction
Height / Weight:
Height 5 ft 5 in
Actual Weight 65.68 kg
- Vital Signs / Lab Results
Temp Pulse Resp BP Pulse Ox
98.3 F 80 21 130/53 95
10/05/23 07:10 10/05/23 12:36 10/05/23 08:00 10/05/23 12:36 10/05/23 08:00
Lab Results - Hematology
10/03/23 10/04/23 10/05/23
12:05 08:58 05:24
WBC 9.8 12.3 H 10.5
Lab Results - Chemistry
10/03/23 10/04/23
12:05 08:58
BUN 9 9
Creatinine 0.5 L 0.5 L
Estimated Creat Clear 62 62
Albumin 3.0 L 2.8 L
10/03/23 10/03/23
12:05 16:00
Lactic Acid 0.9 Cancelled
Lab Results - Urine
10/04/23
23:20
Urine Nitrite (Reflex) Negative
Leukocyte Esterase Rfl Negative
Microbiology Results
10/03/23 13:57 Blood Culture - Preliminary
Blood/Venous No Growth in 48 hours- Final report to follow
10/03/23 12:05 Blood Culture - Preliminary
Blood/Venous Coagulase neg. staphylococcus
Additional testing on request
Gram Stain - Preliminary
10/03/23 17:17 MRSA Screen - Final
Nose No Methicillin Resistant Staphylococcus aureus isolated.
10/03/23 13:59 Respiratory Syncytial Virus Culture - Final
Nasal Swab Negative for Respiratory Syncytial Virus.
A false negative result may be obtained with a specimen
collected early in the acute phase. If symptoms persist, a
new specimen should be tested.
10/03/23 11:51 Influenza Types A & B (KRISTOFER) - Final
Nasal Swab Negative for Influenza A & B, NAAT
Negative results must be combined with clinical observations
and patient history.
Nucleic Acid Amplification test (NAAT)performed on the
[employer] platform.
[2023-10-05 15:47] VITALS: BP 106/55
--- NOTE | 2023-10-05 16:26 | CM ---
Spoke to patient and her son Dante in room. Dante reports that [facility] have a preferred provider of oxygen. JOSE spoke to Yasmeen, the nurse at [facility]. He said preferred provider is [facility] for oxygen.
[2023-10-05] MEDS: XARELTO 20 MG PO (17:16)
[2023-10-05] MEDS: HYTRIN 1 MG PO (21:52)
[2023-10-05] MEDS: LIPITOR 20 MG PO (21:53)
[2023-10-05] MEDS: MONISTAT 7 VAGINAL CREAM 1 APPLIC VAG (21:54)
[2023-10-05 23:41] VITALS: BP 111/59
[2023-10-06] MEDS: ZOSYN 50 IV ×3 (01:26→13:18)
[2023-10-06] MEDS: VANCOCIN 150 IV (05:13)
[2023-10-06] MEDS: TYLENOL ORAL SOLUTION 1000 MG PO ×3 (05:15→21:25)
[2023-10-06 06:00] VITALS: BMI 24.0
[2023-10-06 07:10] VITALS: BP 133/96
[2023-10-06] MEDS: DUONEB 3 ML INH (07:22)
[2023-10-06] MEDS: PULMICORT 0.5 MG INH ×2 (07:22→20:17)
[2023-10-06] MEDS: SPIRIVA RESPIMAT 2.5 MCG 2 PUFF INH (07:31)
[2023-10-06] MEDS: VENTOLIN NEBULES INH (07:53)
[2023-10-06] MEDS: WELLBUTRIN REGULAR RELEASE 100 MG PO ×3 (09:46→21:25)
[2023-10-06] MEDS: ProAmatine 5 MG PO ×3 (09:46→17:21)
[2023-10-06] MEDS: LOW STRENGTH ASPIRIN 81 MG PO (09:47)
[2023-10-06] MEDS: SINGULAIR 10 MG PO (09:47)
[2023-10-06] MEDS: ULTRAM 50 MG PO ×2 (09:47→20:33)
[2023-10-06] MEDS: ZOLOFT 100 MG PO (09:47)
[2023-10-06] MEDS: NEURONTIN 100 MG PO ×3 (09:51→21:25)
[2023-10-06] MEDS: PROTONIX 40 MG PO (09:52)
[2023-10-06] MEDS: OCUVITE SOFTGEL PO ×2 (09:52→10:22)
[2023-10-06] MEDS: MYRBETRIQ EXTENDED RELEASE PO ×2 (09:52→10:22)
[2023-10-06] MEDS: KCL ELIXIR 40 MEQ PO (12:24)
[2023-10-06] MEDS: ZOFRAN 4 MG IV (12:24)
[2023-10-06] MEDS: VENTOLIN NEBULES 2.5 MG INH ×2 (13:39→20:17)
--- NOTE | 2023-10-06 14:15 | W.PN.PUL3 ---
Today's Communication / Plan
-
Continue antibiotic
Follow-up final sputum culture
Continue nebulizer for secretion clearance
Continue percussion therapy
Wean down oxygen
Aspiration precautions
Assessment
-
Acute on chronic hypoxemic respiratory insufficiency- 4L NC.
Chest x-ray 10/03/2023: Mild stable lingular interstitial pneumonia.
Pro BNP 1150 (10/03/2023)
Pro jaquelin negative (10/03/2023) suspect aspiration pneumonitis/pneumonia
Conditions present prior admission:
Admission to [facility] 07/2023
Pneumonia/right pleural effusion status post chest tube placement 07/20/2023.
Discharged on nocturnal oxygen from the hospital.
Asthma/COPD, on salmeterol/fluticasone and combivent, not on home O2
Prediabetes
HTN
Constipation
Anemia
GERD
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
Chronic dizziness
Anxiety/depression
Recurrent UTI
Orthostatic hypotension
H/o DVT/PE, on rivaroxaban
Achalasia, s/p PEG and reversal
IBS
Diverticulosis
Right TKA
Lumbar laminectomy 2015
Tonsillectomy
Former smoker
DNR
Assessment and plan:
Respiratory status improving.
On 5 L supplemental oxygen which is new for her. Continue to wean down as able.
Patient does not appear toxic
Continues to report coughing with difficulty expectorating.
Not bronchospastic on exam
Bibasilar crackles on exam: Possibly post inflammatory given prior pneumonia/.
No evidence for volume overload.
-
Strongly suspect intermittent aspiration.
Patient has deemed high risk for aspiration during prior hospital stay. She has tortuous esophagus/possibly some degree of achalasia.
Modified diet has been recommended by speech pathology. Patient declined.
She understands risk of recurrent aspiration.
-
Last known video swallow study 10/11/2020 indicated mild oral/pharyngeal dysphagia. Patient has had 7 prior swallowing studies and has a history of oral/pharyngeal and esophageal dysphagia (i.e., tortuous esophagus, achalasia) with elevated risk for
bottom up and top down aspiration.
-
Continue antibiotics until cultures negative, currenty sputum growing GNR and cathy. Follow final.
Cont. Zosyn, cor now complete 5 to 7 days.
Strongly suspect aspiration pneumonitis.
-
Incentive spirometry
Aspiration precautions
Advised patient to take modified diet, She declined.
-
Given constant coughing and difficulty expectorating:
Continue current regimen while in the hospital.
Hold inhalers as the patient is unable to perform inhaler maneuver properly. May restart after discharge.
Continue nebulizer therapy-Pulmicort/DuoNebs, while in the hospital.
Vest therapy twice a day
Aspiration precaution
No indication for systemic corticosteroids.
-
Will follow
-
Dr. Prabhakar updated family at the bedside 10/06/2023
Subjective Data
-
Date of Service:
Date of Service: October 06, 2023
Chief Complaint: Pulmonary Follow Up (Acute respiratory insufficiency)
Review of Systems
Cardiopulmonary: Dyspnea, Cough and Sputum Production
Objective Data
Data Reviewed
Vital Signs / I&O / Oxygen:
Vital Signs
Temp Pulse Resp BP Pulse Ox
98.5 F 88 18 118/69 92
10/06/23 07:10 10/06/23 13:43 10/06/23 13:43 10/06/23 13:18 10/06/23 13:43
Intake and Output
10/05/23 10/06/23 10/07/23
06:59 06:59 06:59
Intake Total 1999 / 1999 950 / 950
Output Total 1010 / 1010 2220 / 2220
Balance 990 / 990 -1270 / -1270
SaO2 92
Nasal Cannula flow liters per 4
minute
Physical Exam
General: Respiratory Distress (n) and Comfortable
HEENT: Normocephalic
Cardiovascular: S1-S2
Respiratory: Wheeze (n), Crackles and Other (Bilateral squeaks)
GI: Soft and Non Distended
Neurology: Awake, Alert and Other (Left hemiparesis)
Labs/Micro/Reports
Lab Data
10/05/23 05:24
10/04/23 08:58
Microbiology
10/05/23 13:51 Sputum Respiratory Culture - Preliminary
Gram negative bacilli
Cathy albicans
10/05/23 13:51 Sputum Gram Stain - Preliminary
10/03/23 13:57 Blood/Venous Blood Culture - Preliminary
No Growth in 48 hours- Final report to follow
10/03/23 12:05 Blood/Venous Blood Culture - Preliminary
Coagulase neg. staphylococcus
Additional testing on request
10/03/23 12:05 Blood/Venous Gram Stain - Preliminary
10/03/23 17:17 Nose MRSA Screen - Final
No Methicillin Resistant Staphylococcus aureus isolated.
10/03/23 13:59 Nasal Swab Respiratory Syncytial Virus Culture - Final
Negative for Respiratory Syncytial Virus.
A false negative result may be obtained with a specimen
collected early in the acute phase. If symptoms persist, a
new specimen should be tested.
10/03/23 11:51 Nasal Swab Influenza Types A & B (KRISTOFER) - Final
Negative for Influenza A & B, NAAT
Negative results must be combined with clinical observations
and patient history.
Nucleic Acid Amplification test (NAAT)performed on the
[employer] platform.
[2023-10-06] MEDS: FLOMAX 0.400000000000000022 MG PO (14:49)
[2023-10-06] MEDS: COMPAZINE 10 MG IV (14:52)
[2023-10-06 15:22] VITALS: BP 118/52
--- NOTE | 2023-10-06 16:39 | CM ---
Patient resides at [facility] in [place]. Baseline is [facility] 3-4x/week, no O2. Therapy recommending HH PT. [facility] will resume. Nurses are on [place] site. No need for HH VN. May possibly need O2. Nsg weaning, now on 3L. Will most likely need nocturnal
levels evaluated. [facility] uses [facility] for O2 services. Per , [facility] does not accept [facility]. Will continue to follow O2 requirements.
--- NOTE | 2023-10-06 16:56 | W.PN.HOSP.TC ---
Today's Communication/Plan
-
Narrow antibiotics
Aspiration precautions.
Patient declined diet modifications understanding risk of aspiration
Delong catheter
Flomax
Physical therapy assessment
Case management consultation for discharge planning.
Assessment / Plan
Assessment / Plan
HPI: 83-year-old female with PMH asthma/COPD, stroke with left sided residual weakness, who was discharged 2 months ago for bilateral pneumonia and R pleural effusion s/p right chest tube placement which was DC'ed 07/23; p/w hypoxia and was placed on
oxygen at the correction.
She denies to significant shortness of breath, chest pain etc. But she does endorse to nausea.
Of note, she was requiring as much as 100% high flow nasal cannula O2 support during her last admission.
In the ER, she was placed on 6L nasal cannula.
Her CXR this admission showed mild stable lingular interstitial pneumonia.
A/P:
# Acute hypoxic respiratory failure on chronic respiratory insufficiency. Patient on home oxygen since her recent discharge in July for lung issues. She states she uses it only at night.
On admission needed 6 L currently on 4 L.
Evaluation so far-
COVID/Flu neg
Normal procaln, RSV swab negative
Follow blood cultures-1/2 bottle GPC in clusters -await identification
Chest x-ray, denies mild stable lingual pneumonia but does not explain the extensive bilateral crackles she has.
Weight compared to recent is lower. Her BNP is also lower. Clinically no signs suggestive of acute heart failure.
Patient with prior CVA with aspiration syndrome recurrent pneumonia.
Speech and swallow ambulation noted, although patient declined, modification understanding risk of aspiration.
-Patient not acting like infectious nor heart failure. Patient with bilateral extensive crackles-rule out underlying primary lung issue including inflammatory lung disease - pulm in put noted - suspicion is for recurrent aspirational lung disease.
Speech therapist input noted Patient presents with signs concerning for at least mild dysphagia. Last known video swallow study 10/11/2020 indicated mild oral/pharyngeal dysphagia. Patient has had 7 prior swallowing studies and has a history of
oral/pharyngeal and esophageal dysphagia (i.e., tortuous esophagus, achalasia) with elevated risk for bottom up and top down aspiration.
I had a long discussion with patient today about her risk of aspiration and recurrent nature of her lung disease is probably aspiration pneumonitis/pneumonia. Despite all the findings and recommendations she wishes to stay on regular diet. She
understands the risk of aspirational pneumonias, infections, respiratory failures, and .
Narrow antibiotics to Unasyn and monitor
Other Medical conditions:
# Asthma/COPD
Continue FANS CLERK inhalers, montelukast
Acute urine retention.
Multiple straight cath with high PVR
Delong catheter inserted on 10/05 with PVR over 500
Urinalysis not consistent with UTI.
Start Flomax
Most likely will require voiding trial as outpatient.
# Prediabetes
A1C at 7.2% from 07/2023
# History of CVA with residual left-sided paralysis/neuropathic pain
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
Continue aspirin, statin
Continue Xarelto
PT OT
# Chronic back pain
Continue tramadol
# History of muscle spasms
continue baclofen PRN
# Constipation
Continue MiraLAX
# Chronic anemia
# GERD
Continue omeprazole
# Anxiety/depression
Continue bupropion, sertraline
trazodone PRN
# History of orthostatic hypotension
Continue midodrine
# Essential hypertension
Continue terazosin
# IBS
# Diverticulosis
code status: DNR/DNI
DVT prophylaxis� FANS CLERK Xarelto
DC planning
Anticipated Discharge: 24 - 48 hours
Subjective/Interval History
-
Date of Service: October 06, 2023
Objective Data
-
Vital Signs:
Vital Signs
Temp Pulse Resp BP Pulse Ox
98.2 F 98 20 118/52 93
10/06/23 15:22 10/06/23 15:22 10/06/23 15:22 10/06/23 15:22 10/06/23 15:22
I&O
10/05/23 10/06/23 10/07/23
06:59 06:59 06:59
Intake Total 1999 / 1999 950 / 950
Output Total 1010 / 1010 2220 / 2220
Balance 990 / 990 -1270 / -1270
Physical Exam
-
General: Well Developed and No Apparent Distress
HEENT: Normocephalic, Atraumatic and Moist Mucous Membranes
Respiratory: Clear to Auscultation
Cardiac: Regular Rhythm and S1/S2; Negative Murmur, Rub or Gallop
GI: Soft, Nontender, Nondistended and Normal Bowel Sounds; Negative Organomegaly
Rectal: Deferred by Provider
Musculoskeletal: No Clubbing, No Cyanosis and No Edema
Skin: Negative Rash
Neuro: Nonfocal/Grossly Intact
[2023-10-06] MEDS: XARELTO 20 MG PO (17:21)
[2023-10-06] MEDS: UNASYN IV ×2 (17:22→21:24)
[2023-10-06] MEDS: HYTRIN 1 MG PO (21:25)
[2023-10-06] MEDS: LIPITOR 20 MG PO (21:26)
[2023-10-06] MEDS: MONISTAT 7 VAGINAL CREAM 1 APPLIC VAG (21:26)
[2023-10-06 23:01] VITALS: BP 98/49
[2023-10-07] MEDS: UNASYN IV ×2 (03:56→09:50)
[2023-10-07 06:00] VITALS: BMI 24.0
[2023-10-07] MEDS: TYLENOL ORAL SOLUTION 1000 MG PO ×3 (06:13→21:26)
[2023-10-07 07:00] VITALS: BP 110/51
[2023-10-07] MEDS: VENTOLIN NEBULES 2.5 MG INH ×3 (07:34→20:31)
[2023-10-07] MEDS: PULMICORT 0.5 MG INH ×2 (07:34→20:31)
[2023-10-07] MEDS: SPIRIVA RESPIMAT 2.5 MCG 2 PUFF INH (07:34)
[2023-10-07 08:18] LABS: % Basophils 0.5 % (0-2); % Eosinophils 2.8 % (0-6); % Immature Granulocytes 0.3 % (0-0.5); % Lymphocytes 11.1 % (20.5-51.1); % Monocytes 5.8 % (1.7-9.3); % Neutrophils 79.5 % (42.2-75.2); Absolute Basophils 0.1 10^3/uL (0-0.2); Absolute Eosinophils 0.4 10^3/uL (0-0.7); Absolute Immature Granulocytes 0.1 10^3/uL (0-0.05); Absolute Lymphocytes 1.6 10^3/uL (1.2-3.4); Absolute Monocytes 0.9 10^3/uL (0.1-0.6); Absolute Neutrophils 11.7 10^3/uL (1.4-6.5); Hematocrit 28.5 % (37.0-47.0); Hemoglobin 8.6 g/dL (12.0-16.0); Mean Corp Hgb Conc. 30.2 g/dL (33.0-37.0); Mean Corpuscular Hgb 23.4 pg (27.0-31.0); Mean Corpuscular Volume 77.7 fL (81.0-99.0); Mean Platelet Volume 9.6 fL (7.4-10.4); Nucleated Red Blood Cells % 0 %; Platelet Count 449 10^3/uL (130-400); Red Blood Cell Count 3.67 10^6/uL (4.20-5.40); Red Cell Dist. Width 18.2 % (11.5-14.5); White Blood Cell Count 14.7 10^3/uL (4.8-10.8)
[2023-10-07 08:26] LABS: Blood Urea Nitrogen 9 mg/dl (7-17); Calcium 8.7 mg/dl (8.4-10.2); Carbon Dioxide 27 mmol/L (22-30); Chloride 104 mmol/L (98-107); Estimated Creatinine Clearance 62 ml/min; Glucose 103 mg/dl (70-99); Potassium 4.2 mmol/L (3.5-5.1); Sodium 135 mmol/L (135-145); eGFR > 60.00
[2023-10-07 09:00] VITALS: BP 101/63
[2023-10-07 09:30] VITALS: BP 101/63; PULSE 84; O2SAT 91
[2023-10-07] MEDS: SINGULAIR 10 MG PO (09:50)
[2023-10-07] MEDS: ULTRAM 50 MG PO ×2 (09:50→21:34)
[2023-10-07] MEDS: PROTONIX 40 MG PO (09:50)
[2023-10-07] MEDS: OCUVITE SOFTGEL PO (09:50)
[2023-10-07] MEDS: NEURONTIN PO ×4 (09:50→21:40)
[2023-10-07] MEDS: MYRBETRIQ EXTENDED RELEASE PO ×2 (09:50→09:51)
[2023-10-07] MEDS: FLOMAX PO ×2 (09:50→09:51)
[2023-10-07] MEDS: WELLBUTRIN REGULAR RELEASE 100 MG PO ×3 (09:50→21:35)
[2023-10-07] MEDS: LOW STRENGTH ASPIRIN 81 MG PO (09:51)
[2023-10-07] MEDS: ZOLOFT 100 MG PO (09:51)
[2023-10-07] MEDS: ProAmatine 5 MG PO ×3 (09:51→17:46)
--- NOTE | 2023-10-07 14:45 | W.PN.PUL3 ---
Addendum entered and electronically signed by Jian Martel MD 10/07/23 14:55:
DCd Unasyn and started PO Levofloxacin, would complete 5 days.
Original Note:
Today's Communication / Plan
-
Continue nebulizer therapy while in the hospital
Restart inhalers upon discharge. May continue as needed nebulizers to aid with secretion clearance.
Continue antibiotics
Secretion clearance interventions
Symptomatic management
Aspiration precautions
Discharge planning
Sign off
Assessment
-
Acute on chronic hypoxemic respiratory insufficiency- 4L NC.
Chest x-ray 10/03/2023: Mild stable lingular interstitial pneumonia.
Pro BNP 1150 (10/03/2023)
Pro jaquelin negative (10/03/2023) suspect aspiration pneumonitis/pneumonia
Conditions present prior admission:
Admission to [facility] 07/2023
Pneumonia/right pleural effusion status post chest tube placement 07/20/2023.
Discharged on nocturnal oxygen from the hospital.
Asthma/COPD, on salmeterol/fluticasone and combivent, not on home O2
Prediabetes
HTN
Constipation
Anemia
GERD
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
Chronic dizziness
Anxiety/depression
Recurrent UTI
Orthostatic hypotension
H/o DVT/PE, on rivaroxaban
Achalasia, s/p PEG and reversal
IBS
Diverticulosis
Right TKA
Lumbar laminectomy 2015
Tonsillectomy
Former smoker
DNR
Assessment and plan:
Respiratory status improving.
On 4 L supplemental oxygen which is new for her. Continue to wean down as able. Patient does have nocturnal oxygen at home.
Patient does not appear toxic
Continues to report coughing with difficulty expectorating.
Not bronchospastic on exam
Bibasilar crackles on exam: Possibly post inflammatory given prior pneumonia/.
-
Strongly suspect intermittent aspiration.
Patient has deemed high risk for aspiration during prior hospital stay. She has tortuous esophagus/possibly some degree of achalasia.
Modified diet has been recommended by speech pathology. Patient declined.
She understands risk of recurrent aspiration.
-
Last known video swallow study 10/11/2020 indicated mild oral/pharyngeal dysphagia. Patient has had 7 prior swallowing studies and has a history of oral/pharyngeal and esophageal dysphagia (i.e., tortuous esophagus, achalasia) with elevated risk for
bottom up and top down aspiration.
-
Continue antibiotics until cultures negative, Klebsiella pneumonia-antibiotics per primary team.
Zosyn discontinued
Okay to transition to oral antibiotics.
-
Incentive spirometry encouraged.
Aspiration precautions
Advised patient to take modified diet, She declined.
-
Given constant coughing and difficulty expectorating:
Continue current regimen while in the hospital.
Hold inhalers as the patient is unable to perform inhaler maneuver properly. May restart after discharge.
Continue nebulizer therapy-Pulmicort/DuoNebs, while in the hospital.
Vest therapy twice a day while in the hospital.
Mucolytic's
Antitussives
Aspiration precaution
No indication for systemic corticosteroids.
-
Will follow
-
Dr. Prabhakar updated family at the bedside 10/06/2023
-
No additional recommendation from the pulmonary perspective.
I agree with discharge planning.
She understand that the coughing could last for several days to weeks. There is risk for recurrent worsening symptoms due to ongoing aspiration.
Subjective Data
-
Date of Service:
Date of Service: October 07, 2023
Chief Complaint: Pulmonary Follow Up (Acute respiratory insufficiency)
Subjective:
Main complaint is intermittent coughing.
Remains afebrile
Remains on low rate supplemental oxygen.
Review of Systems
General: Fever (n)
Cardiopulmonary: Dyspnea (none at rest) and Cough
Objective Data
Data Reviewed
Vital Signs / I&O / Oxygen:
Vital Signs
Temp Pulse Resp BP Pulse Ox
98.1 F 82 16 112/49 94
10/07/23 07:00 10/07/23 13:58 10/07/23 13:29 10/07/23 13:58 10/07/23 13:29
Intake and Output
10/06/23 10/07/23 10/08/23
06:59 06:59 06:59
Intake Total 950 / 950 1080 / 1080
Output Total 2220 / 2220 1175 / 1175
Balance -1270 / -1270 -95 / -95
SaO2 94
Nasal Cannula flow liters per 5
minute
Physical Exam
General: Respiratory Distress (n) and Comfortable
HEENT: Normocephalic
Cardiovascular: S1-S2
Respiratory: Wheeze (n), Crackles and Other (Bilateral squeaks)
GI: Soft and Non Distended
Neurology: Awake, Alert, Oriented and Other (Left hemiparesis)
Labs/Micro/Reports
Lab Data
10/07/23 07:29
10/07/23 07:29
Microbiology
10/03/23 13:57 Blood/Venous Blood Culture - Preliminary
No Growth in 4 days- Final report to follow
10/05/23 13:51 Sputum Respiratory Culture - Final
Klebsiella pneumoniae
Cathy albicans
10/05/23 13:51 Sputum Gram Stain - Final
10/03/23 12:05 Blood/Venous Blood Culture - Preliminary
Coagulase neg. staphylococcus
Additional testing on request
10/03/23 12:05 Blood/Venous Gram Stain - Preliminary
10/03/23 17:17 Nose MRSA Screen - Final
No Methicillin Resistant Staphylococcus aureus isolated.
[2023-10-07 15:00] VITALS: BP 102/58
--- NOTE | 2023-10-07 16:06 | PTCARENOTE ---
AM medications crushed as able and administered in puree by this RN; patient noted to have a frequent moist cough with oral intake, denies feeling puree get stuck in throat or 'go down the wrong pipe.' PO gabapentin, flomax, and myrbetriq unable to
be crushed, patient unable to swallow whole pills. Lung sounds coarse throughout. Patient 90% on 5L, increased to 6L with improvement to 96%. MD made aware, no new orders at this time.
--- NOTE | 2023-10-07 16:12 | W.PN.HOSP.TC ---
Today's Communication/Plan
-
Continue IV antibiotics
Supportive care
Continue oxygen supplementation
Goals of care discussion as outlined.
Assessment / Plan
Assessment / Plan
HPI: 83-year-old female with PMH asthma/COPD, stroke with left sided residual weakness, who was discharged 2 months ago for bilateral pneumonia and R pleural effusion s/p right chest tube placement which was DC'ed 07/23; p/w hypoxia and was placed on
oxygen at the custodial.
She denies to significant shortness of breath, chest pain etc. But she does endorse to nausea.
Of note, she was requiring as much as 100% high flow nasal cannula O2 support during her last admission.
In the ER, she was placed on 6L nasal cannula.
Her CXR this admission showed mild stable lingular interstitial pneumonia.
A/P:
# Acute hypoxic respiratory failure on chronic respiratory insufficiency. Patient on home oxygen since her recent discharge in July for lung issues. She states she uses it only at night.
On admission needed 6 L
Severe dysphagia after CVA with severe aspiration syndrome
Recurrent aspiration pneumonia/pneumonitis.
COVID/Flu neg
Normal procaln, RSV swab negative
Follow blood cultures-1/2 bottle GPC in clusters -await identification
Chest x-ray, denies mild stable lingual pneumonia but does not explain the extensive bilateral crackles she has.
Weight compared to recent is lower. Her BNP is also lower. Clinically no signs suggestive of acute heart failure.
Patient with prior CVA with aspiration syndrome recurrent pneumonia.
Speech and swallow ambulation noted, although patient declined, modification understanding risk of aspiration.
-Patient not acting like infectious nor heart failure. Patient with bilateral extensive crackles-rule out underlying primary lung issue including inflammatory lung disease - pulm in put noted - suspicion is for recurrent aspirational lung disease.
Speech therapist input noted Patient presents with signs concerning for at least mild dysphagia. Last known video swallow study 10/11/2020 indicated mild oral/pharyngeal dysphagia. Patient has had 7 prior swallowing studies and has a history of
oral/pharyngeal and esophageal dysphagia (i.e., tortuous esophagus, achalasia) with elevated risk for bottom up and top down aspiration.
I had a long discussion with patient today about her risk of aspiration and recurrent nature of her lung disease is probably aspiration pneumonitis/pneumonia. Despite all the findings and recommendations she wishes to stay on regular diet. She
understands the risk of aspirational pneumonias, infections, respiratory failures, and .
Narrow antibiotics to Unasyn and monitor
Other Medical conditions:
# Asthma/COPD
Continue PSYCHOLOGY PROFESSOR inhalers, montelukast
Acute urine retention.
Multiple straight cath with high PVR
Delong catheter inserted on 10/05 with PVR over 500
Urinalysis not consistent with UTI.
Start Flomax
Most likely will require voiding trial as outpatient.
# Prediabetes
A1C at 7.2% from 07/2023
# History of CVA with residual left-sided paralysis/neuropathic pain
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
Continue aspirin, statin
Continue Xarelto
PT OT
# Chronic back pain
Continue tramadol
# History of muscle spasms
continue baclofen PRN
# Constipation
Continue MiraLAX
# Chronic anemia
# GERD
Continue omeprazole
# Anxiety/depression
Continue bupropion, sertraline
trazodone PRN
# History of orthostatic hypotension
Continue midodrine
# Essential hypertension
Continue terazosin
# IBS
# Diverticulosis
code status: DNR/DNI
DVT prophylaxis� PSYCHOLOGY PROFESSOR Xarelto
Goals of care discussion
Patient with history of CVA and severe aspiration syndrome with multiple hospitalizations due to evolving pneumonia
Currently with very wet voice and diffuse rhonchi, hypoxic with increasing oxygen requirements up to 6 L.
Patient does not wish to pursue any adjustments in terms of diet modifications including thickeners, not interested in any means of artificial life support including PEG tube nutrition.
Discussed with patient's as well as primary physician over the phone. Given patient declining, multiple hospitalizations with aspiration pneumonia, there would support palliative approach with consideration of hospice.
Further discussion to follow.
Anticipated Discharge: 24 - 48 hours
Subjective/Interval History
-
Date of Service: October 07, 2023
Objective Data
-
Labs:
Laboratory Results
10/07/23
07:29
WBC 14.7 H
Hgb 8.6 L
Hct 28.5 L
Plt Count 449 H
Sodium 135
Potassium 4.2
Chloride 104
Carbon Dioxide 27
BUN 9
Creatinine 0.5 L
Glucose 103 H
Calcium 8.7
Vital Signs:
Vital Signs
Temp Pulse Resp BP Pulse Ox
98.2 F 91 16 102/58 96
10/07/23 15:00 10/07/23 15:00 10/07/23 15:00 10/07/23 15:00 10/07/23 15:54
I&O
10/06/23 10/07/23 10/08/23
06:59 06:59 06:59
Intake Total 950 / 950 1080 / 1080
Output Total 2220 / 2220 1175 / 1175
Balance -1270 / -1270 -95 / -95
Physical Exam
-
General: Well Developed and No Apparent Distress
HEENT: Normocephalic, Atraumatic and Moist Mucous Membranes
Respiratory: Rhonchi and Crackles
Cardiac: Regular Rhythm and S1/S2; Negative Murmur, Rub or Gallop
GI: Soft, Nontender, Nondistended and Normal Bowel Sounds; Negative Organomegaly
Rectal: Deferred by Provider
Musculoskeletal: No Clubbing, No Cyanosis and No Edema
Skin: Negative Rash
Neuro: Nonfocal/Grossly Intact
--- NOTE | 2023-10-07 17:16 | CM ---
Per MD. is amenable to hospice and wants to discuss with other family members before making final decision.
[2023-10-07] MEDS: XARELTO 20 MG PO (17:46)
[2023-10-07] MEDS: LEVAQUIN 500 MG PO (17:46)
[2023-10-07] MEDS: LIPITOR 20 MG PO (21:34)
[2023-10-07] MEDS: HYTRIN 1 MG PO (21:35)
[2023-10-07] MEDS: MONISTAT 7 VAGINAL CREAM 1 APPLIC VAG (21:38)
[2023-10-07 23:08] VITALS: BP 127/55
[2023-10-07] MEDS: COMPAZINE 10 MG IV (23:13)
[2023-10-08 05:39] VITALS: BMI 23.9
[2023-10-08 06:00] VITALS: BMI 23.9
[2023-10-08] MEDS: TYLENOL ORAL SOLUTION 1000 MG PO ×3 (06:11→21:07)
[2023-10-08 07:02] VITALS: BP 141/73
[2023-10-08] MEDS: VENTOLIN NEBULES 2.5 MG INH ×3 (07:52→18:14)
[2023-10-08] MEDS: SPIRIVA RESPIMAT 2.5 MCG 2 PUFF INH (07:52)
[2023-10-08] MEDS: PULMICORT 0.5 MG INH ×2 (07:52→18:14)
[2023-10-08] MEDS: FLOMAX PO (08:32)
[2023-10-08] MEDS: MYRBETRIQ EXTENDED RELEASE PO (08:33)
[2023-10-08] MEDS: OCUVITE SOFTGEL PO (08:35)
[2023-10-08] MEDS: SINGULAIR 10 MG PO (08:36)
[2023-10-08] MEDS: NEURONTIN PO ×2 (08:36→15:11)
[2023-10-08] MEDS: ULTRAM 50 MG PO ×2 (08:36→21:05)
[2023-10-08] MEDS: ZOLOFT 100 MG PO (08:36)
[2023-10-08] MEDS: LOW STRENGTH ASPIRIN 81 MG PO (08:37)
[2023-10-08] MEDS: WELLBUTRIN REGULAR RELEASE 100 MG PO ×3 (08:37→21:06)
[2023-10-08] MEDS: LEVAQUIN 500 MG PO (08:37)
[2023-10-08] MEDS: ProAmatine 5 MG PO ×3 (08:37→17:24)
[2023-10-08] MEDS: PROTONIX 40 MG PO (08:38)
[2023-10-08] MEDS: COMPAZINE 10 MG IV (10:37)
[2023-10-08 12:35] LABS: % Basophils 0.6 % (0-2); % Eosinophils 0.7 % (0-6); % Immature Granulocytes 0.3 % (0-0.5); % Lymphocytes 18.6 % (20.5-51.1); % Monocytes 8.8 % (1.7-9.3); Absolute Basophils 0.1 10^3/uL (0-0.2); Absolute Eosinophils 0.1 10^3/uL (0-0.7); Absolute Lymphocytes 1.8 10^3/uL (1.2-3.4); Absolute Monocytes 0.8 10^3/uL (0.1-0.6); Absolute Neutrophils 6.7 10^3/uL (1.4-6.5); Hematocrit 29.8 % (37.0-47.0); Mean Corp Hgb Conc. 30.2 g/dL (33.0-37.0); Mean Corpuscular Hgb 23.2 pg (27.0-31.0); Mean Corpuscular Volume 76.8 fL (81.0-99.0); Mean Platelet Volume 9.5 fL (7.4-10.4); Nucleated Red Blood Cells % 0 %; Platelet Count 445 10^3/uL (130-400); Red Blood Cell Count 3.88 10^6/uL (4.20-5.40); Red Cell Dist. Width 18.1 % (11.5-14.5); White Blood Cell Count 9.5 10^3/uL (4.8-10.8)
[2023-10-08 12:49] LABS: Blood Urea Nitrogen 7 mg/dl (7-17); Carbon Dioxide 28 mmol/L (22-30); Chloride 102 mmol/L (98-107); Estimated Creatinine Clearance 62 ml/min; Glucose 89 mg/dl (70-99); Potassium 4.1 mmol/L (3.5-5.1); Sodium 135 mmol/L (135-145); eGFR > 60.00
--- NOTE | 2023-10-08 14:21 | W.PN.HOSP.TC ---
Today's Communication/Plan
-
Ongoing discussion with patient's on 10/07. Patient with severe aspiration syndrome worsening hypoxia and the rapid clinical decline. Overall declining quality of life prior to admission with multiple hospitalizations due to evolving
pneumonia. At this point patient is beyond palliative care option. Respecting patient's wishes and with the goal of comfort, hospice would be very appropriate. Patient's family thinking to the transition patient to [place] where the patient's
daughter is. With ongoing outpatient arrangements will continue current supportive care and IV antibiotics covering aspiration.
Add antiemetics and IV morphine on request for pain and dyspnea.
Assessment / Plan
Assessment / Plan
A/P:
# Acute hypoxic respiratory failure on chronic respiratory insufficiency. Patient on home oxygen since her recent discharge in July for lung issues. She states she uses it only at night.
On admission needed 6 L
Severe dysphagia after CVA with severe aspiration syndrome
Recurrent aspiration pneumonia/pneumonitis.
COVID/Flu neg
Normal procaln, RSV swab negative
Follow blood cultures-/ bottle [facility] in [facility] -await identification
Chest x-ray, denies mild stable lingual pneumonia but does not explain the extensive bilateral crackles she has.
Weight compared to recent is lower. Her BNP is also lower. Clinically no signs suggestive of acute heart failure.
Patient with prior CVA with aspiration syndrome recurrent pneumonia.
Speech and swallow ambulation noted, although patient declined, modification understanding risk of aspiration.
-Patient not acting like infectious nor heart failure. Patient with bilateral extensive crackles-rule out underlying primary lung issue including inflammatory lung disease - pulm in put noted - suspicion is for recurrent aspirational lung disease.
Speech therapist input noted Patient presents with signs concerning for at least mild dysphagia. Last known video swallow study 10/11/2020 indicated mild oral/pharyngeal dysphagia. Patient has had 7 prior swallowing studies and has a history of
oral/pharyngeal and esophageal dysphagia (i.e., tortuous esophagus, achalasia) with elevated risk for bottom up and top down aspiration.
I had a long discussion with patient today about her risk of aspiration and recurrent nature of her lung disease is probably aspiration pneumonitis/pneumonia. Despite all the findings and recommendations she wishes to stay on regular diet. She
understands the risk of aspirational pneumonias, infections, respiratory failures, and .
Narrow antibiotics to Unasyn and monitor
Other Medical conditions:
# Asthma/COPD
Continue [employer] inhalers, montelukast
Acute urine retention.
Multiple straight cath with high PVR
Delong catheter inserted on 10/05 with PVR over 500
Urinalysis not consistent with UTI.
Start Flomax
Most likely will require voiding trial as outpatient.
# Prediabetes
A1C at 7.2% from 07/2023
# History of CVA with residual left-sided paralysis/neuropathic pain
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
Continue aspirin, statin
Continue Xarelto
PT OT
# Chronic back pain
Continue tramadol
# History of muscle spasms
continue baclofen PRN
# Constipation
Continue MiraLAX
# Chronic anemia
# GERD
Continue omeprazole
# Anxiety/depression
Continue bupropion, sertraline
trazodone PRN
# History of orthostatic hypotension
Continue midodrine
# Essential hypertension
Continue terazosin
# IBS
# Diverticulosis
code status: DNR/DNI
DVT prophylaxis� [employer] K[employer]NER Xarelto
Goals of care discussion
Patient with history of CVA and severe aspiration syndrome with multiple hospitalizations due to evolving pneumonia
Currently with very wet voice and diffuse rhonchi, hypoxic with increasing oxygen requirements up to 6 L.
Patient does not wish to pursue any adjustments in terms of diet modifications including thickeners, not interested in any means of artificial life support including PEG tube nutrition.
Discussed with patient's as well as primary physician over the phone. Given patient declining, multiple hospitalizations with aspiration pneumonia, there would support palliative approach with consideration of hospice.
Further discussion to follow.
Ongoing discussion with patient's on 10/07. Patient with severe aspiration syndrome worsening hypoxia and the rapid clinical decline. Overall declining quality of life prior to admission with multiple hospitalizations due to evolving
pneumonia. At this point patient is beyond palliative care option. Respecting patient's wishes and with the goal of comfort, hospice would be very appropriate. Patient's family thinking to the transition patient to [place] where the patient's
daughter is. With ongoing outpatient arrangements will continue current supportive care and IV antibiotics covering aspiration.
Add antiemetics and IV morphine on request for pain and dyspnea.
Anticipated Discharge: 24 - 48 hours
Subjective/Interval History
-
Date of Service: October 08, 2023
Objective Data
-
Labs:
Laboratory Results
10/08/23
11:57
WBC 9.5
Hgb 9.0 L
Hct 29.8 L
Plt Count 445 H
Sodium 135
Potassium 4.1
Chloride 102
Carbon Dioxide 28
BUN 7
Creatinine 0.4 L
Glucose 89
Calcium 9.0
Vital Signs:
Vital Signs
Temp Pulse Resp BP Pulse Ox
97.7 F 82 16 141/73 95
10/08/23 07:02 10/08/23 13:18 10/08/23 13:18 10/08/23 08:37 10/08/23 13:18
I&O
10/07/23 10/08/23 10/09/23
06:59 06:59 06:59
Intake Total 1080 / 1080 800 / 800
Output Total 1175 / 1175 1375 / 1375
Balance -95 / -95 -575 / -575
Physical Exam
-
General: Well Developed and No Apparent Distress
HEENT: Normocephalic, Atraumatic and Moist Mucous Membranes
Respiratory: Rhonchi (Coarse rhonchi)
Cardiac: Regular Rhythm and S1/S2; Negative Murmur, Rub or Gallop
GI: Soft, Nontender, Nondistended and Normal Bowel Sounds; Negative Organomegaly
Rectal: Deferred by Provider
Musculoskeletal: No Clubbing, No Cyanosis and No Edema
Skin: Negative Rash
Neuro: Nonfocal/Grossly Intact
[2023-10-08 15:00] VITALS: BP 114/48
--- NOTE | 2023-10-08 15:17 | CM ---
IV/AB, IV/MSO4. Family is making arrangements to airbus patient to [place] where daughter and other family reside. They plan on having patient on hospice once arrives in [place]. Will continue to support patient and family.
[2023-10-08] MEDS: ZOFRAN 4 MG IV (15:30)
[2023-10-08] MEDS: MORPHINE SULFATE 2 MG IV (15:31)
[2023-10-08 16:26] VITALS: BMI 23.9
[2023-10-08] MEDS: XARELTO 20 MG PO (17:24)
[2023-10-08] MEDS: UNASYN IV ×2 (17:24→21:09)
[2023-10-08] MEDS: NEURONTIN 100 MG PO (21:05)
[2023-10-08] MEDS: HYTRIN 1 MG PO (21:05)
[2023-10-08] MEDS: LIPITOR 20 MG PO (21:06)
[2023-10-08] MEDS: MONISTAT 7 VAGINAL CREAM 1 APPLIC VAG (21:06)
[2023-10-08 23:53] VITALS: BP 96/38
[2023-10-09] MEDS: UNASYN IV ×4 (05:00→23:06)
[2023-10-09 05:46] VITALS: BMI 23.8
[2023-10-09 06:00] VITALS: BMI 23.8
[2023-10-09] MEDS: TYLENOL ORAL SOLUTION 1000 MG PO ×3 (06:30→23:04)
[2023-10-09 07:05] VITALS: BP 112/63
[2023-10-09] MEDS: VENTOLIN NEBULES 2.5 MG INH ×3 (07:48→21:46)
[2023-10-09] MEDS: SPIRIVA RESPIMAT 2.5 MCG 2 PUFF INH (07:48)
[2023-10-09] MEDS: PULMICORT 0.5 MG INH ×2 (07:48→21:46)
[2023-10-09 07:59] LABS: % Basophils 0.7 % (0-2); % Eosinophils 2.6 % (0-6); % Immature Granulocytes 0.3 % (0-0.5); % Lymphocytes 19.2 % (20.5-51.1); % Monocytes 8.4 % (1.7-9.3); % Neutrophils 68.8 % (42.2-75.2); Absolute Basophils 0.1 10^3/uL (0-0.2); Absolute Eosinophils 0.3 10^3/uL (0-0.7); Absolute Lymphocytes 1.8 10^3/uL (1.2-3.4); Absolute Monocytes 0.8 10^3/uL (0.1-0.6); Absolute Neutrophils 6.6 10^3/uL (1.4-6.5); Hematocrit 30.1 % (37.0-47.0); Hemoglobin 8.9 g/dL (12.0-16.0); Mean Corp Hgb Conc. 29.6 g/dL (33.0-37.0); Mean Corpuscular Hgb 23.2 pg (27.0-31.0); Mean Corpuscular Volume 78.4 fL (81.0-99.0); Mean Platelet Volume 9.7 fL (7.4-10.4); Nucleated Red Blood Cells % 0 %; Platelet Count 439 10^3/uL (130-400); Red Blood Cell Count 3.84 10^6/uL (4.20-5.40); Red Cell Dist. Width 18.5 % (11.5-14.5); White Blood Cell Count 9.6 10^3/uL (4.8-10.8)
[2023-10-09 08:49] LABS: Blood Urea Nitrogen 8 mg/dl (7-17); Calcium 9.1 mg/dl (8.4-10.2); Carbon Dioxide 26 mmol/L (22-30); Chloride 103 mmol/L (98-107); Estimated Creatinine Clearance 62 ml/min; Glucose 108 mg/dl (70-99); Potassium 4.3 mmol/L (3.5-5.1); Sodium 133 mmol/L (135-145); eGFR > 60.00
[2023-10-09] MEDS: LOW STRENGTH ASPIRIN 81 MG PO (08:56)
[2023-10-09] MEDS: WELLBUTRIN REGULAR RELEASE 100 MG PO ×3 (08:56→23:03)
[2023-10-09] MEDS: PROTONIX 40 MG PO (08:56)
[2023-10-09] MEDS: NEURONTIN 100 MG PO ×3 (08:56→23:03)
[2023-10-09] MEDS: FLOMAX PO (08:56)
[2023-10-09] MEDS: SINGULAIR 10 MG PO (08:56)
[2023-10-09] MEDS: ZOLOFT 100 MG PO (08:56)
[2023-10-09] MEDS: ULTRAM 50 MG PO ×2 (08:56→20:18)
[2023-10-09] MEDS: MYRBETRIQ EXTENDED RELEASE PO ×2 (08:56→08:59)
[2023-10-09] MEDS: ProAmatine 5 MG PO ×3 (08:57→18:46)
[2023-10-09] MEDS: OCUVITE SOFTGEL PO (08:57)
--- NOTE | 2023-10-09 09:19 | W.PN.HOSP.TC ---
Today's Communication/Plan
-
given patient wishes and relative stability...would try to transition pt to [place] as soon as possible before travel can no longer be undertaken
Assessment / Plan
Assessment / Plan
Dr. Singh had Ongoing discussion with patient's on 10/07. Patient with severe aspiration syndrome worsening hypoxia and the rapid clinical decline. Overall declining quality of life prior to admission with multiple hospitalizations due
to evolving pneumonia. At this point patient is beyond palliative care option. Respecting patient's wishes and with the goal of comfort, hospice would be very appropriate. Patient's family thinking to the transition patient to [place] where the
patient's daughter is. With ongoing outpatient arrangements will continue current supportive care and IV antibiotics covering aspiration.
Add antiemetics and IV morphine on request for pain and dyspnea.
A/P:
# Acute hypoxic respiratory failure on chronic respiratory insufficiency. Patient on home oxygen since her recent discharge in July for lung issues. She states she uses it only at night.
On admission needed 6 L
Severe dysphagia after CVA with severe aspiration syndrome--Patient does not wish to pursue any adjustments in terms of diet modifications including thickeners, not interested in any means of artificial life support including PEG tube nutrition.
Recurrent aspiration pneumonia/pneumonitis.
COVID/Flu neg
Normal procaln, RSV swab negative
Follow blood cultures-1/2 bottle GPC in clusters--coag neg staph, likely contaminant
Chest x-ray, denies mild stable lingual pneumonia but does not explain the extensive bilateral crackles she has.
Weight compared to recent is lower. Her BNP is also lower. Clinically no signs suggestive of acute heart failure.
Patient with prior CVA with aspiration syndrome recurrent pneumonia.
Speech and swallow ambulation noted, although patient declined, modification understanding risk of aspiration.
-Patient not acting like infectious nor heart failure. Patient with bilateral extensive crackles-rule out underlying primary lung issue including inflammatory lung disease - pulm in put noted - suspicion is for recurrent aspirational lung disease.
Speech therapist input noted Patient presents with signs concerning for at least mild dysphagia. Last known video swallow study 10/11/2020 indicated mild oral/pharyngeal dysphagia. Patient has had 7 prior swallowing studies and has a history of
oral/pharyngeal and esophageal dysphagia (i.e., tortuous esophagus, achalasia) with elevated risk for bottom up and top down aspiration.
Dr. Singh had a long discussion with patient about her risk of aspiration and recurrent nature of her lung disease is probably aspiration pneumonitis/pneumonia. Despite all the findings and recommendations she wishes to stay on regular diet.
She understands the risk of aspirational pneumonias, infections, respiratory failures, and .
Narrow antibiotics to Unasyn and monitor
Other Medical conditions:
# Asthma/COPD
Continue [employer] inhalers, montelukast
Acute urine retention.
Multiple straight cath with high PVR
Delong catheter inserted on 10/05 with PVR over 500
Urinalysis not consistent with UTI.
Start Flomax
Most likely will require voiding trial as outpatient.
# Prediabetes
A1C at 7.2% from 07/2023
# History of CVA with residual left-sided paralysis/neuropathic pain
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
Continue aspirin, statin
Continue Xarelto
PT OT
# Chronic back pain
Continue tramadol
# History of muscle spasms
continue baclofen PRN
# Constipation
Continue MiraLAX
# Chronic anemia
# GERD
Continue omeprazole
# Anxiety/depression
Continue bupropion, sertraline
trazodone PRN
# History of orthostatic hypotension
Continue midodrine
# Essential hypertension
Continue terazosin
# IBS
# Diverticulosis
code status: DNR/DNI
DVT prophylaxis� [employer]IST Xarelto
Goals of care discussion
Patient with history of CVA and severe aspiration syndrome with multiple hospitalizations due to evolving pneumonia
Currently with very wet voice and diffuse rhonchi, hypoxic with increasing oxygen requirements up to 6 L.
Patient does not wish to pursue any adjustments in terms of diet modifications including thickeners, not interested in any means of artificial life support including PEG tube nutrition.
Discussed with patient's as well as primary physician over the phone. Given patient declining, multiple hospitalizations with aspiration pneumonia, there would support palliative approach with consideration of hospice.
Further discussion to follow.
Anticipated Discharge: 24 - 48 hours
Subjective/Interval History
-
Date of Service: October 09, 2023
pt doesn't feel good today
Objective Data
-
Labs:
Laboratory Results
10/09/23
07:18
WBC 9.6
Hgb 8.9 L
Hct 30.1 L
Plt Count 439 H
Sodium 133 L
Potassium 4.3
Chloride 103
Carbon Dioxide 26
BUN 8
Creatinine 0.5 L
Glucose 108 H
Calcium 9.1
Vital Signs:
max temp for 24 hours
10/08/23
15:00
Temp 97.9 F
Vital Signs
Temp Pulse Resp BP Pulse Ox
97.7 F 81 16 112/63 97
10/09/23 07:05 10/09/23 08:57 10/09/23 07:52 10/09/23 08:57 10/09/23 07:52
I&O
10/08/23 10/09/23 10/10/23
06:59 06:59 06:59
Intake Total 800 / 800 880 / 880
Output Total 1375 / 1375 250 / 250
Balance -575 / -575 630 / 630
Review of Systems
-
All other systems: Reviewed and negative (generally doesn't feel well)
Physical Exam
-
General: Appears Chronically Ill
HEENT: Normocephalic, Atraumatic and Oxygen
Respiratory: Clear to Auscultation (anteriorly)
Cardiac: Regular Rhythm and S1/S2; Negative Murmur
GI: Soft, Nontender, Nondistended and Normal Bowel Sounds
Musculoskeletal: No Clubbing, No Cyanosis and No Edema
Neuro: Other (left arm contracted from previous stroke)
Psych: Calm
[2023-10-09 15:17] VITALS: BP 150/88
[2023-10-09] MEDS: XARELTO 20 MG PO (18:46)
[2023-10-09] MEDS: HYTRIN 1 MG PO (23:04)
[2023-10-09] MEDS: LIPITOR 20 MG PO (23:04)
[2023-10-09] MEDS: MONISTAT 7 VAGINAL CREAM 1 APPLIC VAG (23:08)
[2023-10-09 23:29] VITALS: BP 112/49
[2023-10-10] MEDS: UNASYN IV ×4 (04:33→21:33)
[2023-10-10 05:10] VITALS: BMI 23.6
[2023-10-10] MEDS: TYLENOL ORAL SOLUTION 1000 MG PO ×3 (05:11→21:20)
[2023-10-10 07:50] VITALS: BP 108/60
[2023-10-10] MEDS: SPIRIVA RESPIMAT 2.5 MCG 2 PUFF INH (08:45)
[2023-10-10] MEDS: PULMICORT 0.5 MG INH ×2 (08:45→20:35)
[2023-10-10] MEDS: OCUVITE SOFTGEL 1 CAP PO (09:29)
[2023-10-10] MEDS: ULTRAM 50 MG PO ×2 (09:29→21:21)
[2023-10-10] MEDS: MYRBETRIQ EXTENDED RELEASE 25 MG PO (09:29)
[2023-10-10] MEDS: LOW STRENGTH ASPIRIN 81 MG PO (09:29)
[2023-10-10] MEDS: WELLBUTRIN REGULAR RELEASE 100 MG PO ×3 (09:29→21:23)
[2023-10-10] MEDS: ProAmatine 5 MG PO ×3 (09:29→17:19)
[2023-10-10] MEDS: ZOLOFT 100 MG PO (09:30)
[2023-10-10] MEDS: PROTONIX 40 MG PO (09:30)
[2023-10-10] MEDS: NEURONTIN 100 MG PO ×2 (09:30→17:19)
[2023-10-10] MEDS: SINGULAIR 10 MG PO (09:30)
[2023-10-10] MEDS: FLOMAX 0.400000000000000022 MG PO (09:30)
--- NOTE | 2023-10-10 09:41 | W.PN.HOSP.TC ---
Today's Communication/Plan
-
would make plans to d/c pt back to [facility] Wednesday
Assessment / Plan
Assessment / Plan
Dr. Singh had Ongoing discussion with patient's on 10/07. Patient with severe aspiration syndrome worsening hypoxia and the rapid clinical decline. Overall declining quality of life prior to admission with multiple hospitalizations due
to evolving pneumonia. At this point patient is beyond palliative care option. Respecting patient's wishes and with the goal of comfort, hospice would be very appropriate. Patient's family thinking to the transition patient to [place] where the
patient's daughter is. With ongoing outpatient arrangements will continue current supportive care and IV antibiotics covering aspiration.
Add antiemetics and IV morphine on request for pain and dyspnea.
I spoke with pt and Nathanael, on 10/08. Explained that if she wants to go to [place], now is the time to travel before she can't--this AM 10/09, pt tells me she wants to go back to the [facility]--would make arrangements for Wednesday
A/P:
# Acute hypoxic respiratory failure on chronic respiratory insufficiency. Patient on home oxygen since her recent discharge in July for lung issues. She states she uses it only at night.
On admission needed 6 L
Severe dysphagia after CVA with severe aspiration syndrome--Patient does not wish to pursue any adjustments in terms of diet modifications including thickeners, not interested in any means of artificial life support including PEG tube nutrition.
Recurrent aspiration pneumonia/pneumonitis.
COVID/Flu neg
Normal procaln, RSV swab negative
Follow blood cultures-1/2 bottle GPC in clusters--coag neg staph, likely contaminant
Chest x-ray, denies mild stable lingual pneumonia but does not explain the extensive bilateral crackles she has.
Weight compared to recent is lower. Her BNP is also lower. Clinically no signs suggestive of acute heart failure.
Patient with prior CVA with aspiration syndrome recurrent pneumonia.
Speech and swallow ambulation noted, although patient declined, modification understanding risk of aspiration.
-Patient not acting like infectious nor heart failure. Patient with bilateral extensive crackles-rule out underlying primary lung issue including inflammatory lung disease - pulm in put noted - suspicion is for recurrent aspirational lung disease.
Speech therapist input noted Patient presents with signs concerning for at least mild dysphagia. Last known video swallow study 10/11/2020 indicated mild oral/pharyngeal dysphagia. Patient has had 7 prior swallowing studies and has a history of
oral/pharyngeal and esophageal dysphagia (i.e., tortuous esophagus, achalasia) with elevated risk for bottom up and top down aspiration.
Dr. Singh had a long discussion with patient about her risk of aspiration and recurrent nature of her lung disease is probably aspiration pneumonitis/pneumonia. Despite all the findings and recommendations she wishes to stay on regular diet.
She understands the risk of aspirational pneumonias, infections, respiratory failures, and .
Narrow antibiotics to Unasyn and monitor
Other Medical conditions:
# Asthma/COPD
Continue [employer]EE HE[employer] RN inhalers, montelukast
Acute urine retention.
Multiple straight cath with high PVR
Delong catheter inserted on 10/05 with PVR over 500
Urinalysis not consistent with UTI.
Start Flomax
Most likely will require voiding trial as outpatient.
# Prediabetes
A1C at 7.2% from 07/2023
# History of CVA with residual left-sided paralysis/neuropathic pain
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
Continue aspirin, statin
Continue Xarelto
PT OT
# Chronic back pain
Continue tramadol
# History of muscle spasms
continue baclofen PRN
# Constipation
Continue MiraLAX
# Chronic anemia
# GERD
Continue omeprazole
# Anxiety/depression
Continue bupropion, sertraline
trazodone PRN
# History of orthostatic hypotension
Continue midodrine
# Essential hypertension
Continue terazosin
# IBS
# Diverticulosis
code status: DNR/DNI
DVT prophylaxis� [employer]EE HE[employer] RN Xarelto
Goals of care discussion
Patient with history of CVA and severe aspiration syndrome with multiple hospitalizations due to evolving pneumonia
Currently with very wet voice and diffuse rhonchi, hypoxic with increasing oxygen requirements up to 6 L.
Patient does not wish to pursue any adjustments in terms of diet modifications including thickeners, not interested in any means of artificial life support including PEG tube nutrition.
Discussed with patient's as well as primary physician over the phone. Given patient declining, multiple hospitalizations with aspiration pneumonia, there would support palliative approach with consideration of hospice.
Further discussion to follow.
Anticipated Discharge: Within 24 hours
Subjective/Interval History
-
Date of Service: October 10, 2023
pt deciding to go back to the [facility]--too much to try to transfer to [place]--I agree with her
Objective Data
-
Vital Signs:
max temp for 24 hours
10/10/23
07:50
Temp 98.2 F
Vital Signs
Temp Pulse Resp BP Pulse Ox
98.2 F 80 16 108/60 96
10/10/23 07:50 10/10/23 08:46 10/10/23 08:46 10/10/23 09:29 10/10/23 08:46
I&O
10/09/23 10/10/23 10/11/23
06:59 06:59 06:59
Intake Total 880 / 880 900 / 900
Output Total 250 / 250 925 / 925
Balance 630 / 630 -25 / -25
Review of Systems
-
All other systems: Reviewed and negative
Physical Exam
-
General: Well Developed, Well Nourished and No Apparent Distress
HEENT: Normocephalic, Atraumatic and Oxygen
Respiratory: Clear to Auscultation; Negative Wheezes or Rhonchi
Cardiac: Regular Rhythm and S1/S2; Negative Murmur
GI: Soft, Nontender, Nondistended and Normal Bowel Sounds
Musculoskeletal: No Clubbing, No Cyanosis and No Edema
Neuro: Other (left arm contracted from cva)
Psych: Calm
[2023-10-10 15:02] VITALS: BP 106/53
--- NOTE | 2023-10-10 15:03 | CM ---
Addendum entered by Lucy Mayen 10/10/23 15:14:
Son returned call. OBS notice explained. Expressed understanding. Son said that he requested a peg tube approximately 1-[address] [facility] was supposed to initiate the process. To date, she does not have peg.
Original Note:
Family is considering transporting patient via airvac to [place] [facility] where grand-daughter resides. This CM sent e-mail to [facility] ( ) for quote from [place] to [place]. Family would also consider another
point of origin airport.
[2023-10-10] MEDS: XARELTO 20 MG PO (17:19)
[2023-10-10] MEDS: HYTRIN 1 MG PO (21:22)
[2023-10-10] MEDS: NEURONTIN PO (21:22)
[2023-10-10] MEDS: LIPITOR 20 MG PO (21:23)
[2023-10-10] MEDS: MONISTAT 7 VAGINAL CREAM 1 APPLIC VAG (21:32)
[2023-10-10 23:21] VITALS: BP 126/56
[2023-10-11] MEDS: UNASYN IV ×2 (04:58→10:16)
[2023-10-11 06:00] VITALS: BMI 23.3
[2023-10-11] MEDS: TYLENOL ORAL SOLUTION PO (06:24)
[2023-10-11] MEDS: PULMICORT 0.5 MG INH (07:33)
[2023-10-11] MEDS: SPIRIVA RESPIMAT 2.5 MCG 2 PUFF INH (07:33)
[2023-10-11 08:00] VITALS: BP 122/55
[2023-10-11] MEDS: MYRBETRIQ EXTENDED RELEASE 25 MG PO (08:58)
[2023-10-11] MEDS: WELLBUTRIN REGULAR RELEASE 100 MG PO (08:58)
[2023-10-11] MEDS: ULTRAM 50 MG PO (08:59)
[2023-10-11] MEDS: PROTONIX 40 MG PO (08:59)
[2023-10-11] MEDS: ProAmatine 5 MG PO ×2 (08:59→12:51)
[2023-10-11] MEDS: SINGULAIR 10 MG PO (09:00)
[2023-10-11] MEDS: ZOLOFT 100 MG PO (09:00)
[2023-10-11] MEDS: LOW STRENGTH ASPIRIN 81 MG PO (09:00)
[2023-10-11] MEDS: NEURONTIN PO (09:06)
[2023-10-11] MEDS: OCUVITE SOFTGEL PO (09:07)
[2023-10-11] MEDS: FLOMAX PO (09:07)
--- NOTE | 2023-10-11 11:11 | W.DS.TRANS ---
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
-
Discharge Instructions:
Discharge Diagnosis/Procedures Acute hypoxemic respiratory failure on chronic
respiratory insufficiency, severe dysphagia
after stroke with severe aspiration syndrome,
asthma/chronic obstructive pulmonary disease,
acute urinary retention with Delong catheter,
history of prediabetes, history of stroke with
residual left-sided paralysis and neuropathic
pain with chronic ambulatory dysfunction,
chronic back pain, history of muscle spasms,
constipation, chronic anemia, gastroesophageal
reflux disease, anxiety/depression, history of
orthostatic hypotension, essential hypertension,
irritable bowel syndrome
Diet Other diet,As tolerated
Additional Diets Patient understands the aspiration risk
including recurrent pneumonia, asphyxia, --
she chooses not to make any modifications to her
diet or have PEG tube feedings. Patient
requires mechanical food preparation
Activity As tolerated
Driving Restrictions No driving
Bathing Restrictions None
Instructions:
Stand-Alone Forms:
Changes to Home Medications: Yes
Discharge Medications:
DC Medications w/original date entered in [employer]
montelukast 10 mg tablet 10 mg PO DAILY Lung/breathing issues 09/30/15
aspirin 81 mg chewable tablet 81 mg PO DAILY Blood clot prevention/tx 10/09/20
atorvastatin 20 mg tablet 20 mg PO HS High cholesterol 10/09/20
bupropion HCl 100 mg tablet 100 mg PO TID Mental Health/Anxiety 10/09/20
melatonin 5 mg tablet 5 mg PO HSPRN PRN INSOMNIA 10/09/20
menthol 5 % topical patch (Icy Hot (menthol)) 1 patch topical DAILY left hip pain ##0 10/09/20
omeprazole 20 mg capsule,delayed release 20 mg PO DAILY Gastrointestinal issue 10/09/20
polyethylene glycol 3350 17 gram oral powder packet 17 grams PO DAILYPRN PRN constipation/no results from docusate in 6 hrs 10/09/20
rivaroxaban 20 mg tablet (Xarelto) 20 mg PO QPM Blood clot prevention/tx 10/09/20
sertraline 100 mg tablet 100 mg PO DAILY Mental Health/Anxiety 10/09/20
terazosin 1 mg capsule 1 mg PO HS Urinary issue 10/09/20
trazodone 50 mg tablet 50 mg PO BID PRN insomnia 10/09/20
baclofen 10 mg tablet 10 mg PO TIDPRN PRN muscle spams 12/27/22
fluticasone 113 mcg-salmeterol 14 mcg/actuation breath activated powdr 1 inh inhalation R BID Lung/Breathing Issues 12/27/22
ipratropium 20 mcg-albuterol 100 mcg/actuation mist for inhalation (Combivent Respimat) 1 puff inhalation R QID Lung/Breathing Issues 12/27/22
menthol 5 % topical patch (Icy Hot (menthol)) 1 patch topical DAILY PRN left shoulder 12/27/22
mirabegron 25 mg tablet,extended release 24 hr (Myrbetriq) 25 mg PO DAILY Urinary Issue 12/27/22
nystatin 100,000 unit/gram topical powder 1 applic topical DAILYPRN PRN under breasts/groin rash 12/27/22
tramadol 50 mg tablet 50 mg PO BID Pain 12/27/22
vit C 250 mg-E 90 mg-zinc 40 mg-copper 1 ho-byjjpe-ujreer chew tablet (PreserVision AREDS-2) 1 tab PO DAILY Eye Condition 12/27/22
midodrine 5 mg tablet 5 mg PO TID Blood Pressure 07/16/23
gabapentin 100 mg capsule 100 mg PO TID #60 caps 07/29/23
Gnp Best Powder Fiber 2 tsp PO DAILY Constipation 10/03/23
acetaminophen 160 mg/5 mL (5 mL) oral solution 1,000 mg PO Q8H@0600,14,22 Pain 10/03/23
cholecalciferol (vitamin D3) 25 mcg (1,000 unit) tablet 25 mcg PO DAILY Supplement 10/03/23
dextromethorphan HBr 30 mg/5 mL oral liquid 60 mg PO [id number] PRN cough 10/03/23
dextromethorphan-guaifenesin 30 mg-600 mg tablet extended [id number] hr (Mucinex DM) 1 tab PO Q12H PRN cough 10/03/23
fluticasone propionate 50 mcg/actuation nasal spray,suspension 1 spray intranasal DAILY Allergies 10/03/23
guaifenesin 100 mg/5 mL oral liquid (Susan-Tussin) 100 mg PO Q6HPRN PRN cough 10/03/23
ipratropium 20 mcg-albuterol 100 mcg/actuation mist for inhalation (Combivent Respimat) 1 puff inhalation R BIDPRN PRN sob 10/03/23
nystatin 100,000 unit/gram topical powder (Klayesta) 1 applic topical BID Skin Issues 10/03/23
cyanocobalamin (vitamin B-12) 1,000 mcg tablet 1,000 mcg PO DAILY Supplement 10/04/23
Home Medication Changes
Discharge with hospice transition.
Pending Results: No
--- NOTE | 2023-10-11 12:21 | CM ---
Patient has been medically cleared for discharge back to [facility] memory care unit. Family intends on initiating hospice services at [facility]. Ambulance transport is scheduled for 1:30PM. Patient, , Nydia at [facility] and
team notified.
NURSE TO NURSE REPORT # [phone]
FAX # [phone]
[2023-10-11 12:50] VITALS: BP 131/66
== END 2023-10-11 13:33 | DRG 177 ==
LOC: 2 NORTH 13:58
PROVIDERS: Internal Medicine; ADMITTING PHYSICIAN Internal Medicine; ATTENDING PHYSICIAN Internal Medicine; CONSULT PHYSICIAN Internal Medicine Critical Care Medicine; EMERGENCY PHYSICIAN Student in an Organized Health Care Education/Training Program; FAMILY PHYSICIAN Student in an Organized Health Care Education/Training Program
DX: J69.0 Pneumonitis due to inhalation of food and vomit (principal); J96.21 Acute and chronic respiratory failure with hypoxia; J44.0 Chronic obstructive pulmonary disease with (acute) lower respiratory infection; I69.354 Hemiplegia and hemiparesis following cerebral infarction affecting left non-dominant side; E87.1 Hypo-osmolality and hyponatremia; Z11.52 Encounter for screening for COVID-19; J84.9 Interstitial pulmonary disease, unspecified; Z79.82 Long term (current) use of aspirin; M54.9 Dorsalgia, unspecified; G89.29 Other chronic pain; K58.9 Irritable bowel syndrome, unspecified; D63.8 Anemia in other chronic diseases classified elsewhere; K21.9 Gastro-esophageal reflux disease without esophagitis; F41.1 Generalized anxiety disorder; F32.9 Major depressive disorder, single episode, unspecified; I10 Essential (primary) hypertension; K57.30 Diverticulosis of large intestine without perforation or abscess without bleeding; Z66 Do not resuscitate; E87.6 Hypokalemia; Z87.891 Personal history of nicotine dependence; Z51.5 Encounter for palliative care; Z79.01 Long term (current) use of anticoagulants
CPT/HCPCS: 71045; 80048; 80053; 81003; 83605; 83880; 84145; 84484; 85025; 85027; 87040; 87070; 87077; 87150; 87186; 87205; 87502; 87807; 87811; 92610; 93005; 94640; 94669; 97163; 97167; 97530; 99285